=== PATIENT | male | born 1955 | race Caucasian/White ===

== ENCOUNTER 2018-08-19 11:32 | Inpatient (IN) | payer OTHER, SELFPAY ==
[2018-08-19] VITALS (8 sets, daily range): BP systolic 111–138; BP diastolic 47–74; PULSE 67–90; RESP 16–22; TEMP 36.6–36.9; O2SAT 96–100; BMI 38.6; BMI 37.8; BMI 37.9
--- NOTE | 2018-08-19 11:49 | EKG12_ITS ---
Test Reason : WOUND Blood Pressure : / mmHG Vent. Rate : 072 BPM Atrial Rate : 072 BPM P-R Int : 216 ms QRS Dur : 094 ms QT Int : 352 ms P-R-T Axes : 048 045 025 degrees QTc Int : 385 ms Sinus rhythm with 1st degree A-V block Early repolarization Otherwise normal ECG Confirmed by SHIVAM ARMSTRONG, HEENA ([id number]), content editor BREE MYLES ([id number]) on 08/28/2018 2:14:53 PM Referred By: TESFAYE Confirmed By:HEENA LANGLEY MD
--- NOTE | 2018-08-19 11:49 | RAD_ITS ---
STUDY: X-RAY - LEFT FOOT CLINICAL: Male, 62 years old. Worsening open wound 1st, 2nd, 3rd digit, diabetic. TECHNIQUE: 3 view(s) of the foot. COMPARISON: None. FINDINGS: Prominent peripheral arterial calcifications tibioperoneal arteries, dorsalis pedis and plantar arch, interdigital arteries. Osteopenia. Mild DJD intertarsal and tarsometatarsal articulations, and interphalangeal joints. Chronic fusion of the 1st digit interphalangeal joint. Moderate degenerative features of the 1st digit metatarsophalangeal joint, hypertrophic osteophytes at the margin. 5th digit proximal phalanx distal metadiaphysis is absent. There is no proximal interphalangeal joint. Chronic features. Resorbed or resected? There are no lytic/permeative features of the bones, no specific features of acute osteomyelitis. There is no deep soft tissue gas. There is no clearly defined soft tissue swelling of the digits. There is soft tissue prominence overlying the dorsum of the foot at the level of the metatarsals. RAD/Foot min 3 Views IMPRESSION: Dorsal foot soft tissue swelling. No deep soft tissue gas. No specific features of osteomyelitis. Prominent peripheral arterial disease. Electronically Signed: Candelario Boykin MD at 12:43 EDT Tel , Service support ,
--- NOTE | 2018-08-19 11:49 | RAD_ITS ---
STUDY: X-RAY CHEST REASON FOR EXAM: Male, 62 years old. Chest pain, left lower extremity with lungs, nonhealing, diabetic. TECHNIQUE: AP portable upright chest COMPARISON: None. FINDINGS: The lungs are clear and expanded. Normal cardiomediastinal silhouette, hernandez and pleural margins. No acute osseous or upper abdominal process. Hypertrophic articulation of the left 1st rib with the manubrium, possibly reflecting old trauma. Chronic AC joint arthrosis bilaterally. Prominent degenerative features of the glenohumeral articulations bilaterally including loss of the subacromial-normal rotator cuff interval with humeral head articulation with the undersurface of the acromion. Old left-sided rib fractures. Osseous structures otherwise exhibit no acute process. RAD/Chest 1 View (Portable) IMPRESSION: No acute cardiopulmonary process. Electronically Signed: Candelario Boykin MD at 12:39 EDT Tel , Service support ,
--- NOTE | 2018-08-19 11:53 | ED.VISSUMM ---
- ER Visit Summary Date of Service: 08/19/18 Chief Complaint: [] Left great toe second toe infection failed outpatient therapy diabetic History of Present Illness: The patient is a 62 M [] insulin pen diabetes indicates about 2 weeks ago he developed a left great toe ulcer infection similar infection involving the tip of the left second toe, he is been seen by [facility] providers been on antibiotics most likely doxycycline with no improvement his symptoms, today he was seen by his head of business development at [facility] found to have no improvement his symptoms with outpatient and a biotics and therapy was instructed to come to the hospital for admission Patient indicates he really does not track his blood sugars he does not take or monitor them he does take his insulin as prescribed, he had no trauma to the area, no fever no cough he does note the top of the foot dorsal surface is quite red He has history of high cholesterol possibly hypertension all his other health conditions have been stable Physical Examination: [] Vital signs within normal range General, no distress resting comfortably HEENT is generally unremarkable The neck is supple no adenopathy Cardiovascular, regular rate and rhythm Lungs, clear bilateral Abdomen, soft nontender Extremities, left foot there is a 1 cm to 2 cm circular ulcer to the left great toe, there is surrounding erythema to the dorsal foot, there is redness and erythema to the second toe, dorsalis pedis posterior tibial pulses not palpable but present on Doppler, he has cap refill to the toes ankles unremarkable the plantar surface of the foot is unremarkable there is no other lesions or defects, the right lower extremity is unremarkable similarly has poor palpable pulses Neurologic, awake alert answering questions appropriately moving all 4 extremities Test Results: [] Emergency Department Course and Treatment: [] Given all the above the failure outpatient therapy x-rays cultures IV antibiotics we will asked the hospital see the patient for admission Treatment Plan: [] Patient's screening labs are generally unremarkable, foot x-ray shows no signs of acute process soft tissue swelling, IV antibiotics have been started, I spoke with the hospitalist they will arrange for admission and further management patient understands and agrees Disposition: [] Admit stable Impression: [] Neuropathic diabetic related foot infection, insulin pen diabetes mellitus with noncompliance This note was generated with [employer]ation software. It may contain incorrect words, spelling, and punctuation that were not noted in review of the chart prior to signing
[2018-08-19] MEDS: 0.9% Normal Saline 1,000 ML 150 ML IV (12:39)
[2018-08-19 12:45] LABS: Absolute Lymphocyte Count 0.74 X10^3/ul (0.83-4.51); Absolute Neutrophil Count 8.9 X10^3/uL (2.0-7.7); Basophil# 0.02 X10^3/uL; Basophil% 0.2 % (0-1); Eosinophil# 0.09 X10^3/uL; Eosinophils% 0.9 % (0-5); Hematocrit 31.2 % (40-54); Hemoglobin 10.6 g/dl (13.0-16.5); Lymphocyte # 0.74 X10^3/ul (4.0); Lymphocyte % 7.2 % (19-41); Mean Corpuscular Volume 76.5 fL (80-94); Mean Platelet Vol. 8.3 fl (6.2-12.0); Monocyte# 0.53 X10^3/uL; Monocyte% 5.1 % (0-10); Neutrophil # 8.88 X10^3/uL (2.7-7.7); Neutrophil % 86.1 % (47-70); POSITIVE COUNT NO; POSITIVE DIFFERENTIAL NO; POSITIVE MORPHOLOGY NO; Platelet Count 244 K/mm3 (150-450); RBC Distribution Width CV 14.9 % (11.6-14.6); RBC Distribution Width SD 42.3 fl (35.1-43.9); Red Blood Count 4.08 M/mm3 (4.6-6.2); White Blood Count 10.3 K/mm3 (4.4-11.0)
[2018-08-19 12:56] LABS: Anion Gap 5 (5-15); BUN 21 mg/dL (7-18); BUN/Creat Ratio 17.2 RATIO (10-20); Chloride 102 mmol/L (98-107); Creatinine, Serum 1.22 mg/dL (0.70-1.30); EST Glomerular Filtration Rate 63 mL/min (>60); Est Glom Filt Rate - Afr Amer 77 mL/min (>60); Estimated Creatinine Clearance 59.18 ml/min; Glucose 206 mg/dL (74-106); Potassium 4.3 mmol/L (3.5-5.1); Sodium Level 130 mmol/L (136-145)
[2018-08-19 14:08] LABS: M R Staph aureus DNA By PCR Negative (Negative); Probe Check PASS; Specimen Processing Control PASS; Staph aureus DNA By PCR NEGATIVE (Negative)
--- NOTE | 2018-08-19 15:11 | CASEMGMT ---
RN CM Assessment Introduced role of RN CM to patient.? Patient is alert, oriented and able?to participate in RN CM Assessment. ?Care providers, pharmacy, and demographics verified. Presentation: x2 weeks Lt Great Toe Ulcer Infection, h/o similar to Lt 2nd toe infection, seen Previously at [facility] and placed on ABX with no improvement. Seen [facility] referred to ER. Admit Dx: Neuropathic Ulcer Lt Great Toe Re-Admit: No Barriers/Issues: Patient only sees Tankage Grinder one time yearly and states that his Copay for specialist are higher and therefore does not see Tankage Grinder as often as he should. Non compliant with checking Blood Sugar, states does check his feet, however did voice that he did put foot in too hot of temperature in the past and skin sloughed off and was not seen- Patient educated on how to check water temperature & importance of checking water temperature prior to getting in water. Patient also states that he thought black spot on toe was a bruise, CM educated on wounds/eschar and importance of f/u with provider d/t potential infections/wounds that could tunnel, and proper foot care. States went to [facility] prior to coming to ER for MCR, States makes too much for [employer]. [facility] concern of wanting to be home by Sunday as he has four Cats and they have someone to check on them now but Nobody on Sunday, Sunday. PCP: Edward Mcgovern Specialists: Tankage Grinder @[facility] Dr Walsh??? Preferred Pharmacy: [facility] Insurance: MMO Rx Benefit:?Yes LNOK: Brother Honorio Garcia and his Lojjhc-[id number] Caroline Garcia LW/HPOA: No HPOA, believes he has a LW. Would like information. Living Arrangements:? Lives alone in a mobile home, 3-4 steps to enter. ADL?s: Ambulates with a cane, Independent with ADL's Transportation: Drives self, drove to hospital, plan to drive self on DC. DME: Cane, Glucometer HHC: Past-RN. If HH needed, no preference, would like Agency close to his home. No Preference on Infusion [facility] if ABX needed. SNF: Past in [place] Goal: Home, unsure if will need surgery and might need help with wound care DC PLAN: Home with possible HH biochemical development engineer and IV ABX. Nicole Noble RNCM
--- NOTE | 2018-08-19 15:24 | MRI_ITS ---
STUDY: MRI LEFT FOREFOOT WITHOUT CONTRAST REASON FOR EXAM: Male, 62 years old. Osteomyelitis left foot TECHNIQUE: Standardized fat and water weighted pulse sequences were obtained in all 3 orthogonal planes. COMPARISON: Radiographs same day. FINDINGS: The exam is limited due to motion. There is significant subcutaneous edema with decreased T1 and T2 signal within the soft tissues overlying the proximal and distal phalanx of the great toe. There is bony fusion at the proximal and distal phalanx of the big toe. There is significant marrow edema with decreased T1 and increased T2 signal within the proximal middle phalanx of the big toe. There is questionable mild increased T2 signal within the ungual tuft of the distal phalanx of the second digit versus motion artifact. Limited evaluation of the tendons and intrinsic extrinsic ligaments appear intact. The third and fourth and fifth digits demonstrate normal marrow signal within the phalanges. There are no fractures. There are significant degenerative changes which are most significant at first tarsometatarsal joint with osteophyte formation, osteochondral defect with subchondral geode within the proximal metaphysis of the first metatarsal. There also osteochondral defects with geodes within the proximal metaphyses of the second and third metatarsals. There is osteophyte formation involving the cuneiforms. The hindfoot was not included on the [id number]. There are degenerative changes first metatarsal phalangeal joint with a small articular and osteochondral defects distal first metatarsal. There is osteophyte formation at the first metatarsophalangeal joint MRI/Lower Ext/No Jt/w/o IMPRESSION: The exam is limited to motion artifact Cellulitis and osteomyelitis of the proximal and distal phalanges of the big toe. There is bony fusion of the interphalangeal joint of the big toe with fusion of the proximal and distal phalanx Cellulitis of the distal aspect of the second digit with questionable mild osteomyelitis of the ungual tuft of the second digit versus motion artifact Osteoarthrosis as above Electronically Signed: Tarun Moraes, at 22:12 EDT Tel , Service support ,
[2018-08-19 16:36] LABS: Bedside Glucose 118 mg/dL (70-110)
--- NOTE | 2018-08-19 17:38 | HP.PCM_ITS ---
Problem List (1) Infected neuropathic ulcer Status: Acute Comment: Left great toe History of Present Illness Date of Admission: 08/19/18 Chief Complaint: Infected neuropathic ulceration left great toe The patient is a 62 year old M who was seen in the emergency room at [facility] after being instructed to come in by his book illustrator after he was seen in the office with a draining area on his left great toe. Patient states he had been shaving a callus on his left great toe approximately 1/2 to 2 weeks ago and he feels he must have gone to deep in the trimming, he was seen at an urgent care approximately a week ago and placed on doxycycline. Patient has a history of type 2 diabetes and has peripheral neuropathy. Patient was seen in his book illustrator office today and cultures were obtained from the area and he was instructed to come to the ER for evaluation and admission to the hospital. Labs obtained in the emergency room showed a normal white blood cell count, hemoglobin was 10.6, sodium was low 130, BUN was elevated at 21, glucose was elevated at 206. Patient's PCR of the left great toe wound was obtained and was negative for staph aureus. I talked with podiatry (Dr. Walsh) by phone and he let me know that the patient's culture done in the urgent care was positive for Citrobacter, enterococcus, and Pseudomonas. He states however that the wound was not an open wound at that point. Patient was given Zosyn and vancomycin in the ER, he will be admitted to [place] [id number] for infected left great toe neuropathic ulcer. Past Medical History Allergies No Known Allergies Allergy (Verified 08/19/18 11:32) Home Medications: Ambulatory Orders Medication Instructions Recorded Amitriptyline HCl 50 mg PO QHS 08/19/18 Amlodipine [Norvasc] 10 mg PO DAILY 08/19/18 Aspirin [Aspir 81] 81 mg PO DAILY 08/19/18 Benzonatate [Tessalon Perle] 100 mg PO TID PRN PRN 08/19/18 Docusate Sodium 100 mg PO BID PRN 08/19/18 Doxazosin Mesylate 2 mg PO QHS 08/19/18 Doxycycline 100 mg PO BID 08/19/18 Fluticasone 0.05% [Flonase Nasal 1 spray NASAL DAILY PRN 08/19/18 [place]] Gabapentin [Neurontin] 300 mg PO BREAKFAST 08/19/18 Gabapentin [Neurontin] 600 mg PO QHS 08/19/18 Insulin Glargine,Hum.rec.anlog 15 unit SQ QHS 08/19/18 [Lantus Solostar] Loratadine 10 mg PO DAILY 08/19/18 Losartan Potassium 100 mg PO DAILY 08/19/18 Magnesium Oxide [Magnesium] 400 mg PO DAILY 08/19/18 Metformin HCl [Glucophage] 850 mg PO TIDCM 08/19/18 Metoprolol Tartrate [Lopressor 100 mg PO BID 08/19/18 (Beta Mk)] Nitroglycerin [Nitrolingual [place]] 0.4 mg SUBLINGUAL PRN PRN 08/19/18 [place]-3 Fatty Acids/Fish Oil 1 each PO DAILY 08/19/18 [[place] 3 Fish Oil Softgel] Simvastatin [Zocor] 40 mg PO QHS 08/19/18 Sitagliptin Phosphate [Januvia] 100 mg PO DAILY 08/19/18 Spironolactone [Aldactone] 50 mg PO DAILY 08/19/18 Triamterene/Hctz 37.5/25Mg 1 cap PO DAILY 08/19/18 [Triamterene-Hctz 37.5-25 mg Tb] Surgical History: cataract, total knee arthroplasty, tonsillectomy Psychiatric History: No pertinent psych hx Lives: Alone Smoking Status: Former smoker Tobacco Use: Cigars Alcohol: None Drugs: None - *Family History Maternal History Items: No pertinent history Paternal History Items: No pertinent history Review of Systems Constitutional: Denies: Anorexia, Chills, Fever, Night Sweats, Malaise, Weakness, Weight Change, Fatigue Eyes: Denies: Cataracts, Conjunctivae Inflammation, Double vision, Drainage HEENT: Denies: Dysphasia, Ear Pain, Eye Pain, Hearing Changes, Nasal bleeding, Nasal Congestion, Post Nasal Drip Cardiovascular: Denies: Chest Pain, Claudication, Chest Pressure, Chest Tightness, Edema, Heaviness, Light Headedness, Palpitations Respiratory: Denies: Cough, Hemoptysis, Pleuritic Pain, Shortness of Breath, Shortness of breath at rest, Shortness of breath upon exertion Gastrointestinal: Denies: Abdominal Pain, Constipation, Diarrhea, Hematemesis, Hematochezia, Nausea, Melena, Vomiting Genitourinary: Denies: Dysuria, Frequency, Hematuria, Hesitancy, Urgency Musculoskeletal: Denies: Back Pain, Foot Pain, Hand Pain, Joint Pain, Joint stiffness, Joint swelling, Leg Pain Skin: Denies: Dryness, Pruritis, Rash Neurological: Reports: Numbness - Bilateral numbness in feet due to diabetic neuropathy. Denies: Balance problems, Blurred vision, Double vision, Slurred speech, Difficulty swallowing, Focal weakness, Headaches, Tingling Psychiatric: Denies: Anxiety, Depression, Homicidal Ideations, Suicidal Ideations Endocrine: Denies: Change in Body Habitus, Heat/ Cold Intolerance, Polydipsia, Polyuria Hematologic/ Lymphatic: Denies: Adenopathy, Anemia, Easy Bruising, Easy Bleeding, Petechiae, Purpura VTE Information - Inpt Only VTE Present on Admission: No VTE Mechan Device Prophylaxis: None VTE Pharm Prophylaxis ordered?: Yes Patient Problems: Active and Suspected Problems Infected neuropathic ulcer (Acute) Left great toe - Physical Exam General: Alert, Oriented x3, Cooperative, No apparent distress, Well developed, Well nourished HEENT: Atraumatic, PERRLA, EOMI, Normocephalic Oral: Moist Mucosa Neck: Supple, No JVD, Negative Carotid Bruits, No Nuchal Rigidity, Trachea Midline, Thyroid Normal Size and Texture Lungs: Clear to auscultation, Normal air movement, No rhonchi, No wheeze, No rales Cardiovascular: Regular rate, Regular Rhythm, Normal S1, Normal S2, No murmurs, No Ectopic Activity, PMI Normal, No rub noted, No Gallop Abdomen: Bowel Sounds Present, Soft, Non Tender, Non-Distended, Obese, No hernias noted Extremities: No clubbing, No cyanosis, Capillary Refill Less than 3 Seconds, Edema - There is generalized lower leg edema noted Skin: No rashes, Ulcer/ Wound - There is a 3 cm long by 2 and half centimeter wide ulceration to the medial aspect of the patient's left great toe, there is some clear drainage from the area noted, the top of the patient's left foot appears warm but not red Musculoskeletal: No Tenderness to Palpation of Joints or Extremities Neurological: Cranial nerves II-XII grossly intact, Neuro grossly intact, Muscle tone normal, - - Decreased sensation to light touch and pain in the feet foster aterally Psych/Mental Status: Normal Affect, Appropriate, Alert and oriented to time, place, person, mood and affect Vital Signs Temp Pulse Resp BP Pulse Ox 97.8 F 71 18 114/63 100 08/19/18 15:39 08/19/18 15:39 08/19/18 15:39 08/19/18 15:39 08/19/18 15:39 Oxygen Delivery Method Room Air Weight: 112.99 kg Body Mass Index (BMI) 37.8 Microbiology Past 72 Hours 08/19/18 12:15 Gram Stain - Final Wound Abcess - Leg, Left Laboratory Tests Past 24 Hrs 08/19/18 08/19/18 08/19/18 12:15 12:30 12:30 WBC 10.3 RBC 4.08 L Hgb 10.6 L Hct 31.2 L MCV 76.5 L MCH 26.0 L MCHC 34.0 RDW 14.9 H RDW Differential 42.3 Plt Count 244 MPV 8.3 Immature Gran % (Auto) 0.500 Neut % (Auto) 86.1 H Lymph % (Auto) 7.2 L [place] % (Auto) 5.1 Eos % (Auto) 0.9 Baso % (Auto) 0.2 Absolute Neuts (auto) 8.9 H Absolute Lymphs (auto) 0.74 L Total Counted Not Reportable Sodium 130 L Potassium 4.3 Chloride 102 Carbon Dioxide 23.0 Anion Gap 5 BUN 21 H Creatinine 1.22 Estim Creat Clear Calc 59.18 Est GFR (MDRD) Af Amer 77 Est GFR (MDRD) Non-Af 63 BUN/Creatinine Ratio 17.2 Glucose 206 H Calcium 9.0 Troponin I < 0.015 S.aureus Protein A PCR NEGATIVE MRSA (PCR) Negative POC Glucose 08/19/18 16:30 POC Glucose 118 H Assessment/Plan All Active Problems Infected neuropathic ulcer (Acute) #1 acute infected neuropathic ulceration of the left great toe with Citrobacter, enterococcus, and Pseudomonas-patient will be admitted to [facility], he will be seen by podiatry, podiatry requested that an MRI be ordered on the left foot, patient will be kept on IV Zosyn in light of his outpatient culture results. #2 diabetic neuropathy #3 hypertension #4 type 2 diabetes-blood sugars will be monitored, sliding scale insulin will be administered as needed #5 hyponatremia-etiology unclear, labs will be rechecked tomorrow #5 obesity #6 anemia-etiology unclear, possibly iron deficiency anemia, iron level be obtained Code Visit Inpatient E&M: 60129 Init Hosp L3
[2018-08-19 18:57] LABS: Iron 31 ug/dL (65-175); Iron Binding Capacity,Total 229 ug/dL (250-450); PERCENT IRON SATURATION 13.5 % (15.0-55.0)
[2018-08-19] MEDS: Metoprolol Tartrate 100 MG Tablet PO (21:49)
[2018-08-19] MEDS: Amitriptyline 25 MG Tablet 50 MG PO (21:49)
[2018-08-19] MEDS: Atorvastatin Calcium 20 MG Tablet PO (21:49)
[2018-08-19] MEDS: Doxazosin 1 MG Tablet 2 MG PO (21:49)
[2018-08-19] MEDS: Gabapentin 300 MG Capsule 600 MG PO (21:49)
[2018-08-19 23:56] LABS: Bedside Glucose 149 mg/dL (70-110)
[2018-08-20] VITALS (8 sets, daily range): BP systolic 117–138; BP diastolic 58–78; PULSE 66–84; RESP 16–18; TEMP 36.6–36.9; O2SAT 98–99
[2018-08-20 07:10] LABS: Bedside Glucose 119 mg/dL (70-110)
--- NOTE | 2018-08-20 07:16 | PCM.PN.HOSP ---
Patient Problems: Active and Suspected Problems Infected neuropathic ulcer (Acute) Left great toe Vitals/I&O's: Vital Signs Temp Pulse Resp BP Pulse Ox 98.1 F 66 18 125/60 H 99 08/20/18 05:00 08/20/18 05:00 08/20/18 05:00 08/20/18 05:00 08/20/18 05:00 Oxygen Delivery Method Room Air Weight: 112.99 kg Body Mass Index (BMI) 37.8 Intake and Output for Last 24 Hours 08/18/18 08/19/18 08/20/18 23:59 23:59 23:59 Intake Total 1162 / 1162 Output Total 1300 / 1300 Balance -138 / -138 Microbiology Past 72 Hours 08/19/18 12:15 Wound Abcess - Leg, Left Gram Stain - Final Laboratory Results 08/19/18 12:15: S.aureus Protein A PCR NEGATIVE, MRSA (PCR) Negative 08/19/18 12:30: WBC 10.3, RBC 4.08 L, Hgb 10.6 L, Hct 31.2 L, MCV 76.5 L, MCH 26.0 L, MCHC 34.0, RDW 14.9 H, RDW Differential 42.3, Plt Count 244, MPV 8.3, Immature Gran % (Auto) 0.500, Neut % (Auto) 86.1 H, Lymph % (Auto) 7.2 L, [place] % (Auto) 5.1, Eos % (Auto) 0.9, Baso % (Auto) 0.2, Absolute Neuts (auto) 8.9 H, Absolute Lymphs (auto) 0.74 L, Total Counted Not Reportable 08/19/18 12:30: Sodium 130 L, Potassium 4.3, Chloride 102, Carbon Dioxide 23.0, Anion Gap 5, BUN 21 H, Creatinine 1.22, Estim Creat Clear Calc 59.18, Est GFR (MDRD) Af Amer 77, Est GFR (MDRD) Non-Af 63, BUN/Creatinine Ratio 17.2, Glucose 206 H, Calcium 9.0, Troponin I < 0.015 08/19/18 12:30: Iron 31 L, TIBC 229 L, Iron Saturation 13.5 L 08/19/18 16:30: POC Glucose 118 H 08/19/18 21:42: POC Glucose 149 H 08/20/18 07:02: POC Glucose 119 H Current Medications Acetaminophen (Tylenol) 650 mg PO Q6H PRN PRN PRN Reason: Mild Pain (1-3)/Temp > 100.7 F Amitriptyline HCl (Elavil) 50 mg PO QHS [facility] Last Admin: 08/19/18 21:49 Dose: 50 mg Amlodipine Besylate (Norvasc) 10 mg PO DAILY [facility] Aspirin (Ecotrin) 81 mg PO DAILY@0800 [facility] Atorvastatin Calcium (Lipitor) 20 mg PO QHS [facility] Last Admin: 08/19/18 21:49 Dose: 20 mg Dextrose (D50w Syringe) 0 gm IV X1 PRN; Protocol PRN Reason: Hypoglycemia Docusate Sodium (Colace) 100 mg PO BID PRN PRN Reason: Constipation Doxazosin Mesylate (Cardura) 2 mg PO QHS [facility] Last Admin: 08/19/18 21:49 Dose: 2 mg Enoxaparin Sodium (Lovenox) 40 mg SC DAILY@1000 [facility] Gabapentin (Neurontin) 300 mg PO BREAKFAST [facility] Gabapentin (Neurontin) 600 mg PO QHS [facility] Last Admin: 08/19/18 21:49 Dose: 600 mg Glucagon () 1 mg IM .X1 PRN PRN Reason: Hypoglycemia Piperacillin Sod/Tazobactam (Sod 3.375 gm/ Sodium Chloride) 50 mls @ 12.5 mls/hr IV Q8 [facility] Last Admin: 08/20/18 05:30 Dose: 12.5 mls/hr Insulin Glargine (Lantus (Bkc)) 15 units SC QHS [facility] Last Admin: 08/19/18 21:49 Dose: 15 u Insulin Human Lispro (Humalog Kwikpen (Bkc)) 0 unit SQ ACHS [facility]; Protocol Last Admin: 08/20/18 07:03 Dose: Not Given Linagliptin (Tradjenta) 5 mg PO DAILY [facility] Losartan Potassium (Cozaar) 100 mg PO DAILY [facility] Magnesium Oxide (Mag-Ox 400) 400 mg PO DAILY [facility] Metformin HCl (Glucophage) 850 mg PO TIDCM [facility] Last Admin: 08/19/18 17:05 Dose: 850 mg Metoprolol Tartrate (Lopressor (Beta Mk)) 100 mg PO BID [facility] Last Admin: 08/19/18 21:49 Dose: 100 mg Ondansetron HCl (Zofran) 4 mg IV Q8H PRN PRN PRN Reason: NAUSEA/VOMITING Sodium Chloride () 5 - 15 ml IV UD PRN PRN Reason: SALINE FLUSH Spironolactone (Aldactone) 50 mg PO DAILY [facility] Medical Necessity - Tobacco Use Smoking Status: Former smoker Tobacco Use: Cigars Assessment/Plan All Active Problems Infected neuropathic ulcer (Acute) Citrobacter, enterococcus, and Pseudomonas Active Medications Acetaminophen (Tylenol) 650 mg PO Q6H PRN PRN PRN Reason: Mild Pain (1-3)/Temp > 100.7 F Amitriptyline HCl (Elavil) 50 mg PO QHS [facility] Last Admin: 08/19/18 21:49 Dose: 50 mg Amlodipine Besylate (Norvasc) 10 mg PO DAILY [facility] Aspirin (Ecotrin) 81 mg PO DAILY@0800 [facility] Atorvastatin Calcium (Lipitor) 20 mg PO QHS [facility] Last Admin: 08/19/18 21:49 Dose: 20 mg Dextrose (D50w Syringe) 0 gm IV X1 PRN; Protocol PRN Reason: Hypoglycemia Docusate Sodium (Colace) 100 mg PO BID PRN PRN Reason: Constipation Doxazosin Mesylate (Cardura) 2 mg PO QHS [facility] Last Admin: 08/19/18 21:49 Dose: 2 mg Enoxaparin Sodium (Lovenox) 40 mg SC DAILY@1000 [facility] Gabapentin (Neurontin) 300 mg PO BREAKFAST [facility] Gabapentin (Neurontin) 600 mg PO QHS [facility] Last Admin: 08/19/18 21:49 Dose: 600 mg Glucagon () 1 mg IM .X1 PRN PRN Reason: Hypoglycemia Piperacillin Sod/Tazobactam (Sod 3.375 gm/ Sodium Chloride) 50 mls @ 12.5 mls/hr IV Q8 [facility] Last Admin: 08/20/18 05:30 Dose: 12.5 mls/hr Insulin Glargine (Lantus (Bkc)) 15 units SC QHS [facility] Last Admin: 08/19/18 21:49 Dose: 15 u Insulin Human Lispro (Humalog Kwikpen (Bkc)) 0 unit SQ ACHS [facility]; Protocol Last Admin: 08/20/18 07:03 Dose: Not Given Linagliptin (Tradjenta) 5 mg PO DAILY [facility] Losartan Potassium (Cozaar) 100 mg PO DAILY [facility] Magnesium Oxide (Mag-Ox 400) 400 mg PO DAILY [facility] Metformin HCl (Glucophage) 850 mg PO TIDCM [facility] Last Admin: 08/19/18 17:05 Dose: 850 mg Metoprolol Tartrate (Lopressor (Beta Mk)) 100 mg PO BID [facility] Last Admin: 08/19/18 21:49 Dose: 100 mg Ondansetron HCl (Zofran) 4 mg IV Q8H PRN PRN PRN Reason: NAUSEA/VOMITING Sodium Chloride () 5 - 15 ml IV UD PRN PRN Reason: SALINE FLUSH Spironolactone (Aldactone) 50 mg PO DAILY [facility] Clinical Impression(s) from Imaging Studies Chest X-Ray 08/19/18 11:49 IMPRESSION: No acute cardiopulmonary process. Electronically Signed: Candelario Boykin MD at 12:39 EDT Tel , Service support , Foot X-Ray 08/19/18 11:49 IMPRESSION: Dorsal foot soft tissue swelling. No deep soft tissue gas. No specific features of osteomyelitis. Prominent peripheral arterial disease. Electronically Signed: Candelario Boykin MD at 12:43 EDT Tel , Service support , Lower Extremity MRI 08/19/18 15:24 IMPRESSION: The exam is limited to motion artifact Cellulitis and osteomyelitis of the proximal and distal phalanges of the big toe. There is bony fusion of the interphalangeal joint of the big toe with fusion of the proximal and distal phalanx Cellulitis of the distal aspect of the second digit with questionable mild osteomyelitis of the ungual tuft of the second digit versus motion artifact Osteoarthrosis as above Electronically Signed: Tarun Moraes, at 22:12 EDT Tel , Service support ,
--- NOTE | 2018-08-20 07:25 | PCM.CONS.GEN ---
Reason for Consult Date of Consultation: 08/20/18 Reason for Consultation: diabetic foot ulceration, left hallux History of Present Illness: The patient is a 62 year old M with history of diabetes. He reports developing a callus to the medial aspect of his left hallux several months ago. despite callus formation, he neglected to make an appointment with me. he tried to treat the callus himself with self debridement. Patient states that last week, he noticed a large wound to his left hallux. he developed redness and drainage. he presented to urgent care last week and was prescribed doxycycline. a wound culture was performed last week and was positive for pseudomonas, citrobacter and enterococcus. He presented to my clinic yesterday as referral and was recommended admission to hospital. a tissue culture performed by me was performed and results are pending. patient was admitted to hospital and placed on zosyn. mri was performed yesterday evening patient denies pain. patient denies n/v/f/.c Past Medical History Allergies No Known Allergies Allergy (Verified 08/19/18 11:32) Home Medications: Ambulatory Orders Medication Instructions Recorded Amitriptyline HCl 50 mg PO QHS 08/19/18 Amlodipine [Norvasc] 10 mg PO DAILY 08/19/18 Aspirin [Aspir 81] 81 mg PO DAILY 08/19/18 Benzonatate [Tessalon [place]] 100 mg PO TID PRN PRN 08/19/18 Docusate Sodium 100 mg PO BID PRN 08/19/18 Doxazosin Mesylate 2 mg PO QHS 08/19/18 Doxycycline 100 mg PO BID 08/19/18 Fluticasone 0.05% [Flonase Nasal 1 spray NASAL DAILY PRN 08/19/18 [place]] Gabapentin [Neurontin] 300 mg PO BREAKFAST 08/19/18 Gabapentin [Neurontin] 600 mg PO QHS 08/19/18 Insulin Glargine,Hum.rec.anlog 15 unit SQ QHS 08/19/18 [Lantus Solostar] Loratadine 10 mg PO DAILY 08/19/18 Losartan Potassium 100 mg PO DAILY 08/19/18 Magnesium Oxide [Magnesium] 400 mg PO DAILY 08/19/18 Metformin HCl [Glucophage] 850 mg PO TIDCM 08/19/18 Metoprolol Tartrate [Lopressor 100 mg PO BID 08/19/18 (Beta Mk)] Nitroglycerin [Nitrolingual [place]] 0.4 mg SUBLINGUAL PRN PRN 08/19/18 [place]-3 Fatty Acids/Fish Oil 1 each PO DAILY 08/19/18 [[place] 3 Fish Oil Softgel] Simvastatin [Zocor] 40 mg PO QHS 08/19/18 Sitagliptin Phosphate [Januvia] 100 mg PO DAILY 08/19/18 Spironolactone [Aldactone] 50 mg PO DAILY 08/19/18 Triamterene/Hctz 37.5/25Mg 1 cap PO DAILY 08/19/18 [Triamterene-Hctz 37.5-25 mg Tb] Surgical History: cataract, total knee arthroplasty, tonsillectomy Psychiatric History: No pertinent psych hx Lives: Alone Smoking Status: Former smoker Tobacco Use: Cigars Alcohol: None Drugs: None - *Family History Maternal History Items: No pertinent history Paternal History Items: No pertinent history Patient Problems: Active and Suspected Problems Infected neuropathic ulcer (Acute) Left great toe Objective: patient is alert and orientated x 3. patient does not appear in any distress vascular: DP and PT pulses are nonpalpable b/l. CFT is delayed. skin temperature is warm to cool. hair growth is decreased. Derm: there is full thickness ulceration of left hallux with moderate fibrotic tissue. no drainage or erythema is noted. the ulceration measures 1.8 cm x 2.3 cm x 0.3 cm. there is previously debrided eschar of left 2nd toe without infection. M/s: there is fusion of left hallux ipj. mild swelling is present to left foot. no calf pain present. MRI: there are findings consistent wtih osteomyelitis of left hallux distal and proximal to ipj fusion. motion artifact vs osteomyelitis of distal tuft, left 2nd toe - Physical Exam Vital Signs Temp Pulse Resp BP Pulse Ox 98.1 F 66 18 125/60 H 99 08/20/18 05:00 08/20/18 05:00 08/20/18 05:00 08/20/18 05:00 08/20/18 05:00 Oxygen Delivery Method Room Air Weight: 112.99 kg Body Mass Index (BMI) 37.8 Intake and Output for Last 24 Hours 08/18/18 08/19/18 08/20/18 23:59 23:59 23:59 Intake Total 1162 / 1162 Output Total 1300 / 1300 Balance -138 / -138 Microbiology Past 72 Hours 08/19/18 12:15 Gram Stain - Final Wound Abcess - Leg, Left Laboratory Tests Past 24 Hrs 08/19/18 08/19/18 08/19/18 12:15 12:30 12:30 WBC 10.3 RBC 4.08 L Hgb 10.6 L Hct 31.2 L MCV 76.5 L MCH 26.0 L MCHC 34.0 RDW 14.9 H RDW Differential 42.3 Plt Count 244 MPV 8.3 Immature Gran % (Auto) 0.500 Neut % (Auto) 86.1 H Lymph % (Auto) 7.2 L [place] % (Auto) 5.1 Eos % (Auto) 0.9 Baso % (Auto) 0.2 Absolute Neuts (auto) 8.9 H Absolute Lymphs (auto) 0.74 L Total Counted Not Reportable Sodium 130 L Potassium 4.3 Chloride 102 Carbon Dioxide 23.0 Anion Gap 5 BUN 21 H Creatinine 1.22 Estim Creat Clear Calc 59.18 Est GFR (MDRD) Af Amer 77 Est GFR (MDRD) Non-Af 63 BUN/Creatinine Ratio 17.2 Glucose 206 H Calcium 9.0 Iron TIBC Iron Saturation Troponin I < 0.015 S.aureus Protein A PCR NEGATIVE MRSA (PCR) Negative 08/19/18 12:30 WBC RBC Hgb Hct MCV MCH MCHC RDW RDW Differential Plt Count MPV Immature Gran % (Auto) Neut % (Auto) Lymph % (Auto) [place] % (Auto) Eos % (Auto) Baso % (Auto) Absolute Neuts (auto) Absolute Lymphs (auto) Total Counted Sodium Potassium Chloride Carbon Dioxide Anion Gap BUN Creatinine Estim Creat Clear Calc Est GFR (MDRD) Af Amer Est GFR (MDRD) Non-Af BUN/Creatinine Ratio Glucose Calcium Iron 31 L TIBC 229 L Iron Saturation 13.5 L Troponin I S.aureus Protein A PCR MRSA (PCR) POC Glucose 08/20/18 08/19/18 08/19/18 07:02 21:42 16:30 POC Glucose 119 H 149 H 118 H Assessment/Plan All Active Problems Infected neuropathic ulcer (Acute) Patient was examined at bedside. the following recommendations were made. 1. I discussed the clinical appearance of left hallux and mri findings consistent with infection. He has cultures that are growing pseudomonas, enterococcus and citrobacter. He is tolerating antibiotic nicely . we discussed options regarding the care of this ulceration. I discussed conservative care, ie no amputation and treat with antibiotics. my concern with this is the large wound that is present and the expected duration in which it would require to heal. Patient would require nwb to left hallux and weekly follow-up and wound care. certainly this option does carry risk of infection spread. Amputation was discussed. I discussed partial toe vs complete toe amputation. given mri findings, I suspect the infection involves the entire toe and that complete toe amputation may be necessary to eliminate the infection. if partial toe amputation was performed, he would likely require antibiotics for extended duration. I am going to consult ID to assist in treatment of infection with antibiotic. 2. patient would like to try and salvage the toe but he realizes that amputation may be best. He is leaning on amputation. 3. on exam, patient has nonpalpable pulses. I recommend pvr to assure ability to heal. if his circulation is adequate, can arrange for amputation possibly tomorrow. if pvr suggests poor perfusion, since the toe is clinically stable and patient is stable, would hold on amputation until vascular status improved. 4. mri does have concern for motion artifact vs osteomyelitis of distal tuft of 2nd toe. I suspect this is motion artifact. we discussed distal syme amputation but he would prefer to treat with antibiotics. 5. ulceration of left hallux was debrided today with scissors and forceps. debridement was performed thru subcutaneous tissue. minimal bleeding present and controlled with pressure. 6. recommend offloading of heels while in bed.
--- NOTE | 2018-08-20 07:31 | PN_ITS ---
Patient Problems: Active and Suspected Problems Infected neuropathic ulcer (Acute) Left great toe Vitals/I&O's: Vital Signs Temp Pulse Resp BP Pulse Ox 98.1 F 66 18 125/60 H 99 08/20/18 05:00 08/20/18 05:00 08/20/18 05:00 08/20/18 05:00 08/20/18 05:00 Oxygen Delivery Method Room Air Weight: 112.99 kg Body Mass Index (BMI) 37.8 Intake and Output for Last 24 Hours 08/18/18 08/19/18 08/20/18 23:59 23:59 23:59 Intake Total 1162 / 1162 Output Total 1300 / 1300 Balance -138 / -138 Microbiology Past 72 Hours 08/19/18 12:15 Wound Abcess - Leg, Left Gram Stain - Final Laboratory Results 08/19/18 12:15: S.aureus Protein A PCR NEGATIVE, MRSA (PCR) Negative 08/19/18 12:30: WBC 10.3, RBC 4.08 L, Hgb 10.6 L, Hct 31.2 L, MCV 76.5 L, MCH 26.0 L, MCHC 34.0, RDW 14.9 H, RDW Differential 42.3, Plt Count 244, MPV 8.3, Immature Gran % (Auto) 0.500, Neut % (Auto) 86.1 H, Lymph % (Auto) 7.2 L, [place] % (Auto) 5.1, Eos % (Auto) 0.9, Baso % (Auto) 0.2, Absolute Neuts (auto) 8.9 H, Absolute Lymphs (auto) 0.74 L, Total Counted Not Reportable 08/19/18 12:30: Sodium 130 L, Potassium 4.3, Chloride 102, Carbon Dioxide 23.0, Anion Gap 5, BUN 21 H, Creatinine 1.22, Estim Creat Clear Calc 59.18, Est GFR (MDRD) Af Amer 77, Est GFR (MDRD) Non-Af 63, BUN/Creatinine Ratio 17.2, Glucose 206 H, Calcium 9.0, Troponin I < 0.015 08/19/18 12:30: Iron 31 L, TIBC 229 L, Iron Saturation 13.5 L 08/19/18 16:30: POC Glucose 118 H 08/19/18 21:42: POC Glucose 149 H 08/20/18 07:02: POC Glucose 119 H Current Medications Acetaminophen (Tylenol) 650 mg PO Q6H PRN PRN PRN Reason: Mild Pain (1-3)/Temp > 100.7 F Amitriptyline HCl (Elavil) 50 mg PO QHS COUNTS [facility] BEDS AT [facility] Last Admin: 08/19/18 21:49 Dose: 50 mg Amlodipine Besylate (Norvasc) 10 mg PO DAILY [facility]S [facility] 234 B[facility]S [facility] Aspirin (Ecotrin) 81 mg PO DAILY@0800 COUNTS [facility] 234 B[facility]S AT [facility] Atorvastatin Calcium (Lipitor) 20 mg PO QHS COUNTS [facility] 234 B[facility]S AT [facility] Last Admin: 08/19/18 21:49 Dose: 20 mg Dextrose (D50w Syringe) 0 gm IV X1 PRN; Protocol PRN Reason: Hypoglycemia Docusate Sodium (Colace) 100 mg PO BID PRN PRN Reason: Constipation Doxazosin Mesylate (Cardura) 2 mg PO QHS COUNTS [facility]CLUDE 234 B[facility]S [facility] Last Admin: 08/19/18 21:49 Dose: 2 mg Enoxaparin Sodium (Lovenox) 40 mg SC DAILY@1000 COUNTS [facility] 234 BEDS AT [facility] Gabapentin (Neurontin) 300 mg PO BREAKFAST COUNTS [facility] 234 B[facility]S [facility] Gabapentin (Neurontin) 600 mg PO QHS COUNTS [facility] 234 B[facility]S [facility] Last Admin: 08/19/18 21:49 Dose: 600 mg Glucagon () 1 mg IM .X1 PRN PRN Reason: Hypoglycemia Piperacillin Sod/Tazobactam (Sod 3.375 gm/ Sodium Chloride) 50 mls @ 12.5 mls/hr IV Q8 COUNTS [facility]CLUDE 234 BEDS AT [facility] Last Admin: 08/20/18 05:30 Dose: 12.5 mls/hr Insulin Glargine (Lantus (Bkc)) 15 units SC QHS COUNTS [facility]CLUDE 234 BEDS AT [facility] Last Admin: 08/19/18 21:49 Dose: 15 u Insulin Human Lispro (Humalog Kwikpen (Bkc)) 0 unit SQ ACHS COUNTS [facility]CLUDE 234 BEDS AT [facility]; Protocol Last Admin: 08/20/18 07:03 Dose: Not Given Linagliptin (Tradjenta) 5 mg PO DAILY COUNTS INCLUDE 234 BEDS AT [facility] Losartan Potassium (Cozaar) 100 mg PO DAILY COUNTS [facility]CLUDE 234 BEDS AT [facility] Magnesium Oxide (Mag-Ox 400) 400 mg PO DAILY COUNTS INCLUDE 234 BEDS AT [facility] Metformin HCl (Glucophage) 850 mg PO TIDCM COUNTS INCLUDE 234 BEDS AT [facility] Last Admin: 08/19/18 17:05 Dose: 850 mg Metoprolol Tartrate (Lopressor (Beta Mk)) 100 mg PO BID COUNTS [facility]CLUDE 234 BEDS AT [facility] Last Admin: 08/19/18 21:49 Dose: 100 mg Ondansetron HCl (Zofran) 4 mg IV Q8H PRN PRN PRN Reason: NAUSEA/VOMITING Sodium Chloride () 5 - 15 ml IV UD PRN PRN Reason: SALINE FLUSH Spironolactone (Aldactone) 50 mg PO DAILY COUNTS INCLUDE 234 BEDS AT [facility] Medical Necessity - Tobacco Use Smoking Status: Former smoker Tobacco Use: Cigars Assessment/Plan All Active Problems Infected neuropathic ulcer (Acute) Citrobacter, enterococcus, and Pseudomonas Active Medications Acetaminophen (Tylenol) 650 mg PO Q6H PRN PRN PRN Reason: Mild Pain (1-3)/Temp > 100.7 F Amitriptyline HCl (Elavil) 50 mg PO QHS COUNTS INCLUDE 234 BEDS AT [facility] Last Admin: 08/19/18 21:49 Dose: 50 mg Amlodipine Besylate (Norvasc) 10 mg PO DAILY COUNTS [facility]CLUDE 234 BEDS AT [facility] Aspirin (Ecotrin) 81 mg PO DAILY@0800 COUNTS INCLUDE 234 BEDS AT [facility] Atorvastatin Calcium (Lipitor) 20 mg PO QHS COUNTS INCLUDE 234 BEDS AT [facility] Last Admin: 08/19/18 21:49 Dose: 20 mg Dextrose (D50w Syringe) 0 gm IV X1 PRN; Protocol PRN Reason: Hypoglycemia Docusate Sodium (Colace) 100 mg PO BID PRN PRN Reason: Constipation Doxazosin Mesylate (Cardura) 2 mg PO QHS COUNTS INCLUDE 234 BEDS AT [facility] Last Admin: 08/19/18 21:49 Dose: 2 mg Enoxaparin Sodium (Lovenox) 40 mg SC DAILY@1000 COUNTS INCLUDE 234 BEDS AT [facility] Gabapentin (Neurontin) 300 mg PO BREAKFAST COUNTS INCLUDE 234 BEDS AT [facility] Gabapentin (Neurontin) 600 mg PO QHS COUNTS INCLUDE 234 BEDS AT [facility] Last Admin: 08/19/18 21:49 Dose: 600 mg Glucagon () 1 mg IM .X1 PRN PRN Reason: Hypoglycemia Piperacillin Sod/Tazobactam (Sod 3.375 gm/ Sodium Chloride) 50 mls @ 12.5 mls/hr IV Q8 COUNTS INCLUDE 234 BEDS AT [facility] Last Admin: 08/20/18 05:30 Dose: 12.5 mls/hr Insulin Glargine (Lantus (Bkc)) 15 units SC QHS COUNTS INCLUDE 234 BEDS AT [facility] Last Admin: 08/19/18 21:49 Dose: 15 u Insulin Human Lispro (Humalog Kwikpen (Bkc)) 0 unit SQ ACHS COUNTS INCLUDE 234 BEDS AT [facility]; Protocol Last Admin: 08/20/18 07:03 Dose: Not Given Linagliptin (Tradjenta) 5 mg PO DAILY COUNTS INCLUDE 234 BEDS AT [facility] Losartan Potassium (Cozaar) 100 mg PO DAILY COUNTS INCLUDE 234 BEDS AT [facility] Magnesium Oxide (Mag-Ox 400) 400 mg PO DAILY COUNTS INCLUDE 234 BEDS AT [facility] Metformin HCl (Glucophage) 850 mg PO TIDCM COUNTS INCLUDE 234 BEDS AT [facility] Last Admin: 08/19/18 17:05 Dose: 850 mg Metoprolol Tartrate (Lopressor (Beta Mk)) 100 mg PO BID COUNTS INCLUDE 234 BEDS AT [facility] Last Admin: 08/19/18 21:49 Dose: 100 mg Ondansetron HCl (Zofran) 4 mg IV Q8H PRN PRN PRN Reason: NAUSEA/VOMITING Sodium Chloride () 5 - 15 ml IV UD PRN PRN Reason: SALINE FLUSH Spironolactone (Aldactone) 50 mg PO DAILY COUNTS INCLUDE 234 BEDS AT [facility] Clinical Impression(s) from Imaging Studies Chest X-Ray 08/19/18 11:49 IMPRESSION: No acute cardiopulmonary process. Electronically Signed: Candelario Boykin MD at 12:39 EDT Tel , Service support , Foot X-Ray 08/19/18 11:49 IMPRESSION: Dorsal foot soft tissue swelling. No deep soft tissue gas. No specific features of osteomyelitis. Prominent peripheral arterial disease. Electronically Signed: Candelario Boykin MD at 12:43 EDT Tel , Service support , Lower Extremity MRI 08/19/18 15:24 IMPRESSION: The exam is limited to motion artifact Cellulitis and osteomyelitis of the proximal and distal phalanges of the big toe. There is bony fusion of the interphalangeal joint of the big toe with fusion of the proximal and distal phalanx Cellulitis of the distal aspect of the second digit with questionable mild osteomyelitis of the ungual tuft of the second digit versus motion artifact Osteoarthrosis as above Electronically Signed: Tarun Moraes, at 22:12 EDT Tel , Service support ,
--- NOTE | 2018-08-20 07:45 | ART_ITS ---
Reason For Study: toe ulcer Left Segmental Pressures Left brachial= 127mmHg. Left posterior tibial artery = 160mmHg. Left dorsalis pedis artery = 144mmHg. Left digit = 90 mmHg. The left dorsalis pedis waveforms are triphasic. The left posterior tibial artery waveforms are triphasic. Right Segmental Pressures Right brachial= 123mmHg. Right digit = 94 mmHg. The right dorsalis pedis waveforms are triphasic. The right posterior tibial artery waveforms are triphasic. PT ans DP are noncompressible. Indices The right digital-brachial index is .74. PT and DP are noncompressible. The left ankle brachial index by the dorsalis pedis is 1.13. The left ankle brachial index by the posterior tibial artery is 1.26. The left digital-brachial index is .71. Interpretation Summary Non-compressible right lower extremity PT/DP making indices not obtainable. Triphasic right PT and DP doppler waveforms with digital brachial index of 0.74. Likely medial calcification of vessels and at least moderate occlusive disease. Left PT and DP ABIs of 1.26 and 1.13 and triphasic doppler waveforms suggest more normal aterial flow.Slightly diminished digitial waveforms on the left suggest distal small vessel disease. Ordering Physician: Davi Walsh Performed By: [facility]
[2018-08-20] MEDS: Aspirin E.C. 81 MG Tablet PO (08:29)
[2018-08-20] MEDS: Gabapentin 300 MG Capsule PO (08:30)
[2018-08-20] MEDS: Losartan Potassium 100 MG Tablet PO (08:30)
[2018-08-20] MEDS: Enoxaparin 40 MG/0.4 ML Syringe SC (08:31)
[2018-08-20] MEDS: Magnesium Oxide 400 MG Tablet PO (08:31)
[2018-08-20] MEDS: Metoprolol Tartrate 100 MG Tablet PO ×2 (08:31→21:03)
[2018-08-20] MEDS: amLODIPine 10 MG Tablet PO (08:31)
[2018-08-20] MEDS: LINAGLIPTIN 5 MG TABLET PO (08:32)
[2018-08-20] MEDS: Spironolactone 50 MG Tablet PO (08:32)
--- NOTE | 2018-08-20 09:39 | PCM.PN.HOSP ---
Patient Problems: Active and Suspected Problems Infected neuropathic ulcer (Acute) Left great toe Subjective: Patient is a 62-year-old gentleman history of hypertension, diabetes mellitus type 2 with diabetic neuropathy who presented with ulceration involving the right great toe. Patient had apparently had cultures drawn as outpatient which came back positive for Citrobacter, enterococcus as well as Pseudomonas. Patient was admitted directly from his manager of recruiting office for inpatient management Objective: GENERAL: cooperative HEENT: Atraumatic; moist oral mucosa EYES; Anicteric, Normal Conjunctiva NECK; supple, normal thyroid, RESPIRATORY: Diminished to auscultation bilaterally, CARDIOVASCULAR: Regular S1 S2, GI: soft, non-tender, normoactive bowel sounds, : No Renal angle tenderness; EXTREMITIES: No edema, no clubbing, no cyanosis. MUSCULOSKELETAL: Left big toe and surgical dressing NEURO: Awake; no lateralizing signs. SKIN: No Rash PSYCH; Normal affect Vitals/I&O's: Vital Signs Temp Pulse Resp BP Pulse Ox 98.4 F 82 18 123/59 H 99 08/20/18 09:05 08/20/18 09:05 08/20/18 09:05 08/20/18 09:05 08/20/18 09:05 Oxygen Delivery Method Room Air Weight: 112.99 kg Body Mass Index (BMI) 37.8 Intake and Output for Last 24 Hours 08/18/18 08/19/18 08/20/18 23:59 23:59 23:59 Intake Total 1162 / 1162 Output Total 1300 / 1300 Balance -138 / -138 Microbiology Past 72 Hours 08/19/18 12:15 Wound Abcess - Leg, Left Gram Stain - Final Laboratory Results 08/19/18 12:15: S.aureus Protein A PCR NEGATIVE, MRSA (PCR) Negative 08/19/18 12:30: WBC 10.3, RBC 4.08 L, Hgb 10.6 L, Hct 31.2 L, MCV 76.5 L, MCH 26.0 L, MCHC 34.0, RDW 14.9 H, RDW Differential 42.3, Plt Count 244, MPV 8.3, Immature Gran % (Auto) 0.500, Neut % (Auto) 86.1 H, Lymph % (Auto) 7.2 L, Barren % (Auto) 5.1, Eos % (Auto) 0.9, Baso % (Auto) 0.2, Absolute Neuts (auto) 8.9 H, Absolute Lymphs (auto) 0.74 L, Total Counted Not Reportable 08/19/18 12:30: Sodium 130 L, Potassium 4.3, Chloride 102, Carbon Dioxide 23.0, Anion Gap 5, BUN 21 H, Creatinine 1.22, Estim Creat Clear Calc 59.18, Est GFR (MDRD) Af Amer 77, Est GFR (MDRD) Non-Af 63, BUN/Creatinine Ratio 17.2, Glucose 206 H, Calcium 9.0, Troponin I < 0.015 08/19/18 12:30: Iron 31 L, TIBC 229 L, Iron Saturation 13.5 L 08/19/18 16:30: POC Glucose 118 H 08/19/18 21:42: POC Glucose 149 H 08/20/18 07:02: POC Glucose 119 H Current Medications Acetaminophen (Tylenol) 650 mg PO Q6H PRN PRN PRN Reason: Mild Pain (1-3)/Temp > 100.7 F Amitriptyline HCl (Elavil) 50 mg PO QHS [facility] Last Admin: 08/19/18 21:49 Dose: 50 mg Amlodipine Besylate (Norvasc) 10 mg PO DAILY [facility] Last Admin: 08/20/18 08:31 Dose: 10 mg Aspirin (Ecotrin) 81 mg PO DAILY@0800 [facility] Last Admin: 08/20/18 08:29 Dose: 81 mg Atorvastatin Calcium (Lipitor) 20 mg PO QHS [facility] Last Admin: 08/19/18 21:49 Dose: 20 mg Dextrose (D50w Syringe) 0 gm IV X1 PRN; Protocol PRN Reason: Hypoglycemia Docusate Sodium (Colace) 100 mg PO BID PRN PRN Reason: Constipation Doxazosin Mesylate (Cardura) 2 mg PO QHS [facility] Last Admin: 08/19/18 21:49 Dose: 2 mg Enoxaparin Sodium (Lovenox) 40 mg SC DAILY@1000 [facility] Last Admin: 08/20/18 08:31 Dose: 40 mg Gabapentin (Neurontin) 300 mg PO BREAKFAST [facility] Last Admin: 08/20/18 08:30 Dose: 300 mg Gabapentin (Neurontin) 600 mg PO QHS [facility] Last Admin: 08/19/18 21:49 Dose: 600 mg Glucagon () 1 mg IM .X1 PRN PRN Reason: Hypoglycemia Piperacillin Sod/Tazobactam (Sod 3.375 gm/ Sodium Chloride) 50 mls @ 12.5 mls/hr IV Q8 [facility] Last Admin: 08/20/18 05:30 Dose: 12.5 mls/hr Insulin Glargine (Lantus (Bk)) 15 units SC QHS [facility] Last Admin: 08/19/18 21:49 Dose: 15 u Insulin Human Lispro (Humalog Kwikpen ([facility])) 0 unit SQ ACHS [facility]; Protocol Last Admin: 08/20/18 07:03 Dose: Not Given Linagliptin (Tradjenta) 5 mg PO DAILY [facility] Last Admin: 08/20/18 08:32 Dose: 5 mg Losartan Potassium (Cozaar) 100 mg PO DAILY [facility] Last Admin: 08/20/18 08:30 Dose: 100 mg Magnesium Oxide (Mag-Ox 400) 400 mg PO DAILY [facility] Last Admin: 08/20/18 08:31 Dose: 400 mg Metformin HCl (Glucophage) 850 mg PO TIDCM [facility] Last Admin: 08/20/18 08:29 Dose: 850 mg Metoprolol Tartrate (Lopressor (Beta Mk)) 100 mg PO BID [facility] Last Admin: 08/20/18 08:31 Dose: 100 mg Ondansetron HCl (Zofran) 4 mg IV Q8H PRN PRN PRN Reason: NAUSEA/VOMITING Sodium Chloride () 5 - 15 ml IV UD PRN PRN Reason: SALINE FLUSH Spironolactone (Aldactone) 50 mg PO DAILY [facility] Last Admin: 08/20/18 08:32 Dose: 50 mg Medical Necessity - Tobacco Use Smoking Status: Former smoker Tobacco Use: Cigars Assessment/Plan All Active Problems Infected neuropathic ulcer (Acute) Patient is a 62-year-old gentleman history of hypertension, diabetes mellitus type 2 with diabetic neuropathy who presented with ulceration involving the right great toe. Patient had apparently had cultures drawn as outpatient which came back positive for Citrobacter, enterococcus as well as Pseudomonas. Patient was admitted directly from his manager of recruiting office for inpatient management 1. Acute infected neuropathic ulceration involving the right great toe polymicrobial. MRI obtained on admission demonstrated Cellulitis and osteomyelitis of the proximal and distal phalanges of the big toe patient was started on Zosyn and admission with consultation placed to infectious disease 2. Diabetes mellitus type 2 with complications including diabetic polyneuropathy. Did continue patient home insulin regimen in addition to Accu-Cheks before meals and at bedtime with sliding scale coverage 3. Essential hypertension patient home medications continue 4. Dyslipidemia-patient is on statin therapy, continued at home dose 5. Suspected peripheral arterial disease ABIs ordered for subsequent evaluation prior to intervention 6. Obesity with BMI of 37.9 7. Anemia secondary to anemia of chronic disorder 8. Hyponatremia due to patient diuretics patient was on Dyazide held on admission 9. DVT prophylaxis SC Lovenox Active Medications Acetaminophen (Tylenol) 650 mg PO Q6H PRN PRN PRN Reason: Mild Pain (1-3)/Temp > 100.7 F Amitriptyline HCl (Elavil) 50 mg PO QHS [facility] Last Admin: 08/19/18 21:49 Dose: 50 mg Amlodipine Besylate (Norvasc) 10 mg PO DAILY [facility] Last Admin: 08/20/18 08:31 Dose: 10 mg Aspirin (Ecotrin) 81 mg PO DAILY@0800 [facility] Last Admin: 08/20/18 08:29 Dose: 81 mg Atorvastatin Calcium (Lipitor) 20 mg PO QHS [facility] Last Admin: 08/19/18 21:49 Dose: 20 mg Dextrose (D50w Syringe) 0 gm IV X1 PRN; Protocol PRN Reason: Hypoglycemia Docusate Sodium (Colace) 100 mg PO BID PRN PRN Reason: Constipation Doxazosin Mesylate (Cardura) 2 mg PO QHS [facility] Last Admin: 08/19/18 21:49 Dose: 2 mg Enoxaparin Sodium (Lovenox) 40 mg SC DAILY@1000 [facility] Last Admin: 08/20/18 08:31 Dose: 40 mg Gabapentin (Neurontin) 300 mg PO BREAKFAST [facility] Last Admin: 08/20/18 08:30 Dose: 300 mg Gabapentin (Neurontin) 600 mg PO QHS [facility] Last Admin: 08/19/18 21:49 Dose: 600 mg Glucagon () 1 mg IM .X1 PRN PRN Reason: Hypoglycemia Piperacillin Sod/Tazobactam (Sod 3.375 gm/ Sodium Chloride) 50 mls @ 12.5 mls/hr IV Q8 [facility] Last Admin: 08/20/18 05:30 Dose: 12.5 mls/hr Insulin Glargine (Lantus (Bkc)) 15 units SC QHS [facility] Last Admin: 08/19/18 21:49 Dose: 15 u Insulin Human Lispro (Humalog Kwikpen (Bkc)) 0 unit SQ ACHS [facility]; Protocol Last Admin: 08/20/18 07:03 Dose: Not Given Linagliptin (Tradjenta) 5 mg PO DAILY [facility] Last Admin: 08/20/18 08:32 Dose: 5 mg Losartan Potassium (Cozaar) 100 mg PO DAILY [facility] Last Admin: 08/20/18 08:30 Dose: 100 mg Magnesium Oxide (Mag-Ox 400) 400 mg PO DAILY [facility] Last Admin: 08/20/18 08:31 Dose: 400 mg Metformin HCl (Glucophage) 850 mg PO TIDCM [facility] Last Admin: 08/20/18 08:29 Dose: 850 mg Metoprolol Tartrate (Lopressor (Beta Mk)) 100 mg PO BID [facility] Last Admin: 08/20/18 08:31 Dose: 100 mg Ondansetron HCl (Zofran) 4 mg IV Q8H PRN PRN PRN Reason: NAUSEA/VOMITING Sodium Chloride () 5 - 15 ml IV UD PRN PRN Reason: SALINE FLUSH Spironolactone (Aldactone) 50 mg PO DAILY [facility] Last Admin: 08/20/18 08:32 Dose: 50 mg Clinical Impression(s) from Imaging Studies Chest X-Ray 08/19/18 11:49 IMPRESSION: No acute cardiopulmonary process. Electronically Signed: Candelario Boykin MD at 12:39 EDT Tel , Service support , Foot X-Ray 08/19/18 11:49 IMPRESSION: Dorsal foot soft tissue swelling. No deep soft tissue gas. No specific features of osteomyelitis. Prominent peripheral arterial disease. Electronically Signed: Candelario Boykin MD at 12:43 EDT Tel , Service support , Lower Extremity MRI 08/19/18 15:24 IMPRESSION: The exam is limited to motion artifact Cellulitis and osteomyelitis of the proximal and distal phalanges of the big toe. There is bony fusion of the interphalangeal joint of the big toe with fusion of the proximal and distal phalanx Cellulitis of the distal aspect of the second digit with questionable mild osteomyelitis of the ungual tuft of the second digit versus motion artifact Osteoarthrosis as above Electronically Signed: Tarun Moraes, at 22:12 EDT Tel , Service support , Code Visit Inpatient E&M: 69086 Subs Hosp L3
--- NOTE | 2018-08-20 09:48 | PN_ITS ---
Patient Problems: Active and Suspected Problems Infected neuropathic ulcer (Acute) Left great toe Subjective: Patient is a 62-year-old gentleman history of hypertension, diabetes mellitus type 2 with diabetic neuropathy who presented with ulceration involving the right great toe. Patient had apparently had cultures drawn as outpatient which came back positive for Citrobacter, enterococcus as well as Pseudomonas. Patient was admitted directly from his senior loan officer office for inpatient management Objective: GENERAL: cooperative HEENT: Atraumatic; moist oral mucosa EYES; Anicteric, Normal Conjunctiva NECK; supple, normal thyroid, RESPIRATORY: Diminished to auscultation bilaterally, CARDIOVASCULAR: Regular S1 S2, GI: soft, non-tender, normoactive bowel sounds, : No Renal angle tenderness; EXTREMITIES: No edema, no clubbing, no cyanosis. MUSCULOSKELETAL: Left big toe and surgical dressing NEURO: Awake; no lateralizing signs. SKIN: No Rash PSYCH; Normal affect Vitals/I&O's: Vital Signs Temp Pulse Resp BP Pulse Ox 98.4 F 82 18 123/59 H 99 08/20/18 09:05 08/20/18 09:05 08/20/18 09:05 08/20/18 09:05 08/20/18 09:05 Oxygen Delivery Method Room Air Weight: 112.99 kg Body Mass Index (BMI) 37.8 Intake and Output for Last 24 Hours 08/18/18 08/19/18 08/20/18 23:59 23:59 23:59 Intake Total 1162 / 1162 Output Total 1300 / 1300 Balance -138 / -138 Microbiology Past 72 Hours 08/19/18 12:15 Wound Abcess - Leg, Left Gram Stain - Final Laboratory Results 08/19/18 12:15: S.aureus Protein A PCR NEGATIVE, MRSA (PCR) Negative 08/19/18 12:30: WBC 10.3, RBC 4.08 L, Hgb 10.6 L, Hct 31.2 L, MCV 76.5 L, MCH 26.0 L, MCHC 34.0, RDW 14.9 H, RDW Differential 42.3, Plt Count 244, MPV 8.3, Immature Gran % (Auto) 0.500, Neut % (Auto) 86.1 H, Lymph % (Auto) 7.2 L, Becker % (Auto) 5.1, Eos % (Auto) 0.9, Baso % (Auto) 0.2, Absolute Neuts (auto) 8.9 H, Absolute Lymphs (auto) 0.74 L, Total Counted Not Reportable 08/19/18 12:30: Sodium 130 L, Potassium 4.3, Chloride 102, Carbon Dioxide 23.0, Anion Gap 5, BUN 21 H, Creatinine 1.22, Estim Creat Clear Calc 59.18, Est GFR (MDRD) Af Amer 77, Est GFR (MDRD) Non-Af 63, BUN/Creatinine Ratio 17.2, Glucose 206 H, Calcium 9.0, Troponin I < 0.015 08/19/18 12:30: Iron 31 L, TIBC 229 L, Iron Saturation 13.5 L 08/19/18 16:30: POC Glucose 118 H 08/19/18 21:42: POC Glucose 149 H 08/20/18 07:02: POC Glucose 119 H Current Medications Acetaminophen (Tylenol) 650 mg PO Q6H PRN PRN PRN Reason: Mild Pain (1-3)/Temp > 100.7 F Amitriptyline HCl (Elavil) 50 mg PO QHS [facility] Last Admin: 08/19/18 21:49 Dose: 50 mg Amlodipine Besylate (Norvasc) 10 mg PO DAILY [facility] Last Admin: 08/20/18 08:31 Dose: 10 mg Aspirin (Ecotrin) 81 mg PO DAILY@0800 [facility] Last Admin: 08/20/18 08:29 Dose: 81 mg Atorvastatin Calcium (Lipitor) 20 mg PO QHS [facility] Last Admin: 08/19/18 21:49 Dose: 20 mg Dextrose (D50w Syringe) 0 gm IV X1 PRN; Protocol PRN Reason: Hypoglycemia Docusate Sodium (Colace) 100 mg PO BID PRN PRN Reason: Constipation Doxazosin Mesylate (Cardura) 2 mg PO QHS [facility] Last Admin: 08/19/18 21:49 Dose: 2 mg Enoxaparin Sodium (Lovenox) 40 mg SC DAILY@1000 [facility] Last Admin: 08/20/18 08:31 Dose: 40 mg Gabapentin (Neurontin) 300 mg PO BREAKFAST [facility] Last Admin: 08/20/18 08:30 Dose: 300 mg Gabapentin (Neurontin) 600 mg PO QHS [facility] Last Admin: 08/19/18 21:49 Dose: 600 mg Glucagon () 1 mg IM .X1 PRN PRN Reason: Hypoglycemia Piperacillin Sod/Tazobactam (Sod 3.375 gm/ Sodium Chloride) 50 mls @ 12.5 mls/hr IV Q8 [facility] Last Admin: 08/20/18 05:30 Dose: 12.5 mls/hr Insulin Glargine (Lantus (Bk)) 15 units SC QHS [facility] Last Admin: 08/19/18 21:49 Dose: 15 u Insulin Human Lispro (Humalog Kwikpen ([facility])) 0 unit SQ ACHS [facility]; Protocol Last Admin: 08/20/18 07:03 Dose: Not Given Linagliptin (Tradjenta) 5 mg PO DAILY [facility] Last Admin: 08/20/18 08:32 Dose: 5 mg Losartan Potassium (Cozaar) 100 mg PO DAILY [facility] Last Admin: 08/20/18 08:30 Dose: 100 mg Magnesium Oxide (Mag-Ox 400) 400 mg PO DAILY [facility] Last Admin: 08/20/18 08:31 Dose: 400 mg Metformin HCl (Glucophage) 850 mg PO TIDCM [facility] Last Admin: 08/20/18 08:29 Dose: 850 mg Metoprolol Tartrate (Lopressor (Beta Mk)) 100 mg PO BID [facility] Last Admin: 08/20/18 08:31 Dose: 100 mg Ondansetron HCl (Zofran) 4 mg IV Q8H PRN PRN PRN Reason: NAUSEA/VOMITING Sodium Chloride () 5 - 15 ml IV UD PRN PRN Reason: SALINE FLUSH Spironolactone (Aldactone) 50 mg PO DAILY [facility] Last Admin: 08/20/18 08:32 Dose: 50 mg Medical Necessity - Tobacco Use Smoking Status: Former smoker Tobacco Use: Cigars Assessment/Plan All Active Problems Infected neuropathic ulcer (Acute) Patient is a 62-year-old gentleman history of hypertension, diabetes mellitus type 2 with diabetic neuropathy who presented with ulceration involving the right great toe. Patient had apparently had cultures drawn as outpatient which came back positive for Citrobacter, enterococcus as well as Pseudomonas. Patient was admitted directly from his senior loan officer office for inpatient management 1. Acute infected neuropathic ulceration involving the right great toe polymicrobial. MRI obtained on admission demonstrated Cellulitis and osteomyelitis of the proximal and distal phalanges of the big toe patient was started on Zosyn and admission with consultation placed to infectious disease 2. Diabetes mellitus type 2 with complications including diabetic polyneuropathy. Did continue patient home insulin regimen in addition to Accu- Cheks before meals and at bedtime with sliding scale coverage 3. Essential hypertension patient home medications continue 4. Dyslipidemia-patient is on statin therapy, continued at home dose 5. Suspected peripheral arterial disease ABIs ordered for subsequent evaluation prior to intervention 6. Obesity with BMI of 37.9 7. Anemia secondary to anemia of chronic disorder 8. Hyponatremia due to patient diuretics patient was on Dyazide held on admission 9. DVT prophylaxis SC Lovenox Active Medications Acetaminophen (Tylenol) 650 mg PO Q6H PRN PRN PRN Reason: Mild Pain (1-3)/Temp > 100.7 F Amitriptyline HCl (Elavil) 50 mg PO QHS [facility] Last Admin: 08/19/18 21:49 Dose: 50 mg Amlodipine Besylate (Norvasc) 10 mg PO DAILY [facility] Last Admin: 08/20/18 08:31 Dose: 10 mg Aspirin (Ecotrin) 81 mg PO DAILY@0800 [facility] Last Admin: 08/20/18 08:29 Dose: 81 mg Atorvastatin Calcium (Lipitor) 20 mg PO QHS [facility] Last Admin: 08/19/18 21:49 Dose: 20 mg Dextrose (D50w Syringe) 0 gm IV X1 PRN; Protocol PRN Reason: Hypoglycemia Docusate Sodium (Colace) 100 mg PO BID PRN PRN Reason: Constipation Doxazosin Mesylate (Cardura) 2 mg PO QHS [facility] Last Admin: 08/19/18 21:49 Dose: 2 mg Enoxaparin Sodium (Lovenox) 40 mg SC DAILY@1000 [facility] Last Admin: 08/20/18 08:31 Dose: 40 mg Gabapentin (Neurontin) 300 mg PO BREAKFAST [facility] Last Admin: 08/20/18 08:30 Dose: 300 mg Gabapentin (Neurontin) 600 mg PO QHS [facility] Last Admin: 08/19/18 21:49 Dose: 600 mg Glucagon () 1 mg IM .X1 PRN PRN Reason: Hypoglycemia Piperacillin Sod/Tazobactam (Sod 3.375 gm/ Sodium Chloride) 50 mls @ 12.5 mls/hr IV Q8 [facility] Last Admin: 08/20/18 05:30 Dose: 12.5 mls/hr Insulin Glargine (Lantus (Bkc)) 15 units SC QHS [facility] Last Admin: 08/19/18 21:49 Dose: 15 u Insulin Human Lispro (Humalog Kwikpen ([facility])) 0 unit SQ ACHS [facility]; Protocol Last Admin: 08/20/18 07:03 Dose: Not Given Linagliptin (Tradjenta) 5 mg PO DAILY [facility] Last Admin: 08/20/18 08:32 Dose: 5 mg Losartan Potassium (Cozaar) 100 mg PO DAILY [facility] Last Admin: 08/20/18 08:30 Dose: 100 mg Magnesium Oxide (Mag-Ox 400) 400 mg PO DAILY [facility] Last Admin: 08/20/18 08:31 Dose: 400 mg Metformin HCl (Glucophage) 850 mg PO TIDCM [facility] Last Admin: 08/20/18 08:29 Dose: 850 mg Metoprolol Tartrate (Lopressor (Beta Mk)) 100 mg PO BID [facility] Last Admin: 08/20/18 08:31 Dose: 100 mg Ondansetron HCl (Zofran) 4 mg IV Q8H PRN PRN PRN Reason: NAUSEA/VOMITING Sodium Chloride () 5 - 15 ml IV UD PRN PRN Reason: SALINE FLUSH Spironolactone (Aldactone) 50 mg PO DAILY [facility] Last Admin: 08/20/18 08:32 Dose: 50 mg Clinical Impression(s) from Imaging Studies Chest X-Ray 08/19/18 11:49 IMPRESSION: No acute cardiopulmonary process. Electronically Signed: Candelario Boykin MD at 12:39 EDT Tel , Service support , Foot X-Ray 08/19/18 11:49 IMPRESSION: Dorsal foot soft tissue swelling. No deep soft tissue gas. No specific features of osteomyelitis. Prominent peripheral arterial disease. Electronically Signed: Candelario Boykin MD at 12:43 EDT Tel , Service support , Lower Extremity MRI 08/19/18 15:24 IMPRESSION: The exam is limited to motion artifact Cellulitis and osteomyelitis of the proximal and distal phalanges of the big toe. There is bony fusion of the interphalangeal joint of the big toe with fusion of the proximal and distal phalanx Cellulitis of the distal aspect of the second digit with questionable mild osteomyelitis of the ungual tuft of the second digit versus motion artifact Osteoarthrosis as above Electronically Signed: Tarun Moraes, at 22:12 EDT Tel , Service support , Code Visit Inpatient E&M: 34892 Subs Hosp L3
[2018-08-20 10:18] LABS: Absolute Lymphocyte Count 0.61 X10^3/ul (0.83-4.51); Absolute Neutrophil Count 6.5 X10^3/uL (2.0-7.7); Basophil# 0.02 X10^3/uL; Basophil% 0.3 % (0-1); Eosinophil# 0.13 X10^3/uL; Eosinophils% 1.7 % (0-5); Hematocrit 32.7 % (40-54); Hemoglobin 10.9 g/dl (13.0-16.5); Lymphocyte # 0.61 X10^3/ul (4.0); Lymphocyte % 7.9 % (19-41); Mean Corp Hgb Conc 33.3 g/gl (32-36); Mean Corpuscular Hgb 25.8 pg (27.0-32.0); Mean Corpuscular Volume 77.3 fL (80-94); Mean Platelet Vol. 8.3 fl (6.2-12.0); Monocyte# 0.41 X10^3/uL; Monocyte% 5.3 % (0-10); Neutrophil # 6.48 X10^3/uL (2.7-7.7); Neutrophil % 84.3 % (47-70); POSITIVE COUNT NO; POSITIVE DIFFERENTIAL NO; POSITIVE MORPHOLOGY NO; Platelet Count 240 K/mm3 (150-450); RBC Distribution Width CV 15.1 % (11.6-14.6); RBC Distribution Width SD 42.7 fl (35.1-43.9); Red Blood Count 4.23 M/mm3 (4.6-6.2); White Blood Count 7.7 K/mm3 (4.4-11.0)
--- NOTE | 2018-08-20 10:20 | PCM.HP.ID ---
Problem List (1) Toe osteomyelitis, left Status: Acute Reason for Consult: toe osteo Consulted by: Dr. Walsh History of Present Illness: The patient is a 62 year old M with DM neuropathy, reports shaving a callus on L 1st toe about 1.5-2 weeks ago, then developed progressive swelling, redness, ulceration with bloody/purulent drainage. No fever or chills. No sensation in foot so no pain. Was started on doxy at urgent care, wound cx with pseudomonas, citro, and enterococcus reportedly. Foot did not improve, saw Dr. Walsh, sent to the hospital. MRI done, on zosyn, feeling ok. Full ROS performed and neg except as noted above. - Medical History Allergies/Adverse Reactions: Allergies No Known Allergies Allergy (Verified 08/19/18 11:32) Home Medications: Ambulatory Orders Medication Instructions Recorded Amitriptyline HCl 50 mg PO QHS 08/19/18 Amlodipine [Norvasc] 10 mg PO DAILY 08/19/18 Aspirin [Aspir 81] 81 mg PO DAILY 08/19/18 Benzonatate [Tessalon [place]] 100 mg PO TID PRN PRN 08/19/18 Docusate Sodium 100 mg PO BID PRN 08/19/18 Doxazosin Mesylate 2 mg PO QHS 08/19/18 Doxycycline 100 mg PO BID 08/19/18 Fluticasone 0.05% [Flonase Nasal 1 spray NASAL DAILY PRN 08/19/18 [place]] Gabapentin [Neurontin] 300 mg PO BREAKFAST 08/19/18 Gabapentin [Neurontin] 600 mg PO QHS 08/19/18 Insulin Glargine,Hum.rec.anlog 15 unit SQ QHS 08/19/18 [Lantus Solostar] Loratadine 10 mg PO DAILY 08/19/18 Losartan Potassium 100 mg PO DAILY 08/19/18 Magnesium Oxide [Magnesium] 400 mg PO DAILY 08/19/18 Metformin HCl [Glucophage] 850 mg PO TIDCM 08/19/18 Metoprolol Tartrate [Lopressor 100 mg PO BID 08/19/18 (Beta Mk)] Nitroglycerin [Nitrolingual [place]] 0.4 mg SUBLINGUAL PRN PRN 08/19/18 [place]-3 Fatty Acids/Fish Oil 1 each PO DAILY 08/19/18 [[place] 3 Fish Oil Softgel] Simvastatin [Zocor] 40 mg PO QHS 08/19/18 Sitagliptin Phosphate [Januvia] 100 mg PO DAILY 08/19/18 Spironolactone [Aldactone] 50 mg PO DAILY 08/19/18 Triamterene/Hctz 37.5/25Mg 1 cap PO DAILY 08/19/18 [Triamterene-Hctz 37.5-25 mg Tb] - Social History SMOKING STATUS:: Former smoker Vital Signs Temp Pulse Resp BP Pulse Ox 98.4 F 70 18 123/59 H 99 08/20/18 09:05 08/20/18 09:06 08/20/18 09:05 08/20/18 09:05 08/20/18 09:05 Oxygen Delivery Method Room Air Weight: 112.99 kg Body Mass Index (BMI) 37.8 Microbiology Past 72 Hours 08/19/18 12:15 Gram Stain - Final Wound Abcess - Leg, Left Laboratory Tests Past 24 Hrs 08/19/18 08/19/18 08/19/18 12:15 12:30 12:30 WBC 10.3 RBC 4.08 L Hgb 10.6 L Hct 31.2 L MCV 76.5 L MCH 26.0 L MCHC 34.0 RDW 14.9 H RDW Differential 42.3 Plt Count 244 MPV 8.3 Immature Gran % (Auto) 0.500 Neut % (Auto) 86.1 H Lymph % (Auto) 7.2 L [place] % (Auto) 5.1 Eos % (Auto) 0.9 Baso % (Auto) 0.2 Absolute Neuts (auto) 8.9 H Absolute Lymphs (auto) 0.74 L Total Counted Not Reportable Sodium 130 L Potassium 4.3 Chloride 102 Carbon Dioxide 23.0 Anion Gap 5 BUN 21 H Creatinine 1.22 Estim Creat Clear Calc 59.18 Est GFR (MDRD) Af Amer 77 Est GFR (MDRD) Non-Af 63 BUN/Creatinine Ratio 17.2 Glucose 206 H Calcium 9.0 Magnesium Iron TIBC Iron Saturation Troponin I < 0.015 S.aureus Protein A PCR NEGATIVE MRSA (PCR) Negative 08/19/18 08/20/18 08/20/18 12:30 10:10 10:10 WBC 7.7 RBC 4.23 L Hgb 10.9 L Hct 32.7 L MCV 77.3 L MCH 25.8 L MCHC 33.3 RDW 15.1 H RDW Differential 42.7 Plt Count 240 MPV 8.3 Immature Gran % (Auto) 0.500 Neut % (Auto) 84.3 H Lymph % (Auto) 7.9 L [place] % (Auto) 5.3 Eos % (Auto) 1.7 Baso % (Auto) 0.3 Absolute Neuts (auto) 6.5 Absolute Lymphs (auto) 0.61 L Total Counted Not Reportable Sodium Pending Potassium Pending Chloride Pending Carbon Dioxide Pending Anion Gap Pending BUN Pending Creatinine Pending Estim Creat Clear Calc Est GFR (MDRD) Af Amer Pending Est GFR (MDRD) Non-Af Pending BUN/Creatinine Ratio Pending Glucose Pending Calcium Pending Magnesium Pending Iron 31 L TIBC 229 L Iron Saturation 13.5 L Troponin I S.aureus Protein A PCR MRSA (PCR) - Other Studies Radiology: [] reviewed Other Studies: [] Route of nutrition/ use of supplements: [] Nutritional Intake: [] IV Site: [] [place] Catheter: [] - Physical Exam General: Alert, Oriented x3, Cooperative, No apparent distress HEENT: Atraumatic, PERRLA, EOMI Neck: Supple, No Nodes Lungs: Clear to auscultation, Normal air movement Cardiovascular: Regular rate, Regular Rhythm, No murmurs Abdomen: Soft, Non Tender, Non-Distended Extremities: No edema Skin: Ulcer/ Wound - L 1st toe with swelling, wound, redness IV Site: Peripheral, without redness Musculoskeletal: No Tenderness to Palpation of Joints or Extremities Neurological: Cranial nerves II-XII grossly intact, - - peripheral neuropathy - Assessment/Plan Antibiotics: [] Assessment/Plan: [] Active and Suspected Problems Infected neuropathic ulcer (Acute) Left great toe L 1st toe osteo - seen on mri. Recent outpt cx with pseudomonas, citro, and enterococcus reportedly. Wound cx here pending. Vascular studies pending. On zosyn. Was on doxy as an outpt prior to admission. With diffuse toe involvement, I think amputation is reasonable if it seems blood flow is adequate to heal that site. Cont zosyn. Will follow, thank you, d/w family preservation caseworker and Dr. Walsh.
[2018-08-20 10:39] LABS: Anion Gap 2 (5-15); BUN 17 mg/dL (7-18); BUN/Creat Ratio 14.7 RATIO (10-20); Calcium,Total 8.5 mg/dL (8.5-10.1); Chloride 102 mmol/L (98-107); Creatinine, Serum 1.16 mg/dL (0.70-1.30); EST Glomerular Filtration Rate 67 mL/min (>60); Est Glom Filt Rate - Afr Amer 81 mL/min (>60); Estimated Creatinine Clearance 62.24 ml/min; Glucose 271 mg/dL (74-106); Magnesium 1.3 mg/dL (1.6-2.6); Potassium 4.8 mmol/L (3.5-5.1); Sodium Level 132 mmol/L (136-145)
--- NOTE | 2018-08-20 11:13 | CASEMGMT ---
Addendum entered by Bess Chawla 08/20/18 12:03: SW completed Healthcare Living Will and Healthcare POA with patient. Copies were made and given to patient. SW also placed a copy of each in patient's chart. Bess CASTELLON Original Note: SW met with patient as he had financial concerns. He also wanted information on Advance Directives. SW met with patient, introduced self and role at [facility]. Patient said he went to the Social Security office and he will have to pay $400 something a month for Medicare Part A and $137.50 for Part B. He then said he hasn't talked with PRS yet. SW asked if he meant PERS and he said that is what he meant. SW asked him how long he worked for [employer] and he said 30 years. SW told him he needs to call PERS as they can direct him. He will likely have insurance through [employer] and not have to pay the $400 some dollars for Part A. Patient was about to have a test done in his room so SW mentioned advance directives to him. He said he did want to know more about them and asked SW to stop back by. RENE updated MS 3 SW. RENE will stop back by patient's room for advance directives. Bess CASTELLON
[2018-08-20 11:41] LABS: Bedside Glucose 206 mg/dL (70-110)
--- NOTE | 2018-08-20 11:49 | NURSING ---
wound photo: left medial great toe
[2018-08-20 17:06] LABS: Bedside Glucose 104 mg/dL (70-110)
[2018-08-20] MEDS: Atorvastatin Calcium 20 MG Tablet PO (21:00)
[2018-08-20] MEDS: Doxazosin 1 MG Tablet 2 MG PO (21:02)
[2018-08-20] MEDS: Amitriptyline 25 MG Tablet 50 MG PO (21:02)
[2018-08-20] MEDS: Gabapentin 300 MG Capsule 600 MG PO (21:04)
[2018-08-21] VITALS (13 sets, daily range): BP systolic 83–137; BP diastolic 46–69; PULSE 56–86; RESP 16–18; TEMP 36.4–36.8; O2SAT 95–99; BMI 37.8
[2018-08-21 06:02] LABS: Hemoglobin 10.5 g/dl (13.0-16.5); Mean Corp Hgb Conc 33.9 g/gl (32-36); Mean Corpuscular Hgb 25.9 pg (27.0-32.0); Mean Corpuscular Volume 76.5 fL (80-94); Mean Platelet Vol. 8.7 fl (6.2-12.0); Platelet Count 285 K/mm3 (150-450); RBC Distribution Width CV 14.9 % (11.6-14.6); RBC Distribution Width SD 40.8 fl (35.1-43.9); Red Blood Count 4.05 M/mm3 (4.6-6.2); White Blood Count 7.2 K/mm3 (4.4-11.0)
[2018-08-21 06:04] LABS: Scan Indicated on CBC? Y/N NO
[2018-08-21 06:28] LABS: Anion Gap 8 (5-15); BUN 19 mg/dL (7-18); BUN/Creat Ratio 18.3 RATIO (10-20); Calcium,Total 8.7 mg/dL (8.5-10.1); Chloride 105 mmol/L (98-107); Creatinine, Serum 1.04 mg/dL (0.70-1.30); EST Glomerular Filtration Rate 76 mL/min (>60); Est Glom Filt Rate - Afr Amer 92 mL/min (>60); Estimated Creatinine Clearance 69.42 ml/min; Glucose 126 mg/dL (74-106); Potassium 4.1 mmol/L (3.5-5.1); Sodium Level 138 mmol/L (136-145)
[2018-08-21 06:50] LABS: Bedside Glucose 126 mg/dL (70-110)
--- NOTE | 2018-08-21 07:20 | CT_ITS ---
STUDY: CT LEFT FOOT REASON FOR EXAM: Great toe infection. TECHNIQUE: Thin section transaxial imaging of the foot was obtained, with sagittal and coronal reconstructed images. Individualized dose optimization techniques were used for this CT. COMPARISON: Radiographs 08/19/2018 and MRI images 08/19/2018. FINDINGS: Normal talus, calcaneus, and tarsal bones. There are marginal osteophytes of the talonavicular articulation without joint space narrowing. There are small marginal osteophytes and mild joint space narrowing of the navicular-cuneiform articulations (coronal reconstructions 47, 48). There is mild joint space narrowing of the first tarsometatarsal joint with a subchondral cyst of the first metatarsal base (sagittal reconstructions 54). There is joint space narrowing of the second through fourth tarsometatarsal joints (sagittal reconstructions 57-63). There is a small cyst in the proximal second metatarsal (sagittal reconstructions 61). There is joint space narrowing of the metatarsophalangeal joint of the great toe (sagittal reconstruction 24). There is a bipartite tibial sesamoid. There is osseous fusion of the interphalangeal joint of the great toe (sagittal reconstruction 35-58). There is no demonstrated osseous erosion of the proximal and distal phalanges of the great toe. Normal second through fifth metatarsophalangeal joints. There is absence of the distal aspect of the fifth proximal phalanx, either from prior surgery or chronic absorption (series 3 image 66). Otherwise, unremarkable phalanges of the lesser toes without demonstrated osseous erosions. There is soft tissue swelling of the first digit. There is vascular calcification. CT/Extremity Lower without Contra IMPRESSION: Osseous fusion of the interphalangeal joint of the great toe without demonstrated osseous erosions of the great toe. No demonstrated osseous erosions of the phalanges of the second toe. Absence of the distal aspect of the fifth proximal phalanx, either from prior surgery or chronic absorption. Arthrosis of the navicular-cuneiform, first through fourth tarsometatarsal joints and first metatarsophalangeal joint. Electronically Signed: Dago Washintgon MD at 8:37 EDT Tel , Service support ,
--- NOTE | 2018-08-21 07:54 | PN.SURG_ITS ---
Patient Problems: Active and Suspected Problems Infected neuropathic ulcer (Acute) Left great toe Toe osteomyelitis, left (Acute) Subjective: patient seen at bedside this morning. patient denies n/v/f/c. patient has no pain. Patient is questioning need for amputation. He wants to know if there is any chance of saving the toe without amputation. Objective: patient is alert and orientated x 3. patient does not appear in any distress. Vascular: DP and PT pulses are nonpalpable but audible with doppler. CELESTINO reviewed. vascular flow to left foot appears adequate. Derm: there is full thickness ulceration of left medial hallux. there is no drainage. there is no redness. there is no odor. there is mixture of fibrotic/granular slough to base of wound. the scabs of left 2nd toe appear to be healed without infection. MRI reviewed of left foot. On stir sagittal, there is marrow edema of proximal phalanx suggestive of osteomyelitis. 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 Gram negative ashley Gram positive organism Laboratory Tests Past 24 Hrs 08/20/18 08/20/18 08/21/18 10:10 10:10 05:36 WBC 7.7 7.2 RBC 4.23 L 4.05 L Hgb 10.9 L 10.5 L Hct 32.7 L 31.0 L MCV 77.3 L 76.5 L MCH 25.8 L 25.9 L MCHC 33.3 33.9 RDW 15.1 H 14.9 H RDW Differential 42.7 40.8 Plt Count 240 285 MPV 8.3 8.7 Immature Gran % (Auto) 0.500 Neut % (Auto) 84.3 H Lymph % (Auto) 7.9 L [place] % (Auto) 5.3 Eos % (Auto) 1.7 Baso % (Auto) 0.3 Absolute Neuts (auto) 6.5 Absolute Lymphs (auto) 0.61 L Total Counted Not Reportable Sodium 132 L Potassium 4.8 Chloride 102 Carbon Dioxide 28.0 Anion Gap 2 L BUN 17 Creatinine 1.16 Estim Creat Clear Calc 62.24 Est GFR (MDRD) Af Amer 81 Est GFR (MDRD) Non-Af 67 BUN/Creatinine Ratio 14.7 Glucose 271 H Calcium 8.5 Magnesium 1.3 L 08/21/18 05:36 WBC RBC Hgb Hct MCV MCH MCHC RDW RDW Differential Plt Count MPV Immature Gran % (Auto) Neut % (Auto) Lymph % (Auto) [place] % (Auto) Eos % (Auto) Baso % (Auto) Absolute Neuts (auto) Absolute Lymphs (auto) Total Counted Sodium 138 Potassium 4.1 Chloride 105 Carbon Dioxide 25.0 Anion Gap 8 BUN 19 H Creatinine 1.04 Estim Creat Clear Calc 69.42 Est GFR (MDRD) Af Amer 92 Est GFR (MDRD) Non-Af 76 BUN/Creatinine Ratio 18.3 Glucose 126 H Calcium 8.7 Magnesium POC Glucose 08/21/18 08/20/18 08/20/18 06:43 16:35 11:35 POC Glucose 126 H 104 206 H Medical Necessity - Tobacco Use Smoking Status: Former smoker Tobacco Use: Cigars Assessment/Plan All Active Problems Infected neuropathic ulcer (Acute) Toe osteomyelitis, left (Acute) Patient was examined and informed of current findings. I discussed the ulceration of left hallux. today, the toe has decreased redness without drainage. He still has large ulceration with suspected osteomyelitis of great toe. He questions if there is any chance of saving the toe without amputation. I informed patient that he is welcome to discuss with ID. Given the large ulceration, i feel that this wound will require lengthy duration to achieve healing and there is no guarantee that antibiotics would eliminate the infection. If he tries to treat this infection without surgery, he would require weekly follow-up in my office with subsequent imaging/lab work. I will make plans to amputate the toe today in event he pursues but he is welcome to discuss with ID about conservative management of infection. If he decides conservative management for infection, I would have him use surgical shoe of left foot, nwb of left foot and use of aquacel daily. If he decides to pursue surgery, will add on for this evening. mri of left foot did have motion artifact of 2nd toe vs infection. will get ct to evaluate for infection.
[2018-08-21] MEDS: 0.9% NaCl Peripheral Flush Adult/Peds IV (08:56)
[2018-08-21] MEDS: Gabapentin 300 MG Capsule PO (08:56)
[2018-08-21] MEDS: Spironolactone 50 MG Tablet PO (09:08)
[2018-08-21] MEDS: Losartan Potassium 100 MG Tablet PO (09:08)
[2018-08-21] MEDS: Metoprolol Tartrate 100 MG Tablet PO (09:08)
[2018-08-21] MEDS: amLODIPine 10 MG Tablet PO (09:09)
[2018-08-21] MEDS: LINAGLIPTIN 5 MG TABLET PO (09:09)
[2018-08-21] MEDS: Magnesium Oxide 400 MG Tablet PO (09:09)
--- NOTE | 2018-08-21 09:23 | PCM.PN.HOSP ---
Patient Problems: Active and Suspected Problems Infected neuropathic ulcer (Acute) Left great toe Toe osteomyelitis, left (Acute) Subjective: Patient seen still complains of some discomfort in the left toe. Subsequent imaging studies with lower extremity CT obtained on 08/21/2018 demonstrated Osseous fusion of the interphalangeal joint of the great toe without demonstrated osseous erosions of the great toe. Case discussed with Dr. Walsh with plans for patient to undergo surgical intervention Objective: GENERAL: cooperative HEENT: Atraumatic; moist oral mucosa EYES; Anicteric, Normal Conjunctiva NECK; supple, normal thyroid, RESPIRATORY: Diminished to auscultation bilaterally, CARDIOVASCULAR: Regular S1 S2, GI: soft, non-tender, normoactive bowel sounds, : No Renal angle tenderness; EXTREMITIES: No edema, no clubbing, no cyanosis. MUSCULOSKELETAL: Left big toe ulceration on the medial aspect measuring about 2.5 cm NEURO: Awake; no lateralizing signs. 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 Gram negative ashley Gram positive organism Laboratory Results 08/20/18 10:10: WBC 7.7, RBC 4.23 L, Hgb 10.9 L, Hct 32.7 L, MCV 77.3 L, MCH 25.8 L, MCHC 33.3, RDW 15.1 H, RDW Differential 42.7, Plt Count 240, MPV 8.3, Immature Gran % (Auto) 0.500, Neut % (Auto) 84.3 H, Lymph % (Auto) 7.9 L, [place] % (Auto) 5.3, Eos % (Auto) 1.7, Baso % (Auto) 0.3, Absolute Neuts (auto) 6.5, Absolute Lymphs (auto) 0.61 L, Total Counted Not Reportable 08/20/18 10:10: Sodium 132 L, Potassium 4.8, Chloride 102, Carbon Dioxide 28.0, Anion Gap 2 L, BUN 17, Creatinine 1.16, Estim Creat Clear Calc 62.24, Est GFR (MDRD) Af Amer 81, Est GFR (MDRD) Non-Af 67, BUN/Creatinine Ratio 14.7, Glucose 271 H, Calcium 8.5, Magnesium 1.3 L 08/20/18 11:35: POC Glucose 206 H 08/20/18 16:35: POC Glucose 104 08/21/18 05:36: WBC 7.2, RBC 4.05 L, Hgb 10.5 L, Hct 31.0 L, MCV 76.5 L, MCH 25.9 L, MCHC 33.9, RDW 14.9 H, RDW Differential 40.8, Plt Count 285, MPV 8.7 08/21/18 05:36: Sodium 138, Potassium 4.1, Chloride 105, Carbon Dioxide 25.0, Anion Gap 8, BUN 19 H, Creatinine 1.04, Estim Creat Clear Calc 69.42, Est GFR (MDRD) Af Amer 92, Est GFR (MDRD) Non-Af 76, BUN/Creatinine Ratio 18.3, Glucose 126 H, Calcium 8.7 08/21/18 06:43: POC Glucose 126 H Current Medications Acetaminophen (Tylenol) 650 mg PO Q6H PRN PRN PRN Reason: Mild Pain (1-3)/Temp > 100.7 F Amitriptyline HCl (Elavil) 50 mg PO QHS [facility] Last Admin: 08/20/18 21:02 Dose: 50 mg Amlodipine Besylate (Norvasc) 10 mg PO DAILY [facility] Last Admin: 08/21/18 09:09 Dose: 10 mg Aspirin (Ecotrin) 81 mg PO DAILY@0800 [facility] Last Admin: 08/21/18 08:56 Dose: 81 mg Atorvastatin Calcium (Lipitor) 20 mg PO QHS [facility] Last Admin: 08/20/18 21:00 Dose: 20 mg Dextrose (D50w Syringe) 0 gm IV X1 PRN; Protocol PRN Reason: Hypoglycemia Docusate Sodium (Colace) 100 mg PO BID PRN PRN Reason: Constipation Doxazosin Mesylate (Cardura) 2 mg PO QHS [facility] Last Admin: 08/20/18 21:02 Dose: 2 mg Enoxaparin Sodium (Lovenox) 40 mg SC DAILY@1000 [facility] Last Admin: 08/20/18 08:31 Dose: 40 mg Gabapentin (Neurontin) 300 mg PO BREAKFAST [facility] Last Admin: 08/21/18 08:56 Dose: 300 mg Gabapentin (Neurontin) 600 mg PO QHS [facility] Last Admin: 08/20/18 21:04 Dose: 600 mg Glucagon () 1 mg IM .X1 PRN PRN Reason: Hypoglycemia Piperacillin Sod/Tazobactam (Sod 3.375 gm/ Sodium Chloride) 50 mls @ 12.5 mls/hr IV Q8 [facility] [place] Last Admin: 08/21/18 05:34 Dose: 12.5 mls/hr Insulin Glargine (Lantus (Bkc)) 15 units SC QHS [facility] Last Admin: 08/20/18 21:14 Dose: 15 u Insulin Human Lispro (Humalog Kwikpen (Bkc)) 0 unit SQ ACHS [facility]; Protocol Last Admin: 08/21/18 06:45 Dose: Not Given Linagliptin (Tradjenta) 5 mg PO DAILY [facility] Last Admin: 08/21/18 09:09 Dose: 5 mg Losartan Potassium (Cozaar) 100 mg PO DAILY [facility] Last Admin: 08/21/18 09:08 Dose: 100 mg Magnesium Oxide (Mag-Ox 400) 400 mg PO DAILY [facility] Last Admin: 08/21/18 09:09 Dose: 400 mg Metformin HCl (Glucophage) 850 mg PO TIDCM [facility] [place] Last Admin: 08/21/18 08:55 Dose: 850 mg Metoprolol Tartrate (Lopressor (Beta Mk)) 100 mg PO BID [facility] Last Admin: 08/21/18 09:08 Dose: 100 mg Ondansetron HCl (Zofran) 4 mg IV Q8H PRN PRN PRN Reason: NAUSEA/VOMITING Sodium Chloride () 5 - 15 ml IV UD PRN PRN Reason: SALINE FLUSH Last Admin: 08/21/18 08:56 Dose: 10 ml Spironolactone (Aldactone) 50 mg PO DAILY [facility] Last Admin: 08/21/18 09:08 Dose: 50 mg Medical Necessity - Tobacco Use Smoking Status: Former smoker Tobacco Use: Cigars Assessment/Plan All Active Problems Infected neuropathic ulcer (Acute) Toe osteomyelitis, left (Acute) Patient is a 62-year-old gentleman history of hypertension, diabetes mellitus type 2 with diabetic neuropathy who presented with ulceration involving the right great toe. Patient had apparently had cultures drawn as outpatient which came back positive for Citrobacter, enterococcus as well as Pseudomonas. 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 Acute infected neuropathic ulceration involving the right great toe polymicrobial. MRI obtained on admission demonstrated Cellulitis and osteomyelitis of the proximal and distal phalanges of the big toe patient was started on Zosyn and admission with consultation placed to infectious disease. Subsequent imaging studies with lower extremity CT obtained on 08/21/2018 demonstrated Osseous fusion of the interphalangeal joint of the great toe without demonstrated osseous erosions of the great toe. Case discussed with Dr. Walsh with plans for patient to undergo surgical intervention 2. Diabetes mellitus type 2 with complications including diabetic polyneuropathy. Did continue patient home insulin regimen in addition to Accu-Cheks before meals and at bedtime with sliding scale coverage 3. Essential hypertension patient home medications continue 4. Dyslipidemia-patient is on statin therapy, continued at home dose 5. Suspected peripheral arterial disease ABIs ordered for subsequent evaluation prior to intervention 6. Obesity with BMI of 37.9 7. Anemia secondary to anemia of chronic disorder 8. Hyponatremia due to patient diuretics patient was on Dyazide held on admission patient's sodium levels up to 138 as of 08/21/2018. 9. DVT prophylaxis SC Lovenox Active Medications Acetaminophen (Tylenol) 650 mg PO Q6H PRN PRN PRN Reason: Mild Pain (1-3)/Temp > 100.7 F Amitriptyline HCl (Elavil) 50 mg PO QHS [facility] Last Admin: 08/20/18 21:02 Dose: 50 mg Amlodipine Besylate (Norvasc) 10 mg PO DAILY [facility] Last Admin: 08/21/18 09:09 Dose: 10 mg Aspirin (Ecotrin) 81 mg PO DAILY@0800 [facility] [place] Last Admin: 08/21/18 08:56 Dose: 81 mg Atorvastatin Calcium (Lipitor) 20 mg PO QHS [facility] [place] Last Admin: 08/20/18 21:00 Dose: 20 mg Dextrose (D50w Syringe) 0 gm IV X1 PRN; Protocol PRN Reason: Hypoglycemia Docusate Sodium (Colace) 100 mg PO BID PRN PRN Reason: Constipation Doxazosin Mesylate (Cardura) 2 mg PO QHS [facility] Last Admin: 08/20/18 21:02 Dose: 2 mg Enoxaparin Sodium (Lovenox) 40 mg SC DAILY@1000 [facility] [place] Last Admin: 08/20/18 08:31 Dose: 40 mg Gabapentin (Neurontin) 300 mg PO BREAKFAST [facility] [place] Last Admin: 08/21/18 08:56 Dose: 300 mg Gabapentin (Neurontin) 600 mg PO QHS [facility] Last Admin: 08/20/18 21:04 Dose: 600 mg Glucagon () 1 mg IM .X1 PRN PRN Reason: Hypoglycemia Piperacillin Sod/Tazobactam (Sod 3.375 gm/ Sodium Chloride) 50 mls @ 12.5 mls/hr IV Q8 [facility] [place] Last Admin: 08/21/18 05:34 Dose: 12.5 mls/hr Insulin Glargine (Lantus (Bkc)) 15 units SC QHS [facility] Last Admin: 08/20/18 21:14 Dose: 15 u Insulin Human Lispro (Humalog Kwikpen (Bkc)) 0 unit SQ ACHS [facility]; Protocol Last Admin: 08/21/18 06:45 Dose: Not Given Linagliptin (Tradjenta) 5 mg PO DAILY [facility] Last Admin: 08/21/18 09:09 Dose: 5 mg Losartan Potassium (Cozaar) 100 mg PO DAILY [facility] Last Admin: 08/21/18 09:08 Dose: 100 mg Magnesium Oxide (Mag-Ox 400) 400 mg PO DAILY [facility] Last Admin: 08/21/18 09:09 Dose: 400 mg Metformin HCl (Glucophage) 850 mg PO TIDCM [facility] Last Admin: 08/21/18 08:55 Dose: 850 mg Metoprolol Tartrate (Lopressor (Beta Mk)) 100 mg PO BID [facility] Last Admin: 08/21/18 09:08 Dose: 100 mg Ondansetron HCl (Zofran) 4 mg IV Q8H PRN PRN PRN Reason: NAUSEA/VOMITING Sodium Chloride () 5 - 15 ml IV UD PRN PRN Reason: SALINE FLUSH Last Admin: 08/21/18 08:56 Dose: 10 ml Spironolactone (Aldactone) 50 mg PO DAILY [facility] Last Admin: 08/21/18 09:08 Dose: 50 mg Clinical Impression(s) from Imaging Studies Lower Extremity CT 08/21/18 07:20 IMPRESSION: Osseous fusion of the interphalangeal joint of the great toe without demonstrated osseous erosions of the great toe. No demonstrated osseous erosions of the phalanges of the second toe. Absence of the distal aspect of the fifth proximal phalanx, either from prior surgery or chronic absorption. Arthrosis of the navicular-cuneiform, first through fourth tarsometatarsal joints and first metatarsophalangeal joint. Electronically Signed: Dago Washington MD at 8:37 EDT Tel , Service support , Code Visit Inpatient E&M: 71943 Subs Hosp L3
[2018-08-21] MEDS: Insulin Lispro 100 UNIT/ML INSULN.PEN SQ (11:42)
[2018-08-21 11:45] LABS: Bedside Glucose 225 mg/dL (70-110)
[2018-08-21 13:45] LABS: Bedside Glucose 134 mg/dL (70-110)
--- NOTE | 2018-08-21 15:16 | NURSING ---
REPORT CALLED TO NABIL-
--- NOTE | 2018-08-21 15:53 | PN.ID_ITS ---
Patient Problems: Active and Suspected Problems Infected neuropathic ulcer (Acute) Left great toe Toe osteomyelitis, left (Acute) Subjective: Feeling ok, no fever, no n/v/d. OR planned. - Physical Exam General: Alert, Cooperative, No apparent distress Lungs: Clear to auscultation, Normal air movement Cardiovascular: Regular rate, Regular Rhythm Abdomen: Soft, Non Tender, Non-Distended Skin: Ulcer/ Wound - toe wrapped Vital Signs Temp Pulse Resp BP Pulse Ox 98.2 F 65 16 114/58 L 98 08/21/18 13:28 08/21/18 13:28 08/21/18 13:28 08/21/18 13:28 08/21/18 13:28 Oxygen Delivery Method Room Air Weight: 112.99 kg Body Mass Index (BMI) 37.8 Intake and Output for Last 24 Hours 08/19/18 08/20/18 08/21/18 23:59 23:59 23:59 Intake Total 1162 / 1162 Output Total 1300 / 1300 Balance -138 / -138 Microbiology Past 72 Hours 08/19/18 12:15 Gram Stain - Final Wound Abcess - Leg, Left Wound Culture - Preliminary GNR 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 Gram negative ashley Gram Positive Cocci Laboratory Tests Past 24 Hrs 08/21/18 08/21/18 05:36 05:36 WBC 7.2 RBC 4.05 L Hgb 10.5 L Hct 31.0 L MCV 76.5 L MCH 25.9 L MCHC 33.9 RDW 14.9 H RDW Differential 40.8 Plt Count 285 MPV 8.7 Sodium 138 Potassium 4.1 Chloride 105 Carbon Dioxide 25.0 Anion Gap 8 BUN 19 H Creatinine 1.04 Estim Creat Clear Calc 69.42 Est GFR (MDRD) Af Amer 92 Est GFR (MDRD) Non-Af 76 BUN/Creatinine Ratio 18.3 Glucose 126 H Calcium 8.7 POC Glucose 08/21/18 08/21/18 08/21/18 13:39 11:23 06:43 POC Glucose 134 H 225 H 126 H 08/20/18 16:35 POC Glucose 104 Medical Necessity - Tobacco Use Smoking Status: Former smoker Tobacco Use: Cigars Route of nutrition/ use of supplements: [] Nutritional Intake: [] IV Site: [] [place] Catheter: [] - Assessment/Plan Antibiotics: [] Assessment/Plan: [] Active and Suspected Problems Infected neuropathic ulcer (Acute) Left great toe L 1st toe osteo - seen on mri. Recent outpt cx with pseudomonas, citro, and enterococcus. Wound cx here pending. Was on doxy as an outpt prior to admission. With diffuse toe involvement, I think amputation is reasonable if it seems blood flow is adequate to heal that site. Cont matheus. Will follow, d/w registered nurse hh case manager and Dr. Walsh.
--- NOTE | 2018-08-21 16:30 | BON_PTH ---
PATIENT: BOB REDDING LOC: MS3 U#:[id number] AGE/SX: 62/M ROOM: [facility]314 RE08/19/[address]: Dr. Kd Looney MD : [id number] BED: 1 DIS: 08/23/2018 SPEC #: [id number] RECD: 08/22/18 07:51 STATUS: BEE REQ #: [id number] ALISON: 08/21/18 16:[address]: Davi Walsh DEPT: SURGICAL PATHOLOGY RECD BY: Guido Barron ENTERED: 08/22/18 09:06 SP TYPE: Bone OTHR DR: MD Dr. Edward Amador DO Dr. Mark Tereletsky, DO Dr. Robert Leininger, MD Tissues: A - Bone of foot, NOS B - Bone of foot, NOS C - Bone of foot, NOS Procedures: Decalcification bone/plaque Surgery Specimen Level IV HEADER OPERATION: Amputation toe, hallux PRE-OP DIAGNOSIS: Osteomyelitis TISSUE SUBMITTED: A - Left hallux bone, B - Left first metatarsal bone, C - Left hallux ulceration MICROSCOPIC DIAGNOSIS A. Left hallux bone, biopsy: Fragments of bone with reparative and reactive change. No evidence of acute osteomyelitis. B. Left first metatarsal bone, biopsy: Benign osteocartilaginous tissue. No evidence of osteomyelitis. C. Left great toe, amputation: Skin and soft tissue with ulceration and associated acute and chronic inflammation. Bone with chronic reparative change. Focal calcifications and thrombosis of blood vessels. Focal acute osteomyelitis. AM:shiraz 08/28/18 MICROSCOPIC DESCRIPTION Slides are reviewed. GROSS DESCRIPTION A - Received in fixative is one container labeled with the patient's name and designated left hallux bone. The specimen consists of a single tatum fragment of bone measuring 0.4 x 0.3 x 0.1. The specimen is totally submitted in one cassette after decalcification. B - Received in fixative is one container labeled with the patient's name and designated left first metatarsal bone. The specimen consists of a single tatum-brown fragment of bone measuring 0.4 x 0.1 x 0.1 cm. The specimen is totally submitted in one cassette after decalcification. C - Received in fixative is one container labeled with the patient's name and designated left hallux ulceration. The specimen consists of a left great toe measuring 6 cm in length x 3.5 cm in width x 3 cm in dorsal plantar dimension. The skin surface is tatum with a medial/plantar ulcerative brown lesion measuring 2 x 1.9 cm and ulcerated to a depth of 0.5 cm. The remaining skin surface is tatum and unremarkable. A toenail is present. Cross-sections through the area of ulceration demonstrate gross involvement of the underlying bone. Baggagemaster sections are submitted in two cassettes after decalcification. / CE:shiraz 08/22/18 TC:2 CPT: 93733 x3, 93533 x3
--- NOTE | 2018-08-21 19:25 | RAD_ITS ---
STUDY: X-RAY - LEFT FOOT CLINICAL: Male, 62 years old. Left great toe amputation. TECHNIQUE: 3 view(s) of the foot. COMPARISON: 08/19/2018. FINDINGS: Normal talus, calcaneus, and tarsal bones. Normal visualized subtalar and calcaneal cuboid articulations. Mild degenerative arthrosis of the talonavicular, tarsal and tarsometatarsal articulations. Normal metatarsi. The first toe has been amputated. Normal second through fifth metatarsophalangeal joints. There is truncation of the proximal phalanx of the fifth toe with widening of the PIP joint, which probably represent previous arthroplasty. Otherwise normal interphalangeal joints and phalanges of the lesser toes. There is contour irregularity of soft tissues as well as soft tissue emphysema distal to the first metatarsal, consistent with recent amputation. RAD/Foot min 3 Views IMPRESSION: Status post recent amputation of the first toe. Suspect previous arthroplasty of the proximal phalanx of the fifth toe. Degenerative changes, as above. No demonstrated acute fracture, dislocation, or active destructive osseous lesion. Electronically Signed: Ino Tubbs MD at 2:14 EDT , Service support ,
--- NOTE | 2018-08-21 19:56 | NURSING ---
Pt just arrived to the floor from surgery.
[2018-08-21] MEDS: Gabapentin 300 MG Capsule 600 MG PO (21:46)
[2018-08-21] MEDS: Atorvastatin Calcium 20 MG Tablet PO (21:46)
[2018-08-21] MEDS: Amitriptyline 25 MG Tablet 50 MG PO (21:46)
[2018-08-21 22:50] LABS: Bedside Glucose 122 mg/dL (70-110)
[2018-08-21] MEDS: Acetaminophen 325 MG Tablet 650 MG PO (23:57)
[2018-08-22 01:20] LABS: Bedside Glucose 129 mg/dL (70-110)
[2018-08-22 02:54] VITALS: BP 114/57; PULSE 70; RESP 18; TEMP 36.4; O2SAT 98
[2018-08-22 05:51] LABS: Hematocrit 31.3 % (40-54); Hemoglobin 10.4 g/dl (13.0-16.5); Mean Corp Hgb Conc 33.2 g/gl (32-36); Mean Corpuscular Hgb 25.5 pg (27.0-32.0); Mean Corpuscular Volume 76.7 fL (80-94); Mean Platelet Vol. 8.6 fl (6.2-12.0); Platelet Count 281 K/mm3 (150-450); RBC Distribution Width CV 14.9 % (11.6-14.6); Red Blood Count 4.08 M/mm3 (4.6-6.2); White Blood Count 7.5 K/mm3 (4.4-11.0)
[2018-08-22 05:59] LABS: Anion Gap 6 (5-15); BUN 15 mg/dL (7-18); Calcium,Total 8.3 mg/dL (8.5-10.1); Chloride 106 mmol/L (98-107); EST Glomerular Filtration Rate 80 mL/min (>60); Est Glom Filt Rate - Afr Amer 97 mL/min (>60); Glucose 91 mg/dL (74-106); Scan Indicated on CBC? Y/N NO; Sodium Level 139 mmol/L (136-145)
[2018-08-22 06:56] LABS: Bedside Glucose 95 mg/dL (70-110)
--- NOTE | 2018-08-22 07:42 | PN.SURG_ITS ---
Patient Problems: Active and Suspected Problems Infected neuropathic ulcer (Acute) Left great toe Toe osteomyelitis, left (Acute) Subjective: patient is seen at bedside this morning. patient states pain is minimal. denies n/v/f/c. tolerating antibiotics nicely. Objective: patient is alert and orientated x 3. patient does not appear in any distress left foot with post-op dressing clean, dry and intact. there is no strike thru bleeding. upon removal, inspection of left foot shows left hallux amputation with wound nicely approximated with suture without tension. there is no redness of surgical site. there is no drainage or evidence of retained hematoma or abscess. skin color looks normal. no duskyness or necrosis noted to incision. there is no pain to surgical site. there is no calf pain. no local signs of infection. there is dry scab to left 2nd toe. i debrided this and there is healed blister without infection of 2nd toe. there are no signs of infection to 2nd toe. no pressure sores noted b/l. - Physical Exam Vital Signs Temp Pulse Resp BP Pulse Ox 97.6 F L 70 18 114/57 L 98 08/22/18 02:54 08/22/18 02:54 08/22/18 02:54 08/22/18 02:54 08/22/18 02:54 Oxygen Delivery Method Room Air Weight: 112.99 kg Body Mass Index (BMI) 37.8 Intake and Output for Last 24 Hours 08/20/18 08/21/18 08/22/18 23:59 23:59 23:59 Intake Total 1162 / 1162 1000 / 1000 765 / 765 Output Total 1300 / 1300 2100 / 2100 Balance -138 / -138 1000 / 1000 -1335 / -1335 Microbiology Past 72 Hours 08/19/18 12:15 Gram Stain - Final Wound Abcess - Leg, Left Wound Culture - Preliminary GNR lactose cleaner touch up worker Gram negative ashley Gram Positive Cocci Laboratory Tests Past 24 Hrs 08/22/18 08/22/18 05:20 05:20 WBC 7.5 RBC 4.08 L Hgb 10.4 L Hct 31.3 L MCV 76.7 L MCH 25.5 L MCHC 33.2 RDW 14.9 H RDW Differential 41.0 Plt Count 281 MPV 8.6 Sodium 139 Potassium 4.0 Chloride 106 Carbon Dioxide 27.0 Anion Gap 6 BUN 15 Creatinine 1.00 Estim Creat Clear Calc 72.20 Est GFR (MDRD) Af Amer 97 Est GFR (MDRD) Non-Af 80 BUN/Creatinine Ratio 15.0 Glucose 91 Calcium 8.3 L POC Glucose 08/22/18 08/21/18 08/21/18 06:49 21:39 13:39 POC Glucose 95 122 H 134 H 08/21/18 08/20/18 11:23 21:13 POC Glucose 225 H 129 H Medical Necessity - Tobacco Use Smoking Status: Former smoker Tobacco Use: Cigars Assessment/Plan All Active Problems Infected neuropathic ulcer (Acute) Toe osteomyelitis, left (Acute) patient was examined and informed of current findings/plan he is post-op left hallux amputation. at this time, his surgical amputation site appears healthy, free of any infection or drainage. the foot appeared stable intra-op so closure was performed. I sent specimen of hallux at site of ulceration as well as 1st metatarsal. await intra-op cultures. I will discuss with ID my findings and whether or not antibiotics will be necessary at discharge. I want patient to remain nwb with post-op shoe and crutches/or walker. once cultures final or antibiotics arranged at discharge, he is ok for discharge. discussed possible snf placement. he wants to go home. I feel that snf may be best for him as I am concerned about his compliance and ability to take care of himself. left 2nd toe eschar debrided with tissue nippers. there are no signs of infection or deep ulceration. recommend band aid and neosporin. ct scan with no evidence of om. reminded patient that it is not safe for him to be trimming his own callus or nails. I will plan to see patient until discharged. he will then f/u with me in one week. I may ask that patient see Dr. Rodriguez in two weeks as I will be out of town.
--- NOTE | 2018-08-22 07:59 | PCM.PN.HOSP ---
Patient Problems: Active and Suspected Problems Infected neuropathic ulcer (Acute) Left great toe Toe osteomyelitis, left (Acute) Subjective: Patient underwent left hallux amputation on 08/21/[address] Walsh. Cultures obtained on admission so far positive for Citrrobacter freundi, Pseudomonas aeroginosa and Gram Positive Cocci org. Did discuss with patient regarding disposition patient did express interest in being discharged to a intermediate facility Objective: GENERAL: cooperative HEENT: Atraumatic; moist oral mucosa EYES; Anicteric, Normal Conjunctiva NECK; supple, normal thyroid, RESPIRATORY: Diminished to auscultation bilaterally, CARDIOVASCULAR: Regular S1 S2, GI: soft, non-tender, normoactive bowel sounds, : No Renal angle tenderness; EXTREMITIES: No edema, no clubbing, no cyanosis. MUSCULOSKELETAL: Left big toe ulceration on the medial aspect measuring about 2.5 cm NEURO: Awake; no lateralizing signs. SKIN: Erythema around the left big toe PSYCH; Normal affect Vitals/I&O's: Vital Signs Temp Pulse Resp BP Pulse Ox 97.6 F L 70 18 114/57 L 98 08/22/18 02:54 08/22/18 02:54 08/22/18 02:54 08/22/18 02:54 08/22/18 02:54 Oxygen Delivery Method Room Air Weight: 112.99 kg Body Mass Index (BMI) 37.8 Intake and Output for Last 24 Hours 08/20/18 08/21/18 08/22/18 23:59 23:59 23:59 Intake Total 1162 / 1162 1000 / 1000 765 / 765 Output Total 1300 / 1300 2100 / 2100 Balance -138 / -138 1000 / 1000 -1335 / -1335 Microbiology Past 72 Hours 08/19/18 12:15 Wound Abcess - Leg, Left Gram Stain - Final 08/19/18 12:15 Wound Abcess - Leg, Left Wound Culture - Preliminary Citrobacter freundii Pseudomonas aeroginosa Gram Positive Cocci Laboratory Results 08/20/18 21:13: POC Glucose 129 H 08/21/18 11:23: POC Glucose 225 H 08/21/18 13:39: POC Glucose 134 H 08/21/18 21:39: POC Glucose 122 H 08/22/18 05:20: WBC 7.5, RBC 4.08 L, Hgb 10.4 L, Hct 31.3 L, MCV 76.7 L, MCH 25.5 L, MCHC 33.2, RDW 14.9 H, RDW Differential 41.0, Plt Count 281, MPV 8.6 08/22/18 05:20: Sodium 139, Potassium 4.0, Chloride 106, Carbon Dioxide 27.0, Anion Gap 6, BUN 15, Creatinine 1.00, Estim Creat Clear Calc 72.20, Est GFR (MDRD) Af Amer 97, Est GFR (MDRD) Non-Af 80, BUN/Creatinine Ratio 15.0, Glucose 91, Calcium 8.3 L 08/22/18 06:49: POC Glucose 95 Current Medications Acetaminophen (Tylenol) 650 mg PO Q6H PRN PRN PRN Reason: Mild Pain (1-3)/Temp > 100.7 F Last Admin: 08/21/18 23:57 Dose: 650 mg Amitriptyline HCl (Elavil) 50 mg PO QHS [facility] Last Admin: 08/21/18 21:46 Dose: 50 mg Amlodipine Besylate (Norvasc) 10 mg PO DAILY [facility] Last Admin: 08/21/18 09:09 Dose: 10 mg Aspirin (Ecotrin) 81 mg PO DAILY@0800 [facility] Last Admin: 08/21/18 11:16 Dose: Not Given Atorvastatin Calcium (Lipitor) 20 mg PO QHS [facility] Last Admin: 08/21/18 21:46 Dose: 20 mg Dextrose (D50w Syringe) 0 gm IV X1 PRN; Protocol PRN Reason: Hypoglycemia Docusate Sodium (Colace) 100 mg PO BID PRN PRN Reason: Constipation Doxazosin Mesylate (Cardura) 2 mg PO QHS [facility] Last Admin: 08/21/18 22:43 Dose: Not Given Enoxaparin Sodium (Lovenox) 40 mg SC DAILY@1000 [facility] Last Admin: 08/21/18 19:06 Dose: Not Given Gabapentin (Neurontin) 300 mg PO BREAKFAST [facility] Last Admin: 08/21/18 08:56 Dose: 300 mg Gabapentin (Neurontin) 600 mg PO QHS [facility] Last Admin: 08/21/18 21:46 Dose: 600 mg Glucagon () 1 mg IM .X1 PRN PRN Reason: Hypoglycemia Piperacillin Sod/Tazobactam (Sod 3.375 gm/ Sodium Chloride) 50 mls @ 12.5 mls/hr IV Q8 [facility] Last Admin: 08/22/18 06:00 Dose: 12.5 mls/hr Insulin Glargine (Lantus (Bkc)) 15 units SC QHS [facility] Last Admin: 08/21/18 21:47 Dose: 15 u Insulin Human Lispro (Humalog Kwikpen (Bkc)) 0 unit SQ ACHS [facility]; Protocol Last Admin: 08/22/18 06:51 Dose: Not Given Linagliptin (Tradjenta) 5 mg PO DAILY [facility] Last Admin: 08/21/18 09:09 Dose: 5 mg Losartan Potassium (Cozaar) 100 mg PO DAILY [facility] Last Admin: 08/21/18 09:08 Dose: 100 mg Magnesium Oxide (Mag-Ox 400) 400 mg PO DAILY [facility] Last Admin: 08/21/18 09:09 Dose: 400 mg Metformin HCl (Glucophage) 850 mg PO TIDCM [facility] Last Admin: 08/21/18 19:04 Dose: Not Given Metoprolol Tartrate (Lopressor (Beta Mk)) 100 mg PO BID [facility] Last Admin: 08/21/18 22:44 Dose: Not Given Neomycin/Polymyxin/Bacitracin (Neosporin) 1 applic TOPICAL DAILY [facility]; Protocol Ondansetron HCl (Zofran) 4 mg IV Q8H PRN PRN PRN Reason: NAUSEA/VOMITING Sodium Chloride () 5 - 15 ml IV UD PRN PRN Reason: SALINE FLUSH Last Admin: 08/21/18 08:56 Dose: 10 ml Spironolactone (Aldactone) 50 mg PO DAILY [facility] Last Admin: 08/21/18 09:08 Dose: 50 mg Medical Necessity - Tobacco Use Smoking Status: Former smoker Tobacco Use: Cigars Assessment/Plan All Active Problems Infected neuropathic ulcer (Acute) Toe osteomyelitis, left (Acute) Patient is a 62-year-old gentleman history of hypertension, diabetes mellitus type 2 with diabetic neuropathy who presented with ulceration involving the right great toe. Patient had apparently had cultures drawn as outpatient which came back positive for Citrobacter, enterococcus as well as Pseudomonas. Patient was admitted directly from his laboratory development technician office for inpatient management 1. Acute infected neuropathic ulceration involving the right great toe polymicrobial. MRI obtained on admission demonstrated Cellulitis and osteomyelitis of the proximal and distal phalanges of the big toe patient was started on Zosyn and admission with consultation placed to infectious disease. Subsequent imaging studies with lower extremity CT obtained on 08/21/2018 demonstrated Osseous fusion of the interphalangeal joint of the great toe without demonstrated osseous erosions of the great toe. Case discussed with Dr. Walsh. Patient underwent left hallux amputation on 08/21/[address] Walsh. Cultures obtained on admission so far positive for Citrrobacter freundi, Pseudomonas aeroginosa and Gram Positive Cocci org. Subsequent antibiotic therapy deferred to infectious disease 2. Diabetes mellitus type 2 with complications including diabetic polyneuropathy. Did continue patient home insulin regimen in addition to Accu-Cheks before meals and at bedtime with sliding scale coverage 3. Essential hypertension patient home medications continue 4. Dyslipidemia-patient is on statin therapy, continued at home dose 5. Suspected peripheral arterial disease ABIs ordered for subsequent evaluation prior to intervention 6. Obesity with BMI of 37.9 7. Anemia secondary to anemia of chronic disorder 8. Hyponatremia due to patient diuretics patient was on Dyazide held on admission patient's sodium levels up to 138 as of 08/21/2018. 9. DVT prophylaxis SC Lovenox Microbiology 08/19/18 12:15 Wound Abcess - Leg, Left Gram Stain - Final 08/19/18 12:15 Wound Abcess - Leg, Left Wound Culture - Preliminary Citrobacter freundii Pseudomonas aeroginosa Gram Positive Cocci Code Visit Inpatient E&M: 71772 Subs Hosp L2
--- NOTE | 2018-08-22 08:04 | PN_ITS ---
Patient Problems: Active and Suspected Problems Infected neuropathic ulcer (Acute) Left great toe Toe osteomyelitis, left (Acute) Subjective: Patient underwent left hallux amputation on 08/21/[address] Walsh. Cultures obtained on admission so far positive for Citrrobacter freundi, Pseudomonas aeroginosa and Gram Positive Cocci org. Did discuss with patient regarding disposition patient did express interest in being discharged to a group home facility Objective: GENERAL: cooperative HEENT: Atraumatic; moist oral mucosa EYES; Anicteric, Normal Conjunctiva NECK; supple, normal thyroid, RESPIRATORY: Diminished to auscultation bilaterally, CARDIOVASCULAR: Regular S1 S2, GI: soft, non-tender, normoactive bowel sounds, : No Renal angle tenderness; EXTREMITIES: No edema, no clubbing, no cyanosis. MUSCULOSKELETAL: Left big toe ulceration on the medial aspect measuring about 2.5 cm NEURO: Awake; no lateralizing signs. SKIN: Erythema around the left big toe PSYCH; Normal affect Vitals/I&O's: Vital Signs Temp Pulse Resp BP Pulse Ox 97.6 F L 70 18 114/57 L 98 08/22/18 02:54 08/22/18 02:54 08/22/18 02:54 08/22/18 02:54 08/22/18 02:54 Oxygen Delivery Method Room Air Weight: 112.99 kg Body Mass Index (BMI) 37.8 Intake and Output for Last 24 Hours 08/20/18 08/21/18 08/22/18 23:59 23:59 23:59 Intake Total 1162 / 1162 1000 / 1000 765 / 765 Output Total 1300 / 1300 2100 / 2100 Balance -138 / -138 1000 / 1000 -1335 / -1335 Microbiology Past 72 Hours 08/19/18 12:15 Wound Abcess - Leg, Left Gram Stain - Final 08/19/18 12:15 Wound Abcess - Leg, Left Wound Culture - Preliminary Citrobacter freundii Pseudomonas aeroginosa Gram Positive Cocci Laboratory Results 08/20/18 21:13: POC Glucose 129 H 08/21/18 11:23: POC Glucose 225 H 08/21/18 13:39: POC Glucose 134 H 08/21/18 21:39: POC Glucose 122 H 08/22/18 05:20: WBC 7.5, RBC 4.08 L, Hgb 10.4 L, Hct 31.3 L, MCV 76.7 L, MCH 25.5 L, MCHC 33.2, RDW 14.9 H, RDW Differential 41.0, Plt Count 281, MPV 8.6 08/22/18 05:20: Sodium 139, Potassium 4.0, Chloride 106, Carbon Dioxide 27.0, Anion Gap 6, BUN 15, Creatinine 1.00, Estim Creat Clear Calc 72.20, Est GFR (MDRD) Af Amer 97, Est GFR (MDRD) Non-Af 80, BUN/Creatinine Ratio 15.0, Glucose 91, Calcium 8.3 L 08/22/18 06:49: POC Glucose 95 Current Medications Acetaminophen (Tylenol) 650 mg PO Q6H PRN PRN PRN Reason: Mild Pain (1-3)/Temp > 100.7 F Last Admin: 08/21/18 23:57 Dose: 650 mg Amitriptyline HCl (Elavil) 50 mg PO QHS [facility] Last Admin: 08/21/18 21:46 Dose: 50 mg Amlodipine Besylate (Norvasc) 10 mg PO DAILY [facility] Last Admin: 08/21/18 09:09 Dose: 10 mg Aspirin (Ecotrin) 81 mg PO DAILY@0800 [facility] Last Admin: 08/21/18 11:16 Dose: Not Given Atorvastatin Calcium (Lipitor) 20 mg PO QHS [facility] Last Admin: 08/21/18 21:46 Dose: 20 mg Dextrose (D50w Syringe) 0 gm IV X1 PRN; Protocol PRN Reason: Hypoglycemia Docusate Sodium (Colace) 100 mg PO BID PRN PRN Reason: Constipation Doxazosin Mesylate (Cardura) 2 mg PO QHS [facility] Last Admin: 08/21/18 22:43 Dose: Not Given Enoxaparin Sodium (Lovenox) 40 mg SC DAILY@1000 [facility] Last Admin: 08/21/18 19:06 Dose: Not Given Gabapentin (Neurontin) 300 mg PO BREAKFAST [facility] Last Admin: 08/21/18 08:56 Dose: 300 mg Gabapentin (Neurontin) 600 mg PO QHS [facility] Last Admin: 08/21/18 21:46 Dose: 600 mg Glucagon () 1 mg IM .X1 PRN PRN Reason: Hypoglycemia Piperacillin Sod/Tazobactam (Sod 3.375 gm/ Sodium Chloride) 50 mls @ 12.5 mls/hr IV Q8 [facility] Last Admin: 08/22/18 06:00 Dose: 12.5 mls/hr Insulin Glargine (Lantus (Bkc)) 15 units SC QHS [facility] Last Admin: 08/21/18 21:47 Dose: 15 u Insulin Human Lispro (Humalog Kwikpen (Bkc)) 0 unit SQ ACHS [facility]; Protocol Last Admin: 08/22/18 06:51 Dose: Not Given Linagliptin (Tradjenta) 5 mg PO DAILY [facility] Last Admin: 08/21/18 09:09 Dose: 5 mg Losartan Potassium (Cozaar) 100 mg PO DAILY [facility] Last Admin: 08/21/18 09:08 Dose: 100 mg Magnesium Oxide (Mag-Ox 400) 400 mg PO DAILY [facility] Last Admin: 08/21/18 09:09 Dose: 400 mg Metformin HCl (Glucophage) 850 mg PO TIDCM [facility] Last Admin: 08/21/18 19:04 Dose: Not Given Metoprolol Tartrate (Lopressor (Beta Mk)) 100 mg PO BID [facility] Last Admin: 08/21/18 22:44 Dose: Not Given Neomycin/Polymyxin/Bacitracin (Neosporin) 1 applic TOPICAL DAILY [facility]; Protocol Ondansetron HCl (Zofran) 4 mg IV Q8H PRN PRN PRN Reason: NAUSEA/VOMITING Sodium Chloride () 5 - 15 ml IV UD PRN PRN Reason: SALINE FLUSH Last Admin: 08/21/18 08:56 Dose: 10 ml Spironolactone (Aldactone) 50 mg PO DAILY [facility] Last Admin: 08/21/18 09:08 Dose: 50 mg Medical Necessity - Tobacco Use Smoking Status: Former smoker Tobacco Use: Cigars Assessment/Plan All Active Problems Infected neuropathic ulcer (Acute) Toe osteomyelitis, left (Acute) Patient is a 62-year-old gentleman history of hypertension, diabetes mellitus type 2 with diabetic neuropathy who presented with ulceration involving the right great toe. Patient had apparently had cultures drawn as outpatient which came back positive for Citrobacter, enterococcus as well as Pseudomonas. Patient was admitted directly from his transportation refrigeration technician office for inpatient management 1. Acute infected neuropathic ulceration involving the right great toe polymicrobial. MRI obtained on admission demonstrated Cellulitis and osteomyelitis of the proximal and distal phalanges of the big toe patient was started on Zosyn and admission with consultation placed to infectious disease. Subsequent imaging studies with lower extremity CT obtained on 08/21/2018 demonstrated Osseous fusion of the interphalangeal joint of the great toe without demonstrated osseous erosions of the great toe. Case discussed with Dr. Walsh. Patient underwent left hallux amputation on 08/21/[address] Walsh. Cultures obtained on admission so far positive for Citrrobacter freundi, Pseudomonas aeroginosa and Gram Positive Cocci org. Subsequent antibiotic therapy deferred to infectious disease 2. Diabetes mellitus type 2 with complications including diabetic polyneuropathy. Did continue patient home insulin regimen in addition to Accu- Cheks before meals and at bedtime with sliding scale coverage 3. Essential hypertension patient home medications continue 4. Dyslipidemia-patient is on statin therapy, continued at home dose 5. Suspected peripheral arterial disease ABIs ordered for subsequent evaluation prior to intervention 6. Obesity with BMI of 37.9 7. Anemia secondary to anemia of chronic disorder 8. Hyponatremia due to patient diuretics patient was on Dyazide held on admission patient's sodium levels up to 138 as of 08/21/2018. 9. DVT prophylaxis SC Lovenox Microbiology 08/19/18 12:15 Wound Abcess - Leg, Left Gram Stain - Final 08/19/18 12:15 Wound Abcess - Leg, Left Wound Culture - Preliminary Citrobacter freundii Pseudomonas aeroginosa Gram Positive Cocci Code Visit Inpatient E&M: 21333 Subs Hosp L2
[2018-08-22] MEDS: Aspirin E.C. 81 MG Tablet PO (08:17)
[2018-08-22] MEDS: Gabapentin 300 MG Capsule PO (08:18)
[2018-08-22 08:27] VITALS: PULSE 78
[2018-08-22] MEDS: LINAGLIPTIN 5 MG TABLET PO (08:27)
[2018-08-22] MEDS: Metoprolol Tartrate 100 MG Tablet PO ×2 (08:27→21:21)
[2018-08-22] MEDS: Losartan Potassium 100 MG Tablet PO (08:27)
[2018-08-22] MEDS: amLODIPine 10 MG Tablet PO (08:27)
[2018-08-22] MEDS: Magnesium Oxide 400 MG Tablet PO (08:27)
[2018-08-22] MEDS: Spironolactone 50 MG Tablet PO (08:27)
[2018-08-22] MEDS: Enoxaparin 40 MG/0.4 ML Syringe SC (08:53)
[2018-08-22 09:00] VITALS: BP 156/55; PULSE 83; RESP 18; TEMP 36.6; O2SAT 98
--- NOTE | 2018-08-22 09:01 | NURSING ---
wound photo: left foot
--- NOTE | 2018-08-22 09:02 | NURSING ---
wound photo: left foot
--- NOTE | 2018-08-22 09:02 | NURSING ---
wound photo: left foot
--- NOTE | 2018-08-22 10:58 | PN.ID_ITS ---
Patient Problems: Active and Suspected Problems Infected neuropathic ulcer (Acute) Left great toe Toe osteomyelitis, left (Acute) Subjective: Pain controlled, some throbbing yesterday, no fever. - Physical Exam General: Alert, Cooperative, No apparent distress Lungs: Clear to auscultation, Normal air movement Cardiovascular: Regular rate, Regular Rhythm Abdomen: Soft, Non Tender, Non-Distended Skin: Incision - reviewed photos Vital Signs Temp Pulse Resp BP Pulse Ox 97.8 F 83 18 156/55 H 98 08/22/18 09:00 08/22/18 09:00 08/22/18 09:00 08/22/18 09:00 08/22/18 09:00 Oxygen Delivery Method Room Air Weight: 112.99 kg Body Mass Index (BMI) 37.8 Intake and Output for Last 24 Hours 08/20/18 08/21/18 08/22/18 23:59 23:59 23:59 Intake Total 1162 / 1162 1000 / 1000 765 / 765 Output Total 1300 / 1300 2100 / 2100 Balance -138 / -138 1000 / 1000 -1335 / -1335 Microbiology Past 72 Hours 08/19/18 12:15 Gram Stain - Final Wound Abcess - Leg, Left Wound Culture - Preliminary Citrobacter freundii Pseudomonas aeroginosa Gram Positive Cocci Laboratory Tests Past 24 Hrs 08/22/18 08/22/18 05:20 05:20 WBC 7.5 RBC 4.08 L Hgb 10.4 L Hct 31.3 L MCV 76.7 L MCH 25.5 L MCHC 33.2 RDW 14.9 H RDW Differential 41.0 Plt Count 281 MPV 8.6 Sodium 139 Potassium 4.0 Chloride 106 Carbon Dioxide 27.0 Anion Gap 6 BUN 15 Creatinine 1.00 Estim Creat Clear Calc 72.20 Est GFR (MDRD) Af Amer 97 Est GFR (MDRD) Non-Af 80 BUN/Creatinine Ratio 15.0 Glucose 91 Calcium 8.3 L POC Glucose 08/22/18 08/21/18 08/21/18 06:49 21:39 13:39 POC Glucose 95 122 H 134 H 08/21/18 08/20/18 11:23 21:13 POC Glucose 225 H 129 H Medical Necessity - Tobacco Use Smoking Status: Former smoker Tobacco Use: Cigars Route of nutrition/ use of supplements: [] Nutritional Intake: [] IV Site: [] Callejas Catheter: [] - Assessment/Plan Antibiotics: [] Assessment/Plan: [] Active and Suspected Problems Infected neuropathic ulcer (Acute) Left great toe L 1st toe osteo - seen on mri. Recent outpt cx with pseudomonas, citro, and enterococcus. Wound cx here with similar. Was on doxy as an outpt prior to admission. Now s/p toe amputation 08/[address] Walsh. Cont zosyn. Will follow, d/w telephonic case manager
--- NOTE | 2018-08-22 11:09 | CASEMGMT ---
Addendum entered by Adeline Matthews 08/22/18 12:05: SW received call from Anita at [facility] stating she is able to accept pt and will submit for pre-cert. Original Note: Social Work Note SW updated by physician that pt is agreeable to SNF. SW met with pt, introduced self and role at [facility]. Pt is alert and orientated x4. Pt confirms he is agreeable to SNF and would like [facility] as he as been at [facility] before. SW explained referral process and that pt would need pre-cert. Pt states understanding. RENE placed a call to Anita at [facility], updated on referral. Anita states once she receives referral she will submit for pre-cert. RENE faxed referral. Plan: [facility] pending pre-cert Adeline Matthews DOMESTIC HELPER, BAND SALVAGER
[2018-08-22] MEDS: Insulin Lispro 100 UNIT/ML INSULN.PEN SQ (11:56)
[2018-08-22 12:21] LABS: Bedside Glucose 156 mg/dL (70-110)
[2018-08-22] MEDS: Neomycin/Bacitracin/Polymyxin Ointment 1 APPLIC TOPICAL (12:35)
--- NOTE | 2018-08-22 13:31 | CASEMGMT ---
Addendum entered by Adeline Matthews 08/22/18 14:54: RENE met with pt, updated pt on acceptance to [facility] and pre-cert approval. Pt asked about transportation. SW informed pt that transportation can be arranged but pt will likely be transported via wheelchair van and he will get a bill as his insurance doesn't cover wheelchair van. Pt states that he drove himself to the hospital and asked about driving himself to SNF. SW informed pt that this worker is unsure if pt will be able to transport self tomorrow as pt may have driving restriction, but will relay message to physician to talk to pt tomorrow regarding driving to SNF. SW asked if any family or friends would be able to transport pt. Pt states I have no one here around to transport. Original Note: Social Work Note SW received message from Anita at [facility] stating pre-cert has been obtained and pt is able to discharge today if medically cleared. SW updated physician, pt is not medically cleared for discharge. RENE placed a call to Anita updated her that pt is not medically cleared for discharge. SW attempted to update pt, pt currently on phone. SW will update pt as time permits. Plan: [facility] once medically cleared Adeline Matthews RESEARCH METHODOLOGIST, INDUSTRIAL RELATIONS COUNSELOR
[2018-08-22 15:00] VITALS: BP 134/52; PULSE 81; RESP 18; TEMP 37.3; O2SAT 99
[2018-08-22 16:41] LABS: Bedside Glucose 76 mg/dL (70-110)
[2018-08-22] MEDS: Acetaminophen 325 MG Tablet 650 MG PO (19:51)
[2018-08-22 21:12] VITALS: BP 140/59; PULSE 83; RESP 16; TEMP 36.8; O2SAT 98
--- NOTE | 2018-08-22 21:19 | OP.PCM_ITS ---
Report of Operation Date of Procedure: 08/21/18 Pre-Operative Diagnosis: osteomyelitis of left hallux. diabetic foot ulce ration, left hallux Post-Operative Diagnosis: same as above Surgery/Procedure Performed:: left hallux amputation. open biopsy of left 1st metatarsal Description of Surgical Findings:: nonviable bone, left hallux Type of Anesthesia:: Local MAC Specimen's removed: left hallux for pathology and milagros. left 1st metatarsal for pathology and milagros Drains: none Estimated Blood Loss (mL): <5mls Fluids Replaced: none Description of Procedure: Patient is a 62 year old male admitted to hospital for cellulitis and suspected osteomyelitis of left hallux. patient apparently developed ulceration of left hallux the result of trying to shave a callus himself. he presented to urgent care last week and was given doxycycline. He presented to me this past Sunday. When I evaluated patient, I did not like the looks of his toe so I recommended admission to hospital. upon admission to the hospital, he had mri that was consistent with osteomyelitis of left hallux proximal and distal phalanx. there was marrow edema of left 2nd toe but could not be conclusive for osteomyelitis. he had ct scan that was negative for any erosive changes of left 2nd toe. I discussed the clinical findings of large ulceration of left hallux with probe to bone and mri findings consisent with osteomyelitis. I discussed past cultures suggestive of pseudomonas, enterococcus and citrobacter. I discussed options not limited to conservative management with antibiotics vs amputation. I discussed left hallux amputation not limited to partial amputation vs total amputation. given the extent of infection on mri and significant soft-tissue void, I feel if he elects for amputation, his best option would include total hallux amputation. I discussed possible 1st metatarsal head resection/seamoid removal but he would rather hold on any more proximal amputation. I discussed risks of procedure not limited to infection, pain, swelling, bleeding, wound dehiscence, need for more proximal amputation, cardiac arrest, dvt, , need for antibiotics even though infection is performed. I informed patient that following procedure, after his toe heals, He will need special diabetic shoes with toe filler to prevent overload of metatarsal heads. patient understands all his options and he consents to proceed. I informed patient that if the tissue appears healthy, I will close primarily, otherwise, it will be left open. PVR has been performed and it appears that he has adequate perfusion to heal procedure. Patient was transferred into operating room and placed on operating room table in supine position. He was placed under mac anesthesia and then local field block was performed to the left 1st ray. the left lower extremity was prepped and draped. no tourniquet was used for this case. Attention was then directed to the left hallux. a fish mouth incision was carefully planned to allow enough skin/softtissue for closure. A full thickness incision was performed down to the level of bone. all neurovascular structures were identfied and retracted and cauterized as needed. the left hallux which is fused was disarticulated at mtpj. the left hallux along ulceration was biopsied and two specimens were obtained and labeled left hallux. the specimen was sent for pathology and micro. All nonviable tissue was debrided. no abscess or purulence was noted. the surgical incision was then irrigated with 3000 cc of normal saline. New instrumentation and gloves were exchanged . a cook needle was used to biopsy the first metatarsal. the specimen was sent for pathology and micro. victoria and gelfoam mixed with thrombin was used to achieve hemostasis. there was no pus and the skin/soft tissue appeared viable following resection of left hallux so I decided it was fine to perform primary closure. the surgical incision was modified of any dog ears. the surgical incision was then closed without tension with 2-0 nylon. the edges came together nicely without tension. counts were correct at closure. a postop dressing was applied consisting of betadine soaked adaptic, 4x4 guaze, jacoby, roberta. patient was awakened and found to be in stable condition. he will be readmitted to floor. will continue with antibiotics. he will be nwb. will plan for discharge once cultures final. Grafts/Implants Used: none - Complications none
[2018-08-22 21:21] VITALS: PULSE 83
[2018-08-22] MEDS: Doxazosin 1 MG Tablet 2 MG PO (21:21)
[2018-08-22] MEDS: Gabapentin 300 MG Capsule 600 MG PO (21:21)
[2018-08-22] MEDS: Atorvastatin Calcium 20 MG Tablet PO (21:21)
[2018-08-22] MEDS: Amitriptyline 25 MG Tablet 50 MG PO (21:22)
[2018-08-22 22:16] LABS: Bedside Glucose 102 mg/dL (70-110)
[2018-08-23 02:19] VITALS: BP 113/56; PULSE 69; RESP 16; TEMP 36.7; O2SAT 97
[2018-08-23 05:36] LABS: Absolute Lymphocyte Count 1.06 X10^3/ul (0.83-4.51); Absolute Neutrophil Count 5.4 X10^3/uL (2.0-7.7); Basophil# 0.02 X10^3/uL; Basophil% 0.3 % (0-1); Eosinophils% 1.4 % (0-5); Hematocrit 29.6 % (40-54); Lymphocyte # 1.06 X10^3/ul (4.0); Lymphocyte % 14.8 % (19-41); Mean Corp Hgb Conc 33.8 g/gl (32-36); Mean Corpuscular Hgb 25.8 pg (27.0-32.0); Mean Corpuscular Volume 76.5 fL (80-94); Mean Platelet Vol. 8.3 fl (6.2-12.0); Monocyte# 0.56 X10^3/uL; Monocyte% 7.8 % (0-10); Neutrophil # 5.38 X10^3/uL (2.7-7.7); POSITIVE COUNT NO; POSITIVE DIFFERENTIAL NO; POSITIVE MORPHOLOGY NO; Platelet Count 249 K/mm3 (150-450); RBC Distribution Width CV 14.7 % (11.6-14.6); RBC Distribution Width SD 40.1 fl (35.1-43.9); Red Blood Count 3.87 M/mm3 (4.6-6.2); White Blood Count 7.2 K/mm3 (4.4-11.0)
[2018-08-23 06:00] LABS: Anion Gap 7 (5-15); BUN 16 mg/dL (7-18); BUN/Creat Ratio 14.4 RATIO (10-20); Calcium,Total 8.4 mg/dL (8.5-10.1); Chloride 104 mmol/L (98-107); Creatinine, Serum 1.11 mg/dL (0.70-1.30); EST Glomerular Filtration Rate 71 mL/min (>60); Est Glom Filt Rate - Afr Amer 86 mL/min (>60); Estimated Creatinine Clearance 65.05 ml/min; Glucose 104 mg/dL (74-106); Potassium 4.1 mmol/L (3.5-5.1); Sodium Level 138 mmol/L (136-145)
[2018-08-23 06:35] LABS: Bedside Glucose 97 mg/dL (70-110)
--- NOTE | 2018-08-23 07:45 | PCM.PN.SRG ---
Patient Problems: Active and Suspected Problems Infected neuropathic ulcer (Acute) Left great toe Toe osteomyelitis, left (Acute) Subjective: patient is seen at bedside this morning. patient denies any pain. patient denies any n/v/f/c. he is expecting discharge to nursing facility. Objective: patient is alert and orientated x 3. patient does not appear in any distress vascular: DP and PT pulses 1/4 to left foot. CFT is brisk to amputation site. skin temperature is warm to warm. there is no erythema noted to left foot. Derm: the surgical incision to left foot is approximated nicely without tension or signs of dehiscence or any drainage. there is slight darkening of incision distally but the incision does pink up with brisk cft. there is no drainage or foul odor to amputation site. minimal post-op edema is noted. no calf pain is noted. - Physical Exam Vital Signs Temp Pulse Resp BP Pulse Ox 98.1 F 69 16 113/56 L 97 08/23/18 02:19 08/23/18 02:19 08/23/18 02:19 08/23/18 02:19 08/23/18 02:19 Oxygen Delivery Method Room Air Weight: 112.99 kg Body Mass Index (BMI) 37.8 Intake and Output for Last 24 Hours 08/21/18 08/22/18 08/23/18 23:59 23:59 23:59 Intake Total 1000 / 1000 765 / 765 925 / 925 Output Total 2100 / 2100 Balance 1000 / 1000 -1335 / -1335 925 / 925 Microbiology Past 72 Hours 08/21/18 19:02 Gram Stain - Final Bone - Other Wound Culture - Preliminary No growth-Final to follow 08/21/18 19:02 Gram Stain - Final Bone - Other Wound Culture - Preliminary No growth-Final to follow 08/19/18 12:15 Gram Stain - Final Wound Abcess - Leg, Left Wound Culture - Preliminary Citrobacter freundii Pseudomonas aeroginosa Gram Positive Cocci Laboratory Tests Past 24 Hrs 08/23/18 08/23/18 05:05 05:05 WBC 7.2 RBC 3.87 L Hgb 10.0 L Hct 29.6 L MCV 76.5 L MCH 25.8 L MCHC 33.8 RDW 14.7 H RDW Differential 40.1 Plt Count 249 MPV 8.3 Immature Gran % (Auto) 0.700 Neut % (Auto) 75.0 H Lymph % (Auto) 14.8 L [place] % (Auto) 7.8 Eos % (Auto) 1.4 Baso % (Auto) 0.3 Absolute Neuts (auto) 5.4 Absolute Lymphs (auto) 1.06 Total Counted Not Reportable Sodium 138 Potassium 4.1 Chloride 104 Carbon Dioxide 27.0 Anion Gap 7 BUN 16 Creatinine 1.11 Estim Creat Clear Calc 65.05 Est GFR (MDRD) Af Amer 86 Est GFR (MDRD) Non-Af 71 BUN/Creatinine Ratio 14.4 Glucose 104 Calcium 8.4 L POC Glucose 08/23/18 08/22/18 08/22/18 06:25 21:20 16:28 POC Glucose 97 102 76 08/22/18 11:54 POC Glucose 156 H Medical Necessity - Tobacco Use Smoking Status: Former smoker Tobacco Use: Cigars Assessment/Plan All Active Problems Infected neuropathic ulcer (Acute) Toe osteomyelitis, left (Acute) patient was examined and informed of findings. He is 3 days post-op from amputation. cultures still pending from surgery. continue with antibiotics per ID. betadine applied to amputation site with dressing. I will have nursing apply betadine [facility] and he will f/u with me in my clinic next Sunday or Sunday. Patient is to remain nwb to left foot. any weight can certainly risk complications most notably wound dehiscence. on exam, there is slight darkening of distal incision but the wound edges are approximated without tension. I reviewed pvr and spoke with Dr. Alatorre. He has mostly small vessel disease. There does not appear to be any large vessel disease. I am going to watch this closely and treat with betadine and monitor for any worsening. I have informed patient that if he does in fact have small vessel disease, he may have slower than usual healing of this incision and/or require more proximal amputation vs wound vac. at this time, he wishes to monitor and hold on any additional procedures. patient ok to discharge once medically stable. he needs nursing to apply betadine to his left foot daily. he needs to wear foam cradle boots while in bed. he needs to remain nwb to left foot at all times.
[2018-08-23 08:26] VITALS: BP 119/52; PULSE 78; RESP 18; TEMP 36.7; O2SAT 97
[2018-08-23] MEDS: LINAGLIPTIN 5 MG TABLET PO (08:33)
[2018-08-23] MEDS: Aspirin E.C. 81 MG Tablet PO (08:33)
[2018-08-23] MEDS: Losartan Potassium 100 MG Tablet PO (08:33)
[2018-08-23] MEDS: Magnesium Oxide 400 MG Tablet PO (08:33)
[2018-08-23] MEDS: amLODIPine 10 MG Tablet PO (08:33)
[2018-08-23 08:34] VITALS: PULSE 78
[2018-08-23] MEDS: Gabapentin 300 MG Capsule PO (08:34)
[2018-08-23] MEDS: Metoprolol Tartrate 100 MG Tablet PO (08:34)
[2018-08-23] MEDS: Spironolactone 50 MG Tablet PO (08:34)
[2018-08-23] MEDS: Enoxaparin 40 MG/0.4 ML Syringe SC (08:34)
[2018-08-23] MEDS: Neomycin/Bacitracin/Polymyxin Ointment 1 APPLIC TOPICAL (08:37)
--- NOTE | 2018-08-23 10:07 | NURSING ---
paged Dr. deshpande about pt requesting to drive to [facility] in [place]. stated prefer he doesn't. SW and CM aware the need for transport set up.
[2018-08-23] MEDS: Insulin Lispro 100 UNIT/ML INSULN.PEN SQ (11:49)
[2018-08-23 12:01] LABS: Bedside Glucose 193 mg/dL (70-110)
--- NOTE | 2018-08-23 12:47 | TREXTCAR_ITS ---
- Diet 08/21/18 22:01 ADA [Diet: Calorie Controlled] Is pt able to select menu?: Yes Diet Comments: NPO AT 1100 How many daily calories?: 1800 calorie - Wound(s) left great toe Wound Type: Neuropathic/Diabetic Foot Ulcer left great toe, posterior Wound Type: Neuropathic/Diabetic Foot Ulcer left great toe, anterior Wound Type: Neuropathic/Diabetic Foot Ulcer bottom of left foot Wound Type: Puncture left foot, top of 2nd digit Wound Type: Neuropathic/Diabetic Foot Ulcer Dressing Change: Dry Sterile Dressing right foot, top of 2nd digit Wound Type: scraped area left medial great toe Wound Type: Neuropathic/Diabetic Foot Ulcer Dressing Change: AntiMicrobial (Aquacel AG, etc) LEFT FOOT Wound Type: surgical incision s/p amputation left great toe Dressing Change: Adaptic with dry dressing - Therapies Physical Therapy: Eval and Treat Occupational Therapy: Eval and Treat - Allergies/Procedures Done in Hospital Allergies/Adverse Reactions: Allergies No Known Allergies Allergy (Verified 08/19/18 11:32) - Type of Care/Length of Stay Estimated LOS: Convalescent Care Less Than 30 days Type of Care Needed: Skilled Rehab Potential: Good Prognosis: Good - Additional Orders/Day of Discharge Day of Discharge: 08/23/18 - Dietary and Speech Recommendations Dietitian Recommendations/Changes: Continue 1800 calorie controlled diet. Rec 1 packet Miguel BID for wound . Rec outpatient DM education at [facility]. - Follow Up Care Primary Care Physician: Edward Mcgovern DO [Primary Care Provider] - Please follow up with your Primary Care Physician in: in 1-2 weeks Please Follow Up With: Davi Walsh DPM When: in 1-2 weeks
--- NOTE | 2018-08-23 12:47 | DS.PCM_ITS ---
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 Routine Comment: Summary of Care Provided: The patient is a 62 year old M [] Patient Problems: Active and Suspected Problems Infected neuropathic ulcer (Acute) Left great toe Toe osteomyelitis, left (Acute) - Physical Exam Vital Signs Temp Pulse Resp BP Pulse Ox 98.0 F 78 18 119/52 L 97 08/23/18 08:26 08/23/18 08:34 08/23/18 08:26 08/23/18 08:26 08/23/18 08:26 Oxygen Delivery Method Room Air Weight: 112.99 kg Body Mass Index (BMI) 37.8 Intake and Output for Last 24 Hours 08/21/18 08/22/18 08/23/18 23:59 23:59 23:59 Intake Total 1000 / 1000 765 / 765 1565 / 1565 Output Total 2100 / 2100 650 / 650 Balance 1000 / 1000 -1335 / -1335 915 / 915 Microbiology Past 72 Hours 08/19/18 12:15 Gram Stain - Final Wound Abcess - Leg, Left Wound Culture - Final Citrobacter freundii Pseudomonas aeroginosa Staphylococcus epidermidis Enterococcus faecalis 08/21/18 19:02 Gram Stain - Final Bone - Other Wound Culture - Preliminary No growth-Final to follow 08/21/18 19:02 Gram Stain - Final Bone - Other Wound Culture - Preliminary No growth-Final to follow Laboratory Tests Past 24 Hrs 08/23/18 08/23/18 05:05 05:05 WBC 7.2 RBC 3.87 L Hgb 10.0 L Hct 29.6 L MCV 76.5 L MCH 25.8 L MCHC 33.8 RDW 14.7 H RDW Differential 40.1 Plt Count 249 MPV 8.3 Immature Gran % (Auto) 0.700 Neut % (Auto) 75.0 H Lymph % (Auto) 14.8 L [place] % (Auto) 7.8 Eos % (Auto) 1.4 Baso % (Auto) 0.3 Absolute Neuts (auto) 5.4 Absolute Lymphs (auto) 1.06 Total Counted Not Reportable Sodium 138 Potassium 4.1 Chloride 104 Carbon Dioxide 27.0 Anion Gap 7 BUN 16 Creatinine 1.11 Estim Creat Clear Calc 65.05 Est GFR (MDRD) Af Amer 86 Est GFR (MDRD) Non-Af 71 BUN/Creatinine Ratio 14.4 Glucose 104 Calcium 8.4 L POC Glucose 08/23/18 08/23/18 08/22/18 11:47 06:25 21:20 POC Glucose 193 H 97 102 08/22/18 16:28 POC Glucose 76 Home Medications: Medications to take at Discharge Amitriptyline HCl 50 mg PO QHS 08/19/18 Amlodipine [Norvasc] 10 mg PO DAILY 08/19/18 Aspirin [Aspir 81] 81 mg PO DAILY 08/19/18 Benzonatate [Tessalon Perle] 100 mg PO TID PRN PRN 08/19/18 Docusate Sodium 100 mg PO BID PRN 08/19/18 Doxazosin Mesylate 2 mg PO QHS 08/19/18 Fluticasone 0.05% [Flonase Nasal [place]] 1 spray NASAL DAILY PRN 08/19/18 Gabapentin [Neurontin] 300 mg PO BREAKFAST 08/19/18 Gabapentin [Neurontin] 600 mg PO QHS 08/19/18 Insulin Glargine,Hum.rec.anlog [Lantus Solostar] 15 unit SQ QHS 08/19/18 Loratadine 10 mg PO DAILY 08/19/18 Losartan Potassium 100 mg PO DAILY 08/19/18 Magnesium Oxide [Magnesium] 400 mg PO DAILY 08/19/18 Metformin HCl [Glucophage] 850 mg PO TIDCM 08/19/18 Metoprolol Tartrate [Lopressor (beta rashad)] 100 mg PO BID 08/19/18 Nitroglycerin [Nitrolingual [place]] 0.4 mg SUBLINGUAL PRN PRN 08/19/18 [place]-3 Fatty Acids/Fish Oil [[place] 3 Fish Oil Softgel] 1 each PO DAILY 08/19/18 Simvastatin [Zocor] 40 mg PO QHS 08/19/18 Sitagliptin Phosphate [Januvia] 100 mg PO DAILY 08/19/18 Spironolactone [Aldactone] 50 mg PO DAILY 08/19/18 Triamterene/Hctz 37.5/25Mg [Triamterene-Hctz 37.5-25 mg Tb] 1 cap PO DAILY 08/19/18 Acetaminophen [Tylenol Tablet] 650 mg PO Q6H PRN PRN tablet 08/23/18 Amox/Clavulanate Tablet [Augmentin Tablet] 875 mg PO Q12H 5 Days #10 tablet 08/23/18 Insulin Lispro [Humalog KwikPen] See Protocol SQ ACHS insuln.pen 08/23/18 levoFLOXacin tablet [Levaquin tablet] 500 mg PO DAILY 5 Days #5 tablet 08/23/18 Following Prescrptions Were Given to Patient: Amox/Clavulanate Tablet [Augmentin Tablet] 875 mg PO Q12H 5 Days #10 tablet levoFLOXacin tablet [Levaquin tablet] 500 mg PO DAILY 5 Days #5 tablet Primary Care Physician: Edward Mcgovern DO [Primary Care Provider] - Please follow up with your Primary Care Physician in: in 1-2 weeks Please Follow Up With: Davi Walsh DPM When: in 1-2 weeks Medical Necessity - Tobacco Use Smoking Status: Former smoker Tobacco Use: Cigars
--- NOTE | 2018-08-23 12:50 | PN.ID_ITS ---
Patient Problems: Active and Suspected Problems Infected neuropathic ulcer (Acute) Left great toe Toe osteomyelitis, left (Acute) Subjective: Feeling good, no fever, no n/v/d. - Physical Exam General: Alert, Cooperative, No apparent distress Lungs: Clear to auscultation, Normal air movement Cardiovascular: Regular rate, Regular Rhythm Abdomen: Soft, Non Tender, Non-Distended Skin: Ulcer/ Wound Vital Signs Temp Pulse Resp BP Pulse Ox 98.0 F 78 18 119/52 L 97 08/23/18 08:26 08/23/18 08:34 08/23/18 08:26 08/23/18 08:26 08/23/18 08:26 Oxygen Delivery Method Room Air Weight: 112.99 kg Body Mass Index (BMI) 37.8 Intake and Output for Last 24 Hours 08/21/18 08/22/18 08/23/18 23:59 23:59 23:59 Intake Total 1000 / 1000 765 / 765 1565 / 1565 Output Total 2100 / 2100 650 / 650 Balance 1000 / 1000 -1335 / -1335 915 / 915 Microbiology Past 72 Hours 08/19/18 12:15 Gram Stain - Final Wound Abcess - Leg, Left Wound Culture - Final Citrobacter freundii Pseudomonas aeroginosa Staphylococcus epidermidis Enterococcus faecalis 08/21/18 19:02 Gram Stain - Final Bone - Other Wound Culture - Preliminary No growth-Final to follow 08/21/18 19:02 Gram Stain - Final Bone - Other Wound Culture - Preliminary No growth-Final to follow Laboratory Tests Past 24 Hrs 08/23/18 08/23/18 05:05 05:05 WBC 7.2 RBC 3.87 L Hgb 10.0 L Hct 29.6 L MCV 76.5 L MCH 25.8 L MCHC 33.8 RDW 14.7 H RDW Differential 40.1 Plt Count 249 MPV 8.3 Immature Gran % (Auto) 0.700 Neut % (Auto) 75.0 H Lymph % (Auto) 14.8 L [place] % (Auto) 7.8 Eos % (Auto) 1.4 Baso % (Auto) 0.3 Absolute Neuts (auto) 5.4 Absolute Lymphs (auto) 1.06 Total Counted Not Reportable Sodium 138 Potassium 4.1 Chloride 104 Carbon Dioxide 27.0 Anion Gap 7 BUN 16 Creatinine 1.11 Estim Creat Clear Calc 65.05 Est GFR (MDRD) Af Amer 86 Est GFR (MDRD) Non-Af 71 BUN/Creatinine Ratio 14.4 Glucose 104 Calcium 8.4 L POC Glucose 08/23/18 08/23/18 08/22/18 11:47 06:25 21:20 POC Glucose 193 H 97 102 08/22/18 16:28 POC Glucose 76 Medical Necessity - Tobacco Use Smoking Status: Former smoker Tobacco Use: Cigars Route of nutrition/ use of supplements: [] Nutritional Intake: [] IV Site: [] Callejas Catheter: [] - Assessment/Plan Antibiotics: [] Assessment/Plan: [] Active and Suspected Problems Infected neuropathic ulcer (Acute) Left great toe L 1st toe osteo - seen on mri. Recent outpt cx with pseudomonas, citro, and enterococcus. Wound cx here with PsA, citro, enterococcus, and MRSE. Was on doxy as an outpt prior to admission. Now s/p toe amputation 08/[address] Walsh. Ok for d/c on 5 days of levaquin and augmentin. Will follow, d/w telephonic case manager and Dr. Looney
--- NOTE | 2018-08-23 13:16 | PCM.DC.SUM ---
Discharge Date and Diagnosis - Problem List Patient Problems: Active and Suspected Problems Infected neuropathic ulcer (Acute) Left great toe Toe osteomyelitis, left (Acute) Date of Admission: 08/19/18 Date of Discharge: 08/23/18 - Primary Discharge Diagnosis Active and Suspected Problems Infected neuropathic ulcer (Acute) Left great toe Toe osteomyelitis, left (Acute) Hospital Course and Treatment Imaging Results: Clinical Impression(s) from Imaging Studies Chest X-Ray 08/19/18 11:49 IMPRESSION: No acute cardiopulmonary process. Electronically Signed: Candelario Boykin MD at 12:39 EDT Tel , Service support , Foot X-Ray 08/19/18 11:49 IMPRESSION: Dorsal foot soft tissue swelling. No deep soft tissue gas. No specific features of osteomyelitis. Prominent peripheral arterial disease. Electronically Signed: Candelario Boykin MD at 12:43 EDT Tel , Service support , Lower Extremity MRI 08/19/18 15:24 IMPRESSION: The exam is limited to motion artifact Cellulitis and osteomyelitis of the proximal and distal phalanges of the big toe. There is bony fusion of the interphalangeal joint of the big toe with fusion of the proximal and distal phalanx Cellulitis of the distal aspect of the second digit with questionable mild osteomyelitis of the ungual tuft of the second digit versus motion artifact Osteoarthrosis as above Electronically Signed: Tarun Moraes at 22:12 EDT Tel , Service support , Lower Extremity CT 08/21/18 07:20 IMPRESSION: Osseous fusion of the interphalangeal joint of the great toe without demonstrated osseous erosions of the great toe. No demonstrated osseous erosions of the phalanges of the second toe. Absence of the distal aspect of the fifth proximal phalanx, either from prior surgery or chronic absorption. Arthrosis of the navicular-cuneiform, first through fourth tarsometatarsal joints and first metatarsophalangeal joint. Electronically Signed: Dago Washington MD at 8:37 EDT Tel , Service support , Foot X-Ray 08/21/18 19:25 IMPRESSION: Status post recent amputation of the first toe. Suspect previous arthroplasty of the proximal phalanx of the fifth toe. Degenerative changes, as above. No demonstrated acute fracture, dislocation, or active destructive osseous lesion. Electronically Signed: Ino Tubbs MD at 2:14 EDT , Service support , Microbiology 08/19/18 12:15 Wound Abcess - Leg, Left Gram Stain - Final 08/19/18 12:15 Wound Abcess - Leg, Left Wound Culture - Final Citrobacter freundii Pseudomonas aeroginosa Staphylococcus epidermidis Enterococcus faecalis 08/21/18 19:02 Bone - Other Gram Stain - Final 08/21/18 19:02 Bone - Other Wound Culture - Preliminary No growth-Final to follow 08/21/18 19:02 Bone - Other Gram Stain - Final 08/21/18 19:02 Bone - Other Wound Culture - Preliminary No growth-Final to follow Consultations 08/19/18 15:24 Consult: Onc/Wound/portable sawyer Routine Comment: Summary of Care Provided: Patient is a 62-year-old gentleman history of hypertension, diabetes mellitus type 2 with diabetic neuropathy who presented with ulceration involving the right great toe. Patient had apparently had cultures drawn as outpatient which came back positive for Citrobacter, enterococcus as well as Pseudomonas. Patient was admitted directly from his social worker clinical office for inpatient management 1. Acute infected neuropathic ulceration involving the right great toe polymicrobial. MRI obtained on admission demonstrated Cellulitis and osteomyelitis of the proximal and distal phalanges of the big toe patient was started on Zosyn and admission with consultation placed to infectious disease. Subsequent imaging studies with lower extremity CT obtained on 08/21/2018 demonstrated Osseous fusion of the interphalangeal joint of the great toe without demonstrated osseous erosions of the great toe. Case discussed with Dr. Walsh. Patient underwent left hallux amputation on 08/21/[address] Walsh. Patient had a positive polymicrobial culture antibiotics managed by Dr. Rodriguez with infectious disease. Patient was discharged on Levaquin as well as amoxicillin 2. Diabetes mellitus type 2 with complications including diabetic polyneuropathy. Did continue patient home insulin regimen in addition to Accu-Cheks before meals and at bedtime with sliding scale coverage 3. Essential hypertension patient home medications continue 4. Dyslipidemia-patient is on statin therapy, continued at home dose 5. Suspected peripheral arterial disease ABIs ordered for subsequent evaluation prior to intervention 6. Obesity with BMI of 37.9 7. Anemia secondary to anemia of chronic disorder 8. Hyponatremia due to patient diuretics patient was on Dyazide held on admission patient's sodium levels up to 138 as of 08/21/2018. 9. DVT prophylaxis SC Lovenox Patient Problems: Active and Suspected Problems Infected neuropathic ulcer (Acute) Left great toe Toe osteomyelitis, left (Acute) Objective: GENERAL: cooperative HEENT: Atraumatic; moist oral mucosa EYES; Anicteric, Normal Conjunctiva NECK; supple, normal thyroid, RESPIRATORY: Diminished to auscultation bilaterally, CARDIOVASCULAR: Regular S1 S2, GI: soft, non-tender, normoactive bowel sounds, : No Renal angle tenderness; PSYCH; Normal affect - Physical Exam Vital Signs Temp Pulse Resp BP Pulse Ox 98.0 F 78 18 119/52 L 97 08/23/18 08:26 08/23/18 08:34 08/23/18 08:26 08/23/18 08:26 08/23/18 08:26 Oxygen Delivery Method Room Air Weight: 112.99 kg Body Mass Index (BMI) 37.8 Intake and Output for Last 24 Hours 08/21/18 08/22/18 08/23/18 23:59 23:59 23:59 Intake Total 1000 / 1000 765 / 765 1565 / 1565 Output Total 2100 / 2100 650 / 650 Balance 1000 / 1000 -1335 / -1335 915 / 915 Microbiology Past 72 Hours 08/19/18 12:15 Gram Stain - Final Wound Abcess - Leg, Left Wound Culture - Final Citrobacter freundii Pseudomonas aeroginosa Staphylococcus epidermidis Enterococcus faecalis 08/21/18 19:02 Gram Stain - Final Bone - Other Wound Culture - Preliminary No growth-Final to follow 08/21/18 19:02 Gram Stain - Final Bone - Other Wound Culture - Preliminary No growth-Final to follow Laboratory Tests Past 24 Hrs 05/10/19 05/10/19 05:05 05:05 WBC 7.2 RBC 3.87 L Hgb 10.0 L Hct 29.6 L MCV 76.5 L MCH 25.8 L MCHC 33.8 RDW 14.7 H RDW Differential 40.1 Plt Count 249 MPV 8.3 Immature Gran % (Auto) 0.700 Neut % (Auto) 75.0 H Lymph % (Auto) 14.8 L [place] % (Auto) 7.8 Eos % (Auto) 1.4 Baso % (Auto) 0.3 Absolute Neuts (auto) 5.4 Absolute Lymphs (auto) 1.06 Total Counted Not Reportable Sodium 138 Potassium 4.1 Chloride 104 Carbon Dioxide 27.0 Anion Gap 7 BUN 16 Creatinine 1.11 Estim Creat Clear Calc 65.05 Est GFR (MDRD) Af Amer 86 Est GFR (MDRD) Non-Af 71 BUN/Creatinine Ratio 14.4 Glucose 104 Calcium 8.4 L POC Glucose 08/23/18 08/23/18 08/22/18 11:47 06:25 21:20 POC Glucose 193 H 97 102 08/22/18 16:28 POC Glucose 76 Discharge Diet: 1800 Calorie Control Diet Home Medications: Medications to take at Discharge Amitriptyline HCl 50 mg PO QHS 08/19/18 Amlodipine [Norvasc] 10 mg PO DAILY 08/19/18 Aspirin [Aspir 81] 81 mg PO DAILY 08/19/18 Benzonatate [Tessalon Perle] 100 mg PO TID PRN PRN 08/19/18 Docusate Sodium 100 mg PO BID PRN 08/19/18 Doxazosin Mesylate 2 mg PO QHS 08/19/18 Fluticasone 0.05% [Flonase Nasal [place]] 1 spray NASAL DAILY PRN 08/19/18 Gabapentin [Neurontin] 300 mg PO BREAKFAST 08/19/18 Gabapentin [Neurontin] 600 mg PO QHS 08/19/18 Insulin Glargine,Hum.rec.anlog [Lantus Solostar] 15 unit SQ QHS 08/19/18 Loratadine 10 mg PO DAILY 08/19/18 Losartan Potassium 100 mg PO DAILY 08/19/18 Magnesium Oxide [Magnesium] 400 mg PO DAILY 08/19/18 Metformin HCl [Glucophage] 850 mg PO TIDCM 08/19/18 Metoprolol Tartrate [Lopressor (beta rashad)] 100 mg PO BID 08/19/18 Nitroglycerin [Nitrolingual [place]] 0.4 mg SUBLINGUAL PRN PRN 08/19/18 [place]-3 Fatty Acids/Fish Oil [[place] 3 Fish Oil Softgel] 1 each PO DAILY 08/19/18 Simvastatin [Zocor] 40 mg PO QHS 08/19/18 Sitagliptin Phosphate [Januvia] 100 mg PO DAILY 08/19/18 Spironolactone [Aldactone] 50 mg PO DAILY 08/19/18 Triamterene/Hctz 37.5/25Mg [Triamterene-Hctz 37.5-25 mg Tb] 1 cap PO DAILY 08/19/18 Acetaminophen [Tylenol Tablet] 650 mg PO Q6H PRN PRN tablet 08/23/18 Amox/Clavulanate Tablet [Augmentin Tablet] 875 mg PO Q12H 5 Days #10 tablet 08/23/18 Insulin Lispro [Humalog KwikPen] See Protocol SQ ACHS insuln.pen 08/23/18 levoFLOXacin tablet [Levaquin tablet] 500 mg PO DAILY 5 Days #5 tablet 08/23/18 Following Prescrptions Were Given to Patient: Amox/Clavulanate Tablet [Augmentin Tablet] 875 mg PO Q12H 5 Days #10 tablet levoFLOXacin tablet [Levaquin tablet] 500 mg PO DAILY 5 Days #5 tablet Primary Care Physician: Edward Mcgovern DO [Primary Care Provider] - Please follow up with your Primary Care Physician in: in 1-2 weeks Please Follow Up With: Davi Walsh DPM When: in 1-2 weeks Disposition: [facility] facility Minutes spent on discharge:: 45 Medical Necessity - Tobacco Use Smoking Status: Former smoker Tobacco Use: Cigars Meaningful Use Info Meaningful Use Diagnoses (Choose all that apply): None applicable Code Visit Inpatient E&M: 43774 Disch Hosp
--- NOTE | 2018-08-23 13:19 | DS.PCM_ITS ---
Discharge Date and Diagnosis - Problem List Patient Problems: Active and Suspected Problems Infected neuropathic ulcer (Acute) Left great toe Toe osteomyelitis, left (Acute) Date of Admission: 08/19/18 Date of Discharge: 08/23/18 - Primary Discharge Diagnosis Active and Suspected Problems Infected neuropathic ulcer (Acute) Left great toe Toe osteomyelitis, left (Acute) Hospital Course and Treatment Imaging Results: Clinical Impression(s) from Imaging Studies Chest X-Ray 08/19/18 11:49 IMPRESSION: No acute cardiopulmonary process. Electronically Signed: Candelario Boykin MD at 12:39 EDT Tel , Service support , Foot X-Ray 08/19/18 11:49 IMPRESSION: Dorsal foot soft tissue swelling. No deep soft tissue gas. No specific features of osteomyelitis. Prominent peripheral arterial disease. Electronically Signed: Candelario Boykin MD at 12:43 EDT Tel , Service support , Lower Extremity MRI 08/19/18 15:24 IMPRESSION: The exam is limited to motion artifact Cellulitis and osteomyelitis of the proximal and distal phalanges of the big toe. There is bony fusion of the interphalangeal joint of the big toe with fusion of the proximal and distal phalanx Cellulitis of the distal aspect of the second digit with questionable mild osteomyelitis of the ungual tuft of the second digit versus motion artifact Osteoarthrosis as above Electronically Signed: Tarun Moraes at 22:12 EDT Tel , Service support , Lower Extremity CT 08/21/18 07:20 IMPRESSION: Osseous fusion of the interphalangeal joint of the great toe without demonstrated osseous erosions of the great toe. No demonstrated osseous erosions of the phalanges of the second toe. Absence of the distal aspect of the fifth proximal phalanx, either from prior surgery or chronic absorption. Arthrosis of the navicular-cuneiform, first through fourth tarsometatarsal joints and first metatarsophalangeal joint. Electronically Signed: Dago Washington MD at 8:37 EDT Tel , Service support , Foot X-Ray 08/21/18 19:25 IMPRESSION: Status post recent amputation of the first toe. Suspect previous arthroplasty of the proximal phalanx of the fifth toe. Degenerative changes, as above. No demonstrated acute fracture, dislocation, or active destructive osseous lesion. Electronically Signed: Ino Tubbs MD at 2:14 EDT , Service support , Microbiology 08/19/18 12:15 Wound Abcess - Leg, Left Gram Stain - Final 08/19/18 12:15 Wound Abcess - Leg, Left Wound Culture - Final Citrobacter freundii Pseudomonas aeroginosa Staphylococcus epidermidis Enterococcus faecalis 08/21/18 19:02 Bone - Other Gram Stain - Final 08/21/18 19:02 Bone - Other Wound Culture - Preliminary No growth-Final to follow 08/21/18 19:02 Bone - Other Gram Stain - Final 08/21/18 19:02 Bone - Other Wound Culture - Preliminary No growth-Final to follow Consultations 08/19/18 15:24 Consult: Onc/Wound/world history teacher Routine Comment: Summary of Care Provided: Patient is a 62-year-old gentleman history of hypertension, diabetes mellitus type 2 with diabetic neuropathy who presented with ulceration involving the right great toe. Patient had apparently had cultures drawn as outpatient which came back positive for Citrobacter, enterococcus as well as Pseudomonas. Patient was admitted directly from his bog cutter office for inpatient management 1. Acute infected neuropathic ulceration involving the right great toe polymicrobial. MRI obtained on admission demonstrated Cellulitis and osteomyelitis of the proximal and distal phalanges of the big toe patient was started on Zosyn and admission with consultation placed to infectious disease. Subsequent imaging studies with lower extremity CT obtained on 08/21/2018 demonstrated Osseous fusion of the interphalangeal joint of the great toe without demonstrated osseous erosions of the great toe. Case discussed with Dr. Walsh. Patient underwent left hallux amputation on 08/21/[address] Walsh. Patient had a positive polymicrobial culture antibiotics managed by Dr. Rodriguez with infectious disease. Patient was discharged on Levaquin as well as amoxicillin 2. Diabetes mellitus type 2 with complications including diabetic polyneuropathy. Did continue patient home insulin regimen in addition to Accu- Cheks before meals and at bedtime with sliding scale coverage 3. Essential hypertension patient home medications continue 4. Dyslipidemia-patient is on statin therapy, continued at home dose 5. Suspected peripheral arterial disease ABIs ordered for subsequent evaluation prior to intervention 6. Obesity with BMI of 37.9 7. Anemia secondary to anemia of chronic disorder 8. Hyponatremia due to patient diuretics patient was on Dyazide held on admiss ion patient's sodium levels up to 138 as of 08/21/2018. 9. DVT prophylaxis SC Lovenox Patient Problems: Active and Suspected Problems Infected neuropathic ulcer (Acute) Left great toe Toe osteomyelitis, left (Acute) Objective: GENERAL: cooperative HEENT: Atraumatic; moist oral mucosa EYES; Anicteric, Normal Conjunctiva NECK; supple, normal thyroid, RESPIRATORY: Diminished to auscultation bilaterally, CARDIOVASCULAR: Regular S1 S2, GI: soft, non-tender, normoactive bowel sounds, : No Renal angle tenderness; PSYCH; Normal affect - Physical Exam Vital Signs Temp Pulse Resp BP Pulse Ox 98.0 F 78 18 119/52 L 97 08/23/18 08:26 08/23/18 08:34 08/23/18 08:26 08/23/18 08:26 08/23/18 08:26 Oxygen Delivery Method Room Air Weight: 112.99 kg Body Mass Index (BMI) 37.8 Intake and Output for Last 24 Hours 08/21/18 08/22/18 08/23/18 23:59 23:59 23:59 Intake Total 1000 / 1000 765 / 765 1565 / 1565 Output Total 2100 / 2100 650 / 650 Balance 1000 / 1000 -1335 / -1335 915 / 915 Microbiology Past 72 Hours 08/19/18 12:15 Gram Stain - Final Wound Abcess - Leg, Left Wound Culture - Final Citrobacter freundii Pseudomonas aeroginosa Staphylococcus epidermidis Enterococcus faecalis 08/21/18 19:02 Gram Stain - Final Bone - Other Wound Culture - Preliminary No growth-Final to follow 08/21/18 19:02 Gram Stain - Final Bone - Other Wound Culture - Preliminary No growth-Final to follow Laboratory Tests Past 24 Hrs 08/23/18 08/23/18 05:05 05:05 WBC 7.2 RBC 3.87 L Hgb 10.0 L Hct 29.6 L MCV 76.5 L MCH 25.8 L MCHC 33.8 RDW 14.7 H RDW Differential 40.1 Plt Count 249 MPV 8.3 Immature Gran % (Auto) 0.700 Neut % (Auto) 75.0 H Lymph % (Auto) 14.8 L [place] % (Auto) 7.8 Eos % (Auto) 1.4 Baso % (Auto) 0.3 Absolute Neuts (auto) 5.4 Absolute Lymphs (auto) 1.06 Total Counted Not Reportable Sodium 138 Potassium 4.1 Chloride 104 Carbon Dioxide 27.0 Anion Gap 7 BUN 16 Creatinine 1.11 Estim Creat Clear Calc 65.05 Est GFR (MDRD) Af Amer 86 Est GFR (MDRD) Non-Af 71 BUN/Creatinine Ratio 14.4 Glucose 104 Calcium 8.4 L POC Glucose 08/23/18 08/23/18 08/22/18 11:47 06:25 21:20 POC Glucose 193 H 97 102 08/22/18 16:28 POC Glucose 76 Discharge Diet: 1800 Calorie Control Diet Home Medications: Medications to take at Discharge Amitriptyline HCl 50 mg PO QHS 08/19/18 Amlodipine [Norvasc] 10 mg PO DAILY 08/19/18 Aspirin [Aspir 81] 81 mg PO DAILY 08/19/18 Benzonatate [Tessalon Perle] 100 mg PO TID PRN PRN 08/19/18 Docusate Sodium 100 mg PO BID PRN 08/19/18 Doxazosin Mesylate 2 mg PO QHS 08/19/18 Fluticasone 0.05% [Flonase Nasal [place]] 1 spray NASAL DAILY PRN 08/19/18 Gabapentin [Neurontin] 300 mg PO BREAKFAST 08/19/18 Gabapentin [Neurontin] 600 mg PO QHS 08/19/18 Insulin Glargine,Hum.rec.anlog [Lantus Solostar] 15 unit SQ QHS 08/19/18 Loratadine 10 mg PO DAILY 08/19/18 Losartan Potassium 100 mg PO DAILY 08/19/18 Magnesium Oxide [Magnesium] 400 mg PO DAILY 08/19/18 Metformin HCl [Glucophage] 850 mg PO TIDCM 08/19/18 Metoprolol Tartrate [Lopressor (beta rashad)] 100 mg PO BID 08/19/18 Nitroglycerin [Nitrolingual [place]] 0.4 mg SUBLINGUAL PRN PRN 08/19/18 [place]-3 Fatty Acids/Fish Oil [[place] 3 Fish Oil Softgel] 1 each PO DAILY 08/19/18 Simvastatin [Zocor] 40 mg PO QHS 08/19/18 Sitagliptin Phosphate [Januvia] 100 mg PO DAILY 08/19/18 Spironolactone [Aldactone] 50 mg PO DAILY 08/19/18 Triamterene/Hctz 37.5/25Mg [Triamterene-Hctz 37.5-25 mg Tb] 1 cap PO DAILY 08/19/18 Acetaminophen [Tylenol Tablet] 650 mg PO Q6H PRN PRN tablet 08/23/18 Amox/Clavulanate Tablet [Augmentin Tablet] 875 mg PO Q12H 5 Days #10 tablet 08/23/18 Insulin Lispro [Humalog KwikPen] See Protocol SQ ACHS insuln.pen 08/23/18 levoFLOXacin tablet [Levaquin tablet] 500 mg PO DAILY 5 Days #5 tablet 08/23/18 Following Prescrptions Were Given to Patient: Amox/Clavulanate Tablet [Augmentin Tablet] 875 mg PO Q12H 5 Days #10 tablet levoFLOXacin tablet [Levaquin tablet] 500 mg PO DAILY 5 Days #5 tablet Primary Care Physician: Edward Mcgovern DO [Primary Care Provider] - Please follow up with your Primary Care Physician in: in 1-2 weeks Please Follow Up With: Davi Walsh DPM When: in 1-2 weeks Disposition: Detention facility Minutes spent on discharge:: 45 Medical Necessity - Tobacco Use Smoking Status: Former smoker Tobacco Use: Cigars Meaningful Use Info Meaningful Use Diagnoses (Choose all that apply): None applicable Code Visit Inpatient E&M: 29505 Disch Hosp
--- NOTE | 2018-08-23 13:30 | CASEMGMT ---
Social Work Note Pt is discharging to [facility] today. RENE faxed completed discharge paperwork to Anita at [facility] including transfer to extended care facility, signed medication list and any scripts. Original in SNF folder and copy on pt's chart. RENE completed [facility] in [facility]. Original in SNF folder and copy on pt's chart. RENE placed a call to [facility] who are all unable to transport pt to SNF. RENE placed a call to [facility] transportation who states they will see if they are able to transport pt and give this worker a call back. RENE placed a call to Anita at [facility], updated her on discharge today and asked if [facility] is able to transport pt. Anita states that she has a combine driver who is able to transport pt around 2:30-3:00pm today. [place], RN and pt updated. RENE placed a call to [employer] and spoke with Damaris and updated her that pt no longer needs transportation. Plan: Pt to discharge to [facility] skilled today with [facility] transporting around 2:30-3:00pm Adeline Matthews MSW, [address]
[2018-08-23 14:05] VITALS: BP 138/56; PULSE 78; RESP 18; TEMP 36.7; O2SAT 97
--- NOTE | 2018-08-23 14:16 | NURSING ---
report called to [facility] nurse.
--- NOTE | 2018-08-24 20:30 | ED.RN ---
this nurses accessed chart to look at nursing notes. patient family was here looking for keys, attempted look at chart to see if there was a note where keys may be. security was able to locate keys in their office
== END 2018-08-23 14:45 | disposition skilled nursing facility (03) | DRG 617 ==
LOC: ED 12:39 → MS3 14:30
PROVIDERS: Podiatrist Foot & Ankle Surgery; Admitting Provider Internal Medicine; Emergency Provider Emergency Medicine; Family Provider Student in an Organized Health Care Education/Training Program; PCP Student in an Organized Health Care Education/Training Program; Visit Provider Internal Medicine
DX: E11.621 Type 2 diabetes mellitus with foot ulcer (principal); E87.1 Hypo-osmolality and hyponatremia; M86.8X7 Other osteomyelitis, ankle and foot; E11.69 Type 2 diabetes mellitus with other specified complication; L97.529 Non-pressure chronic ulcer of other part of left foot with unspecified severity; E11.42 Type 2 diabetes mellitus with diabetic polyneuropathy; E66.9 Obesity, unspecified; B96.5 Pseudomonas (aeruginosa) (mallei) (pseudomallei) as the cause of diseases classified elsewhere; B95.2 Enterococcus as the cause of diseases classified elsewhere; B95.7 Other staphylococcus as the cause of diseases classified elsewhere; B96.89 Other specified bacterial agents as the cause of diseases classified elsewhere; E78.5 Hyperlipidemia, unspecified; D63.8 Anemia in other chronic diseases classified elsewhere; I10 Essential (primary) hypertension; Z16.11 Resistance to penicillins; Z68.37 Body mass index [BMI] 37.0-37.9, adult; Z79.4 Long term (current) use of insulin; Z87.891 Personal history of nicotine dependence
CPT/HCPCS: 36415; 71045; 73630; 73700; 73718; 76000; 80048; 82962; 83540; 83550; 83735; 84484; 85025; 85027; 87070; 87075; 87077; 87102; 87186; 87205; 87206; 87640; 88304; 88305; 88311; 93005; 93922; 97110; 97116; 97162; 97166; 97530; 97802; 99284; J7030; J7050; A4216; J2405

== ENCOUNTER 2018-09-10 17:08 | Emergency (ER) | payer OTHER, SELFPAY ==
[2018-08-21 13:28] VITALS: BMI 37.8
[2018-09-10 17:09] VITALS: BP 108/48; PULSE 83; RESP 18; TEMP 36.6; O2SAT 98; BMI 36.6
--- NOTE | 2018-09-10 18:26 | ED.VIS.GEN ---
History of Present Illness Chief Complaint: Lower Extremity Injury Detail of Chief Complaint: Concern for infection Onset: - - Status post amputation great toe August 29, 2018 by gearman at [facility]. He does not know the name of the gearman. He did contact the gearman and recommended waiting until . Patient was concerned and presents to the emergency department Context: - - Not applicable Timing: - - Not applicable Quality: Healing wound status post amputation left great toe Location: Left foot Current Severity: - - Concern for infection Worsened by: Nothing Relieved by: Nothing Associated Symptoms: No associated symptoms other than burning sensation from neuropathy Narrative: Patient is a 62-year-old male status post amputation left great toe by gearman at [facility] August 29, 2018. He presents because he is concerned wound is infected. He contacted gearman. They recommended waiting until his scheduled appointment for . He denies fever, chills night sweats. Does complain of burning sensation. He is concerned there is an infection. Prior similar symptoms: No Recent Illness/Hospitalization: Yes - Past Medical History (1) Infected neuropathic ulcer Status: Acute Comment: Left great toe (2) Toe osteomyelitis, left Status: Acute Past Medical History - Allergies and Home Meds Allergies/Adverse Reactions: Allergies No Known Allergies Allergy (Verified 09/10/18 17:12) Primary Care Physician: Edward Mcgovern DO [Primary Care Provider] - Prior records reviewed: Yes Surgical History: cataract, total knee arthroplasty, tonsillectomy Lives: Alone Smoking Status: Former smoker Alcohol: None Drugs: None - Family History Maternal Family History: Reports: No pertinent history Paternal Family History: Reports: No pertinent history Review of Systems General: Denies: Chills, Fever, Malaise, Sweats, Weight loss Cardiovascular: Denies: Chest pain Respiratory: Denies: Dyspnea Gastrointestinal: Denies: Nausea, Vomiting Musculoskeletal: Denies: Myalgias, Arthralgias, Neck pain, Back pain, Swelling, Extremity Pain Skin: Reports: Wounds. Denies: Rash Neurological: Reports: Parasthesia. Denies: Weakness, Numbness Hematologic: Denies: Easy bruising, Easy bleeding Allergy: Denies: Uticaria, Swelling of the mouth Physical Exam Vital Signs/Narrative: Vital Signs Temp Pulse Resp BP Pulse Ox 09/10/18 17:09 98 F 83 18 108/48 L 98 Inital Vital Signs reviewed: Yes General: Well nourished, Well developed, No Acute Distress Head: Normocephalic, Atraumatic Eyes: Perrl, EOMI. Negative for: Pale conjunctiva, Scleral icterus, - ENT: Moist mucous membranes, No rhinorrhea Cardiovascular: Regular rate, Regular rhythm, No murmurs, Normal S1, Normal S2 Respiratory: No distress, CTA bilaterally, Chest nontender Extremities: Nontender, No edema Skin: Normal color, No rash, - - Incision site healing well without evidence of infection i.e. erythema, warmth, induration or lymphangitis Neurological: Alert, Oriented x3, Cranial nerves II-XII grossly intact, Normal Strength, Normal Sensation Psychological: Normal affect, Normal Mood Diagnostic/Tx/Re-eval - Medical Decision Making Dressing was removed. He has a well-healing incision without evidence of infection. He has no constitutional symptoms therefore labs were not obtained. We will have foot redressed and discharge to follow-up with gearman scheduled for this coming September 12 ED Disposition - Plan for ED Patient: Disposition: Home or Assisted Living Diagnosis: Encounter for postoperative wound check Instructions: ED Wound Check Post Op No Infec Referrals: Edward Mcgovern DO [Primary Care Provider] - Keep Telma appointment
--- NOTE | 2018-09-10 18:30 | ED.DCSUM_ITS ---
History of Present Illness Chief Complaint: Lower Extremity Injury Detail of Chief Complaint: Concern for infection Onset: - - Status post amputation great toe August 29, 2018 by assistant site manager at [facility]. He does not know the name of the assistant site manager. He did contact the assistant site manager and recommended waiting until . Patient was concerned and presents to the emergency department Context: - - Not applicable Timing: - - Not applicable Quality: Healing wound status post amputation left great toe Location: Left foot Current Severity: - - Concern for infection Worsened by: Nothing Relieved by: Nothing Associated Symptoms: No associated symptoms other than burning sensation from neuropathy Narrative: Patient is a 62-year-old male status post amputation left great toe by assistant site manager at [facility] August 29, 2018. He presents because he is concerned wound is infected. He contacted assistant site manager. They recommended waiting until his scheduled appointment for . He denies fever, chills night sweats. Does complain of burning sensation. He is concerned there is an infection. Prior similar symptoms: No Recent Illness/Hospitalization: Yes - Past Medical History (1) Infected neuropathic ulcer Status: Acute Comment: Left great toe (2) Toe osteomyelitis, left Status: Acute Past Medical History - Allergies and Home Meds Allergies/Adverse Reactions: Allergies No Known Allergies Allergy (Verified 09/10/18 17:12) Primary Care Physician: Edward Mcgovern DO [Primary Care Provider] - Prior records reviewed: Yes Surgical History: cataract, total knee arthroplasty, tonsillectomy Lives: Alone Smoking Status: Former smoker Alcohol: None Drugs: None - Family History Maternal Family History: Reports: No pertinent history Paternal Family History: Reports: No pertinent history Review of Systems General: Denies: Chills, Fever, Malaise, Sweats, Weight loss Cardiovascular: Denies: Chest pain Respiratory: Denies: Dyspnea Gastrointestinal: Denies: Nausea, Vomiting Musculoskeletal: Denies: Myalgias, Arthralgias, Neck pain, Back pain, Swelling, Extremity Pain Skin: Reports: Wounds. Denies: Rash Neurological: Reports: Parasthesia. Denies: Weakness, Numbness Hematologic: Denies: Easy bruising, Easy bleeding Allergy: Denies: Uticaria, Swelling of the mouth Physical Exam Vital Signs/Narrative: Vital Signs Temp Pulse Resp BP Pulse Ox 09/10/18 17:09 98 F 83 18 108/48 L 98 Inital Vital Signs reviewed: Yes General: Well nourished, Well developed, No Acute Distress Head: Normocephalic, Atraumatic Eyes: Perrl, EOMI. Negative for: Pale conjunctiva, Scleral icterus, - ENT: Moist mucous membranes, No rhinorrhea Cardiovascular: Regular rate, Regular rhythm, No murmurs, Normal S1, Normal S2 Respiratory: No distress, CTA bilaterally, Chest nontender Extremities: Nontender, No edema Skin: Normal color, No rash, - - Incision site healing well without evidence of infection i.e. erythema, warmth, induration or lymphangitis Neurological: Alert, Oriented x3, Cranial nerves II-XII grossly intact, Normal Strength, Normal Sensation Psychological: Normal affect, Normal Mood Diagnostic/Tx/Re-eval - Medical Decision Making Dressing was removed. He has a well-healing incision without evidence of infection. He has no constitutional symptoms therefore labs were not obtained. We will have foot redressed and discharge to follow-up with assistant site manager scheduled for this coming September 12 ED Disposition - Plan for ED Patient: Disposition: Home or Assisted Living Diagnosis: Encounter for postoperative wound check Instructions: ED Wound Check Post Op No Infec Referrals: Edward Mcgovern DO [Primary Care Provider] - Keep Telma appointment
[2018-09-10 19:12] VITALS: BP 121/68; PULSE 84; RESP 16; O2SAT 97
== END 2018-09-10 19:13 | disposition home or self-care (01) ==
PROVIDERS: Emergency Provider Emergency Medicine; Family Provider Student in an Organized Health Care Education/Training Program; PCP Student in an Organized Health Care Education/Training Program
DX: Z48.01 Encounter for change or removal of surgical wound dressing (principal); Z89.412 Acquired absence of left great toe; Z87.891 Personal history of nicotine dependence
CPT/HCPCS: 99282

== ENCOUNTER 2018-10-10 14:34 | Outpatient (RCR) | payer OTHER, SELFPAY ==
[2018-10-10 15:04] VITALS: BP 112/58; PULSE 76; RESP 16; TEMP 36.1; BMI 36.6
[2018-10-11 10:20] LABS: Erythrocyte Sedimentation Rate 7 mm/hr (0-20)
[2018-10-11 10:21] LABS: Hematocrit 31.6 % (40-54); Mean Corp Hgb Conc 34.8 g/gl (32-36); Mean Corpuscular Hgb 26.4 pg (27.0-32.0); Mean Corpuscular Volume 75.8 fL (80-94); Platelet Count 274 K/mm3 (150-450); RBC Distribution Width CV 15.7 % (11.6-14.6); RBC Distribution Width SD 43.4 fl (35.1-43.9); Red Blood Count 4.17 M/mm3 (4.6-6.2); White Blood Count 8.6 K/mm3 (4.4-11.0)
[2018-10-11 10:22] LABS: Scan Indicated on CBC? Y/N NO
[2018-10-11 10:44] LABS: ALB/GLOB Ratio 1.1 RATIO (0.9-2.4); AST(SGOT) 14 U/L (15-37); Alanine Aminotransfer ALT/SGPT 19 U/L (16-61); Albumin, Serum 3.6 g/dL (3.2-5.0); Alkaline Phosphatase 86 U/L (45-117); Anion Gap 9 (5-15); BUN 28 mg/dL (7-18); BUN/Creat Ratio 19.3 RATIO (10-20); Calcium,Total 9.1 mg/dL (8.5-10.1); Chloride 101 mmol/L (98-107); Creatinine, Serum 1.45 mg/dL (0.70-1.30); EST Glomerular Filtration Rate 52 mL/min (>60); Est Glom Filt Rate - Afr Amer 63 mL/min (>60); Globulin 3.3 g/dL (2.2-4.2); Glucose 114 mg/dL (74-106); Hemoglobin A1c 5.9 % (4.2-6.3); Potassium 4.9 mmol/L (3.5-5.1); Prealbumin 19.9 mg/dL (20.0-40.0); Protein, Total 6.9 g/dL (6.4-8.2); Sodium Level 133 mmol/L (136-145)
--- NOTE | 2018-10-17 13:36 | PCM.CONHBO ---
(1) Toe osteomyelitis, left Status: Acute Code(s): M86.9 - Osteomyelitis, unspecified (2) Uncontrolled type 2 diabetes mellitus Status: Acute Code(s): E11.65 - Type 2 diabetes mellitus with hyperglycemia (3) Hypertension Status: Chronic Code(s): I10 - Essential (primary) hypertension (4) Hyperlipidemia Status: Acute Code(s): E78.5 - Hyperlipidemia, unspecified (5) Diabetic neuropathy Status: Acute Code(s): E11.40 - Type 2 diabetes mellitus with diabetic neuropathy, unspecified (6) Gangrene of toe of left foot Status: Acute Code(s): I96 - Gangrene, not elsewhere classified Comment: left fifth digit (7) Infected neuropathic ulcer Status: Acute Comment: Left great toe History of Present Illness Date of Service: 10/17/18 Presenting Chief Complaint: HBO consultation for Dr. Peter datawarehouse developer [facility], osteomyelitis left great toe dry gangrene left fifth toe The patient is a 62 year old M who [facility] the possibility of initiating hyperbaric oxygen therapy for treatment of diabetic foot ulcer. He has a past medical history significant for uncontrolled type 2 diabetes mellitus, hypertension, hyperlipidemia, osteomyelitis left great toe, and gangrene to the left fifth toe. The patient states that his wound initially occurred in August 2018 when he was diagnosed with osteomyelitis of the left great toe. He was seen by Dr. Waslh on August 21, 2018 and had a amputation of the left great toe. He also states that over the past couple weeks has left fifth toe has become black. He is wound treatment has consisted of utilizing iodine painted on over top of the necrotic fifth toe and the post amputation site of the left great toe. His records from [facility] are not available for review at this time and the patient is a poor historian. However the patient does state that he has been following up with his datawarehouse developer office to get his debridements. His infection for his osteomyelitis is currently being managed with both ciprofloxacin and doxycycline. Please see medication list for dosages. He has been utilizing an offloading postop surgical shoe. His most recent A1c was 5.9 showing good glycemic control. Currently utilizes both oral glycemic's and insulin. His most recent prealbumin was 19.9, the patient has not started utilizing any sort of protein supplementation at this time. Her studies on 08/20/2018 showed a left CELESTINO of 1.13 which suggest more normal arterial flow however slightly diminished digital waveforms on the left suggest distal small vessel disease an MRI was done on 08/19/2018 which at that time was prior to his amputation and demonstrated cellulitis and osteomyelitis of the proximal and distal phalanges of the left great toe. The patient currently denies any acute concerns at this time. He denies any prior cardiac history and denies any respiratory issues as well. The patient otherwise denies any fever, chills, nausea, vomiting, shortness of breath, chest pain or pressure, palpitations, orthopnea, lower extremity edema, syncope or presyncopal episodes. Past Medical History Chronic Problems Hypertension (Chronic) Allergies/Adverse Reactions: Allergies No Known Allergies Allergy (Verified 10/10/18 15:32) Home Medications: Ambulatory Orders Medication Instructions Recorded Amitriptyline HCl 50 mg PO QHS 08/19/18 Amlodipine [Norvasc] 10 mg PO DAILY 08/19/18 Aspirin [Aspir 81] 81 mg PO DAILY 08/19/18 Docusate Sodium 100 mg PO BID PRN 08/19/18 Doxazosin Mesylate 2 mg PO QHS 08/19/18 Fluticasone 0.05% [Flonase Nasal 1 spray NASAL DAILY PRN 08/19/18 [place]] Gabapentin [Neurontin] 300 mg PO BREAKFAST 08/19/18 Gabapentin [Neurontin] 600 mg PO QHS 08/19/18 Insulin Glargine,Hum.rec.anlog 15 unit SQ QHS 08/19/18 [Lantus Solostar] Loratadine 10 mg PO DAILY 08/19/18 Losartan Potassium 100 mg PO DAILY 08/19/18 Magnesium Oxide [Magnesium] 400 mg PO DAILY 08/19/18 Metoprolol Tartrate [Lopressor 100 mg PO BID 08/19/18 (beta rashad)] Nitroglycerin [Nitrolingual [place]] 0.4 mg SUBLINGUAL PRN PRN 08/19/18 [place]-3 Fatty Acids/Fish Oil 1 each PO DAILY 08/19/18 [[place] 3 Fish Oil Softgel] Simvastatin [Zocor] 40 mg PO QHS 08/19/18 Sitagliptin Phosphate [Januvia] 100 mg PO DAILY 08/19/18 Spironolactone [Aldactone] 50 mg PO DAILY 08/19/18 Triamterene/Hctz 37.5/25Mg 1 cap PO DAILY 08/19/18 [Triamterene-Hctz 37.5-25 mg Tb] metFORMIN HCl [Glucophage] 850 mg PO TIDCM 08/19/18 Insulin Lispro [Humalog KwikPen] See Protocol SQ ACHS insuln.pen 08/23/18 Maternal Family History: No pertinent history Paternal Family History: No pertinent history Smoking Status: Former smoker Review of Systems Constitutional: Denies: Chills, Fever, Weight Change Eyes: Denies: Pain, Vision Change HEENT: Denies: Difficulty Hearing, Difficulty Swallowing, Sinus Congestion Cardiovascular: Denies: Chest Pain, Palpitations Respiratory: Denies: Cough, Shortness of Breath Gastrointestinal: Denies: Diarrhea, Nausea, Vomiting Genitourinary: Denies: Dysuria, Hematuria Skin: Reports: Wounds - See HPI Endocrine: Denies: Heat/ Cold Intolerance, Polydipsia, Polyuria Hematologic/ Lymphatic: Denies: Easy Bruising, Easy Bleeding - Physical Exam Vital Signs Temp Pulse Resp BP 96.9 F L 76 16 112/58 L 10/10/18 15:04 10/10/18 15:04 10/10/18 15:04 10/10/18 15:04 General: Alert, Oriented x3, Cooperative, No apparent distress HEENT: Atraumatic, PERRLA, Normocephalic Oral: Moist Mucosa Lungs: Clear to auscultation, Normal air movement, No rhonchi, No wheeze, No rales Cardiovascular: Regular rate, Regular Rhythm, Normal S1, Normal S2, No murmurs Abdomen: Soft, Non Tender, Obese Extremities: No clubbing, No cyanosis, Capillary Refill Less than 3 Seconds, Diminished Peripheral Pulses - Diminished dorsal pedis pulses bilaterally, Edema - Generalized bilateral lower extremity edema Skin: Ulcer/ Wound - Hinson grade 3 ulceration status post amputation of osteomyelitis to left great toe appears to be healing well without any signs of infection at this time, however left fifth toe appears necrotic and consistent with that of dry gangrene Hinson grade 4 which patient has been treating appropriately with iodine, patient's ulceration does extend to the left lateral dorsal and plantar surface with large amount of adherent slough Lymphatic: No Cervical, Supraclavicular, or Inguinal Adenopathy Neurological: Neuro grossly intact, - - Diminished neurovascular sensation to bilateral lower extremities Psych/Mental Status: Appropriate, Anxious, Alert and oriented to time, place, person, mood and affect Assessment/Plan BOB REDDING is an appropriate candidate for hyperbaric oxygen therapy. Hyperbaric Oxygen Therapy would be an essential adjunct in the resolution and treatment of this patient's presenting problem. This patient has sufficient physiologic and psychological stamina to undergo the rigors of hyperbaric oxygen therapy. As such, I recommend the following: Hyperbaric Oxygen Treatments at 2.0 EVELYN in 100% Oxygen for 90 minutes per treatment, for 40 treatments. I have discussed the possible benefits of hyperbaric oxygen therapy with this patient. I have also presented and described the risks, including: air gas embolism, pneumothorax, central nervous system and pulmonary oxygen toxicity, flash pulmonary edema, hypoglycemia, reversible visual refractive changes, ear and sinus tesha-trauma, and confinement anxiety. The patient has verbalized understanding of these risks, and is still wanting to undergo hyperbaric oxygen therapy. The patient understands the significant time and transportation commitment involved in daily treatments of up to two hours duration and has stated that they are willing to commit to this therapy. Pending a review of his [facility] records which were not available for review at the time of this documentation, patient will be cleared for HBO. After review of his blood work, his diabetes is well controlled with a recent A1c of 5.9. His prealbumin was slightly low and he was instructed on the use of Glucerna supplementation. He will continue with offloading and will continue with his antimicrobial therapy for his osteomyelitis and his current wound debridements by his datawarehouse developer. His EKG was reviewed from August 2018 which demonstrated sinus rhythm with a first-degree AV block. A chest x-ray was also performed in August 2018 which was essentially normal without any acute cardiopulmonary issues. Patient does state that he has had multiple subsequent imaging done at [facility] which again was not available for review at this time. - HBOT Diagnosis Hinson III Diabetic Foot/Toe Ulcer (707.15/250.8) Code Visit Office Visits / Consults: [id number] OV L4 Est
== END 2018-10-13 23:59 ==
LOC: WC 14:34
PROVIDERS: Family Provider Student in an Organized Health Care Education/Training Program; PCP Student in an Organized Health Care Education/Training Program; Referring Provider Nurse Practitioner Family; Visit Provider Nurse Practitioner Family
DX: E11.621 Type 2 diabetes mellitus with foot ulcer (principal); E78.5 Hyperlipidemia, unspecified; E11.65 Type 2 diabetes mellitus with hyperglycemia; I10 Essential (primary) hypertension; E11.40 Type 2 diabetes mellitus with diabetic neuropathy, unspecified; Z89.412 Acquired absence of left great toe; E11.69 Type 2 diabetes mellitus with other specified complication; M86.9 Osteomyelitis, unspecified; Z79.4 Long term (current) use of insulin; Z79.899 Other long term (current) drug therapy; Z79.82 Long term (current) use of aspirin; Z87.891 Personal history of nicotine dependence; L97.529 Non-pressure chronic ulcer of other part of left foot with unspecified severity
CPT/HCPCS: 36415; 80053; 83036; 84134; 85027; 85652; 99202; G0463

== ENCOUNTER 2018-10-24 20:39 | Inpatient (IN) | payer OTHER, SELFPAY ==
[2018-10-19 09:28] VITALS: BMI 36.6
[2018-10-24 20:39] VITALS: BP 120/71; PULSE 77; RESP 18; TEMP 36.3; O2SAT 98; BMI 36.9
--- NOTE | 2018-10-24 21:07 | ED.VISSUMM ---
- ER Visit Summary Date of Service: 10/24/18 Chief Complaint: Left foot small toe possibly infected and necrotic History of Present Illness: The patient is a 62 M history of peripheral arterial disease, insulin-dependent diabetes, hypertension and renal insufficiency. Also has a history of diabetic neuropathy. In August of this year patient had a left great toe amputation done by Dr. Walsh, continuity editor, from the [facility] [place]. That is done well but since that time patient has progressively worsening left small toe. He was treated here [facility]. He was inpatient at [facility]. He was told by clean clinic at that time he did not have an infection. He is also seen Dr. Tarun Alatorre in consultation. His issues are basically the diabetes. The foot neuropathy and chronic ischemia to the left foot. He says only getting worse and now is concerned it is infected. He has a scheduled outpatient MRI tomorrow at the [facility]. Physical Examination: Alert male no acute distress vital signs stable afebrile. HEENT exam unremarkable. Lungs clear to auscultation. Heart regular rate and rhythm no murmur. Abdomen soft nontender. Extremities moves all 4. His left foot is necrotic on the lateral side. His left small toe is swollen. There is redness of the toe and around the necrotic skin on the lateral surface of the foot. There is no lymphangitic streaking. He has an amputated left great toe that is healed nicely. He has done a diabetic neuropathy of his left foot. Calf is nontender. There is no lymphangitic streaking. Early at this time there is no cash pus. Neurologically he is awake and alert. Test Results: CBC shows white count 8. Chronic anemia 10. Electolytes unremarkable sodium 133. Creatinine 1.4 which is his baseline renal insufficiency. Emergency Department Course and Treatment: I spoke to the patient's continuity editor. Patient will be admitted and started on IV Zosyn. I will speak to the hospitalist. His continuity editor will see him tomorrow and they will also consult Dr. Tarun Alatorre for evaluation. He may also need an MRI for further evaluation for possible osteomyelitis. Treatment Plan: Admission with IV antibiotics to the hospitalist. Consultation to both his continuity editor and his vascular surgeon. Disposition: Admission Impression: Acute left foot diabetic neuropathy with diabetic ulceration Chronic peripheral arterial disease with chronic ischemia in the left foot Rule out early cellulitis left small toe This note was generated with [employer] dictation software. It may contain incorrect words, spelling, and punctuation that were not noted in review of the chart prior to signing ED Disposition - Plan for ED Patient: Referrals: Edward Mcgovern DO [Primary Care Provider] -
[2018-10-24 21:33] LABS: Absolute Lymphocyte Count 1.03 X10^3/ul (0.83-4.51); Basophil# 0.03 X10^3/uL; Basophil% 0.3 % (0-1); Eosinophil# 0.22 X10^3/uL; Eosinophils% 2.5 % (0-5); Hematocrit 30.3 % (40-54); Hemoglobin 10.4 g/dl (13.0-16.5); Lymphocyte # 1.03 X10^3/ul (4.0); Lymphocyte % 11.7 % (19-41); Mean Corp Hgb Conc 34.3 g/gl (32-36); Mean Corpuscular Hgb 26.4 pg (27.0-32.0); Mean Corpuscular Volume 76.9 fL (80-94); Mean Platelet Vol. 8.7 fl (6.2-12.0); Monocyte# 0.52 X10^3/uL; Monocyte% 5.9 % (0-10); Neutrophil # 7.01 X10^3/uL (2.7-7.7); Neutrophil % 79.3 % (47-70); Platelet Count 239 K/mm3 (150-450); RBC Distribution Width CV 15.7 % (11.6-14.6); RBC Distribution Width SD 44.5 fl (35.1-43.9); Red Blood Count 3.94 M/mm3 (4.6-6.2); White Blood Count 8.8 K/mm3 (4.4-11.0)
[2018-10-24 21:40] LABS: POSITIVE COUNT NO; POSITIVE DIFFERENTIAL NO; POSITIVE MORPHOLOGY NO
[2018-10-24 22:10] LABS: Anion Gap 10 (5-15); BUN 25 mg/dL (7-18); BUN/Creat Ratio 17.9 RATIO (10-20); Calcium,Total 8.9 mg/dL (8.5-10.1); Chloride 102 mmol/L (98-107); EST Glomerular Filtration Rate 54 mL/min (>60); Est Glom Filt Rate - Afr Amer 65 mL/min (>60); Estimated Creatinine Clearance 51.57 ml/min; Glucose 97 mg/dL (74-106); Potassium 4.4 mmol/L (3.5-5.1); Sodium Level 133 mmol/L (136-145)
--- NOTE | 2018-10-24 23:03 | HP.PCM_ITS ---
Problem List (1) PAD (peripheral artery disease) Status: Chronic (2) Infected neuropathic ulcer Status: Acute Comment: Left great toe (3) Uncontrolled type 2 diabetes mellitus Status: Chronic Qualifiers: Glycemic state: with hyperglycemia Qualified Code(s): E11.65 - Type 2 diabetes mellitus with hyperglycemia (4) Hypertension Status: Chronic Qualifiers: Hypertension type: essential hypertension Qualified Code(s): I10 - Essential (primary) hypertension (5) Hyperlipidemia Status: Chronic Qualifiers: Hyperlipidemia type: unspecified Qualified Code(s): E78.5 - Hyperlipidemia, unspecified (6) Diabetic neuropathy Status: Acute Qualifiers: Diabetes mellitus type: type 2 Diabetes mellitus complication detail: diabetic polyneuropathy Qualified Code(s): E11.42 - Type 2 diabetes mellitus with diabetic polyneuropathy (7) Gangrene of toe of left foot Status: Acute Comment: left fifth digit History of Present Illness Date of Admission: 10/24/18 Chief Complaint: Left 5th toe infection The patient is a 62 year old M with past medical history of type II DM complicated by peripheral neuropathy, PAD, status post left first toe amputation, closely following with Dr. Walsh in the outpatient. He was recently admitted and discharged home [facility] where he underwent a left hallux amputation on 08/21/18. Patient had followed up and was admitted to the [facility] after that, where work-up has been noncontributory. Patient had followed up in the outpatient with Dr. Walsh and had a complaint of left fifth toe ulcer and discoloration. The plan was to do an MRI of the foot tomorrow but patient was concerned about the way the left fifth toe looked especially the discoloration and decided to come to the ED. He denies any fever or chills or dizziness or nausea or vomiting or diarrhea. He remains asymptomatic with respect to the foot infection. Vitals in the ED showed temperature 97.3 F, heart rate 77, blood pressure 120/71, respiratory rate was 18, SPO2 is 98% on room air. Admitting blood work showed WBC count of 8.8, hemoglobin 10.4, platelet count 239, sodium 133, potassium 4.4, chloride 102, bicarbonate 21, BUN 25, creatinine 1.40 which appears to be his baseline. Past Medical History Past Medical History (Chronic Problems): Chronic Problems (Last Updated 10/19/18 @ 09:23 by Luann Soler) PAD (peripheral artery disease) (Chronic) Uncontrolled type 2 diabetes mellitus (Chronic) Hypertension (Chronic) Hyperlipidemia (Chronic) Medical History: Medical History (Last Updated 10/19/18 @ 09:23 by Luann Soler) Candidiasis (Acute) B37.9 PAD (peripheral artery disease) (Acute) I73.9 Tachycardia (Acute) R00.0 Carotid stenosis, bilateral (Acute) I65.23 ASVD (arteriosclerotic vascular disease) (Acute) I70.90 Infected neuropathic ulcer (Acute) Left great toe Toe osteomyelitis, left (Acute) M86.9 Uncontrolled type 2 diabetes mellitus (Chronic) E11.65 Hypertension (Chronic) I10 Hyperlipidemia (Chronic) E78.5 Diabetic neuropathy (Acute) E11.40 Gangrene of toe of left foot (Acute) I96 left fifth digit History of amputation of left great toe Onset Date: ~08/2018 Z89.412 Allergies No Known Allergies Allergy (Verified 10/24/18 20:40) Home Medications: Ambulatory Orders Medication Instructions Recorded Amitriptyline HCl 50 mg PO QHS 08/19/18 Amlodipine [Norvasc] 10 mg PO DAILY 08/19/18 Aspirin [Aspir 81] 81 mg PO DAILY 08/19/18 Docusate Sodium 100 mg PO QHS 08/19/18 Doxazosin Mesylate 2 mg PO QHS 08/19/18 Fluticasone 0.05% [Flonase Nasal 1 spray NASAL DAILY PRN 08/19/18 [place]] Gabapentin [Neurontin] 300 mg PO BREAKFAST 08/19/18 Gabapentin [Neurontin] 600 mg PO QHS 08/19/18 Insulin Glargine,Hum.rec.anlog 15 unit SQ QHS 08/19/18 [Lantus Solostar] Losartan Potassium 100 mg PO DAILY 08/19/18 Magnesium Oxide [Magnesium] 400 mg PO DAILY 08/19/18 Metoprolol Tartrate [Lopressor 100 mg PO BID 08/19/18 (beta rashad)] Nitroglycerin [Nitrolingual [place]] 0.4 mg SUBLINGUAL PRN PRN 08/19/18 [place]-3 Fatty Acids/Fish Oil 1 ea PO TID 08/19/18 [[place] 3 Fish Oil Softgel] Simvastatin [Zocor] 40 mg PO QHS 08/19/18 Sitagliptin Phosphate [Januvia] 100 mg PO DAILY 08/19/18 Spironolactone [Aldactone] 50 mg PO DAILY 08/19/18 Triamterene/Hctz 37.5/25Mg 1 cap PO DAILY 08/19/18 [Triamterene-Hctz 37.5-25 mg Tb] metFORMIN HCl [Glucophage] 850 mg PO TIDCM 08/19/18 triamcinolone acetonide 0.5 % 1 applic TOPICAL BID 10/19/18 topical cream Surgical History: Surgical History (Last Updated 10/19/18 @ 09:23 by Luann Soler) History of arthroscopic knee surgery Z98.890 History of cardiac catheterization Onset Date: ~2014 Z98.890 History of colonoscopy Onset Date: ~2008 Z98.0 History of esophagogastroduodenoscopy (EGD) Z98. History of eye surgery Z98.0 History of tonsillectomy Z90.89 Surgical History: cataract, total knee arthroplasty, tonsillectomy, - - s/p left hallux amputation Psychiatric History: No pertinent psych hx Lives: Alone Smoking Status: Former smoker Tobacco Use: Non-smoker, Cigarettes Alcohol: None Drugs: None - *Family History Maternal Family History: Family History (Last Updated 10/19/18 @ 09:23 by Luann Soler) Father Diabetes Mother Diabetes History Items: Diabetes Paternal Family History: Family History (Last Updated 10/19/18 @ 09:23 by Luann Soler) Father Diabetes Mother Diabetes History Items: Diabetes Review of Systems Constitutional: Reports: Weakness. Denies: Anorexia, Chills, Fever, Night Sweats, Malaise, Weight Change Eyes: Denies: Blurred vision, Conjunctivae Inflammation HEENT: Denies: Head Aches, Hearing Changes, Sinus Congestion, Sinus Drainage Cardiovascular: Denies: Chest Pain, Claudication, Chest Tightness, Orthopnea, Palpitations, Paroxysmal Noc. Dyspnea Respiratory: Denies: Cough, Hemoptysis, Shortness of breath at rest, Sputum production Gastrointestinal: Denies: Abdominal Pain, Constipation, Hematemesis, Hematochezia, Nausea, Vomiting Genitourinary: Denies: Dysuria Musculoskeletal: Denies: Joint Pain, Joint Tenderness Skin: Denies: Rash, Wounds Neurological: Denies: Numbness, Tingling, Focal weakness Psychiatric: Denies: Anxiety, Depression, Homicidal Ideations, Suicidal Ideations Hematologic/ Lymphatic: Denies: Easy Bruising, Easy Bleeding VTE Information - Inpt Only VTE Present on Admission: No VTE Pharm Prophylaxis ordered?: Yes - Physical Exam General: Alert, Oriented x3, Cooperative, No apparent distress HEENT: Atraumatic, PERRLA, EOMI, Normocephalic Oral: Moist Mucosa Neck: Supple Lungs: Clear to auscultation, Normal air movement Cardiovascular: Regular rate, Regular Rhythm, Normal S1, Normal S2, No murmurs Abdomen: Bowel Sounds Present, Soft, Non Tender Extremities: Edema - bilateral trace bipedal edema, - - Left hallux amputation, site looks okay, left fifth toe discoloration with necrosis Skin: No rashes, No breakdown Musculoskeletal: No Tenderness to Palpation of Joints or Extremities Lymphatic: No Cervical, Supraclavicular, or Inguinal Adenopathy Neurological: Cranial nerves II-XII grossly intact, Neuro grossly intact Psych/Mental Status: Normal Affect, Appropriate Vital Signs Temp Pulse Resp BP Pulse Ox 97.3 F L 77 18 120/71 98 10/24/18 20:39 10/24/18 20:39 10/24/18 20:39 10/24/18 20:39 10/24/18 20:39 Oxygen Delivery Method Room Air Weight: 110.223 kg Body Mass Index (BMI) 36.9 Laboratory Tests Past 24 Hrs 10/24/18 10/24/18 21:10 21:10 WBC 8.8 RBC 3.94 L Hgb 10.4 L Hct 30.3 L MCV 76.9 L MCH 26.4 L MCHC 34.3 RDW 15.7 H RDW Differential 44.5 H Plt Count 239 MPV 8.7 Immature Gran % (Auto) 0.300 Neut % (Auto) 79.3 H Lymph % (Auto) 11.7 L [place] % (Auto) 5.9 Eos % (Auto) 2.5 Baso % (Auto) 0.3 Absolute Neuts (auto) 7.0 Absolute Lymphs (auto) 1.03 Total Counted Not Reportable Sodium 133 L Potassium 4.4 Chloride 102 Carbon Dioxide 21.0 Anion Gap 10 BUN 25 H Creatinine 1.40 H Estim Creat Clear Calc 51.57 Est GFR (MDRD) Af Amer 65 Est GFR (MDRD) Non-Af 54 L BUN/Creatinine Ratio 17.9 Glucose 97 Calcium 8.9 Assessment/Plan All Active Problems (Last Updated 10/19/18 @ 09:23 by Luann Soler) Candidiasis (Acute) Tachycardia (Acute) Carotid stenosis, bilateral (Acute) ASVD (arteriosclerotic vascular disease) (Acute) Infected neuropathic ulcer (Acute) Toe osteomyelitis, left (Acute) Diabetic neuropathy (Acute) Gangrene of toe of left foot (Acute) 62 year old M with past medical history of type II DM complicated by peripheral neuropathy, PAD, status post recent left first toe amputation 08/21/18, closely following with Dr. Walsh in the outpatient comes in with progressive left fifth toe ulceration and discoloration. 1. Acute on chronic left fifth toe gangrene, possible osteomyelitis, diabetic, recent left hallux amputation. Patient denies any systemic signs of infection. Stable vitals. No leukocytosis. Started on antibiotics by ED Plan: Admit to MedSurg floor, gentle IV fluids, IV antibiotics, vancomycin and Zosyn, podiatry consult, vascular surgery consult?Dr. Alatorre, infectious disease consult, pharmacy to monitor vancomycin levels 2. Type II DM, complicated by peripheral neuropathy, on insulin, will hold metformin, Januvia and continue on telemetry and regimen with Accu-Cheks and insulin sliding scale, continue on amitriptyline 3. PAD status post amputation, follows with Dr. Alatorre, will consult 4. Hypertension, controlled, continue home regimen -metoprolol, losartan 5. CKD stage III, creatinine appears to be around the baseline. 6. DVT PPx- Heparin SC Code Visit Inpatient E&M: 48738 Init Hosp L3
[2018-10-24 23:12] VITALS: BP 133/41; PULSE 67; RESP 12; TEMP 36.4; O2SAT 98
[2018-10-24 23:52] VITALS: BMI 36.8
[2018-10-24 23:58] VITALS: BP 149/61; PULSE 69; RESP 18; TEMP 36.5; O2SAT 99
[2018-10-25] MEDS: 0.9% NaCl Peripheral Flush Adult/Peds IV (01:07)
--- NOTE | 2018-10-25 01:20 | PCM.RX.CS ---
Consult Pharmacy has been consulted to manage selected antiobiotic: Vancomycin Type of Consult: New start Suspected Infection: Skin/Soft tissue Prior Doses of Antibiotics Received/Current Regimen: Medications Vancomycin HCl (Vancomycin) 1,000 mg in 200 mls @ 200 mls/hr IV Q12H MALACHI Vancomycin HCl 1,750 mg/ (Sodium Chloride) 535 mls @ 250 mls/hr IV X1 ONE Stop: 10/25/18 03:08 Last Admin: 10/25/18 01:06 Dose: 250 mls/hr Labs: Sodium 133 mmol/L (136-145) L 10/24/18 21:10 Potassium 4.4 mmol/L (3.5-5.1) 10/24/18 21:10 Chloride 102 mmol/L (98-107) 10/24/18 21:10 Carbon Dioxide 21.0 mmol/L (21.0-32.0) 10/24/18 21:10 10 (5-15) 10/24/18 21:10 BUN 25 mg/dL (7-18) H 10/24/18 21:10 1.40 mg/dL (0.70-1.30) H 10/24/18 21:10 Est GFR (MDRD) Af Amer 65 mL/min (>60) 10/24/18 21:10 Est GFR (MDRD) Non-Af 54 mL/min (>60) L 10/24/18 21:10 17.9 RATIO (10-20) 10/24/18 21:10 Glucose 97 mg/dL (74-106) 10/24/18 21:10 Weight used for dosin.9 kg Estimated Creatinine Clearance: 51.6 Goal Trough: 15-20 mcg/mL Pharmacy Plan for Drug Dosing: Pharmacy Service will continue to monitor and adjust dosing as required. Follow-Up Labs: Trough Vancomycin Labs to be done on [date and time ordered]: 10/26/18 @1230
--- NOTE | 2018-10-25 05:41 | NURSING ---
Dr. Tarun Alatorre called in regarding this pt due to a potential consult. He indicated he will not be able to see the pt because he is out of town and will not return until Sunday. He had a full office consult with the pt on 10/19. Pt's chronic issues are obesity, groin candidiasis and left foot issue. An arteriogram is scheduled for this pt but was not able to be done sooner d/t groin candidiasis. Dr. Alatorre has no intention of doing anything emergent on this pt.
--- NOTE | 2018-10-25 05:42 | PCM.PN.BLA ---
Progress Note Please see full consult performed 10/19/18 Future APLL with possible intervention LLE is scheduled for 11/05/18 Pt has bilateral groin candidiasis currently being treatment and will require resolution prior to endovascular intervention I will be out of town starting today and unable to see the patient today Please contact the office with any further concerns or information please. Rula
--- NOTE | 2018-10-25 05:55 | MRI_ITS ---
STUDY: MRI LEFT FOREFOOT WITHOUT CONTRAST REASON FOR EXAM: Male, 62 years old. Foot pain and swelling particularly of the fifth digit. TECHNIQUE: Standardized fat and water weighted pulse sequences were obtained in all 3 orthogonal planes. COMPARISON: None. FINDINGS: Status post amputation of the first digit.. Normal medial and lateral heads of the flexor hallucis brevis tendons. Normal flexor and extensor hallucis longus tendons. Normal second through fifth metatarsophalangeal (MTP) joints. Normal interphalangeal joints of the second through fifth toes. Destruction of the head of the fifth proximal phalanx and partial destruction of the fifth middle phalanx with marrow edema worrisome for osteomyelitis. Normal first through fourth intermetatarsal spaces. Normal flexor and extensor tendons of the second through fifth toes. Normal visualized metatarsi. Normal intrinsic muscles of the forefoot. There is no demonstrated soft tissue abnormality. MRI/Lower Ext/No Jt/w/o IMPRESSION: Osteomyelitis of the head of the fifth proximal phalanx and the entire fifth middle phalanx. Status post resection of the first digit. Electronically Signed: Candelario Mclaughlin MD at 9:42 EDT Tel , Service support ,
[2018-10-25 07:12] LABS: Absolute Lymphocyte Count 0.73 X10^3/ul (0.83-4.51); Absolute Neutrophil Count 4.8 X10^3/uL (2.0-7.7); Basophil# 0.02 X10^3/uL; Basophil% 0.3 % (0-1); Eosinophil# 0.18 X10^3/uL; Eosinophils% 2.9 % (0-5); Hematocrit 30.3 % (40-54); Hemoglobin 10.4 g/dl (13.0-16.5); Lymphocyte # 0.73 X10^3/ul (4.0); Lymphocyte % 11.9 % (19-41); Mean Corp Hgb Conc 34.3 g/gl (32-36); Mean Corpuscular Hgb 26.4 pg (27.0-32.0); Mean Corpuscular Volume 76.9 fL (80-94); Mean Platelet Vol. 9.2 fl (6.2-12.0); Monocyte# 0.38 X10^3/uL; Monocyte% 6.2 % (0-10); Neutrophil # 4.82 X10^3/uL (2.7-7.7); Neutrophil % 78.4 % (47-70); Platelet Count 229 K/mm3 (150-450); RBC Distribution Width CV 15.7 % (11.6-14.6); RBC Distribution Width SD 42.4 fl (35.1-43.9); Red Blood Count 3.94 M/mm3 (4.6-6.2); White Blood Count 6.2 K/mm3 (4.4-11.0)
[2018-10-25 07:16] LABS: POSITIVE COUNT NO; POSITIVE DIFFERENTIAL NO; POSITIVE MORPHOLOGY NO
[2018-10-25 07:16] LABS: Bedside Glucose 112 mg/dL (70-110)
[2018-10-25] MEDS: Heparin Injection (Vial) 5,000 UNIT/ML VIAL 5000 UNIT SC ×2 (07:16→15:00)
[2018-10-25 07:22] VITALS: BP 146/49; PULSE 84; RESP 16; TEMP 36.7; O2SAT 100
[2018-10-25 07:51] LABS: Hemoglobin A1c 5.5 % (4.2-6.3)
[2018-10-25 07:52] LABS: AST(SGOT) 10 U/L (15-37); Alanine Aminotransfer ALT/SGPT 18 U/L (16-61); Albumin, Serum 3.3 g/dL (3.2-5.0); Alkaline Phosphatase 65 U/L (45-117); Anion Gap 7 (5-15); BUN 21 mg/dL (7-18); BUN/Creat Ratio 17.6 RATIO (10-20); Calcium,Total 8.9 mg/dL (8.5-10.1); Chloride 104 mmol/L (98-107); Cholesterol 117 mg/dL (200); Creatinine, Serum 1.19 mg/dL (0.70-1.30); EST Glomerular Filtration Rate 65 mL/min (>60); Est Glom Filt Rate - Afr Amer 79 mL/min (>60); Estimated Creatinine Clearance 60.67 ml/min; Globulin 3.4 g/dL (2.2-4.2); Glucose 110 mg/dL (74-106); High Density Lipoprotein 40 mg/dL; Protein, Total 6.7 g/dL (6.4-8.2); Sodium Level 136 mmol/L (136-145); Triglycerides 98 mg/dL; Very Low Density Lipoprotein 20 mg/dL (5-40)
--- NOTE | 2018-10-25 08:02 | CON.PCM_ITS ---
Reason for Consult Date of Consultation: 10/25/18 Reason for Consultation: gangrene of left 5th toe History of Present Illness: The patient is a 62 year old M with pmh for diabetes and pad who is currently admitted for gangrene of left 5th toe. patient is well known to me as I have sonia mcdonald involved in his care for the past 2 months. about 1.5 months ago, he had amputation of his left hallux. pathology was negative for osteomyelitis. Micro had + cultures and he was treated by ID with antibiotics. He did experience some slow healing of left great toe amputation but has gone on to heal nicely. Unfortunately while healing his left hallux amputation, he developed wound to his left 5th toe. he is unsure how this happened but does feel it may have been to a recent fall. I admitted him to [facility] as I was out of town. I admitted him for the purpose of evaluation of his left foot, possible vascular intervention. Patient was treated with antibiotics and betadine. Per patient, he did see vascular at [facility] but it was advised to monitor and try hyperbarics. Patient was subsequently discharged and set up with [facility] on October 18. I saw patient in the end of September and we have been treating with santyl and betadine. I was able to get him seen by [facility] for hyperbarics but he has yet to get scheduled. Patient was referred to Dr. Tarun Alatorre who plans on performing arteriogram on November 05. patient presented to ed yesterday because he feels the 5th toe is turning darker and is starting to become red. he denies n/v/f/c. Past Medical History Past Medical History (Chronic Problems): Chronic Problems (Last Updated 10/19/18 @ 09:23 by Luann Soler) PAD (peripheral artery disease) (Chronic) Uncontrolled type 2 diabetes mellitus (Chronic) Hypertension (Chronic) Hyperlipidemia (Chronic) Medical History: Medical History (Last Updated 10/19/18 @ 09:23 by Luann Soler) Candidiasis (Acute) B37.9 PAD (peripheral artery disease) (Chronic) I73.9 Tachycardia (Acute) R00.0 Carotid stenosis, bilateral (Acute) I65.23 ASVD (arteriosclerotic vascular disease) (Acute) I70.90 Infected neuropathic ulcer (Acute) Left great toe Toe osteomyelitis, left (Acute) M86.9 Uncontrolled type 2 diabetes mellitus (Chronic) E11.65 Hypertension (Chronic) I10 Hyperlipidemia (Chronic) E78.5 Diabetic neuropathy (Acute) E11.40 Gangrene of toe of left foot (Acute) I96 left fifth digit History of amputation of left great toe Onset Date: ~08/2018 Z89.412 Allergies No Known Allergies Allergy (Verified 10/24/18 20:40) Home Medications: Ambulatory Orders Medication Instructions Recorded Amitriptyline HCl 50 mg PO QHS 08/19/18 Amlodipine [Norvasc] 10 mg PO DAILY 08/19/18 Aspirin [Aspir 81] 81 mg PO DAILY 08/19/18 Docusate Sodium 100 mg PO QHS 08/19/18 Doxazosin Mesylate 2 mg PO QHS 08/19/18 Fluticasone 0.05% [Flonase Nasal 1 spray NASAL DAILY PRN 08/19/18 [place]] Gabapentin [Neurontin] 300 mg PO BREAKFAST 08/19/18 Gabapentin [Neurontin] 600 mg PO QHS 08/19/18 Insulin Glargine,Hum.rec.anlog 15 unit SQ QHS 08/19/18 [Lantus Solostar] Losartan Potassium 100 mg PO DAILY 08/19/18 Magnesium Oxide [Magnesium] 400 mg PO DAILY 08/19/18 Metoprolol Tartrate [Lopressor 100 mg PO BID 08/19/18 (beta rashad)] Nitroglycerin [Nitrolingual [place]] 0.4 mg SUBLINGUAL PRN PRN 08/19/18 [place]-3 Fatty Acids/Fish Oil 1 ea PO TID 08/19/18 [[place] 3 Fish Oil Softgel] Simvastatin [Zocor] 40 mg PO QHS 08/19/18 Sitagliptin Phosphate [Januvia] 100 mg PO DAILY 08/19/18 Spironolactone [Aldactone] 50 mg PO DAILY 08/19/18 Triamterene/Hctz 37.5/25Mg 1 cap PO DAILY 08/19/18 [Triamterene-Hctz 37.5-25 mg Tb] metFORMIN HCl [Glucophage] 850 mg PO TIDCM 08/19/18 triamcinolone acetonide 0.5 % 1 applic TOPICAL BID 10/19/18 topical cream Surgical History: Surgical History (Last Updated 10/19/18 @ 09:23 by Luann Soler) History of arthroscopic knee surgery Z98. History of cardiac catheterization Onset Date: ~2014 Z9889 History of colonoscopy Onset Date: ~2008 Z History of esophagogastroduodenoscopy (EGD) Z History of eye surgery Z History of tonsillectomy Z90.89 Surgical History: cataract, total knee arthroplasty, tonsillectomy, - - s/p left hallux amputation Psychiatric History: No pertinent psych hx Lives: Alone Smoking Status: Former smoker Tobacco Use: Non-smoker, Cigarettes Alcohol: None Drugs: None - *Family History Maternal Family History: Family History (Last Updated 10/19/18 @ 09:23 by Luann Soler) Father Diabetes Mother Diabetes History Items: Diabetes Paternal Family History: Family History (Last Updated 10/19/18 @ 09:23 by Luann Soler) Father Diabetes Mother Diabetes History Items: Diabetes Objective: patient is alert and orientated x 3. vascular: DP and PT pulses are nonpalpable to left foot. CFT is delayed. Skin temperature is cool. hair growth is decreased. there are necrotic changes to the left 5th toe extending along the lateral 5th metatarsal shaft. Derm: there is healed left hallux amputation with mild scaling of skin. no erythema is noted to left hallux. There is necrotic 5th toe with skin ulceration along lateral 5th metatarsal with necrotic changes. no cash purulence. minimal erythema. no bone exposed. no pain. neuro: protective sensation is decreased to left foot. MS: ROM of left ankle is full without equinus. - Physical Exam Vital Signs Temp Pulse Resp BP Pulse Ox 98.1 F 84 16 146/49 H 100 10/25/18 07:22 10/25/18 07:22 10/25/18 07:22 10/25/18 07:22 10/25/18 07:22 Oxygen Delivery Method Room Air Weight: 108.8 kg Body Mass Index (BMI) 36.8 Intake and Output for Last 24 Hours 10/23/18 10/24/18 10/25/18 23:59 23:59 23:59 Intake Total 993 / 993 Balance 993 / 993 Laboratory Tests Past 24 Hrs 10/24/18 10/24/18 10/25/18 21:10 21:10 06:05 WBC 8.8 6.2 RBC 3.94 L 3.94 L Hgb 10.4 L 10.4 L Hct 30.3 L 30.3 L MCV 76.9 L 76.9 L MCH 26.4 L 26.4 L MCHC 34.3 34.3 RDW 15.7 H 15.7 H RDW Differential 44.5 H 42.4 Plt Count 239 229 MPV 8.7 9.2 Immature Gran % (Auto) 0.300 0.300 Neut % (Auto) 79.3 H 78.4 H Lymph % (Auto) 11.7 L 11.9 L [place] % (Auto) 5.9 6.2 Eos % (Auto) 2.5 2.9 Baso % (Auto) 0.3 0.3 Absolute Neuts (auto) 7.0 4.8 Absolute Lymphs (auto) 1.03 0.73 L Total Counted Not Reportable Not Reportable Sodium 133 L Potassium 4.4 Chloride 102 Carbon Dioxide 21.0 Anion Gap 10 BUN 25 H Creatinine 1.40 H Estim Creat Clear Calc 51.57 Est GFR (MDRD) Af Amer 65 Est GFR (MDRD) Non-Af 54 L BUN/Creatinine Ratio 17.9 Glucose 97 Hemoglobin A1c Calcium 8.9 Total Bilirubin AST ALT Alkaline Phosphatase Total Protein Albumin Globulin Albumin/Globulin Ratio Triglycerides Cholesterol LDL Cholesterol VLDL Cholesterol HDL Cholesterol 10/25/18 10/25/18 06:05 06:05 WBC RBC Hgb Hct MCV MCH MCHC RDW RDW Differential Plt Count MPV Immature Gran % (Auto) Neut % (Auto) Lymph % (Auto) [place] % (Auto) Eos % (Auto) Baso % (Auto) Absolute Neuts (auto) Absolute Lymphs (auto) Total Counted Sodium 136 Potassium 4.0 Chloride 104 Carbon Dioxide 25.0 Anion Gap 7 BUN 21 H Creatinine 1.19 Estim Creat Clear Calc 60.67 Est GFR (MDRD) Af Amer 79 Est GFR (MDRD) Non-Af 65 BUN/Creatinine Ratio 17.6 Glucose 110 H Hemoglobin A1c 5.5 Calcium 8.9 Total Bilirubin 0.60 AST 10 L ALT 18 Alkaline Phosphatase 65 Total Protein 6.7 Albumin 3.3 Globulin 3.4 Albumin/Globulin Ratio 1.0 Triglycerides 98 Cholesterol 117 LDL Cholesterol 57 VLDL Cholesterol 20 HDL Cholesterol 40 POC Glucose 10/25/18 07:08 POC Glucose 112 H Assessment/Plan All Active Problems (Last Updated 10/19/18 @ 09:23 by Luann Soler) Candidiasis (Acute) Tachycardia (Acute) Carotid stenosis, bilateral (Acute) ASVD (arteriosclerotic vascular disease) (Acute) Infected neuropathic ulcer (Acute) Toe osteomyelitis, left (Acute) Diabetic neuropathy (Acute) Gangrene of toe of left foot (Acute) Patient was examined and informed of current findings. I evaluated his foot. Currently, his foot does not present with any warmth, erythema or drainage and he appears stable. there are necrotic changes of left 5th toe now progressing proximally. I do feel that he is going to require amputation of 5th toe and possibly the 5th metatarsal shaft. In the event he requires partial 5th ray amputation, given he already has amputation of left hallux, I feel that a transmetatarsal amputation will be his best option. the foot is stable currently without any redness, drainage or warmth. I feel the foot is stable and can be treated with betadine. I do feel that he would benefit from vascular consultation. He has arteriogram scheduled for November 05. I discussed with primary about possibly transferring him to another hospital to expedite vascular care as Dr. Alatorre is out of town this weekend. I feel that if he could be transferred for vascular consult, he could then pursue amputation of left foot, most likey tma, and have better chances of healing. I fear that any amputation at this time would be at high risk of nonhealing which could result in need for more proximal amputation. I have discussed case with hospitalist who will work for transfer.
[2018-10-25] MEDS: Gabapentin 300 MG Capsule PO (08:15)
[2018-10-25] MEDS: Aspirin E.C. 81 MG Tablet PO (08:16)
--- NOTE | 2018-10-25 08:29 | NURSING ---
pt off unit for MRI
--- NOTE | 2018-10-25 09:28 | NURSING ---
pt returned from MRI
[2018-10-25 09:33] VITALS: PULSE 73
[2018-10-25] MEDS: Losartan Potassium 100 MG Tablet PO (09:33)
[2018-10-25] MEDS: Metoprolol Tartrate 100 MG Tablet PO (09:33)
[2018-10-25] MEDS: Spironolactone 50 MG Tablet PO (09:33)
--- NOTE | 2018-10-25 09:33 | CASEMGMT ---
GABBIE ARAUJO NOTE: Per pt, he has appt @ [facility] today. Call placed to [facility]. Pt was scheduled for OP MRI today. MRI cancelled at this time per this GABBIE ARAUJO. Per [facility], pt also has an appt with Dr Walsh on 10/29. This appt was not cancelled at this time and pt was made aware. Arlette ESCOBAR RN CM
[2018-10-25] MEDS: Omega-3 Acid Ethyl Esters 1 GM Capsule PO (09:34)
[2018-10-25] MEDS: amLODIPine 10 MG Tablet PO (09:34)
--- NOTE | 2018-10-25 09:43 | CASEMGMT ---
INSURANCE REVIEW: Per MMO website, the following hospitals are IN-network: [facility] Elijah ESCOBAR RN CM
--- NOTE | 2018-10-25 11:48 | CHAPLAIN ---
Type of Pastoral Visit _x__ Initial Visit ___ Follow-up Visit ___ On-call Visit ___ General Patient Visit ___ Spiritual Assessment ___ Family Conference ___ Bereavement ___ Rapid Response ___ Code Blue ___ Other (describe below) Pastoral Care Referral From _x__ Patient ___ Family ___ Nurse ___ Physician ___ Roller Bearing Inspector ___ Seismograph Helper ___ Other (describe below) Sacrament/Intervention _x__ Active listening ___ Anointing ___ Adventism ___ Bereavement ___ Communion _x__ Yulissa exploration ___ _x__ Life review _x__ Prayer ___ Reconciliation ___ Sacrament of Sick _x__ Supportive presence ___ Wedding ___ Other (describe below) Pastoral Comments , very little family support, does have a hinduism connection but not strong; concerns for foot and other social/spiritual needs
[2018-10-25 11:50] LABS: Bedside Glucose 207 mg/dL (70-110)
[2018-10-25] MEDS: Vancomycin IV 1,000 MG/200 ML BAG 200 MG IV (12:21)
[2018-10-25] MEDS: Insulin Lispro 100 UNIT/ML INSULN.PEN SC (12:26)
--- NOTE | 2018-10-25 13:08 | PCM.DC.SUM ---
Discharge Date and Diagnosis Date of Admission: 10/24/18 Date of Discharge: 10/25/18 - Primary Discharge Diagnosis left foot gangrene - Secondary Discharge Diagnosis Chronic Problems (Last Updated 10/19/18 @ 09:23 by Luann Soler) PAD (peripheral artery disease) (Chronic) Uncontrolled type 2 diabetes mellitus (Chronic) Hypertension (Chronic) Hyperlipidemia (Chronic) Hospital Course and Treatment Imaging Results: 10/25/18 05:55 Lower Ext/No Jt/w/o [MRI] Routine podiatry- Dr Walsh ID- Dr Rodriguez Vascular surgery- Dr Alatorre Operations: None Procedures: None Summary of Care Provided: The patient is a 62 year old M admitted through the ED on 10/24/2018 with a complaint of a left fifth toe infection. He has a past medical history of type 2 diabetes mellitus with peripheral neuropathy, PAD and is status post left first toe amputation. Recently had a left great toe amputation on 08/21/2018. He had been following up with his geological aide stopped the test drink. Patient states he was admitted at [facility] recently for left fifth toe wound. He was subsequently admitted to [facility] by his geological aide for the purpose of evaluation of his left foot and possible vascular intervention. While stable, patient states he was told that it was a bruise and was treated with antibiotics and Betadine. He states he did see vascular surgery at the [facility] but was advised to monitor the wound and to try hyperbaric oxygen therapy. He was subsequently discharged and he followed up with his geological aide. Patient had not yet followed up with the hyperbaric therapy at the [facility] the [facility] apartment in hyperbarics. He had been referred to Dr. Llanes who planned on performing arteriogram on November 05. Patient however presented to the ED yesterday because he feels the fifth toe was getting dark and starting to become red. He had been scheduled to have MRI on outpatient basis by his geological aide but felt that the toe was getting worse so he came in to the ED. he was admitted and managed for left fifth toe gangrene. He was started on IV vancomycin and Zosyn. Podiatry and vascular surgery were consulted as well as infectious disease. He had an MRI of the left foot which showed osteomyelitis of the head of the fifth proximal phalanx and the entire fifth middle phalanx. Per discussion with podiatry, decision was made to transfer patient to tertiary center, [facility] on account of vascular surgery not being available this weekend to see patient. Podiatry felt the patient needed urgent vascular surgery review for possible vascular intervention before the dry gangrene and osteomyelitis is tackled. Transfer initiated at [facility],and patient was accepted to the hospitalist service on 10/25/18. Patient seen and examined prior to transfer. He had no complaints and felt well. Review of systems was otherwise negative. Labs and vitals reviewed. Home medications reviewed and reconciled. o/e: Vital Signs Height 5 ft 8 in Weight: 239 lb 13.807 oz Weight in Pounds 239.9 lbs Pulse Ox 100 Temperature 98.1 F Pulse Rate 73 Respiratory Rate 16 Blood Pressure 146/49 Blood Pressure Position Semi-Fowlers General: Alert, Oriented x3, Cooperative, No apparent distress HEENT: Atraumatic, PERRLA, EOMI, Normocephalic Oral: Moist Mucosa Neck: Supple Lungs: Clear to auscultation, Normal air movement Cardiovascular: Regular rate, Regular Rhythm, Normal S1, Normal S2, No murmurs Abdomen: Bowel Sounds Present, Soft, Non Tender Extremities: Edema - bilateral trace bipedal edema, left foot wrapped in bandage. Skin: No rashes, No breakdown Musculoskeletal: No Tenderness to Palpation of Joints or Extremities Lymphatic: No Cervical, Supraclavicular, or Inguinal Adenopathy Neurological: Cranial nerves II-XII grossly intact, Neuro grossly intact Psych/Mental Status: Normal Affect, Appropriate Plan is for transfer to [facility] Hospitalist Service- to the service of Dr Fernández. - Physical Exam Vital Signs Temp Pulse Resp BP Pulse Ox 98.1 F 73 16 146/49 H 100 10/25/18 07:22 10/25/18 09:33 10/25/18 07:22 10/25/18 07:22 10/25/18 07:22 Oxygen Delivery Method Room Air Weight: 239 lb 13.807 oz Body Mass Index (BMI) 36.8 Intake and Output for Last 24 Hours 10/23/18 10/24/18 10/25/18 23:59 23:59 23:59 Intake Total 993 / 993 Balance 993 / 993 Laboratory Tests Past 24 Hrs 10/24/18 10/24/18 10/25/18 21:10 21:10 06:05 WBC 8.8 6.2 RBC 3.94 L 3.94 L Hgb 10.4 L 10.4 L Hct 30.3 L 30.3 L MCV 76.9 L 76.9 L MCH 26.4 L 26.4 L MCHC 34.3 34.3 RDW 15.7 H 15.7 H RDW Differential 44.5 H 42.4 Plt Count 239 229 MPV 8.7 9.2 Immature Gran % (Auto) 0.300 0.300 Neut % (Auto) 79.3 H 78.4 H Lymph % (Auto) 11.7 L 11.9 L [place] % (Auto) 5.9 6.2 Eos % (Auto) 2.5 2.9 Baso % (Auto) 0.3 0.3 Absolute Neuts (auto) 7.0 4.8 Absolute Lymphs (auto) 1.03 0.73 L Total Counted Not Reportable Not Reportable Sodium 133 L Potassium 4.4 Chloride 102 Carbon Dioxide 21.0 Anion Gap 10 BUN 25 H Creatinine 1.40 H Estim Creat Clear Calc 51.57 Est GFR (MDRD) Af Amer 65 Est GFR (MDRD) Non-Af 54 L BUN/Creatinine Ratio 17.9 Glucose 97 Hemoglobin A1c Calcium 8.9 Total Bilirubin AST ALT Alkaline Phosphatase Total Protein Albumin Globulin Albumin/Globulin Ratio Triglycerides Cholesterol LDL Cholesterol VLDL Cholesterol HDL Cholesterol 10/25/18 10/25/18 06:05 06:05 WBC RBC Hgb Hct MCV MCH MCHC RDW RDW Differential Plt Count MPV Immature Gran % (Auto) Neut % (Auto) Lymph % (Auto) [place] % (Auto) Eos % (Auto) Baso % (Auto) Absolute Neuts (auto) Absolute Lymphs (auto) Total Counted Sodium 136 Potassium 4.0 Chloride 104 Carbon Dioxide 25.0 Anion Gap 7 BUN 21 H Creatinine 1.19 Estim Creat Clear Calc 60.67 Est GFR (MDRD) Af Amer 79 Est GFR (MDRD) Non-Af 65 BUN/Creatinine Ratio 17.6 Glucose 110 H Hemoglobin A1c 5.5 Calcium 8.9 Total Bilirubin 0.60 AST 10 L ALT 18 Alkaline Phosphatase 65 Total Protein 6.7 Albumin 3.3 Globulin 3.4 Albumin/Globulin Ratio 1.0 Triglycerides 98 Cholesterol 117 LDL Cholesterol 57 VLDL Cholesterol 20 HDL Cholesterol 40 POC Glucose 10/25/18 10/25/18 11:46 07:08 POC Glucose 207 H 112 H Discharge Diet: Low fat/ Low Cholesterol Discharge Activity: Return to Normal Activity Home Medications: Medications to take at Discharge Amitriptyline HCl 50 mg PO QHS 08/19/18 Amlodipine [Norvasc] 10 mg PO DAILY 08/19/18 Aspirin [Aspir 81] 81 mg PO DAILY 08/19/18 Docusate Sodium 100 mg PO QHS 08/19/18 Doxazosin Mesylate 2 mg PO QHS 08/19/18 Fluticasone 0.05% [Flonase Nasal [place]] 1 spray NASAL DAILY PRN 08/19/18 Gabapentin [Neurontin] 300 mg PO BREAKFAST 08/19/18 Gabapentin [Neurontin] 600 mg PO QHS 08/19/18 Insulin Glargine,Hum.rec.anlog [Lantus Solostar] 15 unit SQ QHS 08/19/18 Losartan Potassium 100 mg PO DAILY 08/19/18 Magnesium Oxide [Magnesium] 400 mg PO DAILY 08/19/18 Metoprolol Tartrate [Lopressor (beta rashad)] 100 mg PO BID 08/19/18 Nitroglycerin [Nitrolingual [place]] 0.4 mg SUBLINGUAL PRN PRN 08/19/18 [place]-3 Fatty Acids/Fish Oil [[place] 3 Fish Oil Softgel] 1 ea PO TID 08/19/18 Simvastatin [Zocor] 40 mg PO QHS 08/19/18 Sitagliptin Phosphate [Januvia] 100 mg PO DAILY 08/19/18 Spironolactone [Aldactone] 50 mg PO DAILY 08/19/18 Triamterene/Hctz 37.5/25Mg [Triamterene-Hctz 37.5-25 mg Tb] 1 cap PO DAILY 08/19/18 metFORMIN HCl [Glucophage] 850 mg PO TIDCM 08/19/18 triamcinolone acetonide 0.5 % topical cream 1 applic TOPICAL BID 10/19/18 Primary Care Physician: Edward Mcgovern DO [Primary Care Provider] - Please follow up with your Primary Care Physician in: one week Disposition: Acute care Hospital Minutes spent on discharge:: 50 Patient Condition:: Stable Medical Necessity - Tobacco Use Smoking Status: Former smoker Tobacco Use: Non-smoker, Cigarettes Meaningful Use Info Meaningful Use Diagnoses (Choose all that apply): None applicable Code Visit Inpatient E&M: 11098 Disch Hosp
--- NOTE | 2018-10-25 13:10 | PCM.DC ---
You will use the following diet at home:: Calorie/Carbohydrate Controlled (specify 1200, 1400, etc) - 1800cc Your food should be the consistency of: Regular Your liquids should be the consistency of: Regular/Thin Discharge Activity: Return to Normal Activity Weight Bearing Status: Weight bearing as tolerated Allergies/Adverse Reactions: Allergies No Known Allergies Allergy (Verified 10/24/18 20:40) Medications to take at Discharge Amitriptyline HCl 50 mg PO QHS 08/19/18 Amlodipine [Norvasc] 10 mg PO DAILY 08/19/18 Aspirin [Aspir 81] 81 mg PO DAILY 08/19/18 Docusate Sodium 100 mg PO QHS 08/19/18 Doxazosin Mesylate 2 mg PO QHS 08/19/18 Fluticasone 0.05% [Flonase Nasal [place]] 1 spray NASAL DAILY PRN 08/19/18 Gabapentin [Neurontin] 300 mg PO BREAKFAST 08/19/18 Gabapentin [Neurontin] 600 mg PO QHS 08/19/18 Insulin Glargine,Hum.rec.anlog [Lantus Solostar] 15 unit SQ QHS 08/19/18 Losartan Potassium 100 mg PO DAILY 08/19/18 Magnesium Oxide [Magnesium] 400 mg PO DAILY 08/19/18 Metoprolol Tartrate [Lopressor (beta rashad)] 100 mg PO BID 08/19/18 Nitroglycerin [Nitrolingual [place]] 0.4 mg SUBLINGUAL PRN PRN 08/19/18 [place]-3 Fatty Acids/Fish Oil [[place] 3 Fish Oil Softgel] 1 ea PO TID 08/19/18 Simvastatin [Zocor] 40 mg PO QHS 08/19/18 Sitagliptin Phosphate [Januvia] 100 mg PO DAILY 08/19/18 Spironolactone [Aldactone] 50 mg PO DAILY 08/19/18 Triamterene/Hctz 37.5/25Mg [Triamterene-Hctz 37.5-25 mg Tb] 1 cap PO DAILY 08/19/18 metFORMIN HCl [Glucophage] 850 mg PO TIDCM 08/19/18 triamcinolone acetonide 0.5 % topical cream 1 applic TOPICAL BID 10/19/18 Primary Care Physician: Edward Mcgovern DO [Primary Care Provider] - Please follow up with your Primary Care Physician in: one week Test Results: Test results from this visit will be discussed in further detail at your follow-up appointment, if applicable. Please Follow Up With: Davi Walsh DPM When: one week Proposed Discharge Date: 10/25/18
--- NOTE | 2018-10-25 13:25 | CON.PCM_ITS ---
Problem List (1) Gangrene of toe of left foot Status: Acute Comment: left fifth digit Reason for Consult: gangrene Consulted by: Dr. Arreola History of Present Illness: The patient is a 62 year old M with DM and PAD, last admitted in August with L 1st toe osteo seen on MRI, had recent outpt cx with PsA, citro, and enterococcus. Wound cx at [facility] showed PsA, citro, enterococcus, and MRSE. Taken for amputation 08/21 of the toe by Dr. Walsh with negative surgical bone cxs. Discharged on short course levaquin and augmentin. Had been doing ok after that point, incision healed, but had new wound on lateral L foot start requiring admission to [facility]. Over past few days, progressive L 5th toe changes with skin darkening and redness. Denies any pain, no fever. Admitted on vanc/zosyn, feeling ok. No fever, no n/v/d. Transfer to [facility] planned for TMA and vascular procedure. Full ROS performed and neg except as noted above. - Medical History Past Medical History (Chronic Problems): Chronic Problems (Last Updated 10/19/18 @ 09:23 by Luann Soler) PAD (peripheral artery disease) (Chronic) Uncontrolled type 2 diabetes mellitus (Chronic) Hypertension (Chronic) Hyperlipidemia (Chronic) Allergies/Adverse Reactions: Allergies No Known Allergies Allergy (Verified 10/24/18 20:40) Home Medications: Ambulatory Orders Medication Instructions Recorded Amitriptyline HCl 50 mg PO QHS 08/19/18 Amlodipine [Norvasc] 10 mg PO DAILY 08/19/18 Aspirin [Aspir 81] 81 mg PO DAILY 08/19/18 Docusate Sodium 100 mg PO QHS 08/19/18 Doxazosin Mesylate 2 mg PO QHS 08/19/18 Fluticasone 0.05% [Flonase Nasal 1 spray NASAL DAILY PRN 08/19/18 [place]] Gabapentin [Neurontin] 300 mg PO BREAKFAST 08/19/18 Gabapentin [Neurontin] 600 mg PO QHS 08/19/18 Insulin Glargine,Hum.rec.anlog 15 unit SQ QHS 08/19/18 [Lantus Solostar] Losartan Potassium 100 mg PO DAILY 08/19/18 Magnesium Oxide [Magnesium] 400 mg PO DAILY 08/19/18 Metoprolol Tartrate [Lopressor 100 mg PO BID 08/19/18 (beta rashad)] Nitroglycerin [Nitrolingual [place]] 0.4 mg SUBLINGUAL PRN PRN 08/19/18 [place]-3 Fatty Acids/Fish Oil 1 ea PO TID 08/19/18 [[place] 3 Fish Oil Softgel] Simvastatin [Zocor] 40 mg PO QHS 08/19/18 Sitagliptin Phosphate [Januvia] 100 mg PO DAILY 08/19/18 Spironolactone [Aldactone] 50 mg PO DAILY 08/19/18 Triamterene/Hctz 37.5/25Mg 1 cap PO DAILY 08/19/18 [Triamterene-Hctz 37.5-25 mg Tb] metFORMIN HCl [Glucophage] 850 mg PO TIDCM 08/19/18 triamcinolone acetonide 0.5 % 1 applic TOPICAL BID 10/19/18 topical cream - Social History SMOKING STATUS:: Former smoker Vital Signs Temp Pulse Resp BP Pulse Ox 98.1 F 73 16 146/49 H 100 10/25/18 07:22 10/25/18 09:33 10/25/18 07:22 10/25/18 07:22 10/25/18 07:22 Oxygen Delivery Method Room Air Weight: 108.8 kg Body Mass Index (BMI) 36.8 Laboratory Tests Past 24 Hrs 10/24/18 10/24/18 10/25/18 21:10 21:10 06:05 WBC 8.8 6.2 RBC 3.94 L 3.94 L Hgb 10.4 L 10.4 L Hct 30.3 L 30.3 L MCV 76.9 L 76.9 L MCH 26.4 L 26.4 L MCHC 34.3 34.3 RDW 15.7 H 15.7 H RDW Differential 44.5 H 42.4 Plt Count 239 229 MPV 8.7 9.2 Immature Gran % (Auto) 0.300 0.300 Neut % (Auto) 79.3 H 78.4 H Lymph % (Auto) 11.7 L 11.9 L [place] % (Auto) 5.9 6.2 Eos % (Auto) 2.5 2.9 Baso % (Auto) 0.3 0.3 Absolute Neuts (auto) 7.0 4.8 Absolute Lymphs (auto) 1.03 0.73 L Total Counted Not Reportable Not Reportable Sodium 133 L Potassium 4.4 Chloride 102 Carbon Dioxide 21.0 Anion Gap 10 BUN 25 H Creatinine 1.40 H Estim Creat Clear Calc 51.57 Est GFR (MDRD) Af Amer 65 Est GFR (MDRD) Non-Af 54 L BUN/Creatinine Ratio 17.9 Glucose 97 Hemoglobin A1c Calcium 8.9 Total Bilirubin AST ALT Alkaline Phosphatase Total Protein Albumin Globulin Albumin/Globulin Ratio Triglycerides Cholesterol LDL Cholesterol VLDL Cholesterol HDL Cholesterol 10/25/18 10/25/18 06:05 06:05 WBC RBC Hgb Hct MCV MCH MCHC RDW RDW Differential Plt Count MPV Immature Gran % (Auto) Neut % (Auto) Lymph % (Auto) [place] % (Auto) Eos % (Auto) Baso % (Auto) Absolute Neuts (auto) Absolute Lymphs (auto) Total Counted Sodium 136 Potassium 4.0 Chloride 104 Carbon Dioxide 25.0 Anion Gap 7 BUN 21 H Creatinine 1.19 Estim Creat Clear Calc 60.67 Est GFR (MDRD) Af Amer 79 Est GFR (MDRD) Non-Af 65 BUN/Creatinine Ratio 17.6 Glucose 110 H Hemoglobin A1c 5.5 Calcium 8.9 Total Bilirubin 0.60 AST 10 L ALT 18 Alkaline Phosphatase 65 Total Protein 6.7 Albumin 3.3 Globulin 3.4 Albumin/Globulin Ratio 1.0 Triglycerides 98 Cholesterol 117 LDL Cholesterol 57 VLDL Cholesterol 20 HDL Cholesterol 40 - Other Studies Radiology: [] reviewed Other Studies: [] Route of nutrition/ use of supplements: [] Nutritional Intake: [] IV Site: [] [place] Catheter: [] - Physical Exam General: Alert, Oriented x3, Cooperative, No apparent distress HEENT: Atraumatic, PERRLA, EOMI Neck: Supple, No Nodes Lungs: Clear to auscultation, Normal air movement Cardiovascular: Regular rate, Regular Rhythm, No murmurs Abdomen: Soft, Non Tender, Non-Distended Extremities: Edema - mild BLE Skin: Ulcer/ Wound - L foot wrapped IV Site: Peripheral, without redness Musculoskeletal: No Tenderness to Palpation of Joints or Extremities Neurological: Cranial nerves II-XII grossly intact - Assessment/Plan Antibiotics: [] Assessment/Plan: [] L foot gangrene with PAD and DM - admit in 08/2018 to [facility] with L 1st toe osteo requiring amputation; cxs at that time with citro, PsA, enterococcus, and MRSE. Cont vanc/zosyn, transfer planned for [facility]. Wbc normal here, no fever. Will follow, thank you.
[2018-10-25] MEDS: Nystatin Powder 15gm Bottle 1 APPLIC TOPICAL (15:02)
[2018-10-25 15:07] VITALS: BP 113/54; PULSE 67; RESP 18; TEMP 36.9; O2SAT 99
[2018-10-25] MEDS: Glucerna Shake 120 ML LIQUID PO ×2 (15:07→17:08)
--- NOTE | 2018-10-25 17:09 | NURSING ---
BLood Sugar is 124. no coverage given.
[2018-10-25 17:30] LABS: Bedside Glucose 124 mg/dL (70-110)
--- NOTE | 2018-10-25 19:36 | NURSING ---
Gave report to Zuleima CARTWRIGHT at [facility].
== END 2018-10-25 19:20 | disposition short-term general hospital (02) | DRG 300 ==
LOC: ED 21:13 → MS3 23:32
PROVIDERS: Admitting Provider Internal Medicine; Emergency Provider Emergency Medicine; Family Provider Student in an Organized Health Care Education/Training Program; PCP Student in an Organized Health Care Education/Training Program; Referring Provider Internal Medicine; Visit Provider Student in an Organized Health Care Education/Training Program
DX: E11.52 Type 2 diabetes mellitus with diabetic peripheral angiopathy with gangrene (principal); I96 Gangrene, not elsewhere classified; M86.8X7 Other osteomyelitis, ankle and foot; E11.42 Type 2 diabetes mellitus with diabetic polyneuropathy; Z89.412 Acquired absence of left great toe; E11.65 Type 2 diabetes mellitus with hyperglycemia; E78.5 Hyperlipidemia, unspecified; Z79.4 Long term (current) use of insulin; I10 Essential (primary) hypertension; E11.69 Type 2 diabetes mellitus with other specified complication; B37.2 Candidiasis of skin and nail; Z87.891 Personal history of nicotine dependence
CPT/HCPCS: 36415; 73718; 80048; 80053; 80061; 82962; 83036; 85025; 97802; 99285; J7040; J7050; A4216

== ENCOUNTER 2018-11-05 08:27 | Day surgery (SDC) | payer OTHER, SELFPAY ==
[2018-10-19 09:28] VITALS: BMI 36.6
--- NOTE | 2018-10-19 10:02 | HP_ITS ---
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 Required: No Is patient in pain?: No Allergies No Known Allergies Allergy (Verified 10/19/18 09:24) Medications Amitriptyline HCl 50 mg PO QHS 08/19/18 [History Confirmed 10/19/18] Amlodipine [Norvasc] 10 mg PO DAILY 08/19/18 [History Confirmed 10/19/18] Aspirin [Aspir 81] 81 mg PO DAILY 08/19/18 [History Confirmed 10/19/18] Docusate Sodium 100 mg PO BID PRN 08/19/18 [History Confirmed 10/19/18] Doxazosin Mesylate 2 mg PO QHS 08/19/18 [History Confirmed 10/19/18] Fluticasone 0.05% [Flonase Nasal [place]] 1 spray NASAL DAILY PRN 08/19/18 [History Confirmed 10/19/18] Gabapentin [Neurontin] 300 mg PO BREAKFAST 08/19/18 [History Confirmed 10/19/18] Gabapentin [Neurontin] 600 mg PO QHS 08/19/18 [History Confirmed 10/19/18] Insulin Glargine,Hum.rec.anlog [Lantus Solostar] 15 unit SQ QHS 08/19/18 [History Confirmed 10/19/18] Loratadine 10 mg PO DAILY 08/19/18 [History Confirmed 10/19/18] Losartan Potassium 100 mg PO DAILY 08/19/18 [History Confirmed 10/19/18] Magnesium Oxide [Magnesium] 400 mg PO DAILY 08/19/18 [History Confirmed 10/19/18] Metoprolol Tartrate [Lopressor (beta rashad)] 100 mg PO BID 08/19/18 [History Confirmed 10/19/18] Nitroglycerin [Nitrolingual [place]] 0.4 mg SUBLINGUAL PRN PRN 08/19/18 [History Confirmed 10/19/18] Guston-3 Fatty Acids/Fish Oil [[place]on 3 Fish Oil Softgel] 1 ea PO DAILY 08/19/18 [History Confirmed 10/19/18] Simvastatin [Zocor] 40 mg PO QHS 08/19/18 [History Confirmed 10/19/18] Sitagliptin Phosphate [Januvia] 100 mg PO DAILY 08/19/18 [History Confirmed 10/19/18] Spironolactone [Aldactone] 50 mg PO DAILY 08/19/18 [History Confirmed 10/19/18] Triamterene/Hctz 37.5/25Mg [Triamterene-Hctz 37.5-25 mg Tb] 1 cap PO DAILY 08/19/18 [History Confirmed 10/19/18] metFORMIN HCl [Glucophage] 850 mg PO TIDCM 08/19/18 [History Confirmed 10/19/18] Insulin Lispro [Humalog KwikPen] See Protocol SQ ACHS insuln.pen 08/23/18 [Rx Confirmed 10/19/18] cyanocobalamin (vit B-12) 1,000 mcg/mL injection kit 100 mcg IM QMONTH 10/19/18 [History Confirmed 10/19/18] fluconazole 100 mg tablet 100 mg PO ONCE #1 tab 10/19/18 [Rx Confirmed 10/19/18] nystatin 100,000 unit/gram topical powder 1 applic TOPICAL BID #30 g 10/19/18 [Rx Confirmed 10/19/18] triamcinolone acetonide 0.5 % topical cream 1 applic TOPICAL BID 10/19/18 [History Confirmed 10/19/18] [facility] Medical History (Updated 10/19/18 @ 09:56 by Tarun Alatorre MD) Candidiasis (Acute) PAD (peripheral artery disease) (Acute) Tachycardia (Acute) Carotid stenosis, bilateral (Acute) ASVD (arteriosclerotic vascular disease) (Acute) Infected neuropathic ulcer (Acute) Toe osteomyelitis, left (Acute) Uncontrolled type 2 diabetes mellitus (Acute) Hypertension (Chronic) Hyperlipidemia (Acute) Diabetic neuropathy (Acute) Gangrene of toe of left foot (Acute) History of amputation of left great toe (Acute ~08/2018) Surgical History (Updated 10/19/18 @ 09:23 by Luann Soler) History of arthroscopic knee surgery (Acute) History of cardiac catheterization (Acute ~2014) History of colonoscopy (Acute ~2008) History of esophagogastroduodenoscopy (EGD) (Acute) History of eye surgery (Acute) History of tonsillectomy (Acute) Family History (Updated 10/19/18 @ 09:23 by Luann Soler) Father Diabetes Mother Diabetes Social History (Updated 10/19/18 @ 10:02 by Tarun Alatorre MD) Smoking Status: Former smoker HPI HPI HPI: BOB REDDING, is a 62 M who presents to the office today for HPI HPI Surgical H&P: Yes HPI: BOB REDDING, is a 62 M who presents to the office today for surgical consultation regarding ischemic changes to the patient's left foot. The patient is referred by Dr. Walsh and a written copy of my surgical consult recommendations will be returned to him. The patient's already had a partial amputation of his left great toe. He has ischemic changes of the left fifth digit extending all the way up the left metatarsal lateral aspect of the foot with full-thickness skin loss in that area and eschar. He is being contemplated for hyperbaric oxygen therapy but he states that he cannot afford the gasoline to drive in daily to have that treatment offered. He is resistant to pursue it. He has been a long-term diabetic. He is currently on insulin therapy. His most recent PVR was performed September 22, 2018 at the [facility] [place]. Unfortunately ABIs were not calculable secondary to artificially elevated noncompressible vessels. Interpretation was made by waveform only and was felt to be grossly normal. As of June 28 his hemoglobin A1c was 6.3. As of October 11, 2018 his white count is 8.6 with hemoglobin 11 and hematocrit 31.6 and a platelet count of 274,000 with a sed rate of 7. BUN is 28 with a creatinine of 1.45 and an estimated GFR of 52. Stage III dysfunction. ROS General General: Yes weight change; no appetite, fatigue, colon cancer, breast cancer or weakness HEENT HEENT: Yes eye surgery; no difficulty swallowing, eye injury, swollen glands or hoarseness Endo Endocrine: Yes diabetes mellitus; no thyroid disease, thyroid cancer, Hair loss, heat intolerance or cold intolerance Musc Musculoskeletal: No back problems, arthritis, rheumatoid arthritis, gout or joint pain Cardio Cardiovascular: Yes high blood pressure; no murmur, pacemaker, heart disease, atrial fibrillation, heart attack, heart stent, palpitations, shortness of breat with exertion or chest pain Psych Psychiatric: No depression, anxiety or hearing voices Resp Respiratory: No shortness of breath, No sleep apnea, No cough, No COPD, No asthma, No emphysema, No wheezing Gastro Gastrointestinal: No abdominal pain, No nausea or vomiting, No diarrhea, No constipation, No blood in stool, No acid reflux, No hemorrhoids, No ulcers, No gallbladder problem, No black,tarry stools Jayy Hematologic: No blood thinners, No blood disorders, No bleeding, No anemia, No blood clots Neuro Neurologic: No weakness Exam Const General: cooperative Nutritional Appearance: obese Orientation: alert, awake Eyes Other: Medial deviation left eye Neck Neck: normal visual inspection Carotids: normal carotid upstroke, no bruits Resp Effort & Inspection: normal respiratory effort Auscultation: clear to auscultation bilaterally Cardio Rate: regular rate Rhythm: regular rhythm Heart Sounds: no murmurs Other: Bilateral radials are 2+. Bilateral brachials 3+. Bilateral carotids 3+. No bruits Bilateral femorals 3+. Bilateral popliteals 3+. Bilateral DP pulses 2+. Bilateral PT pulses 1+ GI Other: Notably overweight, normal bowel sounds, I cannot detect any internal organs secondary to body habitus Other: Wet red rash bilateral groins right groin worse than the left Skin Other: The patient appears to have self-induced absence of fingernails bilateral hands apparently secondary to self picking and extraction Multiple areas dorsum of the right foot and bilateral lower extremities have scattered areas of self excoriation Extrem Other: Healing partial amputation left great toe. Black atrophic gangrenous changes left fifth toe with dark eschar extending up the lateral aspect of the fifth metatarsal. From the proximal forefoot distally the entire foot demonstrates a mild dusky appearing with a sharp line of demarcation. Capillary refill is diminished as compared to the right foot. Assessment & Plan Problems 1. Infected neuropathic ulcer 2. Hypertension, unspecified type I10 3. Hyperlipidemia, unspecified hyperlipidemia type E78.5 4. Other diabetic neurological complication associated with type 2 diabetes mellitus E11.49 5. Gangrene of toe of left foot I96 6. PAD (peripheral artery disease) I73.9 7. Candidiasis B37.9 Plan 62-year-old gentleman with significant distal small vessel disease of his feet. Although he appears to have reasonable inflow at the femoral-popliteal level his pedal pulses are diminished. He certainly has an area suggesting demarcation of the proximal left forefoot. He has significant full-thickness skin loss with eschar in the lateral aspect of the foot and gangrene of the fifth digit. It is proposed for him that he consider hyperbaric oxygen therapy but he seems resistant suggesting he cannot afford the gasoline to drive daily. The patient has stage III renal insufficiency He has bilateral Eri fungal infections of the groins. I am recommending nystatin powder to the groins twice daily in an attempt to improve this prior to attempted endovascular intervention. We will also provide on oral Diflucan tablet. I am proposing for him a abdominal pelvic left lower extremity arteriogram. Because of his stage III renal insufficiency some of this will be performed with carbon dioxide. In great detail I have discussed with him the technique, benefit, risks and alternatives of a retrograde right common femoral approach with possible intervention to the left lower extremity. Absolutely no guarantees of success have been offered. Unfortunately I suspect the greater component of his disease is severe small vessel disease. I have great concerns regarding the appearance of the left foot that he is at high risk for limb loss. We discussed his renal insufficiency and utilization of contrast material for infrageniculate imaging. He has had an opportunity to ask and have questions answered. We will need to get the groin candidiasis improved before we can proceed with endovascular intervention so as to not have a contaminated wound in the groin. I very much appreciate the kind opportunity of assisting with his surgical care. We will schedule and proceed as noted. Patient is aware that it may be determined that the tests simply becomes one that is diagnostic rather than therapeutic. Based upon the appearance of his left foot however I believe that the attempted intervention is warranted. I do not prefer a CTA as this requires a mandatory 100 cc of contrast. Cc: Dr. Davi Walsh and Dr Edward Alatorre M.D., F.A.C.S. Medications New: cyanocobalamin (vit B-12) 100 mcg IM QMONTH triamcinolone acetonide 0.5% 1 applic topical BID nystatin 1 applic topical BID 30 grams 1RF fluconazole (Diflucan) 100 mg PO ONCE 1 tab 0RF Coding Level of Care Code 81067 Diagnoses Infected neuropathic ulcer Hypertension, unspecified type I10 ??Hypertension type: unspecified Hyperlipidemia, unspecified hyperlipidemia type E78.5 ??Hyperlipidemia type: unspecified Other diabetic neurological complication associated with type 2 diabetes mellitus E11.49 ??Diabetes mellitus type: type 2 ??Diabetes mellitus complication detail: with other neurological complication Gangrene of toe of left foot I96 PAD (peripheral artery disease) I73.9 Candidiasis B37.9 10/19/18 1002 <Electronically signed by Tarun chacon MD> Date _ Tarun Alatorre MD Since the patient's office visit he has had a repeat hospitalization at the [facility]. He felt that his left foot was changing with progressive gangrene. He was consulted on by Dr. Davi Walsh. I was out of town for the weekend and Dr. Walsh felt that a more urgent evaluation was appropriate. The patient was urgently transferred to the care of at [facility] a [facility] [place] facility and Dr. Carolina Isbell was consulted and did not feel that urgent vascular intervention was required. The patient was discharged. I am not aware of any changes in his treatment protocol. Tarun Alatorre M.D., F.A.C.S.
[2018-10-24 23:52] VITALS: BMI 36.8
--- NOTE | 2018-11-05 08:54 | EKG12_ITS ---
Test Reason : PREOP Blood Pressure : / mmHG Vent. Rate : 064 BPM Atrial Rate : 064 BPM P-R Int : 226 ms QRS Dur : 100 ms QT Int : 384 ms P-R-T Axes : 045 032 030 degrees QTc Int : 396 ms Sinus rhythm with 1st degree A-V block Otherwise normal ECG When compared with ECG of 19-AUG-2018 12:12, No significant change was found Confirmed by BISHOP ARMSTRONG, ANDRIA ([id number]), editorial intern KVNG GERMAN ([id number]) on 11/08/2018 11:33:04 AM Referred By: Tarun Alatorre Confirmed By:TOM ALAS MD
[2018-11-05 08:58] VITALS: BMI 35.9
--- NOTE | 2018-11-05 11:55 | OP.PCM_ITS ---
Problem List (1) PAD (peripheral artery disease) Status: Chronic (2) Toe osteomyelitis, left Status: Acute (3) Gangrene of toe of left foot Status: Acute Comment: left fifth digit Report of Operation Date of Procedure: 11/05/18 Pre-Operative Diagnosis: Gangrene left fifth digit with gangrenous changes of the forefoot and peripheral arterial occlusive disease Post-Operative Diagnosis: Multiple areas at least 4 in nature of high-grade serial stenosis of the left anterior tibial artery Surgery/Procedure Performed:: Carbon dioxide and Visipaque contrast abdominal pelvic left lower extremity arteriogram with left anterior tibial 3.5-3 210 mm tapered [place] cross angioplasty Description of Surgical Findings:: Timeout and informed consent was obtained. 62-year-old gentleman was taken to the special procedure lab and placed supine on the table. The right groin was sterilely prepped and draped. He received 50 mcg of fentanyl and 1 mg of Versed is intravenous sedation. Ultrasound was used to identify the right common femoral artery. Under ultrasound guidance 2% lidocaine was instilled as a local anesthetic. A total of 10 cc was used. A micropuncture needle was inserted into the right common femoral artery under ultrasound guidance. Micropuncture wire inserted. Micropuncture sheath inserted. 035 J-wire was inserted. A 5 [place] short sheath dilator was inserted. Using an 035 angled Glidewire a 5 [place] flush catheter was placed into the mid abdominal aorta. Using 15 cc of hand injection carbon dioxide a aortogram with pelvis was obtained. Using an angled Glidewire the flush catheter was advanced into the left superficial femoral artery. Static views using carbon dioxide were obtained of the left superficial femoral artery and proximal trifurcation vessels. I then exchanged out for an [address] catheter in place the quick cross catheter into the left distal superficial femoral artery. One set of infragenicular images were obtained with the carbon dioxide. The remainder of the images were obtained with diluted Visipaque contrast. This demonstrated at least 4 areas of high- grade critical stenosis in the series of the left anterior tibial artery. I placed an 035 Magic wire into the quick cross catheter and exchanged out the short 5 [place] sheath for a 45 cm 5 [place] sheath. I then exchanged back to the quick cross catheter exchanged out used a check pilot 150 wire and gained access to the left anterior tibial. I then utilized a tapered 3.5 to 3 mm [place] cross balloon to help guide the check pilot wire down to the ankle. The patient received 12,000 units of heparin weight-based. After adequate circulating time balloon angioplasty was performed of the majority length of the left anterior tibial artery. Upon inflating the balloon there were at least 4 areas of high-grade critical stenosis that resolved with angioplasty. Final images demonstrated some distal spasm of the anterior tibial artery. 100 mcg of nitroglycerin was given and flushed. After adequate CircAid time final images were obtained down demonstrated resolution of the spasm and complete resolution of the areas of stenosis of the anterior tibial with straight in-line flow to the foot. The catheter was withdrawn. 035 Magic wire was reinserted. The 5 [place] sheath was removed. A Perclose device was inserted. The wire was removed the Perclose device was deployed instant hemostasis was achieved. Pressure was additionally held. The left foot was then bandages. Doppler was used to interrogate the left anterior tibial which had crisp triphasic flow. No apparent complications patient will be initiated on clopidogrel therapy. Images demonstrated a widely patent abdominal aorta with bilateral common iliacs bilateral internal iliac arteries. Widely patent left common femoral artery profundofemoral artery and superficial femoral artery. The left popliteal artery is blocked by a total knee replacement. The degree of flow was quick and I had no problems getting catheters and guidewires passed this area. I did not perform a lateral view. There was evidence of patent left posterior tibial patent but small left peroneal and 4 areas of high-grade critical stenosis of the left anterior tibial. Subsequent to the balloon angioplasty of the left anterior tibial these areas are completely resolved. There is evidence of flow down upon the foot with good digital flow to the great toe and good plantar arch flow. Successfully treated serial stenosis of the left anterior tibial The procedure has been discussed with Dr. Jillian Alatorre M.D., F.A.C.S. Type of Anesthesia:: IV Sedation, Local
[2018-11-05 14:26] LABS: ACT Activated Clotting Time 252 sec (74-137)
[2018-11-05 14:26] LABS: ACT Activated Clotting Time 136 sec (74-137)
== END 2018-11-05 14:45 | disposition home or self-care (01) ==
LOC: CLSP 08:28
PROVIDERS: Family Provider Student in an Organized Health Care Education/Training Program; PCP Student in an Organized Health Care Education/Training Program; Referring Provider Surgery; Visit Provider Surgery
DX: E11.52 Type 2 diabetes mellitus with diabetic peripheral angiopathy with gangrene (principal); M86.8X7 Other osteomyelitis, ankle and foot; B37.9 Candidiasis, unspecified; I73.9 Peripheral vascular disease, unspecified; L98.499 Non-pressure chronic ulcer of skin of other sites with unspecified severity; E11.29 Type 2 diabetes mellitus with other diabetic kidney complication; E11.69 Type 2 diabetes mellitus with other specified complication; E78.5 Hyperlipidemia, unspecified; I10 Essential (primary) hypertension; I44.0 Atrioventricular block, first degree; E66.9 Obesity, unspecified; N28.9 Disorder of kidney and ureter, unspecified; Z79.4 Long term (current) use of insulin; Z79.82 Long term (current) use of aspirin; Z87.891 Personal history of nicotine dependence; Z79.899 Other long term (current) drug therapy; Z89.412 Acquired absence of left great toe; Z96.659 Presence of unspecified artificial knee joint; Z68.37 Body mass index [BMI] 37.0-37.9, adult
CPT/HCPCS: 36200; 36245; 37228; 75625; 75710; 76937; 85347; 93005; 99152; 99153; J7030; J7040; Q9967; C1725; C1760; C1769; C1887; C1894

== ENCOUNTER → 2019-01-07 13:22 | Outpatient (CLI) | payer MEDICARE, OTHER, SELFPAY ==
[2019-01-02 06:44] VITALS: BMI 35.9
--- NOTE | 2019-01-07 13:29 | ART_ITS ---
Reason For Study: PVD Procedure A bilateral lower extremity continuous wave Doppler with analog waveform analysis,segmental pressures,and ankle brachial indexes without exercise. Left Segmental Pressures Left brachial= 125mmHg. Left posterior tibial artery = 198mmHg. Left dorsalis pedis artery = 171mmHg. Left digit = 88 mmHg. The left dorsalis pedis waveforms are triphasic. The left posterior tibial artery waveforms are triphasic. Right Segmental Pressures Right brachial= 131mmHg. Right posterior tibial artery = 171mmHg. Right dorsalis pedis artery = 150mmHg. Right digit = 93 mmHg. The right dorsalis pedis waveforms are triphasic. The right posterior tibial artery waveforms are triphasic. Indices The right ankle brachial index by the dorsalis pedis is 1.15. The right ankle brachial index by the posterior tibial artery is 1.31. The right digital-brachial index is 0.71. The left ankle brachial index by the dorsalis pedis is 1.31. The left ankle brachial index by the posterior tibial artery is 1.51. The left digital-brachial index is 0.67. Interpretation Summary Normal bilateral lower extremity resting ankle brachial indices and waveforms. Abnormal bilateral digital brachial indices--possible distal small vessel disease or temperature affect/vasospasm Ordering Physician: Tarun Alatorre Referring Physician: Edward Gastelum Performed By: Adeline Morgan RVT
== END ==
PROVIDERS: Family Provider Student in an Organized Health Care Education/Training Program; PCP Student in an Organized Health Care Education/Training Program; Referring Provider Surgery; Visit Provider Surgery
DX: I73.9 Peripheral vascular disease, unspecified (principal)
CPT/HCPCS: 93923

== ENCOUNTER 2019-04-07 05:53 | Emergency (ER) | payer MEDICARE, OTHER, SELFPAY ==
[2019-01-02 06:44] VITALS: BMI 35.9
[2019-04-07 05:54] VITALS: BP 154/55; PULSE 70; RESP 22; TEMP 36.6; O2SAT 99; BMI 40.5
--- NOTE | 2019-04-07 06:19 | ED.VIS.GI ---
History of Present Illness Chief Complaint: Abd Pain Informant: Patient - Abdominal Pain/Flank Pain Onset: Month(s) - 1 Context: Gradual Onset Timing: Continuous Quality: Aching, Sharp - this AM Location: - - left mid-abdomen Current Severity: Mild Maximum Severity: Mild - Nausea/Vomiting/Emesis GI Symptom: Negative for: Nausea, Vomiting - Diarrhea/Melena/Hematochezia GI Symptom: - - hard and small. Negative for: Diarrhea, Melena, Hematochezia Associated Symptoms: Negative for: Dysuria, Frequency, Hematuria, Urgency Narrative: Patient states he has been having his left-sided abdominal discomfort for a month. He saw his PCP and had a couple of tests run, which he thinks includes a CT of the abdomen and pelvis, chest x-ray, blood work, 1.5 weeks ago or so. He states that he thinks his doctor told him that he has arthritis there. When I ask if it was colitis or diverticulitis, he states no. He states the pain is been aching until this morning, when it became somewhat sharp, leading him to come to the ER for a second opinion. The severity of the pain is not changed. The location has not changed. He denies any alteration in his appetite, nausea, vomiting, or changes in his bowel movements although he states they are not normal. He states his doctor prescribed an arthritis pill but he does not remember being prescribed anything else new after the results of these tests returned. He has been taking some laxatives off-and-on with little effect. - Past Medical History (1) Depression Status: Chronic (2) Unspecified constipation Status: Chronic (3) Iron deficiency anemia Status: Chronic (4) CKD (chronic kidney disease) stage 3, GFR 30-59 ml/min Status: Chronic (5) GERD (gastroesophageal reflux disease) Status: Chronic (6) Primary osteoarthritis of both knees Status: Chronic (7) Hepatitis C virus infection without hepatic coma Status: Chronic (8) Tinnitus Status: Chronic (9) ASVD (arteriosclerotic vascular disease) Status: Chronic (10) Carotid stenosis, bilateral Status: Chronic (11) Diabetic neuropathy Status: Chronic (12) Gangrene of toe of left foot Status: Chronic Comment: left fifth digit (13) Hyperlipidemia Status: Chronic (14) Hypertension Status: Chronic (15) PAD (peripheral artery disease) Status: Chronic (16) Uncontrolled type 2 diabetes mellitus Status: Chronic Past Medical History - Allergies and Home Meds Allergies/Adverse Reactions: Allergies No Known Allergies Allergy (Verified 04/07/19 06:01) Primary Care Physician: Edward Mcgovern [Primary Care Provider] - Surgical History: cataract, total knee arthroplasty, tonsillectomy, - - s/p left hallux amputation Lives: Alone Smoking Status: Former smoker Alcohol: None - Family History Maternal Family History: Family History (Last Updated 10/19/18 @ 09:23 by Luann Soler) Father Diabetes Mother Diabetes Family History: Reports: Diabetes Paternal Family History: Family History (Last Updated 10/19/18 @ 09:23 by Luann Soler) Father Diabetes Mother Diabetes Family History: Reports: Diabetes Review of Systems General: Denies: Chills, Fever, Sweats Eyes: Denies: Visual changes - bilaterally, Diplopia ENT: Denies: Rhinorrhea, Sore throat Cardiovascular: Denies: Chest pain, Palpitations Respiratory: Denies: Dyspnea, Cough, Dyspnea on exertion Gastrointestinal: Reports: Abdominal pain, Constipation - chronic. Denies: Nausea, Vomiting, Diarrhea, Melena, Hematochezia Genitourinary: Denies: Dysuria, Hematuria, Frequency Musculoskeletal: Denies: Neck pain, Back pain, Swelling, Extremity Pain Skin: Denies: Rash, Wounds Neurological: Reports: Numbness - both feet, chronic. Denies: Headache, Weakness Physical Exam Vital Signs/Narrative: Vital Signs Temp Pulse Resp BP Pulse Ox 04/07/19 05:54 97.8 F 70 22 H 154/55 H 99 Inital Vital Signs reviewed: Yes General: Well nourished, Well developed, Obese, No Acute Distress Head: Normocephalic, Atraumatic Eyes: Perrl, EOMI ENT: Moist mucous membranes, No rhinorrhea Neck: Supple, Nontender Cardiovascular: Regular rate, Regular rhythm, No murmurs Respiratory: No distress, CTA bilaterally, Chest nontender Abdomen: Soft, Nondistended, Normal bowel sounds, Tender - mild, left mid-abdomen only; otherwise, very benign exam. Negative for: Guarding, Rebound tenderness Back: Nontender, Normal Inspection. Negative for: CVA tenderness Extremities: Nontender, No edema Skin: Normal color, No rash, No Trauma Neurological: Alert, Oriented x3, Cranial nerves II-XII grossly intact, Normal Strength, Normal Sensation, Normal Gait Psychological: Normal affect, Normal Mood Diagnostic/Tx/Re-eval Laboratory Tests 04/07/19 04/07/19 Range/Units 06:20 06:20 WBC 7.4 (4.4-11.0) K/mm3 RBC 4.95 (4.6-6.2) M/mm3 Hgb 12.7 L (13.0-16.5) g/dL Hct 38.2 L (40-54) % MCV 77.2 L (80-94) fL MCH 25.7 L (27.0-32.0) pg MCHC 33.2 (32-36) g/dL RDW Std Deviation 40.8 (35.1-43.9) fl RDW Coeff of Sugar 15.0 H (11.6-14.6) % Plt Count 191 (150-450) K/mm3 MPV 9.1 (6.2-12.0) fl Immature Gran % (Auto) 0.500 (0.0-0.9) % Neut % (Auto) 72.6 H (47-70) % Lymph % (Auto) 16.3 L (19-41) % [place] % (Auto) 7.8 (0-10) % Eos % (Auto) 2.3 (0-5) % Baso % (Auto) 0.5 (0-1) % Absolute Neuts (auto) 5.4 (2.0-7.7) X10^3/uL Absolute Lymphs (auto) 1.21 (0.83-4.51) X10^3/uL Nucleated RBC % 0 (0-5) % Sodium 135 L (136-145) mmol/L Potassium 4.2 (3.5-5.1) mmol/L Chloride 100 (98-107) mmol/L Carbon Dioxide 29.0 (21.0-32.0) mmol/L Anion Gap 6 (5-15) BUN 17 (7-18) mg/dL Creatinine 1.23 (0.70-1.30) mg/dL Estim Creat Clear Calc 57.93 ml/min Est GFR (MDRD) Af Amer 76 (>60) mL/min Est GFR (MDRD) Non-Af 63 (>60) mL/min BUN/Creatinine Ratio 13.8 (10-20) RATIO Glucose 128 H (74-106) mg/dL Calcium 8.7 (8.5-10.1) mg/dL - Medical Decision Making Patient was given dicyclomine pill, he feels better on reevaluation. I discussed with Dr. Knight. I do not have access to [facility] ancillary testing or records. He was able to look some up, and saw that near the onset of the symptoms, the patient had a CT of the abdomen/pelvis, that showed gallstones incidentally but no other acute abnormalities. He separately had some x-rays of his low back showing some degenerative arthritis. It sounds that the patient was probably mixing the 2 diagnoses and had been confused. I do not think he has acute diverticulitis given that he has not had worsening pain, and he already had this worked up with CAT scan showing otherwise. With his labs showing no leukocytosis or leftward shift or other acute abnormality, I do not think he needs a repeat CAT scan at this time. I discussed this with him and he is comfortable following up. I recommend daily MiraLAX, and to avoid using bisacodyl daily which he appears to be using frequently, not necessarily daily. He was prescribed dicyclomine to use as needed. ED Disposition - Plan for ED Patient: Disposition: Home or Assisted Living Diagnosis: Left sided abdominal pain Instructions: CONSTIPATION (Adult), ABDOMINAL PAIN, Unkown Cause, (Male) Prescriptions: Dicyclomine HCl [Bentyl] 1 - 2 cap PO Q6H PRN #20 cap PRN Reason: abdominal pain Transmission Status: Pending to [facility]/pharmacy #[id number] Referrals: Edward Mcgovern [Primary Care Provider] - 3-5 Days Additional Instructions: Do not use bisacodyl every day. Take MiraLAX, 1 capful dissolved in any liquid daily, along with plenty of fluids as a stool softener.
[2019-04-07] MEDS: Dicyclomine 10 MG Capsule 20 MG PO (06:31)
[2019-04-07 06:41] LABS: Absolute Lymphocyte Count 1.21 X10^3/uL (0.83-4.51); Absolute Neutrophil Count 5.4 X10^3/uL (2.0-7.7); Basophil# 0.04 X10^3/uL; Basophil% 0.5 % (0-1); Eosinophil# 0.17 X10^3/uL; Eosinophils% 2.3 % (0-5); Hematocrit 38.2 % (40-54); Hemoglobin 12.7 g/dL (13.0-16.5); Lymphocyte # 1.21 X10^3/ul (4.0); Lymphocyte % 16.3 % (19-41); Mean Corp Hgb Conc 33.2 g/dL (32-36); Mean Corpuscular Hgb 25.7 pg (27.0-32.0); Mean Corpuscular Volume 77.2 fL (80-94); Mean Platelet Vol. 9.1 fl (6.2-12.0); Monocyte# 0.58 X10^3/uL; Monocyte% 7.8 % (0-10); NRBC Flagged by Analyzer 0 % (0-5); Neutrophil # 5.38 X10^3/uL (2.7-7.7); Neutrophil % 72.6 % (47-70); Platelet Count 191 K/mm3 (150-450); RBC Distribution Width SD 40.8 fl (35.1-43.9); Red Blood Count 4.95 M/mm3 (4.6-6.2); White Blood Count 7.4 K/mm3 (4.4-11.0)
[2019-04-07 06:45] LABS: Anion Gap 6 (5-15); BUN 17 mg/dL (7-18); BUN/Creat Ratio 13.8 RATIO (10-20); Calcium,Total 8.7 mg/dL (8.5-10.1); Chloride 100 mmol/L (98-107); Creatinine, Serum 1.23 mg/dL (0.70-1.30); EST Glomerular Filtration Rate 63 mL/min (>60); Est Glom Filt Rate - Afr Amer 76 mL/min (>60); Estimated Creatinine Clearance 57.93 ml/min; Glucose 128 mg/dL (74-106); Potassium 4.2 mmol/L (3.5-5.1); Sodium Level 135 mmol/L (136-145)
[2019-04-07 07:27] VITALS: BP 131/62; PULSE 75; RESP 16; O2SAT 96
== END 2019-04-07 07:28 | disposition home or self-care (01) ==
PROVIDERS: Emergency Provider Emergency Medicine; Family Provider Student in an Organized Health Care Education/Training Program; PCP Student in an Organized Health Care Education/Training Program
DX: R10.9 Unspecified abdominal pain (principal); I12.9 Hypertensive chronic kidney disease with stage 1 through stage 4 chronic kidney disease, or unspecified chronic kidney disease; E11.22 Type 2 diabetes mellitus with diabetic chronic kidney disease; E11.51 Type 2 diabetes mellitus with diabetic peripheral angiopathy without gangrene; N18.3 Chronic kidney disease, stage 3 (moderate); K21.9 Gastro-esophageal reflux disease without esophagitis; M17.0 Bilateral primary osteoarthritis of knee; E78.5 Hyperlipidemia, unspecified; Z79.4 Long term (current) use of insulin; Z79.82 Long term (current) use of aspirin; Z79.899 Other long term (current) drug therapy; Z87.891 Personal history of nicotine dependence; E66.9 Obesity, unspecified
CPT/HCPCS: 80048; 85025; 99284; A4216

== ENCOUNTER 2022-10-14 14:12 | Emergency (ER) | payer MEDICARE, OTHER, SELFPAY ==
[2022-10-14 14:12] VITALS: BP 122/63; PULSE 74; RESP 16; TEMP 36.6; O2SAT 98
[2022-10-14 14:27] VITALS: BP 123/59; PULSE 88; RESP 16; O2SAT 97; BMI 38.1
--- NOTE | 2022-10-14 14:46 | EKG12_ITS ---
Test Reason : SOB Blood Pressure : / mmHG Vent. Rate : 070 BPM Atrial Rate : 070 BPM P-R Int : 238 ms QRS Dur : 100 ms QT Int : 372 ms P-R-T Axes : 032 005 014 degrees QTc Int : 401 ms Sinus rhythm with 1st degree A-V block Inferior infarct , age undetermined Abnormal ECG Confirmed by HAYLEY ARMSTRONG, MEEK ([id number]), supervising film or videotape editor BREE MYLES ([id number]) on 10/16/2022 12:36:47 PM Referred By: Confirmed By:MEEK HARDY MD
--- NOTE | 2022-10-14 14:48 | CT_ITS ---
STUDY: CT BRAIN WITHOUT CONTRAST REASON FOR EXAM: Male, 66 years old. altered mental stats RADIATION DOSAGE (If Supplied By Facility): CTDIvol = ( 44.99 ) mGy, DLP = ( 812.98 ) mGycm TECHNIQUE: Transaxial CT imaging of the brain was performed without administration of intravenous contrast material. Individualized dose optimization techniques were used for this CT. COMPARISON: No relevant priors. FINDINGS: Normal soft tissue structures. Normal calvarium. There is mild cerebral atrophy with widening of the extra-axial spaces and ventricular dilatation. There are areas of decreased attenuation within the white matter tracts of the supratentorial brain, consistent with microvascular disease changes. Normal basal ganglia and thalami. Normal brainstem. Normal cerebellum. There is no intracranial hemorrhage. There are no findings of an acute ischemic infarction. Normal visualized paranasal sinuses. CT/Brain/Head without Contrast IMPRESSION: Chronic involutional changes of the brain. Electronically Signed: Candelario Mclaughlin MD at 15:50 EDT ,
[2022-10-14 14:53] LABS: Bedside Glucose 87 mg/dL (74-106)
[2022-10-14 14:56] VITALS: O2SAT 97
--- NOTE | 2022-10-14 14:58 | EDS_ITS ---
<Statement entered by Anita Monroy MD - 10/14/22 21:42> Pt seen & evaluated w/ARIELA. I personally interviewed & exam the pt. I was involved in all aspects of pt's orders, interpretation of results & treatment Patient presents with daughter secondary to dizziness. He apparently has not been taking good care of himself and is now living with his daughter who is going to keep a closer eye on his diet and medications. Patient reportedly feels lightheaded and dizzy when he first stands up. He denies chest pain or palpitations. Patient sitting upright in bed no acute distress. Head and neck examination is unremarkable. Heart is regular rate and rhythm. Lung sounds are clear. Abdomen is soft and nontender. Neuro exam reveals no focal neurologic deficits. EKG reveals no evidence of acute ischemia. Chest x-ray reveals chronic changes per my interpretation. CT scan of the head reveals no acute findings. CBC and chemistry studies are reviewed. His sodium was slightly low at 129, however patient appears to fluctuate between 129 and 135. His glucose is normal at 89. Troponin is normal x2. Orthostatic vital signs are obtained and are unremarkable. At this time patient is comfortable with discharge to home with daughter. Return instructions were provided. HPI History of Present Illness Chief Complaint: Dizziness Narrative Narrative: Patient is a 66-year-old male with history of chronic kidney disease, depression, CAD, diabetes, hyperlipidemia who is known for not taking his medications as prescribed presents to the emergency department for weakness, multiple falls as well as a feeling of dizziness. Patient was living by himself however after his daughter came to visit him, the patient had no food in his refrigerator, stopped Meals on Wheels, was not taking his medications as prescribed. Since then the patient has been getting more care from his daughter. Per the daughter, the patient has been intermittently confused, states that she is concerned he may begin dementia. [facility] Medical History (Updated 10/14/22 @ 17:58 by CARLIN Romano) ASVD (arteriosclerotic vascular disease) Candidiasis Carotid stenosis, bilateral Diabetic neuropathy Gangrene of toe of left foot History of amputation of left great toe (~08/2018) hx of APLL Hyperlipidemia Hypertension Infected neuropathic ulcer PAD (peripheral artery disease) Tachycardia Toe osteomyelitis, left Uncontrolled type 2 diabetes mellitus Home Medications amitriptyline 50 mg tablet 50 mg PO QHS sleep 08/19/18 [History Last Taken 0 08/18/18] amlodipine 10 mg tablet 10 mg PO DAILY blood pressure 08/19/18 [History Last Taken 10/24/18 06:00] aspirin 81 mg tablet,delayed release 81 mg PO DAILY health maintenance 08/19/18 [History Last Taken 10/24/18 06:00] docusate sodium 100 mg capsule 100 mg PO QHS bowels 08/19/18 [History Last Taken 08/18/18] doxazosin 2 mg tablet 2 mg PO QHS prostate 08/19/18 [History Last Taken 08/18/18] gabapentin 300 mg capsule 300 mg PO BREAKFAST neuropathy 08/19/18 [History Last Taken 10/24/18 06:00] gabapentin 300 mg capsule 600 mg PO QHS neuropathy 08/19/18 [History Last Taken 10/23/18 21:00] insulin glargine 100 unit/mL (3 mL) subcutaneous pen 15 unit SQ QHS diabetes 08/19/18 [History Last Taken 10/23/18 20:00] losartan 100 mg tablet 100 mg PO DAILY blood pressure 08/19/18 [History Last Taken 10/24/18 06:00] magnesium oxide 400 mg PO DAILY supplement 08/19/18 [History Last Taken 10/24/18 06:00] metformin 850 mg tablet 850 mg PO TIDCM diabetes 08/19/18 [History Last Taken 10/24/18 12:00] metoprolol tartrate 100 mg tablet 100 mg PO BID blood pressure 08/19/18 [History Last Taken 10/24/18 06:00] nitroglycerin 400 mcg/spray translingual 0.4 mg sublingual PRN PRN Pain 08/19/18 [History Last Taken Unknown] omega-3 fatty acids-fish oil 684 mg-1,200 mg capsule,delayed release 1 ea PO TID supplement 08/19/18 [History Last Taken 10/24/18 12:00] sitagliptin phosphate 100 mg tablet 100 mg PO DAILY diabetes 08/19/18 [History Last Taken 10/24/18 06:00] spironolactone 50 mg tablet 50 mg PO DAILY hypertension 08/19/18 [History Last Taken 10/24/18 06:00] triamcinolone acetonide 0.5 % topical cream 1 applic topical BID itching 10/19/18 [History Last Taken Unknown] insulin lispro 100 unit/mL subcutaneous pen See Protocol SQ ACHS 11/04/18 [History Last Taken Unknown] clopidogrel 75 mg tablet 75 mg PO DAILY #30 tabs 12/02/18 [Rx Last Taken Unknown] loratadine 10 mg capsule 10 mg PO DAILY 04/07/19 [History Last Taken Unknown] rosuvastatin 10 mg tablet 10 mg PO QHS 04/07/19 [History Last Taken Unknown] meloxicam 15 mg tablet 15 mg PO DAILY 01/30/20 [History Last Taken Unknown] miconazole nitrate 2 % topical spray powder 1 spray topical BID 01/30/20 [History Last Taken Unknown] mupirocin 2 % topical ointment 1 applic topical TID 01/30/20 [History Last Taken Unknown] Allergy/AdvReac Type Severity Reaction Status Date / Time No Known Allergies Allergy Verified 10/14/22 14:18 Family History Father Diabetes Mother Diabetes Surgical History History of arthroscopic knee surgery History of cardiac catheterization (~2014) History of colonoscopy (~2008) History of esophagogastroduodenoscopy (EGD) History of eye surgery History of tonsillectomy Social History Smoking Status: Former smoker ROS ROS ED ROS Narrative Constitutional: Negative for fever, chills, weight loss. . Positive for weakness, frequent falls Eyes: Negative for vision loss, vision change, double vision ENT: Negative for any sore throat, ear pain, congestion Cardiovascular: Negative for any chest pain, tightness, palpitations Respiratory: Negative for any cough, sputum production, hemoptysis, dyspnea, dyspnea on exertion, orthopnea Gastrointestinal: Negative for any abdominal pain, nausea, vomiting, diarrhea, constipation, blood in stool, blood in vomit : Negative for any urinary frequency, dysuria, retention, blood in urine Muscle skeletal: Negative for any muscle joint pain, stiffness, myalgias, arthralgias, neck pain, back pain Neurological: Negative for any headache, syncope, numbness or tingling. Positive for dizziness, feeling of unsteadiness Skin: Negative for any rashes, lumps, itching, abrasions, lacerations Psychiatric: Negative for any depression, anxiety, stress, suicidal ideation, homicidal ideation Hematologic: Negative for any easy bruising, excessive bruising, easy bleeding Allergies: Negative for any eczema, hives, rash EXAM Physical Exam Narrative Exam Narrative: Vital signs reviewed. Patient is alert and orient x4. Patient states that other than his dizziness, he does know that he is getting worse with walking and having more times where he loses balance. This has been ongoing however much worse over the last week. HEET: Head normocephalic atraumatic, TMs clear bilaterally. Posterior pharynx is clear, moist mucous membranes. Nares clear bilaterally. Neck: Supple with no lymphadenopathy or tenderness. No signs of meningismus, negative jolt sign. Cardiac: Regular rate and rhythm no murmurs gallops or rubs, equal peripheral pulses bilaterally. Respiratory: Lungs clear to auscultation bilaterally. No chest tenderness. Abdomen: Soft, nontender, nondistended. No abdominal bruit or pulsatile masses. No hepatosplenomegaly Extremities: No peripheral edema, no signs of gross trauma or deformity. Active full range of motion of all extremities. Neuro: Cranial nerves II through XII intact, no focal neurological deficits. NIH stroke score 0. Negative for ataxia. Skin: Clean dry and intact with no rash, purpura, petechiae, vesicles or pustules. Backs/flank: No CVA tenderness, no midline spinal tenderness, no deformity. Psych: Normal mood and affect. No SI, HI or acute psychosis. Const Vital Signs: 10/14/22 14:12 10/14/22 14:27 10/14/22 14:27 Temperature 97.8 F Temperature Source Temporal Pulse Rate 74 88 Pulse Rate [Lying] Pulse Rate [Sitting (for 1 minute prior to obtaining)] Pulse Rate [Standing (for 1 minute prior to obtaining)] Respiratory Rate 16 16 Respiratory Effort Non-Labored Respiratory Pattern Normal Blood Pressure 122/63 H 123/59 H Blood Pressure [Lying] Blood Pressure [Sitting (for 1 minute prior to obtaining)] Blood Pressure [Standing (for 1 minute prior to obtaining)] Blood Pressure Mean 82 80 Blood Pressure Mean [Lying] Blood Pressure Mean [Sitting (for 1 minute prior to obtaining)] Blood Pressure Mean [Standing (for 1 minute prior to obtaining)] Pulse Ox 98 97 Oxygen Delivery Method Room Air Room Air 10/14/22 14:56 10/14/22 15:41 10/14/22 17:00 Temperature Temperature Source Pulse Rate 66 Pulse Rate [Lying] 68 Pulse Rate [Sitting (for 1 minute prior to obtaining)] 67 Pulse Rate [Standing (for 1 minute prior to obtaining)] 71 Respiratory Rate 16 Respiratory Effort Respiratory Pattern Blood Pressure 122/71 H Blood Pressure [Lying] 127/59 H Blood Pressure [Sitting (for 1 minute prior to obtaining)] 118/54 L Blood Pressure [Standing (for 1 minute prior to obtaining)] 118/62 Blood Pressure Mean 88 Blood Pressure Mean [Lying] 81 Blood Pressure Mean [Sitting (for 1 minute prior to obtaining)] 75 Blood Pressure Mean [Standing (for 1 minute prior to obtaining)] 80 Pulse Ox 97 99 Oxygen Delivery Method Room Air Room Air Positive well nourished and well developed General Appearance ED: well developed MDM MDM Lab Data Labs: Laboratory Results - last 24 hr 10/14/22 10/14/22 10/14/22 14:34 15:00 17:10 WBC 9.0 RBC 4.52 L Hgb 11.4 L Hct 34.3 L MCV 75.9 L MCH 25.2 L MCHC 33.2 RDW Std Deviation 39.9 RDW Coeff of Sugar 14.7 H Plt Count 253 MPV 9.0 Immature Gran % (Auto) 0.300 Neut % (Auto) 79.1 H Lymph % (Auto) 11.9 L [place] % (Auto) 6.4 Eos % (Auto) 1.9 Baso % (Auto) 0.4 Absolute Neuts (auto) 7.1 Absolute Lymphs (auto) 1.07 Nucleated RBC % 0 Sodium 129 L Potassium 4.9 Chloride 98 Carbon Dioxide 23.0 Anion Gap 8 BUN 40 H Creatinine 1.51 H Estim Creat Clear Calc 45.30 Est GFR (MDRD) Af Amer 59 L Est GFR (MDRD) Non-Af 49 L BUN/Creatinine Ratio 26.5 H Glucose 89 Calcium 9.4 Magnesium 1.8 Troponin I High Sens 7 8 POC Glucose 87 Radiography Diagnostic Testing: Clinical Impression(s) from Imaging Studies Brain CT 10/14/22 14:48 IMPRESSION: Chronic involutional changes of the brain. Electronically Signed: Candelario Mclaughlin MD at 15:50 EDT , Chest X-Ray 10/14/22 15:08 IMPRESSION: Normal x-ray examination of the chest. Electronically Signed: Candelario Mclaughlin MD at 15:25 EDT , Treatment and Re-Evaluation :: All radiologic examinations were read, reviewed by the emergency department attending. From these reads, a plan of care will be put in place. Patient appears generally well, patient appears nontoxic, vital signs are stable. Patient presents to the emergency department for 1 month of intermittent dizziness, and he is here with his daughter who states that he is not taking the best care of himself. Patient received a full work-up including cardiac work-up. Orthostatic vital signs were completed, they were negative. P atient was given normal saline 1 L. Patient did receive a chest x-ray which showed no acute cardiopulmonary pathology. Patient's laboratory values showed slight anemia with a hemoglobin 11.4 however this appears to be baseline over the last 2 years, patient's chemistries show slight decrease in sodium at 129, patient's creatinine is 1.5 this is slightly elevated, this could be secondary to slight dehydration. Patient's troponin initially was 7, repeat will be drawn. EKG was unremarked for any acute process. Patient CT scan of the brain showed a chronic evolutionary change of the brain, no acute process. There is no evidence of a CVA, no evidence of any DKA, CAD, ACS, [place]. Patient's repeat troponin was negative. Patient was ambulated around the department with a steady gait. At this time, there is no evidence of any stroke, ACS, [place], DKA. I spoke with the patient, the patient's daughter, they feel comfortable taking him home. Patient will have referrals to cardiology as well as urology on request. Patient's daughter is now living with the patient and states that she is going to take better care and make sure he eats a proper diet. Patient is agreeable, was given return precautions. All questions answered, patient stable for discharge. Discharge Plan Triage Chief Complaint: Dizziness ED Midlevel Provider: Robe Amaya ED Provider: Anita Monroy Dx/Rx/DC Orders Clinical Impression: History of medication noncompliance, Dizziness Instructions: ED Dizziness, Uncertain Cause Prescriptions: No Action triamcinolone acetonide 0.5 % cream 1 applic TOPICAL BID meloxicam 15 mg tablet 15 mg PO DAILY Patient Comments: TAKE 1 TABLET BY MOUTH ONCE DAILY WITH FOOD FOR JOINT PAIN AND ARTHRITIS mupirocin 2 % ointment 1 applic TOPICAL TID Patient Comments: APPLY OINTMENT EXTERNALLY TO AFFECTED AREA THREE TIMES DAILY miconazole nitrate 2 % aerosol powder 1 spray TOPICAL BID aspirin 81 MG tablet,delayed release (DR/EC) 81 mg PO DAILY amitriptyline 50 MG tablet 50 mg PO QHS amlodipine 10 MG tablet 10 mg PO DAILY docusate sodium 100 MG capsule 100 mg PO QHS gabapentin 300 MG capsule 300 mg PO BREAKFAST gabapentin 300 MG capsule 600 mg PO QHS insulin glargine 100 UNIT/ML insulin pen 15 unit SQ QHS losartan 100 MG tablet 100 mg PO DAILY magnesium oxide 400 MG capsule 400 mg PO DAILY metoprolol tartrate 100 MG tablet 100 mg PO BID metformin 850 MG tablet 850 mg PO TIDCM nitroglycerin 0.4 MG bottle 0.4 mg SUBLINGUAL PRN PRN (Reason: Pain) spironolactone 50 MG tablet 50 mg PO DAILY sitagliptin phosphate 100 MG tablet 100 mg PO DAILY omega-3 fatty acids-fish oil 1 EACH capsule,delayed release(DR/EC) 1 ea PO TID doxazosin 2 MG tablet 2 mg PO QHS Patient Comments: TAKE ONE TABLET AT BEDTIME insulin lispro 100 UNIT/ML insulin pen See Protocol SQ ACHS Protocol: 3. Sliding Scale Insulin Med Dosing Condition: 150-189 mg/dl = 1 unit Condition: 190-229 mg/dl = 2 units Condition: 230-269 mg/dl = 3 units Condition: 270-309 mg/dl = 4 units Condition: 310-349 mg/dl = 5 units Condition: 350-399 mg/dl = 6 units Condition: 400-449 mg/dl = 7 units Condition: Greater than 449 call physician Protocol Text: - Use for Total Daily Dose of Insulin 37-55 units - Obsese, infected, or steroid patients MEDIUM DOSING ALGORITHIM rosuvastatin 10 MG tablet 10 mg PO QHS loratadine 10 MG capsule 10 mg PO DAILY clopidogrel 75 mg tablet 75 mg PO DAILY Qty: 30 1RF Rx Instructions: after completion of RX and refill switch to otc Aspirin Primary Care Provider: Edward Mcgovern Referrals: Cristian Bolanos MD [Med Staff - Active Staff] - Wayne Toth MD [Med Staff - Active Staff] - Edward Mcgovern [Primary Care Provider] - Activity Restrictions/Additional Instructions: Ensure to eat a balanced diet. Return for any worsening symptoms. Take your medications as prescribed. Disposition Disposition: Home, Self Care
[2022-10-14 15:08] LABS: Absolute Lymphocyte Count 1.07 X10^3/uL (0.83-4.51); Absolute Neutrophil Count 7.1 X10^3/uL (2.0-7.7); Basophil# 0.04 X10^3/uL; Basophil% 0.4 % (0-1); Eosinophil# 0.17 X10^3/uL; Eosinophils% 1.9 % (0-5); Hematocrit 34.3 % (40-54); Hemoglobin 11.4 g/dL (13.0-16.5); Lymphocyte # 1.07 X10^3/ul (0.83-4.51); Lymphocyte % 11.9 % (19-41); Mean Corp Hgb Conc 33.2 g/dL (32-36); Mean Corpuscular Hgb 25.2 pg (27.0-32.0); Mean Corpuscular Volume 75.9 fL (80-94); Monocyte# 0.58 X10^3/uL; Monocyte% 6.4 % (0-10); NRBC Flagged by Analyzer 0 % (0-5); Neutrophil # 7.13 X10^3/uL (2.7-7.7); Neutrophil % 79.1 % (47-70); Platelet Count 253 K/mm3 (150-450); RBC Distribution Width CV 14.7 % (11.6-14.6); RBC Distribution Width SD 39.9 fl (35.1-43.9); Red Blood Count 4.52 M/mm3 (4.6-6.2)
--- NOTE | 2022-10-14 15:08 | RAD_ITS ---
STUDY: X-RAY CHEST REASON FOR EXAM: Male, 66 years old. chest pain TECHNIQUE: Single AP portable view of the chest. COMPARISON: 08/19/2018 FINDINGS: The lungs are clear and expanded. There is no demonstrated pleural abnormality. Normal size heart. Normal mediastinum and hernandez. Normal visualized pulmonary arteries. Normal visualized aortic arch and descending thoracic aorta. Normal visualized thoracic spine. Normal visualized ribs, clavicles, and shoulders. There is no demonstrated abnormality of the visualized soft tissue structures of the upper abdomen. RAD/Chest 1 View (Portable) IMPRESSION: Normal x-ray examination of the chest. Electronically Signed: Candelario Mclaughlin MD at 15:25 EDT ,
[2022-10-14 15:36] LABS: Anion Gap 8 (5-15); BUN 40 mg/dL (7-18); BUN/Creat Ratio 26.5 RATIO (10-20); Calcium,Total 9.4 mg/dL (8.5-10.1); Chloride 98 mmol/L (98-107); Creatinine, Serum 1.51 mg/dL (0.70-1.30); EST Glomerular Filtration Rate 49 mL/min (>60); Est Glom Filt Rate - Afr Amer 59 mL/min (>60); Glucose 89 mg/dL (74-106); Magnesium 1.8 mg/dL (1.6-2.6); Potassium 4.9 mmol/L (3.5-5.1); Sodium Level 129 mmol/L (136-145); Troponin-I HS (w/2H Reflex) 7 pg/mL (3.0-78.0)
[2022-10-14] MEDS: 0.9% Normal Saline 1,000 ML 1000 ML IV (15:39)
[2022-10-14 15:41] VITALS: BP 118/54; BP 118/62; BP 127/59; PULSE 67; PULSE 68; PULSE 71
[2022-10-14 17:00] VITALS: BP 122/71; PULSE 66; RESP 16; O2SAT 99
[2022-10-14 17:04] LABS: Reflex Troponin-HS? (from REC) Y
[2022-10-14 17:37] LABS: Troponin-I HS 8 pg/mL (3.0-78.0)
== END 2022-10-14 18:16 | disposition home or self-care (01) ==
PROVIDERS: Nurse Practitioner; Emergency Provider Emergency Medicine; PCP Student in an Organized Health Care Education/Training Program; Visit Provider Emergency Medicine
DX: R42 Dizziness and giddiness (principal); E11.22 Type 2 diabetes mellitus with diabetic chronic kidney disease; E11.40 Type 2 diabetes mellitus with diabetic neuropathy, unspecified; I25.10 Atherosclerotic heart disease of native coronary artery without angina pectoris; E78.5 Hyperlipidemia, unspecified; Z87.891 Personal history of nicotine dependence; I12.9 Hypertensive chronic kidney disease with stage 1 through stage 4 chronic kidney disease, or unspecified chronic kidney disease; N18.9 Chronic kidney disease, unspecified; Z91.148 Patient's other noncompliance with medication regimen for other reason
CPT/HCPCS: 70450; 71045; 80048; 82962; 83735; 84484; 85025; 93005; 96360; 96361; 99284; J7030; A4216

== ENCOUNTER 2022-12-19 15:45 | Emergency (ER) | payer MEDICARE, OTHER, SELFPAY ==
[2022-12-19 15:45] VITALS: BP 119/53; PULSE 69; RESP 18; TEMP 36.1; O2SAT 97; BMI 35.7
--- NOTE | 2022-12-19 17:08 | CT_ITS ---
STUDY: CT CERVICAL SPINE WITHOUT CONTRAST REASON FOR EXAM: Male, 67 years old. trauma RADIATION DOSAGE (If Supplied By Facility): CTDIvol = ( 24.48 ) mGy, DLP = ( 570.22 ) mGycm TECHNIQUE: High resolution transaxial imaging was performed without contrast material. Sagittal and coronal images were reconstructed. Individualized dose optimization techniques were used for this CT. COMPARISON: None FINDINGS: Normal craniovertebral junction. Normal anterior atlantoaxial articulation. Normal odontoid process. Normal cervical lordosis. Normal vertebral bodies and posterior osseous elements. C2-3: Normal endplates. Normal disc height and morphology. Normal central canal and intervertebral neuroforamina. C3-4: Normal endplates. Normal disc height and morphology. Normal central canal and intervertebral neuroforamina. C4-5: Normal endplates. Normal disc height and small left paracentral calcific disc protrusion. Mild narrowing of the central canal and impingement upon the cord. Mild left neural foraminal stenosis secondary to bony hypertrophy. C5-6: Narrowed disc space and mild endplate spurring with small left paracentral/posterolateral calcific disc or osteophyte protrusion.. Mild narrowing of the central canal and cord impingement. Mild bilateral neural foraminal encroachment secondary to bony hypertrophy C6-7: Narrowed disc space and endplate spurring. Mild narrowing the central canal. Moderate to severe right neural foraminal stenosis secondary to bony hypertrophy. C7-T1: Normal endplates. Normal disc height and morphology. Normal central canal and intervertebral neuroforamina. Normal visualized soft tissue structures. CT/Spine Cervical without Contras IMPRESSION: Moderate spondylosis. No acute fracture or other significant abnormality Electronically Signed: Amrik Huizar MD at 18:33 EDT ,
--- NOTE | 2022-12-19 17:08 | CT_ITS ---
STUDY: CT BRAIN WITHOUT CONTRAST REASON FOR EXAM: Male, 67 years old. pain RADIATION DOSAGE (If Supplied By Facility): CTDIvol = ( 44.99 ) mGy, DLP = ( 846.73 ) mGycm TECHNIQUE: Transaxial CT imaging of the brain was performed without administration of intravenous contrast material. Individualized dose optimization techniques were used for this CT. COMPARISON: October 14, 2022 FINDINGS: Normal soft tissue structures. Normal calvarium. Calcific plaquing of the cavernous carotids and bilateral vertebral arteries. Mild atrophy and periventricular white matter ischemic change.. Normal basal ganglia and thalami. Normal brainstem. Normal cerebellum. There is no intracranial hemorrhage. There are no findings of an acute ischemic infarction. Postsurgical changes of both orbits Normal visualized paranasal sinuses. CT/Brain/Head without Contrast IMPRESSION: Mild atrophy and periventricular white matter ischemic change. No acute intracranial hemorrhage.. Electronically Signed: Amrik Huizar MD at 18:30 EDT ,
[2022-12-19] MEDS: Lidocaine 5% Patch 1 PATCH TOPICAL (17:25)
[2022-12-19 17:28] VITALS: BP 128/47; BP 142/62; BP 153/57; PULSE 69; PULSE 73; PULSE 75
[2022-12-19 18:06] LABS: Absolute Lymphocyte Count 1.14 X10^3/uL (0.83-4.51); Absolute Neutrophil Count 9.6 X10^3/uL (2.0-7.7); Basophil# 0.04 X10^3/uL; Basophil% 0.3 % (0-1); Eosinophil# 0.11 X10^3/uL; Hematocrit 35.1 % (40-54); Hemoglobin 11.5 g/dL (13.0-16.5); Lymphocyte # 1.14 X10^3/ul (0.83-4.51); Lymphocyte % 9.9 % (19-41); Mean Corp Hgb Conc 32.8 g/dL (32-36); Mean Corpuscular Hgb 24.9 pg (27.0-32.0); Mean Corpuscular Volume 76.1 fL (80-94); Mean Platelet Vol. 9.5 fl (6.2-12.0); Monocyte% 4.4 % (0-10); NRBC Flagged by Analyzer 0 % (0-5); Neutrophil # 9.62 X10^3/uL (2.7-7.7); Neutrophil % 83.8 % (47-70); Platelet Count 270 K/mm3 (150-450); RBC Distribution Width CV 15.6 % (11.6-14.6); RBC Distribution Width SD 42.7 fl (35.1-43.9); Red Blood Count 4.61 M/mm3 (4.6-6.2); White Blood Count 11.5 K/mm3 (4.4-11.0)
--- NOTE | 2022-12-19 18:08 | RAD_ITS ---
STUDY: X-RAY - LUMBAR SPINE REASON FOR EXAM: Male, 67 years old. pain TECHNIQUE: 3 view(s) of the lumbar spine were obtained. COMPARISON: None FINDINGS: Normal lumbar lordosis. There is no substantial scoliosis. There is a normal alignment of the vertebrae. No evidence for acute fracture or subluxation. No lytic or sclerotic bony lesions. . There is narrowing of the L2-3 disc space. Multilevel endplate spurring and endplate sclerosis Apparent spinal stenosis at L4-5 and L5-S1 exaggerated by facet arthropathy and pedicles. Calcific plaquing of the aorta without evidence for aneurysm. RAD/Lumbar Spine 2 or 3 Views IMPRESSION: Spondylosis most severe at L4-5 and L5-S1. No acute fracture or other significant bony pathology Incidental finding of a mottled appearance to T11 vertebral body as visualized on lateral projection of uncertain etiology.. Cannot definitively exclude bone metastasis. CT or MRI would be useful for more definitive evaluation if clinically warranted Electronically Signed: Amrik Huizar MD at 18:53 EDT ,
--- NOTE | 2022-12-19 18:12 | EDS_ITS ---
HPI HPI - Fall History of Present Illness Chief Complaint: Fall Narrative Narrative: Patient states he fell while trying to sit down in the chair fell on his buttocks and hit his head. Denies LOC. No dizziness or lightheadedness. No nausea or vomiting. He has been alert and awake. Patient's family member states that he has been falling a lot lately. He believes it is from his diabetic neuropathy. She states that his blood sugars have been going up and down. He states he feels well and does not feel weak. He denies any other injuries. Patient is on Plavix. 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 hx of APLL Hyperlipidemia Hypertension Infected neuropathic ulcer Iron deficiency anemia LVH (left ventricular hypertrophy) PAD (peripheral artery disease) Polyneuropathy in diabetes Primary osteoarthritis of both knees Snoring Tachycardia Tinnitus aurium Toe osteomyelitis, left Uncontrolled type 2 diabetes mellitus Unspecified constipation Vitamin D deficiency Home Medications amlodipine 10 mg tablet 10 mg PO DAILY blood pressure 08/19/18 [History Last Taken 10/24/18 06:00] aspirin 81 mg tablet,delayed release 81 mg PO DAILY health maintenance 08/19/18 [History Last Taken 10/24/18 06:00] doxazosin 2 mg tablet 2 mg PO QHS prostate 08/19/18 [History Last Taken 08/18/18] gabapentin 300 mg capsule 300 mg PO BREAKFAST neuropathy 08/19/18 [History Last Taken 10/24/18 06:00] gabapentin 300 mg capsule 600 mg PO QHS neuropathy 08/19/18 [History Last Taken 10/23/18 21:00] losartan 100 mg tablet 100 mg PO DAILY blood pressure 08/19/18 [History Last Taken 10/24/18 06:00] magnesium oxide 400 mg PO DAILY supplement 08/19/18 [History Last Taken 10/24/18 06:00] metformin 850 mg tablet 850 mg PO TIDCM diabetes 08/19/18 [History Last Taken 10/24/18 12:00] metoprolol tartrate 100 mg tablet 100 mg PO BID blood pressure 08/19/18 [History Last Taken 10/24/18 06:00] nitroglycerin 400 mcg/spray translingual 0.4 mg sublingual PRN PRN Pain 08/19/18 [History Last Taken Unknown] spironolactone 50 mg tablet 50 mg PO DAILY hypertension 08/19/18 [History Last Taken 10/24/18 06:00] insulin lispro 100 unit/mL subcutaneous pen See Protocol SQ ACHS 11/04/18 [History Last Taken Unknown] clopidogrel 75 mg tablet 75 mg PO DAILY #30 tabs 12/02/18 [Rx Last Taken Unknown] loratadine 10 mg capsule 10 mg PO DAILY 04/07/19 [History Last Taken Unknown] meloxicam 15 mg tablet 15 mg PO DAILY 01/30/20 [History Last Taken Unknown] miconazole nitrate 2 % topical spray powder 1 spray topical BID 01/30/20 [History Last Taken Unknown] atorvastatin 10 mg tablet 10 mg PO QHS 10/30/22 [History Last Taken Unknown] cholecalciferol (vitamin D3) 125 mcg (5,000 unit) capsule 125 mcg PO DAILY 10/30/22 [History Last Taken Unknown] docusate sodium 100 mg capsule 100 mg PO BID PRN bowels 10/30/22 [History Last Taken Unknown] dulaglutide 1.5 mg/0.5 mL subcutaneous pen injector (Trulicity) 1.5 mg subcut QWEEK 10/30/22 [History Last Taken Unknown] insulin glargine 100 unit/mL (3 mL) subcutaneous pen 24 unit subcut QHS diabetes 10/30/22 [History Last Taken Unknown] meclizine 12.5 mg tablet 12.5 mg PO TID PRN dizziness 10/30/22 [History Last Taken Unknown] mupirocin 2 % topical ointment 1 applic topical TID 10/30/22 [History Last Taken Unknown] nortriptyline 50 mg capsule 50 mg PO QHS 10/30/22 [History Last Taken Unknown] omega-3 fatty acids-fish oil 684 mg-1,200 mg capsule,delayed release 1 cap PO TID supplement 10/30/22 [History Last Taken Unknown] sertraline 50 mg tablet 50 mg PO DAILY 10/30/22 [History Last Taken Unknown] triamcinolone acetonide 0.5 % topical cream 1 applic topical DAILY PRN itching 10/30/22 [History Last Taken Unknown] Allergy/AdvReac Type Severity Reaction Status Date / Time No Known Allergies Allergy Verified 12/19/22 15:47 Family History Father Diabetes Heart disease Hyperlipidemia Mother Diabetes Surgical History History of amputation of left great toe (~08/2018) History of arthroscopic knee surgery History of cardiac catheterization (~2014) History of colonoscopy (~2008) History of esophagogastroduodenoscopy (EGD) History of eye surgery History of tonsillectomy Social History Smoking Status: Former smoker quit date: 07/08/01 alcohol intake: former substance use type: does not use EXAM Physical Exam Const Vital Signs: 12/19/22 15:45 12/19/22 16:19 12/19/22 17:28 Temperature 97 F L Temperature Source Temporal Pulse Rate 69 Pulse Rate [Lying] 69 Pulse Rate [Sitting (for 1 minute prior to obtaining)] 73 Pulse Rate [Standing (for 1 minute prior to obtaining)] 75 Respiratory Rate 18 Respiratory Effort Normal Respiratory Pattern Normal Blood Pressure 119/53 L Blood Pressure [Lying] 128/47 H Blood Pressure [Sitting (for 1 minute prior to obtaining)] 142/62 H Blood Pressure [Standing (for 1 minute prior to obtaining)] 153/57 H Blood Pressure Mean 75 Blood Pressure Mean [Lying] 74 Blood Pressure Mean [Sitting (for 1 minute prior to obtaining)] 88 Blood Pressure Mean [Standing (for 1 minute prior to obtaining)] 89 Pulse Ox 97 Oxygen Delivery Method Room Air Room Air Positive well nourished General Appearance ED: NAD HEENT Reports normocephalic and TM's normal bilaterally atraumatic Eyes PERRL and EOMs intact bilaterally Neck full ROM Chest Wall inspection of chest normal Resp normal respiratory effort and no retractions Cardio regular rate and regular rhythm GI non-tender Neuro oriented x3, CN's II-XII intact bilaterally and moves all extremities [place] Coma Scale: document GCS findings Spontaneous Obeys Commands Oriented 15 Sensorium / Orientation: alert Psych mental status grossly normal MDM MDM MDM Narrative Medical decision making narrative: Patient is well-appearing. No evidence of trauma externally. No red flag signs or symptoms. Since he is on Plavix and hit his head I will obtain a CT of the brain. Discussed with he and his family about checking basic lab work had a concerned that his sugars were abnormal. We will check a CBC to check to assess his white blood cell count, hemoglobin, platelets. BMP to assess renal function electrolytes. Patient does not want any pain medicine. He will except the Lidoderm patches placed on his lower back. X-rays of the lumbar spine were obtained. CBC shows white blood cell count 11.5. Hemoglobin stable 11.5. Lites are normal at 270. Creatinine is elevated today at 1.44. Calcium slightly elevated at 5.2 with a normal cutoff at 5.1. X-ray of the lumbar spine on my interpretation shows no acute fracture. Radiology interprets this is a mottled appearance of T11 with uncertain etiology. They did recommend CT or MRI. Patient can do this as an outpatient. Is not tender in this region. CT of the brain is negative. CT cervical spine is negative. He was given a Lidoderm patch and he states is helping request him for home. Recommend use Tylenol only at home Impression: 1. Chemical fall 2. Lumbar contusion 3. Closed head injury Lab Data Attestation: I reviewed the patient's lab results. Labs: Laboratory Results - last 24 hr 12/19/22 17:23 WBC 11.5 H RBC 4.61 Hgb 11.5 L Hct 35.1 L MCV 76.1 L MCH 24.9 L MCHC 32.8 RDW Std Deviation 42.7 RDW Coeff of Sugar 15.6 H Plt Count 270 MPV 9.5 Immature Gran % (Auto) 0.600 Neut % (Auto) 83.8 H Lymph % (Auto) 9.9 L George % (Auto) 4.4 Eos % (Auto) 1.0 Baso % (Auto) 0.3 Absolute Neuts (auto) 9.6 H Absolute Lymphs (auto) 1.14 Nucleated RBC % 0 Sodium 132 L Potassium 5.2 H Chloride 99 Carbon Dioxide 26.0 Anion Gap 7 BUN 37 H Creatinine 1.44 H Estim Creat Clear Calc 46.84 Est GFR (MDRD) Af Amer 63 Est GFR (MDRD) Non-Af 52 L BUN/Creatinine Ratio 25.7 H Glucose 58 L Calcium 8.8 Radiography Diagnostic Testing: Clinical Impression(s) from Imaging Studies Brain CT 12/19/22 17:08 IMPRESSION: Mild atrophy and periventricular white matter ischemic change. No acute intracranial hemorrhage.. Electronically Signed: Amrik Huizar MD at 18:30 EDT , Cervical Spine CT 12/19/22 17:08 IMPRESSION: Moderate spondylosis. No acute fracture or other significant abnormality Electronically Signed: Amrik Huizar MD at 18:33 EDT , Lumbar Spine X-Ray 12/19/22 18:08 IMPRESSION: Spondylosis most severe at L4-5 and L5-S1. No acute fracture or other significant bony pathology Incidental finding of a mottled appearance to T11 vertebral body as visualized on lateral projection of uncertain etiology.. Cannot definitively exclude bone metastasis. CT or MRI would be useful for more definitive evaluation if clinically warranted Electronically Signed: Amrik Huizar MD at 18:53 EDT , Discharge Plan Triage Chief Complaint: Fall ED Provider: Félix Fuentes Dx/Rx/DC Orders Instructions: ED Dehydration (Adult), ED Head Injury (Adult), ED Fall Prevention Prescriptions: No Action triamcinolone acetonide 0.5 % cream 1 applic TOPICAL DAILY PRN (Reason: itching) meloxicam 15 mg tablet 15 mg PO DAILY Patient Comments: TAKE 1 TABLET BY MOUTH ONCE DAILY WITH FOOD FOR JOINT PAIN AND ARTHRITIS miconazole nitrate 2 % aerosol powder 1 spray TOPICAL BID mupirocin 2 % ointment 1 applic TOPICAL TID Patient Comments: APPLY OINTMENT EXTERNALLY TO AFFECTED AREA THREE TIMES DAILY cholecalciferol (vitamin D3) 125 mcg (5,000 unit) capsule 125 mcg PO DAILY meclizine 12.5 mg tablet 12.5 mg PO TID PRN (Reason: dizziness) Patient Comments: TAKE 1 TABLET BY MOUTH THREE TIMES DAILY NEEDED FOR DIZZINESS nortriptyline 50 mg capsule 50 mg PO QHS Patient Comments: TAKE 1 CAPSULE BY MOUTH ONCE DAILY AT BEDTIME sertraline 50 mg tablet 50 mg PO DAILY Patient Comments: TAKE 1 TABLET BY MOUTH ONCE DAILY AT BEDTIME atorvastatin 10 mg tablet 10 mg PO QHS Patient Comments: TAKE 1 TABLET BY MOUTH ONCE DAILY AT BEDTIME FOR CHOLESTEROL Trulicity 1.5 mg/0.5 mL pen injector 1.5 mg subcut QWEEK aspirin 81 MG tablet,delayed release (DR/EC) 81 mg PO DAILY amlodipine 10 MG tablet 10 mg PO DAILY gabapentin 300 MG capsule 300 mg PO BREAKFAST gabapentin 300 MG capsule 600 mg PO QHS losartan 100 MG tablet 100 mg PO DAILY magnesium oxide 400 MG capsule 400 mg PO DAILY metoprolol tartrate 100 MG tablet 100 mg PO BID metformin 850 MG tablet 850 mg PO TIDCM nitroglycerin 0.4 MG bottle 0.4 mg SUBLINGUAL PRN PRN (Reason: Pain) spironolactone 50 MG tablet 50 mg PO DAILY doxazosin 2 MG tablet 2 mg PO QHS Patient Comments: TAKE ONE TABLET AT BEDTIME insulin glargine 100 unit/mL (3 mL) insulin pen 24 unit subcut QHS docusate sodium 100 mg capsule 100 mg PO BID PRN (Reason: bowels) omega-3 fatty acids-fish oil 684-1,200 mg capsule,delayed release(DR/EC) 1 cap PO TID insulin lispro 100 UNIT/ML insulin pen See Protocol SQ ACHS Protocol: 3. Sliding Scale Insulin Med Dosing Condition: 150-189 mg/dl = 1 unit Condition: 190-229 mg/dl = 2 units Condition: 230-269 mg/dl = 3 units Condition: 270-309 mg/dl = 4 units Condition: 310-349 mg/dl = 5 units Condition: 350-399 mg/dl = 6 units Condition: 400-449 mg/dl = 7 units Condition: Greater than 449 call physician Protocol Text: - Use for Total Daily Dose of Insulin 37-55 units - Obsese, infected, or steroid patients MEDIUM DOSING ALGORITHIM loratadine 10 MG capsule 10 mg PO DAILY clopidogrel 75 mg tablet 75 mg PO DAILY Qty: 30 1RF Rx Instructions: after completion of RX and refill switch to otc Aspirin Primary Care Provider: Edward Mcgovern Referrals: Edward Mcgovern DO [Primary Care Provider] - Disposition Disposition: Home, Self Care
[2022-12-19 18:36] LABS: Anion Gap 7 (5-15); BUN 37 mg/dL (7-18); BUN/Creat Ratio 25.7 RATIO (10-20); Calcium,Total 8.8 mg/dL (8.5-10.1); Chloride 99 mmol/L (98-107); Creatinine, Serum 1.44 mg/dL (0.70-1.30); EST Glomerular Filtration Rate 52 mL/min (>60); Est Glom Filt Rate - Afr Amer 63 mL/min (>60); Estimated Creatinine Clearance 46.84 ml/min; Glucose 58 mg/dL (74-106); Potassium 5.2 mmol/L (3.5-5.1); Sodium Level 132 mmol/L (136-145)
[2022-12-19 19:57] LABS: Bedside Glucose 91 mg/dL (74-106)
== END 2022-12-19 19:35 | disposition home or self-care (01) ==
PROVIDERS: Emergency Provider Student in an Organized Health Care Education/Training Program; PCP Student in an Organized Health Care Education/Training Program; Visit Provider Student in an Organized Health Care Education/Training Program
DX: S09.90XA Unspecified injury of head, initial encounter (principal); E11.22 Type 2 diabetes mellitus with diabetic chronic kidney disease; E11.42 Type 2 diabetes mellitus with diabetic polyneuropathy; N18.30 Chronic kidney disease, stage 3 unspecified; Z87.891 Personal history of nicotine dependence; S30.0XXA Contusion of lower back and pelvis, initial encounter; I12.9 Hypertensive chronic kidney disease with stage 1 through stage 4 chronic kidney disease, or unspecified chronic kidney disease; W19.XXXA Unspecified fall, initial encounter
CPT/HCPCS: 70450; 72100; 72125; 80048; 82962; 85025; 99284

== ENCOUNTER 2023-04-11 13:15 | Outpatient (RCR) | payer MEDICARE, OTHER, SELFPAY ==
[2023-04-04 13:11] VITALS: BP 144/58; PULSE 71; RESP 18; TEMP 36.5; BMI 19.8
--- NOTE | 2023-04-04 13:50 | HP.PCM_ITS ---
History of Present Illness Date of Service: 04/04/23 Chief Complaint: Mr. Guadalupe is a 67-year-old diabetic male presenting to the wound care center today for second opinion to full-thickness ulceration to right big toe. He was seen by an outside provider at [facility]. [facility] bi application developer is his primary bi application developer but is sending to the wound care center today for the full-thickness wound to the right hallux for treatment and care. He denies trauma. Denies constitutional symptoms. Other pedal compl aints at this time. History of Wound: Chronic right hallux ulceration Progress of Wound: Full-thickness ulceration appreciated to the right hallux. Stable in nature. Patient is on oral antibiotics, Augmentin. Patient's blood sugars well- controlled. 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 hepatic coma hx of APLL Hyperlipidemia Hypertension Infected neuropathic ulcer Iron deficiency anemia LVH (left ventricular hypertrophy) PAD (peripheral artery disease) Polyneuropathy in diabetes Primary osteoarthritis of both knees Snoring Tachycardia Tinnitus aurium Toe osteomyelitis, left Uncontrolled type 2 diabetes mellitus Unspecified constipation Vitamin D deficiency Home Medications amlodipine 10 mg tablet 10 mg PO DAILY blood pressure 08/19/18 [History Last Taken 10/24/18 06:00] aspirin 81 mg tablet,delayed release 81 mg PO DAILY health maintenance 08/19/18 [History Last Taken 10/24/18 06:00] doxazosin 2 mg tablet 2 mg PO QHS prostate 08/19/18 [History Last Taken 08/18/18] gabapentin 300 mg capsule 300 mg PO BREAKFAST neuropathy 08/19/18 [History Last Taken 10/24/18 06:00] gabapentin 300 mg capsule 600 mg PO QHS neuropathy 08/19/18 [History Last Taken 10/23/18 21:00] losartan 100 mg tablet 100 mg PO DAILY blood pressure 08/19/18 [History Last Taken 10/24/18 06:00] magnesium oxide 400 mg PO DAILY supplement 08/19/18 [History Last Taken 10/24/18 06:00] metformin 850 mg tablet 850 mg PO TIDCM diabetes 08/19/18 [History Last Taken 10/24/18 12:00] metoprolol tartrate 100 mg tablet 100 mg PO BID blood pressure 08/19/18 [History Last Taken 10/24/18 06:00] nitroglycerin 400 mcg/spray translingual 0.4 mg sublingual PRN PRN Pain 08/19/18 [History Last Taken Unknown] spironolactone 50 mg tablet 50 mg PO DAILY hypertension 08/19/18 [History Last Taken 10/24/18 06:00] insulin lispro 100 unit/mL subcutaneous pen See Protocol SQ ACHS 11/04/18 [History Last Taken Unknown] clopidogrel 75 mg tablet 75 mg PO DAILY #30 tabs 12/02/18 [Rx Last Taken Unknown] loratadine 10 mg capsule 10 mg PO DAILY 04/07/19 [History Last Taken Unknown] meloxicam 15 mg tablet 15 mg PO DAILY 01/30/20 [History Last Taken Unknown] atorvastatin 10 mg tablet 10 mg PO QHS 10/30/22 [History Last Taken Unknown] cholecalciferol (vitamin D3) 125 mcg (5,000 unit) capsule 125 mcg PO DAILY 10/30/22 [History Last Taken Unknown] docusate sodium 100 mg capsule 100 mg PO BID PRN bowels 10/30/22 [History Last Taken Unknown] dulaglutide 1.5 mg/0.5 mL subcutaneous pen injector (Trulicity) 1.5 mg subcut QWEEK 10/30/22 [History Last Taken Unknown] insulin glargine 100 unit/mL (3 mL) subcutaneous pen 24 unit subcut QHS diabetes 10/30/22 [History Last Taken Unknown] meclizine 12.5 mg tablet 12.5 mg PO TID PRN dizziness 10/30/22 [History Last Taken Unknown] nortriptyline 50 mg capsule 50 mg PO QHS 10/30/22 [History Last Taken Unknown] sertraline 50 mg tablet 50 mg PO DAILY 10/30/22 [History Last Taken Unknown] triamcinolone acetonide 0.5 % topical cream 1 applic topical DAILY PRN itching 10/30/22 [History Last Taken Unknown] Allergy/AdvReac Type Severity Reaction Status Date / Time No Known Allergies Allergy Verified 04/04/23 13:12 Family History Father Diabetes Heart disease Hyperlipidemia Mother Diabetes Surgical History History of amputation of left great toe (~08/2018) History of arthroscopic knee surgery History of cardiac catheterization (~2014) History of colonoscopy (~2008) History of esophagogastroduodenoscopy (EGD) History of eye surgery History of tonsillectomy Social History Smoking Status: Former smoker quit date: 07/08/01 alcohol intake: former substance use type: does not use Vital Signs Vital Signs Vital Signs: 04/04/23 13:11 Temperature 97.7 F L Temperature Source Temporal Pulse Rate 71 Respiratory Rate 18 Blood Pressure 144/58 H Blood Pressure Mean 86 Blood Pressure Source Monitor Weight Weight: 59.24 kg Body Mass Index (BMI) 19.8 Physical Exam Narrative Vascular: DP and PT pulses are palpable. Nonpitting edema appreciated bilateral lower extremity. No erythema or proximal streaking or sign of infection. Neurological: Light touch intact. Protective sensation is diminished. Dermatological: Full-thickness ulceration to the right hallux measuring 1.0 x 1.0 x 0.1 cm. Periwound erythema is blanchable without proximal streaking or sign of infection. Wound base is fibrogranular nature. Excisional debridement down to and including subcutaneous tissue with a number 5 mm dermal curette to the right hallux without incident. Predebridement measurement is 0.8 x 0.8 x 0.1 cm. Post right measurement is 1.0 x 1.0 x 0.1 cm. Muscle skeletal: Patient is unable to flex the lesser digits of the left lower extremity secondary to status post flexor tenotomy's. No pain on palpation of full-thickness ulceration of the right hallux. No pain with calf compression. Debridement Note Debridement Note Debridement Free Text: Excisional debridement down to and including subcutaneous tissue with a number 5 mm dermal curette to the right hallux without incident. Predebridement measurement is 0.8 x 0.8 x 0.1 cm. Post right measurement is 1.0 x 1.0 x 0.1 cm. Post-Debridement Measurements and Additional Note: Post-Debridement Measurements/Treatment ANIA - Nurse 1 - General Ulcer Assessment Start: 04/04/23 13:10 Freq: Status: Active Protocol: BREANA Activity Type Activity Date Activity User E-sign Co-sign Detail Recorded Client Recorded Date Recorded By Document 04/04/23 13:11 DL Desktop 04/04/23 13:26 DL 04/04/23 13:11 WC - Today's Visit Information Type of service Initial Visit Arrival Mode Ambulatory Transfer Assistance None Patient Identification Verified (Name & Yes ) Patient Requires Transmission-Based No Precautions Height and Weight Height 5 ft 8 in Weight 59.24 kg Weight in Pounds 130.6 lbs Body Mass Index (BMI) 19.8 BMI Classification Normal BSA - Maurizio 1.71 Vital Signs Temperature (97.8 F-99.1 F) 97.7 F L Temperature Source Temporal Pulse Rate (60-100) 71 Pulse Location Monitor Respiratory Rate (12-18) 18 Respiratory rate source Monitor Blood Pressure (90/60-120/80) 144/58 H Blood Pressure Mean 86 Source Monitor Pain Scale: 0-10 Numeric Is Patient Pain Free? Yes Lower Extremity Assessment/ Foot Assessment/ Toe Nail Assessment Left -Posterior Tibial Palpable No -Dorsalis Pedis Palpable No -Extremity Color Normal -Hair Growth on Legs Yes -Hair Growth on Toes No -Temperature of Extremity Warm -Capillary Refill Greater than 3 Seconds -Dependent Rubor No -Blanched when Elevated No -Lipodermatosclerosis No -Other Deformity Yes -Prior Foot Ulcer Yes -Charcot Joint No -Prior Amputation No -Thick No -Discolored No -Deformed No -Improper Length & Hygeine No Right -Posterior Tibial Palpable No -Dorsalis Pedis Palpable Yes -Extremity Color Normal -Hair Growth on Legs Yes -Hair Growth on Toes No -Temperature of Extremity Warm -Capillary Refill Greater than 3 Seconds -Dependent Rubor No -Blanched when Elevated No -Lipodermatosclerosis No -Other Deformity No -Prior Foot Ulcer No -Charcot Joint No -Prior Amputation No -Thick No -Discolored No -Deformed No -Improper Length & Hygeine No Neuropathy Assessment Feet - Top Side and Bottom <Entered> (a) Communication Assessment Preferred language Egyptian Able to Read Yes Able to Write Yes Communication Tools None Right Hearing Abillity Hard of Hearing Left Hearing Abillity Hard of Hearing Visual Assistive Devices Glasses Teaching Assessment Preferences Verbal,Written, Demonstration Barriers to Learning None Readiness To Learn Good Willingness to Engage in Self Management Med Activies Readiness to Engage in Self Management Med Activities Anxiety Level Calm Cooperation Cooperative Perception Coherent Interest in Health Problem Asks Questions Education Importance Acknowledges Need Does Patient Smoke tobacco or other No substances Smoking Status Former smoker Is Patient Diabetic Yes Functional Assessment Recent Decline in Ability to Perform Denies Any Declines Culture/Mu-Ism/Supervisor [employer] Cultural/Mu-Ism Needs that may affect No Treatment Plan Would you allow our hospital style advisor to No meet you for the purpose of spiritual/ emotional support? Supervisor [employer] to contact place of uatsdin No Teaching: Wound Center *Welcome to the Wound Center -Person Taught Patient (a) 1 - _ WC - Nurse 1 - General Ulcer Measurement Start: 04/04/23 13:10 Freq: Status: Active Protocol: Activity Type Activity Date Activity User E-sign Co-sign Detail Recorded Client Recorded Date Recorded By Document 04/04/23 13:11 DL Desktop 04/04/23 13:26 DL 04/04/23 13:11 Wound Center Nurse 1 #5 R lateralHallux -Current Size (cm) - Length 0.8 -Current Size (cm) - Width 0.9 -Current Size (cm) - Depth 0.1 -Total Square Cm 0.72 -Photo Taken Yes -Exudate Amt None Present -Wound Margin Thickened -Granulation Amt Medium (34-66%) -Granulation Quality Pale,Watkins -Necrosis Amt Small (1-33%) -Necrotic Tissue Type Adherent Slough -Structure Exposed N/A -Texture (Maddison-wound Skin Appearance) Scarring -Moisture (Maddison-wound Skin Appearance) Dry/Scaly -Color (Maddison-wound Skin Appearance) No Abnormality -Temperature (Maddison-wound Skin No Abnormality Appearance) (Pt Warm) -Ulcer Cleansing Soap and Water -Foul Odor after Cleansing No -Anesthetic Used 5% Lidocaine Gel WC - Nurse 2 - General Ulcer CM Notes Start: 04/04/23 13:10 Freq: Status: Active Protocol: Activity Type Activity Date Activity User E-sign Co-sign Detail Recorded Client Recorded Date Recorded By Document 04/04/23 13:41 Laptop 04/04/23 13:44 04/04/23 13:41 Wound Center Nurse 2 -Time 13:42 -Correct Patient Yes -Correct Side, Site, Position Yes -Correct Procedure Yes -Procedure Performed Yes -Type of Procedure Debridement -Clinical Debridement Subcutaneous -Tissue Removed Subcutaneous -Post Debridement (cm) - Length 1.0 -Post Debridement (cm) - Width 1.0 -Post Debridement (cm) - Depth 0.1 -Total Square (Post) (cm) 1.00 -Area of Debridement (cm) - Length 1.0 -Area of Debridement (cm) - Width 1.0 -Total Square (Area) (cm) 1.00 -Tunneling No -Undermining/Tunneling No -Circular Undermining No -Wound/Ulcer Outcome Not Healed -Ulcer Cleansing Rinsed/ Irrigated with Saline -Foul Odor after Cleansing No -Bioengineered Tissue No -Bleeding Controlled with Pressure -Treatment Response Procedure Tolerated Well -Offloading Yes -Type of Offloading Surgical Shoe -Debridement - Subq, 1st 20sq cm Yes Pain Scale: 0-10 Numeric Is Patient Pain Free? Yes Assessment/Plan Assessment/Plan (1) Non-pressure chronic ulcer of other part of right foot with fat layer exposed: CODE(S): L97.512 - Non-pressure chronic ulcer of other part of right foot with fat layer exposed PLAN: Patient was examined evaluated. All findings were discussed with the patient. All questions were answered to the patient satisfaction. Excisional debridement down to and including subcutaneous tissue with a number 5 mm dermal curette to the right hallux without incident. Predebridement measurement is 0.8 x 0.8 x 0.1 cm. Post right measurement is 1.0 x 1.0 x 0.1 cm. The ulceration was dressed with Carol, Betadine paint and dry sterile dressing. Patient was instructed to apply his surgical shoe when he gets home. I believe that the patient has a pressure ulcer from his diabetic shoes due to his toe deformity. Patient is to continue strict glucose control. Patient is to continue his oral antibiotic, Augmentin as written. He is understanding of this. Will begin applying for skin graft substitutes for application in the wound care center to the right hallux. Patient will follow-up in 1 week. (2) Acute painful diabetic polyneuropathy: CODE(S): E11.42 - Type 2 diabetes mellitus with diabetic polyneuropathy
[2023-04-11 13:30] VITALS: BP 128/54; PULSE 70; RESP 18; TEMP 36.6; BMI 19.8
--- NOTE | 2023-04-11 14:47 | PCM.WC.PN ---
History of Present Illness Date of Service: 04/11/23 Chief Complaint: Mr. Guadalupe is a 67-year-old diabetic male presenting to the wound care center today for second opinion to full-thickness ulceration to right big toe. He was seen by an outside provider at [facility]. [facility] tar pot worker is his primary tar pot worker but is sending to the wound care center today for the full-thickness wound to the right hallux for treatment and care. He denies trauma. Denies constitutional symptoms. Other pedal complaints at this time. History of Wound: Chronic right hallux ulceration Progress of Wound: Full-thickness ulceration appreciated to the right hallux. Stable in nature. Patient is on oral antibiotics, Augmentin. Patient's blood sugars well-controlled. Subjective Subjective Mr. Guadalupe is a 67-year-old diabetic male presenting to the wound care center today for follow-up and evaluation of full-thickness wound to the right hallux. Patient has been ambulatory in surgical shoe and wearing a diabetic shoe on his left foot. Patient states there is some redness to the right big toe. He has finished his Augmentin but states that the redness has gotten worse and is streaking up the right foot. He denies any drainage. He is doing his own home dressing changes without issues. He denies trauma. Denies constitutional symptoms. No other pedal complaints at this time. Objective Data Objective Data Vital Signs: Vital Signs Temp Pulse Resp BP 97.8 F 70 18 128/54 H 04/11/23 13:30 04/11/23 13:30 04/11/23 13:30 04/11/23 13:30 Weight: 59.24 kg Body Mass Index (BMI) 19.8 Physical Exam Narrative Vascular: DP and PT pulse are palpable. CFT is brisk. Evidence of erythema with mild proximal streaking to the right hallux. Nonpitting edema is appreciated to the right lower extremity. Neurological: Light touch intact. Protective sensation is absent. Dermatological: Full-thickness ulceration appreciated to the right hallux measuring 1.0 x 1.3 x 0.1 cm. Evidence of erythema with mild proximal streaking to the right hallux. No active drainage. No probe to bone. Excision debridement down to and including subcutaneous tissue with a #15 blade to the full-thickness ulcerations right hallux without incident. Predebridement measurement was 0.9 x 1.2 x 0.1 cm. Postdebridement measurement is 1.0 x 1.3 x 0.1 cm. Muscle skeletal: No pain on palpation to full-thickness ulceration right hallux. No pain with calf pressure. Debridement Note Debridement Note Debridement Free Text: Excision debridement down to and including subcutaneous tissue with a #15 blade to the full-thickness ulcerations right hallux without incident. Predebridement measurement was 0.9 x 1.2 x 0.1 cm. Postdebridement measurement is 1.0 x 1.3 x 0.1 cm. Post-Debridement Measurements and Additional Note: Post-Debridement Measurements/Treatment WC - Nurse 1 - General Ulcer Assessment Start: 04/04/23 13:10 Freq: Status: Active Protocol: BREANA Activity Type Activity Date Activity User E-sign Co-sign Detail Recorded Client Recorded Date Recorded By Document 04/04/23 13:11 DL Desktop 04/04/23 13:26 DL Document 04/11/23 13:30 DL Desktop 04/11/23 13:33 DL 04/04/23 04/11/23 13:11 13:30 WC - Today's Visit Information Type of service Initial Visit Follow-up Visit (Physician/SALESPERSON PARTS ) Arrival Mode Ambulatory Ambulatory Transfer Assistance None None Patient Identification Verified (Name & Yes Yes ) Patient Requires Transmission-Based No No Precautions Height and Weight Height 5 ft 8 in Weight 59.24 kg Weight in Pounds 130.6 lbs Body Mass Index (BMI) 19.8 19.8 BMI Classification Normal Normal BSA - Maurizio 1.71 Vital Signs Temperature (97.8 F-99.1 F) 97.7 F L 97.8 F Temperature Source Temporal Temporal Pulse Rate (60-100) 71 70 Pulse Location Monitor Monitor Respiratory Rate (12-18) 18 18 Respiratory rate source Monitor Observation Blood Pressure (90/60-120/80) 144/58 H 128/54 H Blood Pressure Mean (mm Hg) 86 78 Source Monitor Monitor History Since Last Visit- (Skip if this is Patient's initial visit) Have you changed medications since your No last visit? Any new allergies or adverse reactions No Had a fall/change in ADL's that may No increase risk of falls Signs or symptoms of abuse and/or No neglect since last visit Have you been in the hospital since your No last visit? Has dressing in place as prescribed Yes Has compression in place as prescribed N/A Has offloadiing in place as prescribed Yes Experienced any changes in pain level or No management Right Footwear Surgical Shoe with pressure relief insole Pain Scale: 0-10 Numeric Is Patient Pain Free? Yes Yes Lower Extremity Assessment/ Foot Assessment/ Toe Nail Assessment Left -Posterior Tibial Palpable No -Dorsalis Pedis Palpable No -Extremity Color Normal -Hair Growth on Legs Yes -Hair Growth on Toes No -Temperature of Extremity Warm -Capillary Refill Greater than 3 Seconds -Dependent Rubor No -Blanched when Elevated No -Lipodermatosclerosis No -Other Deformity Yes -Prior Foot Ulcer Yes -Charcot Joint No -Prior Amputation No -Thick No -Discolored No -Deformed No -Improper Length & Hygeine No Right -Posterior Tibial Palpable No -Dorsalis Pedis Palpable Yes -Extremity Color Normal -Hair Growth on Legs Yes -Hair Growth on Toes No -Temperature of Extremity Warm -Capillary Refill Greater than 3 Seconds -Dependent Rubor No -Blanched when Elevated No -Lipodermatosclerosis No -Other Deformity No -Prior Foot Ulcer No -Charcot Joint No -Prior Amputation No -Thick No -Discolored No -Deformed No -Improper Length & Hygeine No Neuropathy Assessment Feet - Top Side and Bottom <Entered> (a) Communication Assessment Preferred language German Able to Read Yes Able to Write Yes Communication Tools None Right Hearing Abillity Hard of Hearing Left Hearing Abillity Hard of Hearing Visual Assistive Devices Glasses Teaching Assessment Preferences Verbal,Written, Demonstration Barriers to Learning None Readiness To Learn Good Willingness to Engage in Self Management Med Activies Readiness to Engage in Self Management Med Activities Anxiety Level Calm Cooperation Cooperative Perception Coherent Interest in Health Problem Asks Questions Education Importance Acknowledges Need Does Patient Smoke tobacco or other No substances Smoking Status Former smoker Is Patient Diabetic Yes Functional Assessment Recent Decline in Ability to Perform Denies Any Declines Culture/Orthodox/College President Cultural/Orthodox Needs that may affect No Treatment Plan Would you allow our hospital enrichment specialist to No meet you for the purpose of spiritual/ emotional support? College President to contact place of latter day No Teaching: Wound Center *Welcome to the Wound Center -Person Taught Patient (a) 1 - _ WC - Nurse 1 - General Ulcer Measurement Start: 04/04/23 13:10 Freq: Status: Active Protocol: Activity Type Activity Date Activity User E-sign Co-sign Detail Recorded Client Recorded Date Recorded By Document 04/04/23 13:11 DL Desktop 04/04/23 13:26 DL Document 04/11/23 13:30 Desktop 04/11/23 13:33 DL 04/04/23 04/11/23 13:11 13:30 Wound Center Nurse 1 #5 R lateralHallux -Current Size (cm) - Length 0.8 0.9 -Current Size (cm) - Width 0.9 0.9 -Current Size (cm) - Depth 0.1 0.3 -Total Square Cm 0.72 0.81 -Photo Taken Yes -Exudate Amt None Present Medium -Exudate Type Serosanguineous -Wound Margin Thickened Distinct, Outline Attached -Granulation Amt Medium (34-66%) Medium (34-66%) -Granulation Quality Pale,Rowland Pale,Rowland -Necrosis Amt Small (1-33%) Medium (34-66%) -Necrotic Tissue Type Adherent Slough Adherent Slough -Structure Exposed N/A N/A -Texture (Maddison-wound Skin Appearance) Scarring Callus,Scarring -Moisture (Maddison-wound Skin Appearance) Dry/Scaly Dry/Scaly -Color (Maddison-wound Skin Appearance) No Abnormality Erythema -Temperature (Maddison-wound Skin No Abnormality No Abnormality Appearance) (Pt Warm) (Pt Warm) -Tenderness on Palpation (Maddison-wound No Skin Appearance) -Ulcer Cleansing Soap and Water Rinsed/ Irrigated with Saline -Foul Odor after Cleansing No No -Anesthetic Used 5% Lidocaine 5% Lidocaine Gel Gel WC - Nurse 2 - General Ulcer CM Notes Start: 04/04/23 13:10 Freq: Status: Active Protocol: Activity Type Activity Date Activity User E-sign Co-sign Detail Recorded Client Recorded Date Recorded By Document 04/04/23 13:41 Laptop 04/04/23 13:44 Document 04/11/23 14:07 Laptop 04/11/23 14:08 04/04/23 04/11/23 13:41 14:07 Wound Center Nurse 2 #5 R lateralHallux -Time 13:42 14:07 -Correct Patient Yes Yes -Correct Side, Site, Position Yes Yes -Correct Procedure Yes Yes -Procedure Performed Yes Yes -Type of Procedure Debridement Debridement -Clinical Debridement Subcutaneous Subcutaneous -Tissue Removed Subcutaneous Subcutaneous -Post Debridement (cm) - Length 1.0 1.0 -Post Debridement (cm) - Width 1.0 1.3 -Post Debridement (cm) - Depth 0.1 0.1 -Total Square (Post) (cm) 1.00 1.30 -Area of Debridement (cm) - Length 1.0 1.0 -Area of Debridement (cm) - Width 1.0 1.3 -Total Square (Area) (cm) 1.00 1.30 -Tunneling No No -Undermining/Tunneling No No -Circular Undermining No No -Wound/Ulcer Outcome Not Healed Not Healed -Ulcer Cleansing Rinsed/ Rinsed/ Irrigated with Irrigated with Saline Saline -Foul Odor after Cleansing No No -Bioengineered Tissue No No -Bleeding Controlled with Pressure Pressure -Treatment Response Procedure Procedure Tolerated Well Tolerated Well -Offloading Yes Yes -Type of Offloading Surgical Shoe Surgical Shoe -Debridement - Subq, 1st 20sq cm Yes Yes Pain Scale: 0-10 Numeric Is Patient Pain Free? Yes Yes - Nurse 3 - General Ulcer D/C NN Start: 04/04/23 13:10 Freq: Status: Active Protocol: Activity Type Activity Date Activity User E-sign Co-sign Detail Recorded Client Recorded Date Recorded By Document 04/04/23 14:11 Desktop 04/04/23 14:12 Document 04/11/23 14:[address] [facility] Desktop 04/11/23 14:[address] [facility] 04/04/23 04/11/23 14:11 14:16 Wound Care Center Nurse 3 #5 R lateralHallux -Ulcer Cleansing Rinsed/ Rinsed/ Irrigated with Irrigated with Saline Saline -Foul Odor after Cleansing No No -Primary Dressing Applied Promogran Carol Matter -Other Dressing BETADINE -Primary Dressing Covered/Secured with Dry Gauze, Dry Gauze, Secured with Secured with Tape Tape -Promogran Carol Matter 1 Treatment Response Procedure Procedure Tolerated Well Tolerated Well Pain Scale: 0-10 Numeric Is Patient Pain Free? Yes Yes - Visit Discharge Discharge Condition Stable Stable Ambulatory Status Ambulatory Ambulatory Transportation Private Auto Private Auto Assessment/Plan Assessment/Plan (1) Non-pressure chronic ulcer of other part of right foot with fat layer exposed: CODE(S): L97.512 - Non-pressure chronic ulcer of other part of right foot with fat layer exposed PLAN: Patient was examined and evaluated. All findings were discussed with the patient. All questions were answered to the patient's satisfaction. Excision debridement down to and including subcutaneous tissue with a #15 blade to the full-thickness ulcerations right hallux without incident. Predebridement measurement was 0.9 x 1.2 x 0.1 cm. Postdebridement measurement is 1.0 x 1.3 x 0.1 cm. Ulceration was dressed with Betadine paint dry sterile dressing. The patient will continue home dressing changes at this time as above. Will hold off on skin graft substitutes until 1 week. Culture was taken of the full-thickness wound with concerns of soft tissue infection. The patient will be placed on doxycycline 100 mg, twice daily for 2 weeks and the antibiotic will change as necessary as cultures return. Patient is to continue strict glucose control. Follow-up at the wound care center with Dr. Ontiveros in 1 week. (2) Acute painful diabetic polyneuropathy: CODE(S): E11.42 - Type 2 diabetes mellitus with diabetic polyneuropathy
== END 2023-04-15 23:59 | disposition home or self-care (01) ==
LOC: WC 13:15
PROVIDERS: PCP Student in an Organized Health Care Education/Training Program; Referring Provider Podiatrist Foot & Ankle Surgery; Visit Provider Podiatrist Foot & Ankle Surgery
DX: E11.621 Type 2 diabetes mellitus with foot ulcer (principal); L97.512 Non-pressure chronic ulcer of other part of right foot with fat layer exposed; E11.22 Type 2 diabetes mellitus with diabetic chronic kidney disease; E11.42 Type 2 diabetes mellitus with diabetic polyneuropathy; Z79.4 Long term (current) use of insulin; N18.30 Chronic kidney disease, stage 3 unspecified; Z87.891 Personal history of nicotine dependence; M54.50 Low back pain, unspecified; Z79.82 Long term (current) use of aspirin; Z79.84 Long term (current) use of oral hypoglycemic drugs; Z79.02 Long term (current) use of antithrombotics/antiplatelets; L90.5 Scar conditions and fibrosis of skin; I12.9 Hypertensive chronic kidney disease with stage 1 through stage 4 chronic kidney disease, or unspecified chronic kidney disease; E78.5 Hyperlipidemia, unspecified
CPT/HCPCS: 11042; 87070; 87075; 87077; 87101; 87186; 87205; 99213; G0463

== ENCOUNTER 2023-05-16 13:15 | Outpatient (RCR) | payer MEDICARE, OTHER, SELFPAY ==
[2023-04-16 00:31] VITALS: BP 128/54; PULSE 70; RESP 18; TEMP 36.6; BMI 19.8
[2023-04-18 13:10] VITALS: BP 139/59; PULSE 78; RESP 16; BMI 19.8
--- NOTE | 2023-04-18 13:52 | PCM.WC.PN ---
History of Present Illness Date of Service: 04/18/23 Chief Complaint: Mr. Guadalupe is a 67-year-old diabetic male presenting to the wound care center today for second opinion to full-thickness ulceration to right big toe. He was seen by an outside provider at [facility] [place]. [facility] copy room technician is his primary copy room technician but is sending to the wound care center today for the full-thickness wound to the right hallux for treatment and care. He denies trauma. Denies constitutional symptoms. Other pedal complaints at this time. History of Wound: Chronic right hallux ulceration Subjective Subjective Mr. Guadalupe is a 67-year-old diabetic male presenting to the wound care center today for follow-up and evaluation of full-thickness wound to the right hallux. Patient has been ambulatory in surgical shoe and wearing a diabetic shoe on his left foot. Patient admits his redness of the toe is improved. He presents today for graft application. He denies any drainage. He is doing his own home dressing changes without issues. He denies trauma. Denies constitutional symptoms. No other pedal complaints at this time. Objective Data Objective Data Vital Signs: Vital Signs Temp Pulse Resp BP 97.8 F 78 16 139/59 H 04/16/23 00:31 04/18/23 13:10 04/18/23 13:10 04/18/23 13:10 Weight: 59.24 kg Body Mass Index (BMI) 19.8 Physical Exam Narrative Vascular: DP and PT pulse are palpable. CFT is brisk. Evidence of erythema with mild proximal streaking to the right hallux. Nonpitting edema is appreciated to the right lower extremity. Neurological: Light touch intact. Protective sensation is absent. Dermatological: Full-thickness ulceration appreciated to the right hallux measuring 1.1 x 1.4 x 0.1 cm. Evidence of erythema with mild proximal streaking to the right hallux. No active drainage. No probe to bone. Excision debridement down to and including subcutaneous tissue with a #15 blade to the full-thickness ulcerations right hallux without incident. Predebridement measurement was 1.0 x 1.2 x 0.1 cm. Postdebridement measurement is 1.1 x 1.4 x 0.1 cm. EpiFix 18 mm disc was applied to the right hallux full-thickness ulceration with 100% use. First application. The graft site was free and clear of any infection. The wound/skin graft substitute was dressed with nonadherent bandage secured in place with Steri-Strips followed by bolster dressing as well as a double layer Tubigrip. Muscle skeletal: No pain on palpation to full-thickness ulceration right hallux. No pain with calf pressure. Debridement Note Debridement Note Debridement Free Text: Excision debridement down to and including subcutaneous tissue with a #15 blade to the full-thickness ulcerations right hallux without incident. Predebridement measurement was 1.0 x 1.2 x 0.1 cm. Postdebridement measurement is 1.1 x 1.4 x 0.1 cm. EpiFix 18 mm disc was applied to the right hallux full-thickness ulceration with 100% use. First application. The graft site was free and clear of any infection. The wound/skin graft substitute was dressed with nonadherent bandage secured in place with Steri-Strips followed by bolster dressing as well as a double layer Tubigrip. Post-Debridement Measurements and Additional Note: Post-Debridement Measurements/Treatment - Nurse 1 - General Ulcer Assessment Start: 04/18/23 13:09 Freq: Status: Active Protocol: [email or web address] Activity Type Activity Date Activity User E-sign Co-sign Detail Recorded Client Recorded Date Recorded By Document 04/18/23 13:10 Laptop 04/18/23 13:15 04/18/23 13:10 - Today's Visit Information Type of service Follow-up Visit (Physician/YARDING AND FOLDING MACHINE OPERATOR ) Arrival Mode Ambulatory Patient Identification Verified (Name & Yes ) Patient Requires Transmission-Based No Precautions Finger Stick Blood Sugar(mg/dl) (if 143 indicated): Blood Sugar Stated by Patient Height and Weight Body Mass Index (BMI) 19.8 BMI Classification Normal Vital Signs Pulse Rate (60-100) 78 Pulse Location Monitor Respiratory Rate (12-18) 16 Respiratory rate source Observation Blood Pressure (90/60-120/80) 139/59 H Blood Pressure Mean (mm Hg) 85 Source Monitor Position Sitting Blood Pressure Location Left Arm History Since Last Visit- (Skip if this is Patient's initial visit) Have you changed medications since your No last visit? Any new allergies or adverse reactions No Had a fall/change in ADL's that may No increase risk of falls Signs or symptoms of abuse and/or No neglect since last visit Have you been in the hospital since your No last visit? Has dressing in place as prescribed Yes Has compression in place as prescribed N/A Has offloadiing in place as prescribed Yes Experienced any changes in pain level or No management Pain Scale: 0-10 Numeric Is Patient Pain Free? Yes - Nurse 1 - General Ulcer Measurement Start: 04/18/23 13:09 Freq: Status: Active Protocol: Activity Type Activity Date Activity User E-sign Co-sign Detail Recorded Client Recorded Date Recorded By Document 04/18/23 13:10 Laptop 04/18/23 13:15 04/18/23 13:10 Wound Center Nurse 1 #5 R lateralHallux -Combined with other wound No -Current Size (cm) - Length 1.3 -Current Size (cm) - Width 0.8 -Current Size (cm) - Depth 0.1 -Total Square Cm 1.04 -Photo Taken No -Epithelialization Small 1-33% -Tunneling No -Undermining/Tunneling No -Circular Undermining No -Exudate Amt Small -Exudate Type Serosanguineous -Wound Margin Flat & Intact -Granulation Amt Medium (34-66%) -Granulation Quality [place] -Slough/Fibrin Yes -Necrosis Amt Small (1-33%) -Necrotic Tissue Type Adherent Slough -Structure Exposed N/A -Texture (Maddison-wound Skin Appearance) Assessed -Moisture (Maddison-wound Skin Appearance) Assessed,Dry/ Scaly -Color (Maddison-wound Skin Appearance) Assessed -Temperature (Maddison-wound Skin No Abnormality Appearance) (Pt Warm) -Ulcer Cleansing Rinsed/ Irrigated with Saline -Foul Odor after Cleansing No -Anesthetic Used 5% Lidocaine Gel Lower Limb Edema Present NA - Nurse 2 - General Ulcer CM Notes Start: 04/18/23 13:09 Freq: Status: Active Protocol: Activity Type Activity Date Activity User E-sign Co-sign Detail Recorded Client Recorded Date Recorded By Document 04/18/23 13:19 Laptop 04/18/23 13:24 04/18/23 13:19 Wound Center Nurse 2 #5 R lateralHallux -Time 13:21 -Correct Patient Yes -Correct Side, Site, Position Yes -Correct Procedure Yes -Procedure Performed Yes -Type of Procedure Debridement -Clinical Debridement Subcutaneous -Tissue Removed Subcutaneous -Tunneling No -Undermining/Tunneling No -Circular Undermining No -Wound/Ulcer Outcome Not Healed -Ulcer Cleansing Rinsed/ Irrigated with Saline -Foul Odor after Cleansing No -Bioengineered Tissue Yes -Type of Bioengineered Tissue Epifix 18mm Disc -Expiration Date 12/16/27 -Product Lot Number [id number] -Percent Used 100 -Lot number of Saline Used [id number] -Bleeding Controlled with Pressure -Treatment Response Procedure Tolerated Well -Offloading Yes -Type of Offloading Surgical Shoe -Debridement - Subq, 1st 20sq cm No -Apply Skin Sub - 1st 25 sq cm - Feet 1 -Epifix 18mm Disc 3 Pain Scale: 0-10 Numeric Is Patient Pain Free? Yes - Nurse 3 - General Ulcer D/C NN Start: 04/18/23 13:09 Freq: Status: Active Protocol: Activity Type Activity Date Activity User E-sign Co-sign Detail Recorded Client Recorded Date Recorded By Document 04/18/23 13:28 KW Desktop 04/18/23 13:28 KW 04/18/23 13:28 Wound Care Center Nurse 3 #5 R lateralHallux -Primary Dressing Covered/Secured with Dry Gauze & Roll Gauze, Secured with Tape Pain Scale: 0-10 Numeric Is Patient Pain Free? 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 All findings were discussed with the patient. All questions were answered to the patient's satisfaction. Excision debridement down to and including subcutaneous tissue with a #15 blade to the full-thickness ulcerations right hallux without incident. Predebridement measurement was 1.0 x 1.2 x 0.1 cm. Postdebridement measurement is 1.1 x 1.4 x 0.1 cm. EpiFix 18 mm disc was applied to the right hallux full-thickness ulceration with 100% use. First application. The graft site was free and clear of any infection. The wound/skin graft substitute was dressed with nonadherent bandage secured in place with Steri-Strips followed by bolster dressing as well as a double layer Tubigrip. Follow-up at the wound care center with Dr. Ontiveros in 1 week. (2) Acute painful diabetic polyneuropathy: CODE(S): E11.42 - Type 2 diabetes mellitus with diabetic polyneuropathy
[2023-04-25 13:11] VITALS: BP 152/54; PULSE 89; RESP 16; TEMP 35.5; BMI 19.8
--- NOTE | 2023-04-25 14:26 | PCM.WC.PN ---
History of Present Illness Date of Service: 04/25/23 Chief Complaint: Mr. Guadalupe is a 67-year-old diabetic male presenting to the wound care center today for second opinion to full-thickness ulceration to right big toe. He was seen by an outside provider at [facility]. 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 He denies trauma. Denies constitutional symptoms. Other pedal complaints at this time. History of Wound: Chronic right hallux ulceration Subjective Subjective Mr. Matta is a 67-year-old diabetic male presenting to the wound care center today for follow-up and evaluation of full-thickness wound to the right hallux. Patient has been ambulatory in surgical shoe and wearing a diabetic shoe on his left foot. Patient admits his redness of the toe is improved. He presents today for graft application. He denies any drainage. He is doing his own home dressing changes without issues. He denies trauma. Denies constitutional symptoms. No other pedal complaints at this time. Objective Data Objective Data Vital Signs: Vital Signs Temp Pulse Resp BP O2 Del Method 96 F L 89 16 152/54 H Room Air 04/25/23 13:11 04/25/23 13:11 04/25/23 13:11 04/25/23 13:11 04/25/23 13:11 Oxygen Delivery Method Room Air Weight: 59.24 kg Body Mass Index (BMI) 19.8 Physical Exam Narrative Vascular: DP and PT pulse are palpable. CFT is brisk. Erythema is improved to the right hallux. Nonpitting edema is appreciated to the right lower extremity. Neurological: Light touch intact. Protective sensation is absent. Dermatological: Full-thickness ulceration appreciated to the right hallux measuring 1.2 x 1.3 x 0.1 cm. Improved erytherma. No active drainage. No probe to bone. Excision debridement down to and including subcutaneous tissue with a #15 blade to the full-thickness ulcerations right hallux without incident. Predebridement measurement was 1.1 x 1.2 x 0.1 cm. Postdebridement measurement is 1.2 x 1.3 x 0.1 cm. EpiFix 18 mm disc was applied to the right hallux full-thickness ulceration with 100% use. Second application. The graft site was free and clear of any infection. The wound/skin graft substitute was dressed with nonadherent bandage secured in place with Steri-Strips followed by bolster dressing as well as a double layer Tubigrip. Muscle skeletal: No pain on palpation to full-thickness ulceration right hallux. No pain with calf pressure. Debridement Note Debridement Note Debridement Free Text: Excision debridement down to and including subcutaneous tissue with a #15 blade to the full-thickness ulcerations right hallux without incident. Predebridement measurement was 1.1 x 1.2 x 0.1 cm. Postdebridement measurement is 1.2 x 1.3 x 0.1 cm. EpiFix 18 mm disc was applied to the right hallux full-thickness ulceration with 100% use. Second application. The graft site was free and clear of any infection. The wound/skin graft substitute was dressed with nonadherent bandage secured in place with Steri-Strips followed by bolster dressing as well as a double layer Tubigrip. Post-Debridement Measurements and Additional Note: Post-Debridement Measurements/Treatment - Nurse 1 - General Ulcer Assessment Start: 04/18/23 13:09 Freq: Status: Active Protocol: [email or web address] Activity Type Activity Date Activity User E-sign Co-sign Detail Recorded Client Recorded Date Recorded By Document 04/18/23 13:10 Laptop 04/18/23 13:15 Document 04/25/23 13:11 [facility] Desktop 04/25/23 13:14 [facility] 04/18/23 04/25/23 13:10 13:11 - Today's Visit Information Type of service Follow-up Visit Follow-up Visit (Physician/MANAGER APPLIED (Physician/MANAGER APPLIED ) ) Arrival Mode Ambulatory Ambulatory Transfer Assistance None Patient Identification Verified (Name & Yes Yes ) Patient Requires Transmission-Based No No Precautions Finger Stick Blood Sugar(mg/dl) (if 143 154 indicated): Blood Sugar Stated by Stated by Patient Patient Height and Weight Body Mass Index (BMI) 19.8 19.8 BMI Classification Normal Normal Vital Signs Temperature (97.8 F-99.1 F) 96 F L Temperature Source Temporal Pulse Rate (60-100) 78 89 Pulse Location Monitor Monitor Respiratory Rate (12-18) 16 16 Respiratory rate source Observation Observation Oxygen Delivery Method Room Air Blood Pressure (90/60-120/80) 139/59 H 152/54 H Blood Pressure Mean (mm Hg) 85 86 Source Monitor Monitor Position Sitting Sitting Blood Pressure Location Left Arm Left Arm History Since Last Visit- (Skip if this is Patient's initial visit) Have you changed medications since your No No last visit? Any new allergies or adverse reactions No No Had a fall/change in ADL's that may No No increase risk of falls Signs or symptoms of abuse and/or No No neglect since last visit Have you been in the hospital since your No No last visit? Has dressing in place as prescribed Yes Yes Has compression in place as prescribed N/A N/A Has offloadiing in place as prescribed Yes N/A Experienced any changes in pain level or No No management Left Footwear Diabetic Shoe Right Footwear Surgical Shoe with pressure relief insole Pain Scale: 0-10 Numeric Is Patient Pain Free? Yes Yes WC - Nurse 1 - General Ulcer Measurement Start: 04/18/23 13:09 Freq: Status: Active Protocol: Activity Type Activity Date Activity User E-sign Co-sign Detail Recorded Client Recorded Date Recorded By Document 04/18/23 13:10 [employer] Laptop 04/18/23 13:15 Document 04/25/23 13:11 [facility] Desktop 04/25/23 13:14 [facility] 04/18/23 04/25/23 13:10 13:11 Wound Center Nurse 1 #5 R lateralHallux -Combined with other wound No No -Current Size (cm) - Length 1.3 1.2 -Current Size (cm) - Width 0.8 1.4 -Current Size (cm) - Depth 0.1 0.1 -Total Square Cm 1.04 1.68 -Date of Last Picture (Recall this 04/25/23 field) -Photo Taken No Yes -Epithelialization Small 1-33% -Tunneling No No -Undermining/Tunneling No No -Circular Undermining No No -Exudate Amt Small Medium -Exudate Type Serosanguineous Serosanguineous -Wound Margin Flat & Intact Distinct, Outline Attached -Granulation Amt Medium (34-66%) None Present (0 %) -Granulation Quality [place] -Slough/Fibrin Yes Yes -Necrosis Amt Small (1-33%) Large (67-100%) -Necrotic Tissue Type Adherent Slough Adherent Slough -Structure Exposed N/A -Texture (Maddison-wound Skin Appearance) Assessed Assessed, Localized Edema ,Scarring -Moisture (Maddison-wound Skin Appearance) Assessed,Dry/ Assessed Scaly -Color (Maddison-wound Skin Appearance) Assessed Assessed -Temperature (Maddison-wound Skin No Abnormality No Abnormality Appearance) (Pt Warm) (Pt Warm) -Tenderness on Palpation (Maddison-wound No Skin Appearance) -Ulcer Cleansing Rinsed/ Soap and Water Irrigated with Saline -Foul Odor after Cleansing No No -Anesthetic Used 5% Lidocaine 5% Lidocaine Gel Gel Lower Limb Edema Present NA WC - Nurse 2 - General Ulcer CM Notes Start: 04/18/23 13:09 Freq: Status: Active Protocol: Activity Type Activity Date Activity User E-sign Co-sign Detail Recorded Client Recorded Date Recorded By Document 04/18/23 13:19 [employer] Laptop 04/18/23 13:24 Document 04/25/23 13:17 Laptop 04/25/23 13:25 04/18/23 04/25/23 13:19 13:17 Wound Center Nurse 2 #5 R lateralHallux -Time 13:21 13:24 -Correct Patient Yes Yes -Correct Side, Site, Position Yes Yes -Correct Procedure Yes Yes -Procedure Performed Yes Yes -Type of Procedure Debridement Debridement -Clinical Debridement Subcutaneous Subcutaneous -Tissue Removed Subcutaneous Subcutaneous -Post Debridement (cm) - Length 1.2 -Post Debridement (cm) - Width 1.3 -Post Debridement (cm) - Depth 0.3 -Total Square (Post) (cm) 1.56 -Area of Debridement (cm) - Length 1.2 -Area of Debridement (cm) - Width 1.3 -Total Square (Area) (cm) 1.56 -Tunneling No No -Undermining/Tunneling No No -Circular Undermining No No -Wound/Ulcer Outcome Not Healed Not Healed -Ulcer Cleansing Rinsed/ Rinsed/ Irrigated with Irrigated with Saline Saline -Foul Odor after Cleansing No No -Bioengineered Tissue Yes Yes -Type of Bioengineered Tissue Epifix 18mm Epifix 18mm Disc Disc -Expiration Date 12/16/27 12/16/27 -Product Lot Number [id number] -Percent Used 100 100 -Lot number of Saline Used [id number] -Bleeding Controlled with Pressure Pressure -Treatment Response Procedure Procedure Tolerated Well Tolerated Well -Offloading Yes Yes -Type of Offloading Surgical Shoe Surgical Shoe -Debridement - Subq, 1st 20sq cm No No -Apply Skin Sub - 1st 25 sq cm - Feet 1 1 -Epifix 18mm Disc 3 3 Pain Scale: 0-10 Numeric Is Patient Pain Free? Yes Yes - Nurse 3 - General Ulcer D/C NN Start: 04/18/23 13:09 Freq: Status: Active Protocol: Activity Type Activity Date Activity User E-sign Co-sign Detail Recorded Client Recorded Date Recorded By Document 04/18/23 13:28 K[facility] Desktop 04/18/23 13:28 KW Document 04/25/23 13:28 KW Desktop 04/25/23 13:28 KW 04/18/23 04/25/23 13:28 13:28 Wound Care Center Nurse 3 #5 R lateralHallux -Other Dressing epifix -Primary Dressing Covered/Secured with Dry Gauze & Dry Gauze, Roll Gauze, Secured with Secured with Tape Tape Treatment Response Procedure Tolerated Well Pain Scale: 0-10 Numeric Is Patient Pain Free? Yes Yes WC - Visit Discharge Discharge Condition Stable Stable Ambulatory Status Ambulatory Ambulatory,Cane Transportation Private Auto Private Auto Medication Reconcilliation completed & No provided to patient/care provider Clinical Summary of Care Provided Yes Assessment/Plan Assessment/Plan (1) Non-pressure chronic ulcer of other part of right foot with fat layer exposed: CODE(S): L97.512 - Non-pressure chronic ulcer of other part of right foot with fat layer exposed PLAN: Excision debridement down to and including subcutaneous tissue with a #15 blade to the full-thickness ulcerations right hallux without incident. Predebridement measurement was 1.1 x 1.2 x 0.1 cm. Postdebridement measurement is 1.2 x 1.3 x 0.1 cm. EpiFix 18 mm disc was applied to the right hallux full-thickness ulceration with 100% use. Second application. The graft site was free and clear of any infection. The wound/skin graft substitute was dressed with nonadherent bandage secured in place with Steri-Strips followed by bolster dressing as well as a double layer Tubigrip. Follow-up at the wound care center with Dr. Ontiveros in 1 week. (2) PAD (peripheral artery disease): CODE(S): I73.9 - Peripheral vascular disease, unspecified (3) Acute painful diabetic polyneuropathy: CODE(S): E11.42 - Type 2 diabetes mellitus with diabetic polyneuropathy
--- NOTE | 2023-05-01 13:54 | VDLE_ITS ---
Reason For Study: Rt Great Toe Ulcer RIGHT LEFT CFV is compressible, spontaneous, phasic, CFV is compressible, spontaneous, phasic, competent and demonstrates normal competent, and demonstrates normal augmentation. augmentation. FV is compressible, spontaneous, phasic, FV is compressible, spontaneous, phasic, competent and demonstrates normal competent and demonstrates normal augmentation. augmentation. POP V is compressible, spontaneous, phasic, POP V is compressible, spontaneous, phasic, competent and demonstrates normal competent and demonstrates normal augmentation. augmentation. T/P Trunk is compressible. T/P Trunk is compressible. PTV is compressible. PTV is compressible. RT PerV is compressible. LT PerV is compressible. SFJ is competent and measures 0.49 cm. SFJ is competent and measures 0.67 cm. GSV proximal thigh measures 0.20 x 0.23 cm. GSV proximal thigh measures 0.19 x 0.19 cm. GSV at knee measures 0.16 x 0.18 cm. GSV at knee measures 0.21 x 0.26 cm. GSV above knee is competent. GSV is competent throughout. Vein wall thickening noted in GSV from prox SSV at junction is competent and measures to distal calf. Vessel is compressible but 0.41 cm. unable to assess for reflux due to small SSV proximal calf is competent and measures lumen diameter. 0.16 x 0.22 cm. SSV at junction is competent and measures 0.32 cm. Unable to visualize SSV prox calf. Procedure This is a venous duplex using B-mode, color flow and spectral Doppler. Exam performed in department. The exam was diagnostic. The study was technically difficult. VL/Venous Duplex US - Turner Extrem Interpretation Summary Deep veins of the lower extremities are bilaterally patent and compressible seg mentally. There is no evidence of deep vein thrombosis on either side. Valvular competence appears in tact within the proximal deep venous systems bilaterally. The great saphenous veins appear bila terally patent and compressible segmentally. Sapheno-femoral junctions are bilaterally competent . The right great saphenous vein appears competent above the knee. The right great saphenous vein is thickened and contracted below the knee. The left great saphenous vein appears segmentally co mpetent. Small saphenous veins are patent and competent bilaterally. Ordering Physician: Gerry Ontiveros Referring Physician: Edward Mcgovern Performed By: Mikhail Carpenter RVT
--- NOTE | 2023-05-01 13:54 | ART_ITS ---
Reason For Study: Rt Great Toe Ulcer Procedure A bilateral lower extremity continuous wave Doppler with analog waveform analysis,segmental pressures,and ankle brachial indexes without exercise. Left Segmental Pressures Left brachial= 128mmHg. Left posterior tibial artery = >254mmHg. Left dorsalis pedis artery = >254mmHg. The left posterior tibial artery waveforms are triphasic. The left dorsalis pedis waveforms are triphasic. Right Segmental Pressures Right brachial= 129mmHg. Right posterior tibial artery = >254mmHg. Right dorsalis pedis artery = 210mmHg. The right posterior tibial artery waveforms are triphasic. The right dorsalis pedis waveforms are triphasic. Indices The right ankle brachial index by the posterior tibial artery is N/C. The right ankle brachial index by the dorsalis pedis is 1.63. The left ankle brachial index by the posterior tibial artery is N/C. The left ankle brachial index by the dorsalis pedis is N/C. VL/Lower Ext Art Exam w/o Exercis Interpretation Summary Triphasic Doppler waveforms are noted at ankle level bilaterally. Pulse-volume recordings appear satisfactory at all levels bilaterally. The resting right ankle-brachial index is supra-normal. The resting left ankle-brachial index could not be determined due to the non-compre ssibility of the vasculature at ankle level on the left. There is evidence of arterial calcification at ankle level bilaterally. There i s no evidence of significant arterial occlusive disease in the lower extremities bilaterally. Ordering Physician: Gerry Ontiveros Referring Physician: Edward Mcgovern Performed By: Mikhail Carpenter RVT
[2023-05-02 13:31] VITALS: BP 135/55; PULSE 71; RESP 18; TEMP 35.7; BMI 19.8
--- NOTE | 2023-05-02 14:05 | PN.PCM_ITS ---
History of Present Illness Date of Service: 05/02/23 Chief Complaint: Mr. Guadalupe is a 67-year-old diabetic male presenting to the wound care center today for second opinion to full-thickness ulceration to right big toe. He was seen by an outside provider at [facility]. [facility] supervisor production managing is his primary supervisor production managing but is sending to the wound care center today for the full-thickness wound to the right hallux for treatment and care. He denies trauma. Denies constitutional symptoms. Other pedal compl aints at this time. History of Wound: Chronic right hallux ulceration Subjective Subjective Mr. Redding is a 67-year-old diabetic male presenting to the wound care center today for follow-up and evaluation of full-thickness wound to the right hallux. Patient has been ambulatory in surgical shoe and wearing a diabetic shoe on his left foot. He presents today for graft application. He denies any drainage. He is doing his own home dressing changes without issues. He follows up today for evaluation of his vascular studies. He denies trauma. Denies constitutional symptoms. No other pedal complaints at this time. Objective Data Objective Data Vital Signs: Vital Signs Temp Pulse Resp BP O2 Del Method 96.2 F L 71 18 135/55 H Room Air 05/02/23 13:31 05/02/23 13:31 05/02/23 13:31 05/02/23 13:31 05/02/23 13:31 Oxygen Delivery Method Room Air Weight: 59.24 kg Body Mass Index (BMI) 19.8 Radiography Diagnostic Testing: Radiology Impression Extremity Arterial Study 05/01/23 13:54 Interpretation Summary Triphasic Doppler waveforms are noted at ankle level bilaterally. Pulse-volume recordings appear satisfactory at all levels bilaterally. The resting right ankle-brachial index is supra-normal. The resting left ankle-brachial index could not be determined due to the non- compressibility of the vasculature at ankle level on the left. There is evidence of arterial calcification at ankle level bilaterally. There is no evidence of significant arterial occlusive disease in the lower extremities bilaterally. Ordering Physician: Gerry Ontiveros Referring Physician: Edward Mcgovern Performed By: Mikhail Carpenter RVT Venous Doppler Study 05/01/23 13:54 Interpretation Summary Deep veins of the lower extremities are bilaterally patent and compressible segmentally. There is no evidence of deep vein thrombosis on either side. Valvular competence appears intact within the proximal deep venous systems bilaterally. The great saphenous veins appear bilaterally patent and compressible segmentally. Sapheno-femoral junctions are bilaterally competent . The right great saphenous vein appears competent above the knee. The right great saphenous vein is thickened and contracted below the knee. The left great saphenous vein appears segmentally competent. Small saphenous veins are patent and competent bilaterally. Ordering Physician: Gerry Ontiveros Referring Physician: Edward Mcgovern Performed By: Mikhail Carpenter RVT Physical Exam Narrative [facility] [address] [place] [id number] Progress Note - Wound Care 04/25/23 1426 MR#: [id number] Acct: [id number] Name: BOB REDDING Rep #: [id number] : 1955 67 From: Gerry Ontiveros DPCurt PCP: Dr. Edward Mcgovern, DO Status: REG RCR Location: History of Present Illness Date of Service: 04/25/23 Chief Complaint: Mr. Guadalupe is a 67-year-old diabetic male presenting to the wound care center today for second opinion to full-thickness ulceration to right big toe. He was seen by an outside provider at [facility]. [facility] supervisor production managing is his primary supervisor production managing but is sending to the wound care center today for the full-thickness wound to the right hallux for treatment and care. He denies trauma. Denies constitutional symptoms. Other pedal complaints at this time. History of Wound: Chronic right hallux ulceration Subjective Subjective Mr. Redding is a 67-year-old diabetic male presenting to the wound care center today for follow-up and evaluation of full-thickness wound to the right hallux. Patient has been ambulatory in surgical shoe and wearing a diabetic shoe on his left foot. Patient admits his redness of the toe is improved. He presents today for graft application. He denies any drainage. He is doing his own home dressing changes without issues. He denies trauma. Denies constitutional symptoms. No other pedal complaints at this time. Objective Data Objective Data Vital Signs: Vital Signs Temp Pulse Resp BP O2 Del Method 96 F L 89 16 152/54 H Room Air 04/25/23 13:11 04/25/23 13:11 04/25/23 13:11 04/25/23 13:11 04/25/23 13:11 Oxygen Delivery Method Room Air Weight: 59.24 kg Body Mass Index (BMI) 19.8 Physical Exam Narrative Vascular: DP and PT pulse are palpable. CFT is brisk. Erythema is improved to the right hallux. Nonpitting edema is appreciated to the right lower extremity. Neurological: Light touch intact. Protective sensation is absent. Dermatological: Full-thickness ulceration appreciated to the right hallux measuring 1.2 x 0.9 x 0.1 cm. Improved erytherma. No active drainage. No probe to bone. Excision debridement down to and including subcutaneous tissue with a #15 blade to the full-thickness ulcerations right hallux without incident. Predebridement measurement was 1.2 x 0.8 x 0.1 cm. Postdebridement measurement is 1.2 x 0.9 x 0.1 cm. EpiFix 18 mm disc was applied to the right hallux full-thickness ulceration with 100% use. Third application. The graft site was free and clear of any infection. The wound/skin graft substitute was dressed with nonadherent bandage secured in place with Steri-Strips followed by bolster dressing as well as a double layer Tubigrip. Muscle skeletal: No pain on palpation to full-thickness ulceration right hallux. No pain with calf pressure. Debridement Note Debridement Note Debridement Free Text: Excision debridement down to and including subcutaneous tissue with a #15 blade to the full-thickness ulcerations right hallux without incident. Predebridement measurement was 1.2 x 0.8 x 0.1 cm. Postdebridement measurement is 1.2 x 0.9 x 0.1 cm. EpiFix 18 mm disc was applied to the right hallux full-thickness ulceration with 100% use. Third application. The graft site was free and clear of any infection. The wound/skin graft substitute was dressed with nonadherent bandage secured in place with Steri-Strips followed by bolster dressing as well as a double layer Tubigrip. Post-Debridement Measurements and Additional Note: Post-Debridement Measurements/Treatment - Nurse 1 - General Ulcer Assessment Start: 04/18/23 13:09 Freq: Status: Active Protocol: BREANA Activity Type Activity Date Activity User E-sign Co-sign Detail Recorded Client Recorded Date Recorded By Document 04/18/23 13:10 Laptop 04/18/23 13:15 Document 04/25/23 13:11 [facility] Desktop 04/25/23 13:14 [facility] Document 05/02/23 13:31 Desktop 05/02/23 13:35 04/18/23 04/25/23 05/02/23 13:10 13:11 13:31 - Today's Visit Information Type of service Follow-up Visit Follow-up Visit Follow-up Visit (Physician/OUTPATIENT PSYCHIATRIST (Physician/OUTPATIENT PSYCHIATRIST (Physician/OUTPATIENT PSYCHIATRIST ) ) ) Arrival Mode Ambulatory Ambulatory Ambulatory Transfer Assistance None None Patient Identification Verified (Name & Yes Yes Yes ) Patient Requires Transmission-Based No No No Precautions Finger Stick Blood Sugar(mg/dl) (if 143 154 indicated): Blood Sugar Stated by Stated by Patient Patient Height and Weight Body Mass Index (BMI) 19.8 19.8 19.8 BMI Classification Normal Normal Normal Vital Signs Temperature (97.8 F-99.1 F) 96 F L 96.2 F L Temperature Source Temporal Temporal Pulse Rate (60-100) 78 89 71 Pulse Location Monitor Monitor Monitor Respiratory Rate (12-18) 16 16 18 Respiratory rate source Observation Observation Observation Oxygen Delivery Method Room Air Room Air Blood Pressure (90/60-120/80) 139/59 H 152/54 H 135/55 H Blood Pressure Mean (mm Hg) 85 86 81 Source Monitor Monitor Monitor Position Sitting Sitting Sitting Blood Pressure Location Left Arm Left Arm Left Arm History Since Last Visit- (Skip if this is Patient's initial visit) Have you changed medications since your No No No last visit? Any new allergies or adverse reactions No No No Had a fall/change in ADL's that may No No No increase risk of falls Signs or symptoms of abuse and/or No No No neglect since last visit Have you been in the hospital since your No No No last visit? Has dressing in place as prescribed Yes Yes Yes Has compression in place as prescribed N/A N/A No Has offloadiing in place as prescribed Yes N/A Yes Experienced any changes in pain level or No No No management Left Footwear Diabetic Shoe Regular Shoe Right Footwear Surgical Shoe Regular Shoe with pressure relief insole Pain Scale: 0-10 Numeric Is Patient Pain Free? Yes Yes Yes WC - Nurse 1 - General Ulcer Measurement Start: 04/18/23 13:09 Freq: Status: Active Protocol: Activity Type Activity Date Activity User E-sign Co-sign Detail Recorded Client Recorded Date Recorded By Document 04/18/23 13:10 [employer] Laptop 04/18/23 13:15 [employer] Document 04/25/23 13:11 [facility] Desktop 04/25/23 13:14 [employer] Document 05/02/23 13:31 Desktop 05/02/23 13:35 04/18/23 04/25/23 05/02/23 13:10 13:11 13:31 Wound Center Nurse 1 #5 R lateralHallux -Combined with other wound No No -Current Size (cm) - Length 1.3 1.2 0.8 -Current Size (cm) - Width 0.8 1.4 0.7 -Current Size (cm) - Depth 0.1 0.1 0.2 -Total Square Cm 1.04 1.68 0.56 -Date of Last Picture (Recall this 04/25/23 field) -Photo Taken No Yes -Epithelialization Small 1-33% Small 1-33% -Tunneling No No No -Undermining/Tunneling No No No -Circular Undermining No No No -Exudate Amt Small Medium Small -Exudate Type Serosanguineous Serosanguineous Serous -Wound Margin Flat & Intact Distinct, Flat & Intact Outline Attached -Granulation Amt Medium (34-66%) None Present (0 Small (1-33%) %) -Granulation Quality [place] -Slough/Fibrin Yes Yes No -Necrosis Amt Small (1-33%) Large (67-100%) Small (1-33%) -Necrotic Tissue Type Adherent Slough Adherent Slough Adherent Slough -Structure Exposed N/A -Texture (Maddison-wound Skin Appearance) Assessed Assessed, Assessed, Localized Edema Scarring ,Scarring -Moisture (Maddison-wound Skin Appearance) Assessed,Dry/ Assessed Assessed Scaly -Color (Maddison-wound Skin Appearance) Assessed Assessed Assessed -Temperature (Maddison-wound Skin No Abnormality No Abnormality No Abnormality Appearance) (Pt Warm) (Pt Warm) (Pt Warm) -Tenderness on Palpation (Maddison-wound No Skin Appearance) -Ulcer Cleansing Rinsed/ Soap and Water Soap and Water Irrigated with Saline -Foul Odor after Cleansing No No No -Anesthetic Used 5% Lidocaine 5% Lidocaine 5% Lidocaine Gel Gel Gel Lower Limb Edema Present NA WC - Nurse 2 - General Ulcer CM Notes Start: 04/18/23 13:09 Freq: Status: Active Protocol: Activity Type Activity Date Activity User E-sign Co-sign Detail Recorded Client Recorded Date Recorded By Document 04/18/23 13:19 [employer] Laptop 04/18/23 13:24 Document 04/25/23 13:17 Laptop 04/25/23 13:25 Document 05/02/23 13:41 Laptop 05/02/23 13:44 04/18/23 04/25/23 05/02/23 13:19 13:17 13:41 Wound Center Nurse 2 #5 R lateralHallux -Time 13:21 13:24 13:42 -Correct Patient Yes Yes Yes -Correct Side, Site, Position Yes Yes Yes -Correct Procedure Yes Yes Yes -Procedure Performed Yes Yes Yes -Type of Procedure Debridement Debridement Debridement -Clinical Debridement Subcutaneous Subcutaneous Subcutaneous -Tissue Removed Subcutaneous Subcutaneous Subcutaneous -Post Debridement (cm) - Length 1.2 1.2 -Post Debridement (cm) - Width 1.3 0.9 -Post Debridement (cm) - Depth 0.3 0.1 -Total Square (Post) (cm) 1.56 1.08 -Area of Debridement (cm) - Length 1.2 1.2 -Area of Debridement (cm) - Width 1.3 0.9 -Total Square (Area) (cm) 1.56 1.08 -Tunneling No No No -Undermining/Tunneling No No No -Circular Undermining No No No -Wound/Ulcer Outcome Not Healed Not Healed Not Healed -Ulcer Cleansing Rinsed/ Rinsed/ Rinsed/ Irrigated with Irrigated with Irrigated with Saline Saline Saline -Foul Odor after Cleansing No No No -Bioengineered Tissue Yes Yes Yes -Type of Bioengineered Tissue Epifix 18mm Epifix 18mm Epifix 18mm Disc Disc Disc -Expiration Date 12/16/27 12/16/27 12/16/27 -Product Lot Number [id number] -Percent Used 100 100 100 -Lot number of Saline Used [id number] -Bleeding Controlled with Pressure Pressure Pressure -Treatment Response Procedure Procedure Procedure Tolerated Well Tolerated Well Tolerated Well -Offloading Yes Yes No -Type of Offloading Surgical Shoe Surgical Shoe -Debridement - Subq, 1st 20sq cm No No No -Apply Skin Sub - 1st 25 sq cm - Feet 1 1 1 -Epifix 18mm Disc 3 3 3 Pain Scale: 0-10 Numeric Is Patient Pain Free? Yes Yes Yes - Nurse 3 - General Ulcer D/C NN Start: 04/18/23 13:09 Freq: Status: Active Protocol: Activity Type Activity Date Activity User E-sign Co-sign Detail Recorded Client Recorded Date Recorded By Document 04/18/23 13:28 K[facility] Desktop 04/18/23 13:28 KW Document 04/25/23 13:28 KW Desktop 04/25/23 13:28 KW Document 05/02/23 13:47 KW Desktop 05/02/23 13:47 KW 04/18/23 04/25/23 05/02/23 13:28 13:28 13:47 Wound Care Center Nurse 3 #5 R lateralHallux -Other Dressing epifix -Primary Dressing Covered/Secured with Dry Gauze & Dry Gauze, Dry Gauze & Roll Gauze, Secured with Roll Gauze, Secured with Tape Secured with Tape Tape Treatment Response Procedure Tolerated Well Pain Scale: 0-10 Numeric Is Patient Pain Free? Yes Yes Yes WC - Visit Discharge Discharge Condition Stable Stable Stable Ambulatory Status Ambulatory Ambulatory,Cane Ambulatory Transportation Private Auto Private Auto Private Auto Medication Reconcilliation completed & No No provided to patient/care provider Clinical Summary of Care Provided Yes Yes Assessment/Plan Assessment/Plan (1) Non-pressure chronic ulcer of other part of right foot with fat layer exposed: CODE(S): L97.512 - Non-pressure chronic ulcer of other part of right foot with fat layer exposed PLAN: Patient was examined and evaluated. All findings were discussed with the patient. All questions were answered to the patient's satisfaction. Excision debridement down to and including subcutaneous tissue with a #15 blade to the full-thickness ulcerations right hallux without incident. Predebridement measurement was 1.2 x 0.8 x 0.1 cm. Postdebridement measurement is 1.2 x 0.9 x 0.1 cm. EpiFix 18 mm disc was applied to the right hallux full-thickness ulceration with 100% use. Third application. The graft site was free and clear of any infection. The wound/skin graft substitute was dressed with nonadherent bandage secured in place with Steri-Strips followed by bolster dressing as well as a double layer Tubigrip. Follow-up at the wound care center with Dr. Ontiveros in 1 week. (2) Acute painful diabetic polyneuropathy: CODE(S): E11.42 - Type 2 diabetes mellitus with diabetic polyneuropathy (3) PAD (peripheral artery disease): CODE(S): I73.9 - Peripheral vascular disease, unspecified PLAN: After reviewing the patient's PVR results. This shows evidence of triphasic pulses to bilateral lower extremity. However, there shows evidence of noncompressible vessels appreciated to bilateral lower extremity with an CELESTINO of 1.63 to the right lower extremity. Will send referral over to Dr. Altamirano, vascular surgery for evaluation and consultation.
[2023-05-09 13:15] VITALS: BP 142/56; PULSE 86; RESP 16; TEMP 35.9; BMI 19.8
--- NOTE | 2023-05-09 13:31 | PN.PCM_ITS ---
History of Present Illness Date of Service: 05/09/23 Chief Complaint: Mr. Guadalupe is a 67-year-old diabetic male presenting to the wound care center today for second opinion to full-thickness ulceration to right big toe. He was seen by an outside provider at [facility]. 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 He denies trauma. Denies constitutional symptoms. Other pedal compl aints at this time. History of Wound: Chronic right hallux ulceration Subjective Subjective Mr. Matta is a 67-year-old diabetic male presenting to the wound care center today for follow-up and evaluation of full-thickness wound to the right hallux. Patient has been ambulatory in surgical shoe and wearing a diabetic shoe on his left foot. He presents today for graft application. He denies any drainage. He is doing his own home dressing changes without issues. He is still drinking pop drink. He denies trauma. Denies constitutional symptoms. No other pedal complaints at this time. Objective Data Objective Data Vital Signs: Vital Signs Temp Pulse Resp BP O2 Del Method 96.7 F L 86 16 142/56 H Room Air 05/09/23 13:15 05/09/23 13:15 05/09/23 13:15 05/09/23 13:15 05/09/23 13:15 Oxygen Delivery Method Room Air Weight: 59.24 kg Body Mass Index (BMI) 19.8 Physical Exam Narrative Vascular: DP and PT pulse are palpable. CFT is brisk. Erythema is improved to the right hallux. Nonpitting edema is appreciated to the right lower extremity. Neurological: Light touch intact. Protective sensation is absent. Dermatological: Full-thickness ulceration appreciated to the right hallux measuring 1.7 x 1.5 x 0.1 cm. Improved erytherma. No active drainage. No probe to bone. Excision debridement down to and including subcutaneous tissue with a #15 blade to the full-thickness ulcerations right hallux without incident. Predebridement measurement was 1.1 x 1.0 x 0.1 cm. Postdebridement measurement is 1.7 x 1.5 x 0.2 cm. EpiFix 18 mm disc was applied to the right hallux full-thickness ulceration with 100% use. Fourth application. The graft site was free and clear of any infection. The wound/skin graft substitute was dressed with nonadherent bandage secured in place with Steri-Strips followed by bolster dressing as well as a double layer Tubigrip. Muscle skeletal: No pain on palpation to full-thickness ulceration right hallux. No pain with calf pressure. Debridement Note Debridement Note Debridement Free Text: Excision debridement down to and including subcutaneous tissue with a #15 blade to the full-thickness ulcerations right hallux without incident. Predebridement measurement was 1.1 x 1.0 x 0.1 cm. Postdebridement measurement is 1.7 x 1.5 x 0.2 cm. EpiFix 18 mm disc was applied to the right hallux full-thickness ulceration with 100% use. Fourth application. The graft site was free and clear of any infection. The wound/skin graft substitute was dressed with nonadherent bandage secured in place with Steri-Strips followed by bolster dressing as well as a double layer Tubigrip. Post-Debridement Measurements and Additional Note: Post-Debridement Measurements/Treatment - Nurse 1 - General Ulcer Assessment Start: 04/18/23 13:09 Freq: Status: Active Protocol: .[place] Activity Type Activity Date Activity User E-sign Co-sign Detail Recorded Client Recorded Date Recorded By Document 04/18/23 13:10 Laptop 04/18/23 13:15 Document 04/25/23 13:11 [facility] Desktop 04/25/23 13:14 [facility] Document 05/02/23 13:31 Desktop 05/02/23 13:35 Document 05/09/23 13:15 [facility] Desktop 05/09/23 13:20 [facility] 04/18/23 04/25/23 05/02/23 13:10 13:11 13:31 - Today's Visit Information Type of service Follow-up Visit Follow-up Visit Follow-up Visit (Physician/POSITION DESCRIPTION MANAGER (Physician/POSITION DESCRIPTION MANAGER (Physician/POSITION DESCRIPTION MANAGER ) ) ) Arrival Mode Ambulatory Ambulatory Ambulatory Transfer Assistance None None Patient Identification Verified (Name & Yes Yes Yes ) Patient Requires Transmission-Based No No No Precautions Finger Stick Blood Sugar(mg/dl) (if 143 154 indicated): Blood Sugar Stated by Stated by Patient Patient Height and Weight Body Mass Index (BMI) 19.8 19.8 19.8 BMI Classification Normal Normal Normal Vital Signs Temperature (97.8 F-99.1 F) 96 F L 96.2 F L Temperature Source Temporal Temporal Pulse Rate (60-100) 78 89 71 Pulse Location Monitor Monitor Monitor Respiratory Rate (12-18) 16 16 18 Respiratory rate source Observation Observation Observation Oxygen Delivery Method Room Air Room Air Blood Pressure (90/60-120/80) 139/59 H 152/54 H 135/55 H Blood Pressure Mean (mm Hg) 85 86 81 Source Monitor Monitor Monitor Position Sitting Sitting Sitting Blood Pressure Location Left Arm Left Arm Left Arm History Since Last Visit- (Skip if this is Patient's initial visit) Have you changed medications since your No No No last visit? Any new allergies or adverse reactions No No No Had a fall/change in ADL's that may No No No increase risk of falls Signs or symptoms of abuse and/or No No No neglect since last visit Have you been in the hospital since your No No No last visit? Has dressing in place as prescribed Yes Yes Yes Has compression in place as prescribed N/A N/A No Has offloadiing in place as prescribed Yes N/A Yes Experienced any changes in pain level or No No No management Left Footwear Diabetic Shoe Regular Shoe Right Footwear Surgical Shoe Regular Shoe with pressure relief insole Pain Scale: 0-10 Numeric Is Patient Pain Free? Yes Yes Yes 05/09/23 13:15 WC - Today's Visit Information Type of service Follow-up Visit (Physician/POSITION DESCRIPTION MANAGER ) Arrival Mode Ambulatory Transfer Assistance None Patient Identification Verified (Name & No ) Patient Requires Transmission-Based No Precautions Finger Stick Blood Sugar(mg/dl) (if indicated): Blood Sugar Height and Weight Body Mass Index (BMI) 19.8 BMI Classification Normal Vital Signs Temperature (97.8 F-99.1 F) 96.7 F L Temperature Source Temporal Pulse Rate (60-100) 86 Pulse Location Monitor Respiratory Rate (12-18) 16 Respiratory rate source Observation Oxygen Delivery Method Room Air Blood Pressure (90/60-120/80) 142/56 H Blood Pressure Mean (mm Hg) 84 Source Manual Position Sitting Blood Pressure Location Left Arm History Since Last Visit- (Skip if this is Patient's initial visit) Have you changed medications since your No last visit? Any new allergies or adverse reactions No Had a fall/change in ADL's that may No increase risk of falls Signs or symptoms of abuse and/or No neglect since last visit Have you been in the hospital since your No last visit? Has dressing in place as prescribed Yes Has compression in place as prescribed N/A Has offloadiing in place as prescribed Yes Experienced any changes in pain level or No management Left Footwear Diabetic Shoe Right Footwear Surgical Shoe with pressure relief insole Pain Scale: 0-10 Numeric Is Patient Pain Free? Yes WC - Nurse 1 - General Ulcer Measurement Start: 04/18/23 13:09 Freq: Status: Active Protocol: Activity Type Activity Date Activity User E-sign Co-sign Detail Recorded Client Recorded Date Recorded By Document 04/18/23 13:10 Laptop 04/18/23 13:15 Document 04/25/23 13:11 [facility] [employer] 04/25/23 13:14 [facility] Document 05/02/23 13:31 Desktop 05/02/23 13:35 Document 05/09/23 13:15 [facility] Desktop 05/09/23 13:20 F 04/18/23 04/25/23 05/02/23 13:10 13:11 13:31 Wound Center Nurse 1 #5 R lateralHallux -Combined with other wound No No -Current Size (cm) - Length 1.3 1.2 0.8 -Current Size (cm) - Width 0.8 1.4 0.7 -Current Size (cm) - Depth 0.1 0.1 0.2 -Total Square Cm 1.04 1.68 0.56 -Date of Last Picture (Recall this 04/25/23 field) -Photo Taken No Yes -Epithelialization Small 1-33% Small 1-33% -Tunneling No No No -Undermining/Tunneling No No No -Circular Undermining No No No -Exudate Amt Small Medium Small -Exudate Type Serosanguineous Serosanguineous Serous -Wound Margin Flat & Intact Distinct, Flat & Intact Outline Attached -Granulation Amt Medium (34-66%) None Present (0 Small (1-33%) %) -Granulation Quality [place] -Slough/Fibrin Yes Yes No -Necrosis Amt Small (1-33%) Large (67-100%) Small (1-33%) -Necrotic Tissue Type Adherent Slough Adherent Slough Adherent Slough -Structure Exposed N/A -Texture (Maddison-wound Skin Appearance) Assessed Assessed, Assessed, Localized Edema Scarring ,Scarring -Moisture (Maddison-wound Skin Appearance) Assessed,Dry/ Assessed Assessed Scaly -Color (Maddison-wound Skin Appearance) Assessed Assessed Assessed -Temperature (Maddison-wound Skin No Abnormality No Abnormality No Abnormality Appearance) (Pt Warm) (Pt Warm) (Pt Warm) -Tenderness on Palpation (Maddison-wound No Skin Appearance) -Ulcer Cleansing Rinsed/ Soap and Water Soap and Water Irrigated with Saline -Foul Odor after Cleansing No No No -Anesthetic Used 5% Lidocaine 5% Lidocaine 5% Lidocaine Gel Gel Gel Lower Limb Edema Present NA 05/09/23 13:15 Wound Center Nurse 1 #5 R lateralHallux -Combined with other wound No -Current Size (cm) - Length 1.9 -Current Size (cm) - Width 1.5 -Current Size (cm) - Depth 0.1 -Total Square Cm 2.85 -Date of Last Picture (Recall this 05/09/23 field) -Photo Taken Yes -Epithelialization -Tunneling -Undermining/Tunneling -Circular Undermining -Exudate Amt Medium -Exudate Type Purulent -Wound Margin Distinct, Outline Attached -Granulation Amt None Present (0 %) -Granulation Quality -Slough/Fibrin Yes -Necrosis Amt Large (67-100%) -Necrotic Tissue Type Adherent Slough -Structure Exposed -Texture (Maddison-wound Skin Appearance) Assessed, Scarring -Moisture (Maddison-wound Skin Appearance) Assessed -Color (Maddison-wound Skin Appearance) Assessed -Temperature (Maddison-wound Skin No Abnormality Appearance) (Pt Warm) -Tenderness on Palpation (Maddison-wound No Skin Appearance) -Ulcer Cleansing Soap and Water -Foul Odor after Cleansing No -Anesthetic Used 5% Lidocaine Gel Lower Limb Edema Present WC - Nurse 2 - General Ulcer CM Notes Start: 04/18/23 13:09 Freq: Status: Active Protocol: Activity Type Activity Date Activity User E-sign Co-sign Detail Recorded Client Recorded Date Recorded By Document 04/18/23 13:19 Laptop 04/18/23 13:24 Document 04/25/23 13:17 Laptop 04/25/23 13:25 Document 05/02/23 13:41 Laptop 05/02/23 13:44 JF Document 05/09/23 13:29 Laptop 05/09/23 13:31 04/18/23 04/25/23 05/02/23 13:19 13:17 13:41 Wound Center Nurse 2 #5 R lateralHallux -Time 13:21 13:24 13:42 -Correct Patient Yes Yes Yes -Correct Side, Site, Position Yes Yes Yes -Correct Procedure Yes Yes Yes -Procedure Performed Yes Yes Yes -Type of Procedure Debridement Debridement Debridement -Clinical Debridement Subcutaneous Subcutaneous Subcutaneous -Tissue Removed Subcutaneous Subcutaneous Subcutaneous -Post Debridement (cm) - Length 1.2 1.2 -Post Debridement (cm) - Width 1.3 0.9 -Post Debridement (cm) - Depth 0.3 0.1 -Total Square (Post) (cm) 1.56 1.08 -Area of Debridement (cm) - Length 1.2 1.2 -Area of Debridement (cm) - Width 1.3 0.9 -Total Square (Area) (cm) 1.56 1.08 -Tunneling No No No -Undermining/Tunneling No No No -Circular Undermining No No No -Wound/Ulcer Outcome Not Healed Not Healed Not Healed -Ulcer Cleansing Rinsed/ Rinsed/ Rinsed/ Irrigated with Irrigated with Irrigated with Saline Saline Saline -Foul Odor after Cleansing No No No -Bioengineered Tissue Yes Yes Yes -Type of Bioengineered Tissue -Type of Bioengineered Tissue Epifix 18mm Epifix 18mm Epifix 18mm Disc Disc Disc -Expiration Date 12/16/27 12/16/27 12/16/27 -Product Lot Number [id number] -Percent Used 100 100 100 -Lot number of Saline Used [id number] -Bleeding Controlled with Pressure Pressure Pressure -Treatment Response Procedure Procedure Procedure Tolerated Well Tolerated Well Tolerated Well -Offloading Yes Yes No -Type of Offloading Surgical Shoe Surgical Shoe -Debridement - Subq, 1st 20sq cm No No No -Apply Skin Sub - 1st 25 sq cm - Feet 1 1 1 -Epifix 18mm Disc 3 3 3 Pain Scale: 0-10 Numeric Is Patient Pain Free? Yes Yes Yes 05/09/23 13:29 Wound Center Nurse 2 #5 R lateralHallux -Time 13:29 -Correct Patient Yes -Correct Side, Site, Position Yes -Correct Procedure Yes -Procedure Performed Yes -Type of Procedure Debridement -Clinical Debridement Subcutaneous -Tissue Removed Subcutaneous -Post Debridement (cm) - Length 1.7 -Post Debridement (cm) - Width 1.5 -Post Debridement (cm) - Depth 0.2 -Total Square (Post) (cm) 2.55 -Area of Debridement (cm) - Length 1.7 -Area of Debridement (cm) - Width 1.5 -Total Square (Area) (cm) 2.55 -Tunneling No -Undermining/Tunneling No -Circular Undermining No -Wound/Ulcer Outcome Not Healed -Ulcer Cleansing Rinsed/ Irrigated with Saline -Foul Odor after Cleansing No -Bioengineered Tissue Yes -Type of Bioengineered Tissue Epifix 18mm Disc -Type of Bioengineered Tissue -Expiration Date 12/16/27 -Product Lot Number [id number] -Percent Used 100 -Lot number of Saline Used [id number] -Bleeding Controlled with Pressure -Treatment Response Procedure Tolerated Well -Offloading Yes -Type of Offloading Surgical Shoe -Debridement - Subq, 1st 20sq cm Yes -Apply Skin Sub - 1st 25 sq cm - Feet -Epifix 18mm Disc Pain Scale: 0-10 Numeric Is Patient Pain Free? Yes - Nurse 3 - General Ulcer D/C NN Start: 04/18/23 13:09 Freq: Status: Active Protocol: Activity Type Activity Date Activity User E-sign Co-sign Detail Recorded Client Recorded Date Recorded By Document 04/18/23 13:28 KW Desktop 04/18/23 13:28 KW Document 04/25/23 13:28 KW Desktop 04/25/23 13:28 KW Document 05/02/23 13:47 KW Desktop 05/02/23 13:47 KW 04/18/23 04/25/23 05/02/23 13:28 13:28 13:47 Wound Care Center Nurse 3 #5 R lateralHallux -Other Dressing epifix -Primary Dressing Covered/Secured with Dry Gauze & Dry Gauze, Dry Gauze & Roll Gauze, Secured with Roll Gauze, Secured with Tape Secured with Tape Tape Treatment Response Procedure Tolerated Well Pain Scale: 0-10 Numeric Is Patient Pain Free? Yes Yes Yes WC - Visit Discharge Discharge Condition Stable Stable Stable Ambulatory Status Ambulatory Ambulatory,Cane Ambulatory Transportation Private Auto Private Auto Private Auto Medication Reconcilliation completed & No No provided to patient/care provider Clinical Summary of Care Provided Yes Yes Assessment/Plan Assessment/Plan (1) Non-pressure chronic ulcer of other part of right foot with fat layer exposed: CODE(S): L97.512 - Non-pressure chronic ulcer of other part of right foot with fat layer exposed PLAN: Patient was examined and evaluated. All findings were discussed with the patient. All questions were answered to the patient's satisfaction. [insert]Excision debridement down to and including subcutaneous tissue with a #15 blade to the full-thickness ulcerations right hallux without incident. Predebridement measurement was 1.1 x 1.0 x 0.1 cm. Postdebridement measurement is 1.7 x 1.5 x 0.2 cm. EpiFix 18 mm disc was applied to the right hallux full-thickness ulceration with 100% use. Fourth application. The graft site was free and clear of any infection. The wound/skin graft substitute was dressed with nonadherent bandage secured in place with Steri-Strips followed by bolster dressing as well as a double layer Tubigrip. Educated the patient to stop drinking carbonated sodas as they will increase his blood sugar. Educated him on strict blood sugar control to get his wound to heal. The wound shows no evidence of erythema or sign of infection at this time. The patient will follow-up with Dr. Altamirano for evaluation on 05/27/2023. Follow-up at the wound care center with Dr. Ontiveros in 1 week. (2) PAD (peripheral artery disease): CODE(S): I73.9 - Peripheral vascular disease, unspecified
[2023-05-16 13:41] VITALS: BP 109/48; PULSE 66; RESP 16; BMI 19.8
--- NOTE | 2023-05-16 14:23 | PCM.WC.PN ---
History of Present Illness Date of Service: 05/16/23 Chief Complaint: Mr. Guadalupe is a 67-year-old diabetic male presenting to the wound care center today for second opinion to full-thickness ulceration to right big toe. He was seen by an outside provider at [facility]. [facility] furniture mechanic is his primary furniture mechanic but is sending to the wound care center today for the full-thickness wound to the right hallux for treatment and care. He denies trauma. Denies constitutional symptoms. Other pedal complaints at this time. History of Wound: Chronic right hallux ulceration Subjective Subjective Mr. Matta is a 67-year-old diabetic male presenting to the wound care center today for follow-up and evaluation of full-thickness wound to the right hallux. Patient has been ambulatory in surgical shoe and wearing a diabetic shoe on his left foot. He presents today for graft application. He denies any drainage. He is doing his own home dressing changes without issues. He will be following with Dr. Altamirano next week. He denies trauma. Denies constitutional symptoms. No other pedal complaints at this time. Objective Data Objective Data Vital Signs: Vital Signs Temp Pulse Resp BP O2 Del Method 96.7 F L 66 16 109/48 L Room Air 05/09/23 13:15 05/16/23 13:41 05/16/23 13:41 05/16/23 13:41 05/16/23 13:41 Oxygen Delivery Method Room Air Weight: 59.24 kg Body Mass Index (BMI) 19.8 Physical Exam Narrative Vascular: DP and PT pulse are palpable. CFT is brisk. Erythema is improved to the right hallux. Nonpitting edema is appreciated to the right lower extremity. Neurological: Light touch intact. Protective sensation is absent. Dermatological: Full-thickness ulceration appreciated to the right hallux measuring 1.2 x 1.4 x 0.1 cm. Improved erytherma. No active drainage. No probe to bone. Excision debridement down to and including subcutaneous tissue with a #15 blade to the full-thickness ulcerations right hallux without incident. Predebridement measurement was 1.0 x 1.2 x 0.1 cm. Postdebridement measurement is 1.2 x 1.4 x 0.1 cm. EpiFix 18 mm disc was applied to the right hallux full-thickness ulceration with 100% use. Fifth application. The graft site was free and clear of any infection. The wound/skin graft substitute was dressed with nonadherent bandage secured in place with Steri-Strips followed by bolster dressing as well as a double layer Tubigrip. Muscle skeletal: No pain on palpation to full-thickness ulceration right hallux. No pain with calf pressure. Debridement Note Debridement Note Debridement Free Text: Excision debridement down to and including subcutaneous tissue with a #15 blade to the full-thickness ulcerations right hallux without incident. Predebridement measurement was 1.0 x 1.2 x 0.1 cm. Postdebridement measurement is 1.2 x 1.4 x 0.1 cm. EpiFix 18 mm disc was applied to the right hallux full-thickness ulceration with 100% use. Fifth application. The graft site was free and clear of any infection. The wound/skin graft substitute was dressed with nonadherent bandage secured in place with Steri-Strips followed by bolster dressing as well as a double layer Tubigrip. Post-Debridement Measurements and Additional Note: Post-Debridement Measurements/Treatment - Nurse 1 - General Ulcer Assessment Start: 04/18/23 13:09 Freq: Status: Active Protocol: ANIA.LORAINE Activity Type Activity Date Activity User E-sign Co-sign Detail Recorded Client Recorded Date Recorded By Document 04/18/23 13:10 Laptop 04/18/23 13:15 Document 04/25/23 13:11 [facility] Desktop 04/25/23 13:14 [facility] Document 05/02/23 13:31 Desktop 05/02/23 13:35 Document 05/09/23 13:15 [facility] Desktop 05/09/23 13:20 [facility] Document 05/16/23 13:41 Desktop 05/16/23 13:43 04/18/23 04/25/23 05/02/23 13:10 13:11 13:31 - Today's Visit Information Type of service Follow-up Visit Follow-up Visit Follow-up Visit (Physician/SERVICE ORDER TAKER (Physician/SERVICE ORDER TAKER (Physician/SERVICE ORDER TAKER ) ) ) Arrival Mode Ambulatory Ambulatory Ambulatory Transfer Assistance None None Patient Identification Verified (Name & Yes Yes Yes ) Patient Requires Transmission-Based No No No Precautions Finger Stick Blood Sugar(mg/dl) (if 143 154 indicated): Blood Sugar Stated by Stated by Patient Patient Height and Weight Body Mass Index (BMI) 19.8 19.8 19.8 BMI Classification Normal Normal Normal Vital Signs Temperature (97.8 F-99.1 F) 96 F L 96.2 F L Temperature Source Temporal Temporal Pulse Rate (60-100) 78 89 71 Pulse Location Monitor Monitor Monitor Respiratory Rate (12-18) 16 16 18 Respiratory rate source Observation Observation Observation Oxygen Delivery Method Room Air Room Air Blood Pressure (90/60-120/80) 139/59 H 152/54 H 135/55 H Blood Pressure Mean (mm Hg) 85 86 81 Source Monitor Monitor Monitor Position Sitting Sitting Sitting Blood Pressure Location Left Arm Left Arm Left Arm History Since Last Visit- (Skip if this is Patient's initial visit) Have you changed medications since your No No No last visit? Any new allergies or adverse reactions No No No Had a fall/change in ADL's that may No No No increase risk of falls Signs or symptoms of abuse and/or No No No neglect since last visit Have you been in the hospital since your No No No last visit? Has dressing in place as prescribed Yes Yes Yes Has compression in place as prescribed N/A N/A No Has offloadiing in place as prescribed Yes N/A Yes Experienced any changes in pain level or No No No management Left Footwear Diabetic Shoe Regular Shoe Right Footwear Surgical Shoe Regular Shoe with pressure relief insole Pain Scale: 0-10 Numeric Is Patient Pain Free? Yes Yes Yes 05/09/23 05/16/23 13:15 13:41 WC - Today's Visit Information Type of service Follow-up Visit Follow-up Visit (Physician/SERVICE ORDER TAKER (Physician/SERVICE ORDER TAKER ) ) Arrival Mode Ambulatory Ambulatory,Cane Transfer Assistance None None Patient Identification Verified (Name & No Yes ) Patient Requires Transmission-Based No No Precautions Finger Stick Blood Sugar(mg/dl) (if 128 indicated): Blood Sugar Stated by Patient Height and Weight Body Mass Index (BMI) 19.8 19.8 BMI Classification Normal Normal Vital Signs Temperature (97.8 F-99.1 F) 96.7 F L Temperature Source Temporal Pulse Rate (60-100) 86 66 Pulse Location Monitor Monitor Respiratory Rate (12-18) 16 16 Respiratory rate source Observation Observation Oxygen Delivery Method Room Air Room Air Blood Pressure (90/60-120/80) 142/56 H 109/48 L Blood Pressure Mean (mm Hg) 84 68 Source Manual Monitor Position Sitting Semi-Fowlers Blood Pressure Location Left Arm Right Arm History Since Last Visit- (Skip if this is Patient's initial visit) Have you changed medications since your No No last visit? Any new allergies or adverse reactions No No Had a fall/change in ADL's that may No No increase risk of falls Signs or symptoms of abuse and/or No No neglect since last visit Have you been in the hospital since your No No last visit? Has dressing in place as prescribed Yes Yes Has compression in place as prescribed N/A N/A Has offloadiing in place as prescribed Yes Yes Experienced any changes in pain level or No No management Left Footwear Diabetic Shoe Regular Shoe Right Footwear Surgical Shoe Surgical Shoe with pressure with pressure relief insole relief insole Pain Scale: 0-10 Numeric Is Patient Pain Free? Yes Yes WC - Nurse 1 - General Ulcer Measurement Start: 04/18/23 13:09 Freq: Status: Active Protocol: Activity Type Activity Date Activity User E-sign Co-sign Detail Recorded Client Recorded Date Recorded By Document 04/18/23 13:10 [employer] Laptop 04/18/23 13:15 Document 04/25/23 13:11 [facility] Desktop 04/25/23 13:14 [facility] Document 05/02/23 13:31 Desktop 05/02/23 13:35 Document 05/09/23 13:15 [facility] Desktop 05/09/23 13:20 [facility] Document 05/16/23 13:41 Desktop 05/16/23 13:43 04/18/23 04/25/23 05/02/23 13:10 13:11 13:31 Wound Center Nurse 1 #5 R lateralHallux -Combined with other wound No No -Current Size (cm) - Length 1.3 1.2 0.8 -Current Size (cm) - Width 0.8 1.4 0.7 -Current Size (cm) - Depth 0.1 0.1 0.2 -Total Square Cm 1.04 1.68 0.56 -Date of Last Picture (Recall this 04/25/23 field) -Photo Taken No Yes -Epithelialization Small 1-33% Small 1-33% -Tunneling No No No -Undermining/Tunneling No No No -Circular Undermining No No No -Exudate Amt Small Medium Small -Exudate Type Serosanguineous Serosanguineous Serous -Wound Margin Flat & Intact Distinct, Flat & Intact Outline Attached -Granulation Amt Medium (34-66%) None Present (0 Small (1-33%) %) -Granulation Quality [place] -Slough/Fibrin Yes Yes No -Necrosis Amt Small (1-33%) Large (67-100%) Small (1-33%) -Necrotic Tissue Type Adherent Slough Adherent Slough Adherent Slough -Structure Exposed N/A -Texture (Maddison-wound Skin Appearance) Assessed Assessed, Assessed, Localized Edema Scarring ,Scarring -Moisture (Maddison-wound Skin Appearance) Assessed,Dry/ Assessed Assessed Scaly -Color (Maddison-wound Skin Appearance) Assessed Assessed Assessed -Temperature (Maddison-wound Skin No Abnormality No Abnormality No Abnormality Appearance) (Pt Warm) (Pt Warm) (Pt Warm) -Tenderness on Palpation (Maddison-wound No Skin Appearance) -Ulcer Cleansing Rinsed/ Soap and Water Soap and Water Irrigated with Saline -Foul Odor after Cleansing No No No -Anesthetic Used 5% Lidocaine 5% Lidocaine 5% Lidocaine Gel Gel Gel Lower Limb Edema Present NA 05/09/23 05/16/23 13:15 13:41 Wound Center Nurse 1 #5 R lateralHallux -Combined with other wound No No -Current Size (cm) - Length 1.9 1.5 -Current Size (cm) - Width 1.5 1.4 -Current Size (cm) - Depth 0.1 0.1 -Total Square Cm 2.85 2.10 -Date of Last Picture (Recall this 05/09/23 field) -Photo Taken Yes No -Epithelialization Small 1-33% -Tunneling No -Undermining/Tunneling No -Circular Undermining No -Exudate Amt Medium Small -Exudate Type Purulent Serosanguineous -Wound Margin Distinct, Distinct, Outline Outline Attached Attached -Granulation Amt None Present (0 Medium (34-66%) %) -Granulation Quality [place] -Slough/Fibrin Yes Yes -Necrosis Amt Large (67-100%) Medium (34-66%) -Necrotic Tissue Type Adherent Slough -Structure Exposed N/A -Texture (Maddison-wound Skin Appearance) Assessed, Assessed Scarring -Moisture (Maddison-wound Skin Appearance) Assessed Assessed -Color (Maddison-wound Skin Appearance) Assessed Assessed -Temperature (Maddison-wound Skin No Abnormality No Abnormality Appearance) (Pt Warm) (Pt Warm) -Tenderness on Palpation (Maddison-wound No No Skin Appearance) -Ulcer Cleansing Soap and Water Soap and Water -Foul Odor after Cleansing No -Anesthetic Used 5% Lidocaine 5% Lidocaine Gel Gel Lower Limb Edema Present WC - Nurse 2 - General Ulcer CM Notes Start: 04/18/23 13:09 Freq: Status: Active Protocol: Activity Type Activity Date Activity User E-sign Co-sign Detail Recorded Client Recorded Date Recorded By Document 04/18/23 13:19 Laptop 04/18/23 13:24 JF Document 04/25/23 13:17 JF Laptop 04/25/23 13:25 JF Document 05/02/23 13:41 JF Laptop 05/02/23 13:44 JF Document 05/09/23 13:29 JF Laptop 05/09/23 13:31 Edit Result 05/09/23 13:29 JF (1) [id number] 05/10/23 07:10 PL Document 05/16/23 13:50 JF Laptop 05/16/23 13:58 JF (1) #5 R lateralHallux - Debridement - Subq, 1st 20sq cm Yes => No - Apply Skin Sub - 1st 25 sq cm - Feet => 1 - Epifix 18mm Disc => 3 04/18/23 04/25/23 05/02/23 13:19 13:17 13:41 Wound Center Nurse 2 #5 R lateralHallux -Time 13:21 13:24 13:42 -Correct Patient Yes Yes Yes -Correct Side, Site, Position Yes Yes Yes -Correct Procedure Yes Yes Yes -Procedure Performed Yes Yes Yes -Type of Procedure Debridement Debridement Debridement -Clinical Debridement Subcutaneous Subcutaneous Subcutaneous -Tissue Removed Subcutaneous Subcutaneous Subcutaneous -Post Debridement (cm) - Length 1.2 1.2 -Post Debridement (cm) - Width 1.3 0.9 -Post Debridement (cm) - Depth 0.3 0.1 -Total Square (Post) (cm) 1.56 1.08 -Area of Debridement (cm) - Length 1.2 1.2 -Area of Debridement (cm) - Width 1.3 0.9 -Total Square (Area) (cm) 1.56 1.08 -Tunneling No No No -Undermining/Tunneling No No No -Circular Undermining No No No -Wound/Ulcer Outcome Not Healed Not Healed Not Healed -Ulcer Cleansing Rinsed/ Rinsed/ Rinsed/ Irrigated with Irrigated with Irrigated with Saline Saline Saline -Foul Odor after Cleansing No No No -Bioengineered Tissue Yes Yes Yes -Type of Bioengineered Tissue -Type of Bioengineered Tissue Epifix 18mm Epifix 18mm Epifix 18mm Disc Disc Disc -Expiration Date 12/16/27 12/16/27 12/16/27 -Product Lot Number [id number] -Percent Used 100 100 100 -Lot number of Saline Used [id number] -Bleeding Controlled with Pressure Pressure Pressure -Treatment Response Procedure Procedure Procedure Tolerated Well Tolerated Well Tolerated Well -Offloading Yes Yes No -Type of Offloading Surgical Shoe Surgical Shoe -Debridement - Subq, 1st 20sq cm No No No -Apply Skin Sub - 1st 25 sq cm - Feet 1 1 1 -Epifix 18mm Disc 3 3 3 Pain Scale: 0-10 Numeric Is Patient Pain Free? Yes Yes Yes 05/09/23 05/16/23 13:29 13:50 Wound Center Nurse 2 #5 R lateralHallux -Time 13:29 13:50 -Correct Patient Yes Yes -Correct Side, Site, Position Yes Yes -Correct Procedure Yes Yes -Procedure Performed Yes Yes -Type of Procedure Debridement Debridement -Clinical Debridement Subcutaneous Subcutaneous -Tissue Removed Subcutaneous Subcutaneous -Post Debridement (cm) - Length 1.7 -Post Debridement (cm) - Width 1.5 -Post Debridement (cm) - Depth 0.2 -Total Square (Post) (cm) 2.55 -Area of Debridement (cm) - Length 1.7 -Area of Debridement (cm) - Width 1.5 -Total Square (Area) (cm) 2.55 -Tunneling No No -Undermining/Tunneling No No -Circular Undermining No No -Wound/Ulcer Outcome Not Healed Not Healed -Ulcer Cleansing Rinsed/ Rinsed/ Irrigated with Irrigated with Saline Saline -Foul Odor after Cleansing No No -Bioengineered Tissue Yes Yes -Type of Bioengineered Tissue Epifix 18mm Epifix 18mm Disc Disc -Type of Bioengineered Tissue -Expiration Date 12/16/27 01/15/28 -Product Lot Number [id number] -Percent Used 100 100 -Lot number of Saline Used [id number] -Bleeding Controlled with Pressure Pressure -Treatment Response Procedure Procedure Tolerated Well Tolerated Well -Offloading Yes No -Type of Offloading Surgical Shoe -Debridement - Subq, 1st 20sq cm No No -Apply Skin Sub - 1st 25 sq cm - Feet 1 1 -Epifix 18mm Disc 3 3 Pain Scale: 0-10 Numeric Is Patient Pain Free? Yes Yes - Nurse 3 - General Ulcer D/C NN Start: 04/18/23 13:09 Freq: Status: Active Protocol: Activity Type Activity Date Activity User E-sign Co-sign Detail Recorded Client Recorded Date Recorded By Document 04/18/23 13:28 KW Desktop 04/18/23 13:28 KW Document 04/25/23 13:28 KW Desktop 04/25/23 13:28 KW Document 05/02/23 13:47 KW Desktop 05/02/23 13:47 KW Document 05/09/23 13:32 Desktop 05/09/23 13:34 Document 05/16/23 14:11 KW Desktop 05/16/23 14:11 KW 04/18/23 04/25/23 05/02/23 13:28 13:28 13:47 Wound Care Center Nurse 3 #5 R lateralHallux -Ulcer Cleansing -Foul Odor after Cleansing -Other Dressing epifix -Primary Dressing Covered/Secured with Dry Gauze & Dry Gauze, Dry Gauze & Roll Gauze, Secured with Roll Gauze, Secured with Tape Secured with Tape Tape -Other Covering Treatment Response Procedure Tolerated Well Pain Scale: 0-10 Numeric Is Patient Pain Free? Yes Yes Yes Teaching: Wound Center Dressing wound -Person Taught -Teaching Method -Response to teaching - Visit Discharge Discharge Condition Stable Stable Stable Ambulatory Status Ambulatory Ambulatory,Cane Ambulatory Transportation Private Auto Private Auto Private Auto Medication Reconcilliation completed & No No provided to patient/care provider Clinical Summary of Care Provided Yes Yes 01/24/24 01/31/24 13:32 14:11 Wound Care Center Nurse 3 #5 R lateralHallux -Ulcer Cleansing Not Cleansed -Foul Odor after Cleansing No -Other Dressing -Primary Dressing Covered/Secured with Dry Gauze, Dry Gauze & Secured with Roll Gauze, Tape,Other Secured with Tape -Other Covering coban Treatment Response Pain Scale: 0-10 Numeric Is Patient Pain Free? Yes Yes Teaching: Wound Center Dressing wound -Person Taught Patient -Teaching Method Demonstration -Response to teaching Verbalize understanding WC - Visit Discharge Discharge Condition Stable Stable Ambulatory Status Ambulatory,Cane Ambulatory,Cane Transportation Private Auto Private Auto Medication Reconcilliation completed & Yes No provided to patient/care provider Clinical Summary of Care Provided Yes Yes Assessment/Plan Assessment/Plan (1) Non-pressure chronic ulcer of other part of right foot with fat layer exposed: CODE(S): L97.512 - Non-pressure chronic ulcer of other part of right foot with fat layer exposed PLAN: Patient was examined and evaluated. All findings were discussed with the patient. All questions were answered to the patient's satisfaction. Excision debridement down to and including subcutaneous tissue with a #15 blade to the full-thickness ulcerations right hallux without incident. Predebridement measurement was 1.0 x 1.2 x 0.1 cm. Postdebridement measurement is 1.2 x 1.4 x 0.1 cm. EpiFix 18 mm disc was applied to the right hallux full-thickness ulceration with 100% use. Fifth application. The graft site was free and clear of any infection. The wound/skin graft substitute was dressed with nonadherent bandage secured in place with Steri-Strips followed by bolster dressing as well as a double layer Tubigrip. Follow-up at the wound care center with Dr. Ontiveros in 1 week. (2) Acute painful diabetic polyneuropathy: CODE(S): E11.42 - Type 2 diabetes mellitus with diabetic polyneuropathy (3) PAD (peripheral artery disease): CODE(S): I73.9 - Peripheral vascular disease, unspecified PLAN: Patient will be following up with vascular surgery next week for evaluation and possible intervention.
== END 2023-05-16 23:59 | disposition home or self-care (01) ==
LOC: WC 13:15
PROVIDERS: PCP Student in an Organized Health Care Education/Training Program; Referring Provider Podiatrist Foot & Ankle Surgery; Visit Provider Podiatrist Foot & Ankle Surgery
DX: L97.512 Non-pressure chronic ulcer of other part of right foot with fat layer exposed (principal); E11.42 Type 2 diabetes mellitus with diabetic polyneuropathy; I73.9 Peripheral vascular disease, unspecified; R60.0 Localized edema
CPT/HCPCS: 11042; 15275; 93923; 93970; Q4186

== ENCOUNTER 2023-06-13 13:15 | Outpatient (RCR) | payer MEDICARE, OTHER, SELFPAY ==
[2023-05-17 00:51] VITALS: BP 109/48; PULSE 66; RESP 16; TEMP 35.9; BMI 19.8
[2023-05-23 13:20] VITALS: BP 124/61; PULSE 71; RESP 16; TEMP 35.7; BMI 19.8
--- NOTE | 2023-05-23 15:04 | RAD_ITS ---
INDICATION: ULCER EXAMINATION/TECHNIQUE: X-RAY - RIGHT XR Foot Min 3 Views 3 VIEWS COMPARISON: No relevant prior comparison study available FINDINGS: SOFT TISSUES: No soft tissue swelling or gas. Vascular calcifications. BONES/JOINTS: No acute fracture or subluxation. Well-defined bony density lateral to the cuboid and the base of the fifth metatarsal could be due to old injury. Mild degenerative arthrosis of the metatarsophalangeal joint of the great toe. No evidence of erosions. No sclerotic or destructive changes observed. RAD/Foot min 3 Views IMPRESSION: No evidence of acute osseous changes. Electronically Signed: Ambrosio Martinez MD at 8:08 EST ,
--- NOTE | 2023-05-23 15:08 | PN.PCM_ITS ---
History of Present Illness Date of Service: 05/23/23 Chief Complaint: Mr. Guadalupe is a 67-year-old diabetic male presenting to the wound care center today for second opinion to full-thickness ulceration to right big toe. He was seen by an outside provider at [facility]. [facility] mulcher operator is his primary mulcher operator but is sending to the wound care center today for the full-thickness wound to the right hallux for treatment and care. He denies trauma. Denies constitutional symptoms. Other pedal compl aints at this time. History of Wound: Chronic right hallux ulceration Subjective Subjective Mr. Matta is a 67-year-old diabetic male presenting to the wound care center today for follow-up and evaluation of full-thickness wound to the right hallux. Patient has been ambulatory in surgical shoe and wearing a diabetic shoe on his left foot. He presents today for graft application. He denies any drainage. He is doing his own home dressing changes without issues. He denies trauma. Denies constitutional symptoms. No other pedal complaints at this time Objective Data Objective Data Vital Signs: Vital Signs Temp Pulse Resp BP O2 Del Method 96.3 F L 71 16 124/61 H Room Air 05/23/23 13:20 05/23/23 13:20 05/23/23 13:20 05/23/23 13:20 05/23/23 13:20 Oxygen Delivery Method Room Air Weight: 59.24 kg Body Mass Index (BMI) 19.8 Physical Exam Narrative Vascular: DP and PT pulse are palpable. CFT is brisk. Erythema is improved to the right hallux. Nonpitting edema is appreciated to the right lower extremity. Neurological: Light touch intact. Protective sensation is absent. Dermatological: Full-thickness ulceration appreciated to the right hallux measuring 1.8 x 1.7 x 0.3 cm. Probe to periosteum. Improved erytherma. No active drainage. No probe to bone. Excision debridement down to and including subcutaneous tissue with a #15 blade to the full-thickness ulcerations right hallux without incident. Predebridement measurement was 1.5 x 1.5 x 0.1 cm. Postdebridement measurement is 1.8 x 1.7 x 0.1 cm. EpiFix 18 mm disc was applied to the right hallux full-thickness ulceration with 100% use. Sixth application. The graft site was free and clear of any infection. The wound/skin graft substitute was dressed with nonadherent bandage secured in place with Steri-Strips followed by bolster dressing as well as a double layer Tubigrip. Muscle skeletal: No pain on palpation to full-thickness ulceration right hallux. No pain with calf pressure. Debridement Note Debridement Note Debridement Free Text: Excision debridement down to and including subcutaneous tissue with a #15 blade to the full-thickness ulcerations right hallux without incident. Predebridement measurement was 1.5 x 1.5 x 0.1 cm. Postdebridement measurement is 1.8 x 1.7 x 0.1 cm. EpiFix 18 mm disc was applied to the right hallux full-thickness ulceration with 100% use. Sixth application. The graft site was free and clear of any infection. The wound/skin graft substitute was dressed with nonadherent bandage secured in place with Steri-Strips followed by bolster dressing as well as a double layer Tubigrip. Post-Debridement Measurements and Additional Note: Post-Debridement Measurements/Treatment - Nurse 1 - General Ulcer Assessment Start: 05/23/23 13:20 Freq: Status: Active Protocol: [email or web address].[email or web address] Activity Type Activity Date Activity User E-sign Co-sign Detail Recorded Client Recorded Date Recorded By Document 05/23/23 13:20 KW Desktop 05/23/23 13:31 KW 05/23/23 13:20 - Today's Visit Information Type of service Follow-up Visit (Physician/GRATED [employer]KER ) Arrival Mode Ambulatory,Cane Patient Identification Verified (Name & Yes ) Finger Stick Blood Sugar(mg/dl) (if 107 indicated): Blood Sugar Stated by Patient Height and Weight Body Mass Index (BMI) 19.8 BMI Classification Normal Vital Signs Temperature (97.8 F-99.1 F) 96.3 F L Temperature Source Temporal Pulse Rate (60-100) 71 Pulse Location Monitor Respiratory Rate (12-18) 16 Respiratory rate source Observation Oxygen Delivery Method Room Air Blood Pressure (90/60-120/80) 124/61 H Blood Pressure Mean (mm Hg) 82 Source Monitor Position Semi-Fowlers Blood Pressure Location Left Arm History Since Last Visit- (Skip if this is Patient's initial visit) Have you changed medications since your No last visit? Any new allergies or adverse reactions No Had a fall/change in ADL's that may No increase risk of falls Signs or symptoms of abuse and/or No neglect since last visit Have you been in the hospital since your No last visit? Has dressing in place as prescribed Yes Has compression in place as prescribed No Has offloadiing in place as prescribed Yes Experienced any changes in pain level or No management Left Footwear Regular Shoe Right Footwear Wedge Shoe Pain Scale: 0-10 Numeric Is Patient Pain Free? Yes - Nurse 1 - General Ulcer Measurement Start: 05/23/23 13:20 Freq: Status: Active Protocol: Activity Type Activity Date Activity User E-sign Co-sign Detail Recorded Client Recorded Date Recorded By Document 05/23/23 13:20 KW Desktop 05/23/23 13:31 KW 05/23/23 13:20 Wound Center Nurse 1 #5 R lateralHallux -Current Size (cm) - Length 1.1 -Current Size (cm) - Width 1 -Current Size (cm) - Depth 0.2 -Total Square Cm 1.1 -Exudate Amt Medium -Exudate Type Serosanguineous -Wound Margin Distinct, Outline Attached -Granulation Amt Medium (34-66%) -Granulation Quality [place],Red -Necrosis Amt Medium (34-66%) -Necrotic Tissue Type Adherent Slough -Texture (Maddison-wound Skin Appearance) Assessed -Moisture (Maddison-wound Skin Appearance) Assessed -Color (Maddison-wound Skin Appearance) Assessed -Temperature (Maddison-wound Skin No Abnormality Appearance) (Pt Warm) -Ulcer Cleansing Soap and Water -Anesthetic Used 5% Lidocaine Gel - Nurse 2 - General Ulcer CM Notes Start: 05/23/23 13:20 Freq: Status: Active Protocol: Activity Type Activity Date Activity User E-sign Co-sign Detail Recorded Client Recorded Date Recorded By Document 05/23/23 13:39 Laptop 05/23/23 13:46 05/23/23 13:39 Wound Center Nurse 2 -Time 13:39 -Correct Patient Yes -Correct Side, Site, Position Yes -Correct Procedure Yes -Procedure Performed Yes -Type of Procedure Debridement -Clinical Debridement Bone -Tissue Removed Slough -Post Debridement (cm) - Length 1.8 -Post Debridement (cm) - Width 1.7 -Post Debridement (cm) - Depth 0.3 -Total Square (Post) (cm) 3.06 -Area of Debridement (cm) - Length 1.8 -Area of Debridement (cm) - Width 1.7 -Total Square (Area) (cm) 3.06 -Tunneling No -Undermining/Tunneling No -Circular Undermining No -Wound/Ulcer Outcome Not Healed -Ulcer Cleansing Rinsed/ Irrigated with Saline -Foul Odor after Cleansing No -Bioengineered Tissue Yes -Type of Bioengineered Tissue Epifix 18mm Disc -Expiration Date 01/15/28 -Product Lot Number [id number] -Percent Used 100 -Lot number of Saline Used [id number] -Bleeding Controlled with Pressure -Treatment Response Procedure Tolerated Well -Offloading Yes -Type of Offloading Surgical Shoe -Debridement - Subq, 1st 20sq cm No -Debridement - Bone, 1st 20sq cm No -Apply Skin Sub - 1st 25 sq cm - Feet 1 -Epifix 18mm Disc 3 Pain Scale: 0-10 Numeric Is Patient Pain Free? Yes - Nurse 3 - General Ulcer D/C NN Start: 05/23/23 13:20 Freq: Status: Active Protocol: Activity Type Activity Date Activity User E-sign Co-sign Detail Recorded Client Recorded Date Recorded By Document 05/23/23 13:48 KW Desktop 05/23/23 13:49 KW 05/23/23 13:48 Wound Care Center Nurse 3 #5 R lateralHallux -Primary Dressing Covered/Secured with Dry Gauze & Roll Gauze, Secured with Tape Pain Scale: 0-10 Numeric Is Patient Pain Free? 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 All findings were discussed with the patient. All questions were answered to the patient's satisfaction. Excision debridement down to and including subcutaneous tissue with a #15 blade to the full-thickness ulcerations right hallux without incident. Predebridement measurement was 1.5 x 1.5 x 0.1 cm. Postdebridement measurement is 1.8 x 1.7 x 0.1 cm. EpiFix 18 mm disc was applied to the right hallux full-thickness ulceration with 100% use. Sixth application. The graft site was free and clear of any infection. The wound/skin graft substitute was dressed with nonadherent bandage secured in place with Steri-Strips followed by bolster dressing as well as a double layer Tubigrip. Follow-up at the wound care center with Dr. Ontiveros in 1 week. (2) PAD (peripheral artery disease): CODE(S): I73.9 - Peripheral vascular disease, unspecified PLAN: Patient will follow-up with Dr. Altamirano this week for consultation.
--- NOTE | 2023-05-30 15:47 | PCM.WC.PN ---
History of Present Illness Date of Service: 05/30/23 Chief Complaint: Mr. Guadalupe is a 67-year-old diabetic male presenting to the wound care center today for second opinion to full-thickness ulceration to right big toe. He was seen by an outside provider at [facility]. [facility] sfdc architect is his primary sfdc architect but is sending to the wound care center today for the full-thickness wound to the right hallux for treatment and care. He denies trauma. Denies constitutional symptoms. Other pedal complaints at this time. History of Wound: Chronic right hallux ulceration Subjective Subjective Mr. Matta is a 67-year-old diabetic male presenting to the wound care center today for follow-up and evaluation of full-thickness wound to the right hallux. Patient has been ambulatory in surgical shoe and wearing a diabetic shoe on his left foot. He presents today for graft application. He denies any drainage. He is doing his own home dressing changes without issues. He denies trauma. Denies constitutional symptoms. No other pedal complaints at this time Objective Data Objective Data Vital Signs: Vital Signs Temp Pulse Resp BP O2 Del Method 96.3 F L 71 16 124/61 H Room Air 05/23/23 13:20 05/23/23 13:20 05/23/23 13:20 05/23/23 13:20 05/23/23 13:20 Oxygen Delivery Method Room Air Weight: 59.24 kg Body Mass Index (BMI) 19.8 Physical Exam Narrative Vascular: DP and PT pulse are palpable. CFT is brisk. Erythema is improved to the right hallux. Nonpitting edema is appreciated to the right lower extremity. Neurological: Light touch intact. Protective sensation is absent. Dermatological: Full-thickness ulceration appreciated to the right hallux measuring 1.3 x 1.3 x 0.3 cm. Probe to periosteum. Improved erytherma. No active drainage. No probe to bone. Excision debridement down to and including subcutaneous tissue with a #15 blade to the full-thickness ulcerations right hallux without incident. Predebridement measurement was 1.1 x 1.1 x 0.1 cm. Postdebridement measurement is 1.3 x 1.3 x 0.3 cm. EpiFix 18 mm disc was applied to the right hallux full-thickness ulceration with 100% use. Seventh application. The graft site was free and clear of any infection. The wound/skin graft substitute was dressed with nonadherent bandage secured in place with Steri-Strips followed by bolster dressing as well as a double layer Tubigrip. Muscle skeletal: No pain on palpation to full-thickness ulceration right hallux. No pain with calf pressure. Debridement Note Debridement Note Debridement Free Text: Excision debridement down to and including subcutaneous tissue with a #15 blade to the full-thickness ulcerations right hallux without incident. Predebridement measurement was 1.1 x 1.1 x 0.1 cm. Postdebridement measurement is 1.3 x 1.3 x 0.3 cm. EpiFix 18 mm disc was applied to the right hallux full-thickness ulceration with 100% use. Seventh application. The graft site was free and clear of any infection. The wound/skin graft substitute was dressed with nonadherent bandage secured in place with Steri-Strips followed by bolster dressing as well as a double layer Tubigrip. Post-Debridement Measurements and Additional Note: Post-Debridement Measurements/Treatment - Nurse 1 - General Ulcer Assessment Start: 05/23/23 13:20 Freq: Status: Active Protocol: [email or web address] Activity Type Activity Date Activity User E-sign Co-sign Detail Recorded Client Recorded Date Recorded By Document 05/23/23 13:20 KW Desktop 05/23/23 13:31 KW 05/23/23 13:20 - Today's Visit Information Type of service Follow-up Visit (Physician/MIXER AND SCALER ) Arrival Mode Ambulatory,Cane Patient Identification Verified (Name & Yes ) Finger Stick Blood Sugar(mg/dl) (if 107 indicated): Blood Sugar Stated by Patient Height and Weight Body Mass Index (BMI) 19.8 BMI Classification Normal Vital Signs Temperature (97.8 F-99.1 F) 96.3 F L Temperature Source Temporal Pulse Rate (60-100) 71 Pulse Location Monitor Respiratory Rate (12-18) 16 Respiratory rate source Observation Oxygen Delivery Method Room Air Blood Pressure (90/60-120/80) 124/61 H Blood Pressure Mean (mm Hg) 82 Source Monitor Position Semi-Fowlers Blood Pressure Location Left Arm History Since Last Visit- (Skip if this is Patient's initial visit) Have you changed medications since your No last visit? Any new allergies or adverse reactions No Had a fall/change in ADL's that may No increase risk of falls Signs or symptoms of abuse and/or No neglect since last visit Have you been in the hospital since your No last visit? Has dressing in place as prescribed Yes Has compression in place as prescribed No Has offloadiing in place as prescribed Yes Experienced any changes in pain level or No management Left Footwear Regular Shoe Right Footwear Wedge Shoe Pain Scale: 0-10 Numeric Is Patient Pain Free? Yes - Nurse 1 - General Ulcer Measurement Start: 05/23/23 13:20 Freq: Status: Active Protocol: Activity Type Activity Date Activity User E-sign Co-sign Detail Recorded Client Recorded Date Recorded By Document 05/23/23 13:20 KW Desktop 05/23/23 13:31 KW 05/23/23 13:20 Wound Center Nurse 1 #5 R lateralHallux -Current Size (cm) - Length 1.1 -Current Size (cm) - Width 1 -Current Size (cm) - Depth 0.2 -Total Square Cm 1.1 -Exudate Amt Medium -Exudate Type Serosanguineous -Wound Margin Distinct, Outline Attached -Granulation Amt Medium (34-66%) -Granulation Quality [place],Red -Necrosis Amt Medium (34-66%) -Necrotic Tissue Type Adherent Slough -Texture (Maddison-wound Skin Appearance) Assessed -Moisture (Maddison-wound Skin Appearance) Assessed -Color (Maddison-wound Skin Appearance) Assessed -Temperature (Maddison-wound Skin No Abnormality Appearance) (Pt Warm) -Ulcer Cleansing Soap and Water -Anesthetic Used 5% Lidocaine Gel - Nurse 2 - General Ulcer CM Notes Start: 05/23/23 13:20 Freq: Status: Active Protocol: Activity Type Activity Date Activity User E-sign Co-sign Detail Recorded Client Recorded Date Recorded By Document 05/23/23 13:39 Laptop 05/23/23 13:46 05/23/23 13:39 Wound Center Nurse 2 -Time 13:39 -Correct Patient Yes -Correct Side, Site, Position Yes -Correct Procedure Yes -Procedure Performed Yes -Type of Procedure Debridement -Clinical Debridement Bone -Tissue Removed Slough -Post Debridement (cm) - Length 1.8 -Post Debridement (cm) - Width 1.7 -Post Debridement (cm) - Depth 0.3 -Total Square (Post) (cm) 3.06 -Area of Debridement (cm) - Length 1.8 -Area of Debridement (cm) - Width 1.7 -Total Square (Area) (cm) 3.06 -Tunneling No -Undermining/Tunneling No -Circular Undermining No -Wound/Ulcer Outcome Not Healed -Ulcer Cleansing Rinsed/ Irrigated with Saline -Foul Odor after Cleansing No -Bioengineered Tissue Yes -Type of Bioengineered Tissue Epifix 18mm Disc -Expiration Date 01/15/28 -Product Lot Number [id number] -Percent Used 100 -Lot number of Saline Used [id number] -Bleeding Controlled with Pressure -Treatment Response Procedure Tolerated Well -Offloading Yes -Type of Offloading Surgical Shoe -Debridement - Subq, 1st 20sq cm No -Debridement - Bone, 1st 20sq cm No -Apply Skin Sub - 1st 25 sq cm - Feet 1 -Epifix 18mm Disc 3 Pain Scale: 0-10 Numeric Is Patient Pain Free? Yes - Nurse 3 - General Ulcer D/C NN Start: 05/23/23 13:20 Freq: Status: Active Protocol: Activity Type Activity Date Activity User E-sign Co-sign Detail Recorded Client Recorded Date Recorded By Document 05/23/23 13:48 KW Desktop 05/23/23 13:49 KW 05/23/23 13:48 Wound Care Center Nurse 3 #5 R lateralHallux -Primary Dressing Covered/Secured with Dry Gauze & Roll Gauze, Secured with Tape Pain Scale: 0-10 Numeric Is Patient Pain Free? 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 All findings were discussed with the patient. All questions were answered to the patient's satisfaction. Excision debridement down to and including subcutaneous tissue with a #15 blade to the full-thickness ulcerations right hallux without incident. Predebridement measurement was 1.1 x 1.1 x 0.1 cm. Postdebridement measurement is 1.3 x 1.3 x 0.3 cm. EpiFix 18 mm disc was applied to the right hallux full-thickness ulceration with 100% use. Seventh application. The graft site was free and clear of any infection. The wound/skin graft substitute was dressed with nonadherent bandage secured in place with Steri-Strips followed by bolster dressing as well as a double layer Tubigrip. Patient will follow-up on the 26 for surgical consultation in private office. Follow-up at the wound care center with Dr. Ontiveros in 1 week. (2) Acute painful diabetic polyneuropathy: CODE(S): E11.42 - Type 2 diabetes mellitus with diabetic polyneuropathy PLAN: Educated patient on strict blood sugar control. (3) Acute osteomyelitis of left foot: CODE(S): M86.172 - Other acute osteomyelitis, left ankle and foot PLAN: Review of the patient's three-view nonweightbearing left foot films. The bone stock is within normal limits for the patient's age and age. There is no evidence of gross distraction to the bone architecture to the left hallux. On further review and zooming in on the proximal phalanx head there shows evidence of mild periosteal reaction that is concerning for osteomyelitis. We are planning to move forward with surgical intervention to that left great toe with removal of that section of bone and will change the surgical plan to incorporate antibiotic beads. All risk and benefits were discussed with patient great detail. He is understanding about elective surgery.
[2023-05-30 15:52] VITALS: BP 148/62; PULSE 66; RESP 18; TEMP 36; BMI 19.8
[2023-06-06 13:19] VITALS: BP 124/54; PULSE 71; RESP 16; TEMP 35.6; BMI 19.8
--- NOTE | 2023-06-06 13:57 | PCM.WC.PN ---
History of Present Illness Date of Service: 06/06/23 Chief Complaint: Mr. Guadalupe is a 67-year-old diabetic male presenting to the wound care center today for second opinion to full-thickness ulceration to right big toe. He was seen by an outside provider at [facility]. The [facility] outside production inspector is his primary outside production inspector but is sending to the wound care center today for the full-thickness wound to the right hallux for treatment and care. He denies trauma. Denies constitutional symptoms. Other pedal complaints at this time. History of Wound: Chronic right hallux ulceration Subjective Subjective Mr. Guadalupe is a 67-year-old diabetic male presented wound care center today for follow-up evaluation of right full-thickness hallux wound. Patient is concerned when we discussed his surgical intervention last week that he may or may not have bone infection in the great toe. Patient admits that the wound was present at 3 months prior to meeting me at the wound care center at [facility]. Patient would like to keep as much detail as possible. He was following up in private office with Dr. Ontiveros for surgical consultation and signing of paperwork prior to surgery. We will plan for IPJ arthroplasty with application of antibiotic beads to the right hallux. Patient is aware that he still may lose the toe if the bone infection is not eradicated. He denies trauma. Denies constitutional symptoms. No other pedal complaints at this time. Objective Data Objective Data Vital Signs: Vital Signs Temp Pulse Resp BP O2 Del Method 96.1 F L 71 16 124/54 H Room Air 06/06/23 13:19 06/06/23 13:19 06/06/23 13:19 06/06/23 13:19 05/30/23 15:52 Oxygen Delivery Method Room Air Weight: 59.24 kg Body Mass Index (BMI) 19.8 Physical Exam Narrative Vascular: DP and PT pulse are palpable. CFT is brisk. Erythema is improved to the right hallux. Nonpitting edema is appreciated to the right lower extremity. Neurological: Light touch intact. Protective sensation is absent. Dermatological: Full-thickness ulceration appreciated to the right hallux measuring 1.1 x 1.3 x 0.6 cm. Erytherma present. No active drainage. Probe to bone. Excision debridement down to and including subcutaneous tissue, fascia muscle and bone with rongeur and 3 mm dermal curette to the full-thickness ulcerations right hallux without incident. Predebridement measurement was 1.0 x 1.1 x 0.2 cm. Postdebridement measurement is 1.1 x 1.3 x 0.6 cm. Muscle skeletal: No pain on palpation to full-thickness ulceration right hallux. No pain with calf pressure. Debridement Note Debridement Note Debridement Free Text: Excision debridement down to and including subcutaneous tissue, fascia muscle and bone with rongeur and 3 mm dermal curette to the full-thickness ulcerations right hallux without incident. Predebridement measurement was 1.0 x 1.1 x 0.2 cm. Postdebridement measurement is 1.1 x 1.3 x 0.6 cm. Post-Debridement Measurements and Additional Note: Post-Debridement Measurements/Treatment - Nurse 1 - General Ulcer Assessment Start: 05/23/23 13:20 Freq: Status: Active Protocol: .LORANIE Activity Type Activity Date Activity User E-sign Co-sign Detail Recorded Client Recorded Date Recorded By Document 05/23/23 13:20 [employer] Desktop 05/23/23 13:31 KW Document 05/30/23 15:52 Desktop 05/30/23 15:55 Document 06/06/23 13:19 Laptop 06/06/23 13:23 05/23/23 05/30/23 06/06/23 13:20 15:52 13:19 - Today's Visit Information Type of service Follow-up Visit Follow-up Visit Follow-up Visit (Physician/FOOD PROCESSOR (Physician/FOOD PROCESSOR (Physician/FOOD PROCESSOR ) ) ) Arrival Mode Ambulatory,Cane Ambulatory,Cane Ambulatory Transfer Assistance None Patient Identification Verified (Name & Yes Yes Yes ) Patient Requires Transmission-Based No No Precautions Finger Stick Blood Sugar(mg/dl) (if 107 140 indicated): Blood Sugar Stated by Stated by Patient Patient Height and Weight Body Mass Index (BMI) 19.8 19.8 19.8 BMI Classification Normal Normal Normal Vital Signs Temperature (97.8 F-99.1 F) 96.3 F L 96.8 F L 96.1 F L Temperature Source Temporal Temporal Temporal Pulse Rate (60-100) 71 66 71 Pulse Location Monitor Monitor Monitor Respiratory Rate (12-18) 16 18 16 Respiratory rate source Observation Observation Observation Oxygen Delivery Method Room Air Room Air Blood Pressure (90/60-120/80) 124/61 H 148/62 H 124/54 H Blood Pressure Mean (mm Hg) 82 90 77 Source Monitor Monitor Monitor Position Semi-Fowlers Sitting Semi-Fowlers Blood Pressure Location Left Arm Left Arm Right Arm History Since Last Visit- (Skip if this is Patient's initial visit) Have you changed medications since your No No No last visit? Any new allergies or adverse reactions No No No Had a fall/change in ADL's that may No No No increase risk of falls Signs or symptoms of abuse and/or No No No neglect since last visit Have you been in the hospital since your No No No last visit? Has dressing in place as prescribed Yes Yes Yes Has compression in place as prescribed No Yes Yes Has offloadiing in place as prescribed Yes No Yes Experienced any changes in pain level or No No No management Left Footwear Regular Shoe Regular Shoe Regular Shoe Right Footwear Wedge Shoe Wedge Shoe Surgical Shoe with pressure relief insole Pain Scale: 0-10 Numeric Is Patient Pain Free? Yes Yes Yes - Nurse 1 - General Ulcer Measurement Start: 05/23/23 13:20 Freq: Status: Active Protocol: Activity Type Activity Date Activity User E-sign Co-sign Detail Recorded Client Recorded Date Recorded By Document 05/23/23 13:20 KW Desktop 05/23/23 13:31 KW Document 05/30/23 15:52 Desktop 05/30/23 15:55 Document 06/06/23 13:19 Laptop 06/06/23 13:23 JF Edit Result 06/06/23 13:19 JF (1) Laptop 06/06/23 13:31 JF (1) #5 R lateralHallux - Current Size (cm) - Length 1.3 => 1.0 - Current Size (cm) - Width 1.5 => 1.2 - Total Square Cm 1.95 => 1.20 05/23/23 05/30/23 06/06/23 13:20 15:52 13:19 Wound Center Nurse 1 #5 R lateralHallux -Combined with other wound No -Current Size (cm) - Length 1.1 1.3 1.0 -Current Size (cm) - Width 1 1.4 1.2 -Current Size (cm) - Depth 0.2 0.4 0.5 -Total Square Cm 1.1 1.82 1.20 -Photo Taken No No -Epithelialization None Present Small 1-33% -Tunneling No No -Undermining/Tunneling No No -Circular Undermining No No -Exudate Amt Medium Small Medium -Exudate Type Serosanguineous Serous Serosanguineous -Wound Margin Distinct, Distinct, Flat & Intact Outline Outline Attached Attached -Granulation Amt Medium (34-66%) Small (1-33%) -Granulation Quality [place],Red [place] Pale -Slough/Fibrin No Yes -Necrosis Amt Medium (34-66%) Medium (34-66%) -Necrotic Tissue Type Adherent Slough Adherent Slough -Structure Exposed N/A Bone -Texture (Maddison-wound Skin Appearance) Assessed Assessed Assessed -Moisture (Maddison-wound Skin Appearance) Assessed Assessed, Assessed,Dry/ Maceration Scaly -Color (Maddison-wound Skin Appearance) Assessed Assessed Assessed -Temperature (Maddison-wound Skin No Abnormality No Abnormality No Abnormality Appearance) (Pt Warm) (Pt Warm) (Pt Warm) -Tenderness on Palpation (Maddison-wound No No Skin Appearance) -Ulcer Cleansing Soap and Water Soap and Water Wound Cleanser -Foul Odor after Cleansing No No -Anesthetic Used 5% Lidocaine 5% Lidocaine Gel Gel Lower Limb Edema Present NA WC - Nurse 2 - General Ulcer CM Notes Start: 05/23/23 13:20 Freq: Status: Active Protocol: Activity Type Activity Date Activity User E-sign Co-sign Detail Recorded Client Recorded Date Recorded By Document 05/23/23 13:39 Laptop 05/23/23 13:46 Document 05/30/23 16:06 Laptop 05/30/23 16:07 Document 06/06/23 13:23 Laptop 06/06/23 13:30 05/23/23 05/30/23 06/06/23 13:39 16:06 13:23 Wound Center Nurse 2 #5 R lateralHallux -Time 13:39 16:06 13:23 -Correct Patient Yes Yes Yes -Correct Side, Site, Position Yes Yes Yes -Correct Procedure Yes Yes Yes -Procedure Performed Yes Yes Yes -Type of Procedure Debridement Debridement Debridement -Clinical Debridement Bone Muscle / Fascia Bone -Tissue Removed Slough Muscle,Fascia Slough -Post Debridement (cm) - Length 1.8 1.3 1.1 -Post Debridement (cm) - Width 1.7 0.3 1.3 -Post Debridement (cm) - Depth 0.3 0.1 0.6 -Total Square (Post) (cm) 3.06 0.39 1.43 -Area of Debridement (cm) - Length 1.8 1.3 1.1 -Area of Debridement (cm) - Width 1.7 1.3 1.3 -Total Square (Area) (cm) 3.06 1.69 1.43 -Tunneling No No No -Undermining/Tunneling No No No -Circular Undermining No No No -Wound/Ulcer Outcome Not Healed Not Healed Not Healed -Ulcer Cleansing Rinsed/ Rinsed/ Rinsed/ Irrigated with Irrigated with Irrigated with Saline Saline Saline -Foul Odor after Cleansing No No -Bioengineered Tissue Yes Yes No -Type of Bioengineered Tissue Epifix 18mm Epifix 18mm Disc Disc -Expiration Date 01/15/28 01/15/28 -Product Lot Number [id number] -Percent Used 100 100 -Lot number of Saline Used [id number] -Bleeding Controlled with Pressure Pressure Pressure -Treatment Response Procedure Procedure Procedure Tolerated Well Tolerated Well Tolerated Well -Offloading Yes Yes Yes -Type of Offloading Surgical Shoe Surgical Shoe Surgical Shoe -Debridement - Subq, 1st 20sq cm No No -Debridement - Muscle / Fascia, 1st No 20sq cm -Debridement - Bone, 1st 20sq cm No Yes -Apply Skin Sub - 1st 25 sq cm - Feet 1 1 -Epifix 18mm Disc 3 3 Pain Scale: 0-10 Numeric Is Patient Pain Free? Yes Yes Yes WC - Nurse 3 - General Ulcer D/C NN Start: 05/23/23 13:20 Freq: Status: Active Protocol: Activity Type Activity Date Activity User E-sign Co-sign Detail Recorded Client Recorded Date Recorded By Document 05/23/23 13:48 KW Desktop 05/23/23 13:49 KW Document 05/30/23 16:10 KW Desktop 05/30/23 16:15 KW Document 06/06/23 13:35 KW Desktop 06/06/23 13:36 KW 05/23/23 05/30/23 06/06/23 13:48 16:10 13:35 Wound Care Center Nurse 3 #5 R lateralHallux -Primary Dressing Applied Other -Other Dressing betadine soaked gauze -Primary Dressing Covered/Secured with Dry Gauze & Dry Gauze,Other Dry Gauze & Roll Gauze, Roll Gauze, Secured with Secured with Tape Tape -Other Covering coban Pain Scale: 0-10 Numeric Is Patient Pain Free? Yes Yes Yes WC - Visit Discharge Discharge Condition Stable Stable Stable Ambulatory Status Ambulatory,Cane Ambulatory,Cane Ambulatory,Cane Transportation Private Auto Private Auto Private Auto Medication Reconcilliation completed & No No No provided to patient/care provider Clinical Summary of Care Provided Yes Yes Yes Assessment/Plan Assessment/Plan (1) Acute osteomyelitis of left foot: CODE(S): M86.172 - Other acute osteomyelitis, left ankle and foot PLAN: Patient was examined and evaluated. All findings were discussed with the patient. All questions were answered to the patient's satisfaction. Excision debridement down to and including subcutaneous tissue, fascia muscle and bone with rongeur and 3 mm dermal curette to the full-thickness ulcerations right hallux without incident. Predebridement measurement was 1.0 x 1.1 x 0.2 cm. Postdebridement measurement is 1.1 x 1.3 x 0.6 cm. Right hallux were cleaned and patted dry. There is dressed with Betadine paint, Betadine soaked gauze dry sterile dressing and single-layer Tubigrip was donned. Patient was educated on strict blood sugar control. Patient will follow-up next week for surgical consultation. Deep bone culture was taken from the right hallux with rongeur and passed the back table and was sent off for microbiology for culture and sensitivity. Antibiotics to follow. Follow-up at the wound care center with Dr. Ontiveros in 1 week. 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
[2023-06-13 13:01] VITALS: BP 136/64; PULSE 77; RESP 18; TEMP 35.6; BMI 19.8
--- NOTE | 2023-06-13 13:25 | PN.PCM_ITS ---
History of Present Illness Date of Service: 06/13/23 Chief Complaint: Mr. Guadalupe is a 67-year-old diabetic male presenting to the wound care center today for second opinion to full-thickness ulceration to right big toe. He was seen by an outside provider at [facility]. [facility] manager vehicle is his primary manager vehicle but is sending to the wound care center today for the full-thickness wound to the right hallux for treatment and care. He denies trauma. Denies constitutional symptoms. Other pedal compl aints at this time. History of Wound: Chronic right hallux ulceration Subjective Subjective Mr. Guadalupe is a 67-year-old diabetic male presented wound care center today for follow-up evaluation of right full-thickness hallux wound. Patient is concerned when we discussed his surgical intervention last week that he may or may not have bone infection in the great toe. Patient's bone culture has returned and shows evidence of 5 bacteria that has grown from the sample. At this time the patient's bone infection is chronic in nature and we are planning on surgical intervention to the right hallux next 06/22/2023. Patient is ready to move forward with surgery. He understands all risk and benefits. Denies trauma. Denies constitutional symptoms. No other pedal complaints at this time. Objective Data Objective Data Vital Signs: Vital Signs Temp Pulse Resp BP O2 Del Method 96.0 F L 77 18 136/64 H Room Air 06/13/23 13:01 06/13/23 13:01 06/13/23 13:01 06/13/23 13:01 06/13/23 13:01 Oxygen Delivery Method Room Air Weight: 59.24 kg Body Mass Index (BMI) 19.8 Lab / Micro Data Micro: Microbiology 06/06/23 13:22 Bone - Toe Gram Stain - Final 06/06/23 13:22 Bone - Toe Wound Culture - Final Enterococcus faecalis Enterococcus avium Staphylococcus epidermidis Stenotrophomonas maltophilia Pseudomonas aeruginosa 06/06/23 13:22 Bone - Toe Anaerobic Culture - Final No anaerobic bacteria isolated. Physical Exam Narrative Vascular: DP and PT pulse are palpable. CFT is brisk. Erythema is improved to the right hallux. Nonpitting edema is appreciated to the right lower extremity. Neurological: Light touch intact. Protective sensation is absent. Dermatological: Full-thickness ulceration appreciated to the right hallux measuring 1.4 x 1.3 x 0.6 cm. Erytherma present. No active drainage. Probe to bone. Excision debridement down to and including subcutaneous tissue, fascia muscle and bone with rongeur and 3 mm dermal curette to the full-thickness ulcerations right hallux without incident. Predebridement measurement was 1.2 x 1.2 x 0.2 cm. Postdebridement measurement is 1.4 x 1.3 x 0.6 cm. Muscle skeletal: No pain on palpation to full-thickness ulceration right hallux. No pain with calf pressure. Debridement Note Debridement Note Debridement Free Text: Excision debridement down to and including subcutaneous tissue, fascia muscle and bone with rongeur and 3 mm dermal curette to the full- thickness ulcerations right hallux without incident. Predebridement measurement was 1.2 x 1.2 x 0.2 cm. Postdebridement measurement is 1.4 x 1.3 x 0.6 cm. Post-Debridement Measurements and Additional Note: Post-Debridement Measurements/Treatment - Nurse 1 - General Ulcer Assessment Start: 05/23/23 13:20 Freq: Status: Active Protocol: .LOWLAURA Activity Type Activity Date Activity User E-sign Co-sign Detail Recorded Client Recorded Date Recorded By Document 05/23/23 13:20 Casetext Desktop 05/23/23 13:31 Document 05/30/23 15:52 Desktop 05/30/23 15:55 Document 06/06/23 13:19 Laptop 06/06/23 13:23 Document 06/13/23 13:01 Desktop 06/13/23 13:04 05/23/23 05/30/23 06/06/23 13:20 15:52 13:19 - Today's Visit Information Type of service Follow-up Visit Follow-up Visit Follow-up Visit (Physician/RETURN TO SERVICE INSPECTOR (Physician/RETURN TO SERVICE INSPECTOR (Physician/RETURN TO SERVICE INSPECTOR ) ) ) Arrival Mode Ambulatory,Cane Ambulatory,Cane Ambulatory Transfer Assistance None Patient Identification Verified (Name & Yes Yes Yes ) Patient Requires Transmission-Based No No Precautions Finger Stick Blood Sugar(mg/dl) (if 107 140 indicated): Blood Sugar Stated by Stated by Patient Patient Height and Weight Body Mass Index (BMI) 19.8 19.8 19.8 BMI Classification Normal Normal Normal Vital Signs Temperature (97.8 F-99.1 F) 96.3 F L 96.8 F L 96.1 F L Temperature Source Temporal Temporal Temporal Pulse Rate (60-100) 71 66 71 Pulse Location Monitor Monitor Monitor Respiratory Rate (12-18) 16 18 16 Respiratory rate source Observation Observation Observation Oxygen Delivery Method Room Air Room Air Blood Pressure (90/60-120/80) 124/61 H 148/62 H 124/54 H Blood Pressure Mean (mm Hg) 82 90 77 Source Monitor Monitor Monitor Position Semi-Fowlers Sitting Semi-Fowlers Blood Pressure Location Left Arm Left Arm Right Arm History Since Last Visit- (Skip if this is Patient's initial visit) Have you changed medications since your No No No last visit? Any new allergies or adverse reactions No No No Had a fall/change in ADL's that may No No No increase risk of falls Signs or symptoms of abuse and/or No No No neglect since last visit Have you been in the hospital since your No No No last visit? Has dressing in place as prescribed Yes Yes Yes Has compression in place as prescribed No Yes Yes Has offloadiing in place as prescribed Yes No Yes Experienced any changes in pain level or No No No management Left Footwear Regular Shoe Regular Shoe Regular Shoe Right Footwear Wedge Shoe Wedge Shoe Surgical Shoe with pressure relief insole Pain Scale: 0-10 Numeric Is Patient Pain Free? Yes Yes Yes 06/13/23 13:01 WC - Today's Visit Information Type of service Follow-up Visit (Physician/RETURN TO SERVICE INSPECTOR ) Arrival Mode Ambulatory,Cane Transfer Assistance None Patient Identification Verified (Name & Yes ) Patient Requires Transmission-Based No Precautions Finger Stick Blood Sugar(mg/dl) (if indicated): Blood Sugar Height and Weight Body Mass Index (BMI) 19.8 BMI Classification Normal Vital Signs Temperature (97.8 F-99.1 F) 96.0 F L Temperature Source Temporal Pulse Rate (60-100) 77 Pulse Location Monitor Respiratory Rate (12-18) 18 Respiratory rate source Observation Oxygen Delivery Method Room Air Blood Pressure (90/60-120/80) 136/64 H Blood Pressure Mean (mm Hg) 88 Source Monitor Position Sitting Blood Pressure Location Left Arm History Since Last Visit- (Skip if this is Patient's initial visit) Have you changed medications since your No last visit? Any new allergies or adverse reactions No Had a fall/change in ADL's that may No increase risk of falls Signs or symptoms of abuse and/or No neglect since last visit Have you been in the hospital since your No last visit? Has dressing in place as prescribed Yes Has compression in place as prescribed N/A Has offloadiing in place as prescribed Yes Experienced any changes in pain level or No management Left Footwear Right Footwear Pain Scale: 0-10 Numeric Is Patient Pain Free? Yes WC - Nurse 1 - General Ulcer Measurement Start: 05/23/23 13:20 Freq: Status: Active Protocol: Activity Type Activity Date Activity User E-sign Co-sign Detail Recorded Client Recorded Date Recorded By Document 05/23/23 13:20 KW Desktop 05/23/23 13:31 KW Document 05/30/23 15:52 GM Desktop 05/30/23 15:55 GM Document 06/06/23 13:19 JF Laptop 06/06/23 13:23 JF Edit Result 06/06/23 13:19 JF (1) Laptop 06/06/23 13:31 JF Document 06/13/23 13:01 GM Desktop 06/13/23 13:04 GM (1) #5 R lateralHallux - Current Size (cm) - Length 1.3 => 1.0 - Current Size (cm) - Width 1.5 => 1.2 - Total Square Cm 1.95 => 1.20 05/23/23 05/30/23 06/06/23 13:20 15:52 13:19 Wound Center Nurse 1 #5 R lateralHallux -Combined with other wound No -Current Size (cm) - Length 1.1 1.3 1.0 -Current Size (cm) - Width 1 1.4 1.2 -Current Size (cm) - Depth 0.2 0.4 0.5 -Total Square Cm 1.1 1.82 1.20 -Date of Last Picture (Recall this field) -Photo Taken No No -Epithelialization None Present Small 1-33% -Tunneling No No -Undermining/Tunneling No No -Circular Undermining No No -Exudate Amt Medium Small Medium -Exudate Type Serosanguineous Serous Serosanguineous -Wound Margin Distinct, Distinct, Flat & Intact Outline Outline Attached Attached -Granulation Amt Medium (34-66%) Small (1-33%) -Granulation Quality Clements,Red Clements Pale -Slough/Fibrin No Yes -Necrosis Amt Medium (34-66%) Medium (34-66%) -Necrotic Tissue Type Adherent Slough Adherent Slough -Structure Exposed N/A Bone -Texture (Maddison-wound Skin Appearance) Assessed Assessed Assessed -Moisture (Maddison-wound Skin Appearance) Assessed Assessed, Assessed,Dry/ Maceration Scaly -Color (Maddison-wound Skin Appearance) Assessed Assessed Assessed -Temperature (Maddison-wound Skin No Abnormality No Abnormality No Abnormality Appearance) (Pt Warm) (Pt Warm) (Pt Warm) -Tenderness on Palpation (Maddison-wound No No Skin Appearance) -Ulcer Cleansing Soap and Water Soap and Water Wound Cleanser -Foul Odor after Cleansing No No -Anesthetic Used 5% Lidocaine 5% Lidocaine Gel Gel Lower Limb Edema Present NA 06/13/23 13:01 Wound Center Nurse 1 #5 R lateralHallux -Combined with other wound -Current Size (cm) - Length 1.2 -Current Size (cm) - Width 1.3 -Current Size (cm) - Depth 0.2 -Total Square Cm 1.56 -Date of Last Picture (Recall this 06/13/23 field) -Photo Taken Yes -Epithelialization -Tunneling No -Undermining/Tunneling No -Circular Undermining No -Exudate Amt -Exudate Type -Wound Margin Distinct, Outline Attached -Granulation Amt Small (1-33%) -Granulation Quality Clements -Slough/Fibrin Yes -Necrosis Amt -Necrotic Tissue Type Adherent Slough -Structure Exposed N/A -Texture (Maddison-wound Skin Appearance) Assessed -Moisture (Maddison-wound Skin Appearance) Assessed, Maceration -Color (Maddison-wound Skin Appearance) Assessed -Temperature (Maddison-wound Skin No Abnormality Appearance) (Pt Warm) -Tenderness on Palpation (Maddison-wound No Skin Appearance) -Ulcer Cleansing Rinsed/ Irrigated with Saline -Foul Odor after Cleansing No -Anesthetic Used Lower Limb Edema Present - Nurse 2 - General Ulcer CM Notes Start: 05/23/23 13:20 Freq: Status: Active Protocol: Activity Type Activity Date Activity User E-sign Co-sign Detail Recorded Client Recorded Date Recorded By Document 05/23/23 13:39 Laptop 05/23/23 13:46 Document 05/30/23 16:06 Laptop 05/30/23 16:07 Document 06/06/23 13:23 Laptop 06/06/23 13:30 Document 06/13/23 13:18 Laptop 06/13/23 13:21 05/23/23 05/30/23 06/06/23 13:39 16:06 13:23 Wound Center Nurse 2 #5 R lateralHallux -Time 13:39 16:06 13:23 -Correct Patient Yes Yes Yes -Correct Side, Site, Position Yes Yes Yes -Correct Procedure Yes Yes Yes -Procedure Performed Yes Yes Yes -Type of Procedure Debridement Debridement Debridement -Clinical Debridement Bone Muscle / Fascia Bone -Tissue Removed Slough Muscle,Fascia Slough -Post Debridement (cm) - Length 1.8 1.3 1.1 -Post Debridement (cm) - Width 1.7 0.3 1.3 -Post Debridement (cm) - Depth 0.3 0.1 0.6 -Total Square (Post) (cm) 3.06 0.39 1.43 -Area of Debridement (cm) - Length 1.8 1.3 1.1 -Area of Debridement (cm) - Width 1.7 1.3 1.3 -Total Square (Area) (cm) 3.06 1.69 1.43 -Tunneling No No No -Undermining/Tunneling No No No -Circular Undermining No No No -Wound/Ulcer Outcome Not Healed Not Healed Not Healed -Ulcer Cleansing Rinsed/ Rinsed/ Rinsed/ Irrigated with Irrigated with Irrigated with Saline Saline Saline -Foul Odor after Cleansing No No -Bioengineered Tissue Yes Yes No -Type of Bioengineered Tissue Epifix 18mm Epifix 18mm Disc Disc -Expiration Date 01/15/28 01/15/28 -Product Lot Number [id number] -Percent Used 100 100 -Lot number of Saline Used [id number] -Bleeding Controlled with Pressure Pressure Pressure -Treatment Response Procedure Procedure Procedure Tolerated Well Tolerated Well Tolerated Well -Offloading Yes Yes Yes -Type of Offloading Surgical Shoe Surgical Shoe Surgical Shoe -Debridement - Subq, 1st 20sq cm No No -Debridement - Muscle / Fascia, 1st No 20sq cm -Debridement - Bone, 1st 20sq cm No Yes -Apply Skin Sub - 1st 25 sq cm - Feet 1 1 -Epifix 18mm Disc 3 3 Pain Scale: 0-10 Numeric Is Patient Pain Free? Yes Yes Yes 06/13/23 13:18 Wound Center Nurse 2 #5 R lateralHallux -Time 13:19 -Correct Patient Yes -Correct Side, Site, Position Yes -Correct Procedure Yes -Procedure Performed Yes -Type of Procedure Debridement -Clinical Debridement Bone -Tissue Removed Slough -Post Debridement (cm) - Length 1.4 -Post Debridement (cm) - Width 1.3 -Post Debridement (cm) - Depth 0.6 -Total Square (Post) (cm) 1.82 -Area of Debridement (cm) - Length 1.4 -Area of Debridement (cm) - Width 1.3 -Total Square (Area) (cm) 1.82 -Tunneling No -Undermining/Tunneling No -Circular Undermining No -Wound/Ulcer Outcome Not Healed -Ulcer Cleansing Rinsed/ Irrigated with Saline -Foul Odor after Cleansing No -Bioengineered Tissue No -Type of Bioengineered Tissue -Expiration Date -Product Lot Number -Percent Used -Lot number of Saline Used -Bleeding Controlled with Pressure -Treatment Response Procedure Tolerated Well -Offloading Yes -Type of Offloading Surgical Shoe -Debridement - Subq, 1st 20sq cm -Debridement - Muscle / Fascia, 1st 20sq cm -Debridement - Bone, 1st 20sq cm Yes -Apply Skin Sub - 1st 25 sq cm - Feet -Epifix 18mm Disc Pain Scale: 0-10 Numeric Is Patient Pain Free? Yes - Nurse 3 - General Ulcer D/C NN Start: 05/23/23 13:20 Freq: Status: Active Protocol: Activity Type Activity Date Activity User E-sign Co-sign Detail Recorded Client Recorded Date Recorded By Document 05/23/23 13:48 KW Desktop 05/23/23 13:49 KW Document 05/30/23 16:10 KW Desktop 05/30/23 16:15 KW Document 06/06/23 13:35 KW Desktop 06/06/23 13:36 KW 05/23/23 05/30/23 06/06/23 13:48 16:10 13:35 Wound Care Center Nurse 3 #5 R lateralHallux -Primary Dressing Applied Other -Other Dressing betadine soaked gauze -Primary Dressing Covered/Secured with Dry Gauze & Dry Gauze,Other Dry Gauze & Roll Gauze, Roll Gauze, Secured with Secured with Tape Tape -Other Covering coban Pain Scale: 0-10 Numeric Is Patient Pain Free? Yes Yes Yes WC - Visit Discharge Discharge Condition Stable Stable Stable Ambulatory Status Ambulatory,Cane Ambulatory,Cane Ambulatory,Cane Transportation Private Auto Private Auto Private Auto Medication Reconcilliation completed & No No No provided to patient/care provider Clinical Summary of Care Provided Yes Yes Yes Assessment/Plan Assessment/Plan (1) Acute osteomyelitis of left foot: CODE(S): M86.172 - Other acute osteomyelitis, left ankle and foot PLAN: Patient was examined and evaluated. All findings were discussed with the patient. All questions were answered to the patient's satisfaction. Excision debridement down to and including subcutaneous tissue, fascia muscle and bone with rongeur and 3 mm dermal curette to the full-thickness ulcerations right hallux without incident. Predebridement measurement was 1.2 x 1.2 x 0.2 cm. Postdebridement measurement is 1.4 x 1.3 x 0.6 cm. Ulceration was dressed with Betadine paint, Betadine soaked gauze and dry sterile dressing with a single-layer Tubigrip. We will plan on right hallux IPJ arthroplasty, application of antibiotic beads, surgical skin graft site prep with application of graft substitute to the right hallux. Clean margins will be taken from the base of the distal phalanx and diaphysis of the proximal phalanx of the right hallux while in surgery and base 4-week to 6-week oral antibiotics from those cultures. Patient was educated on strict blood sugar control. 06/06/23 13:22 Bone - Toe Gram Stain - Final 06/06/23 13:22 Bone - Toe Wound Culture - Final Enterococcus faecalis Enterococcus avium Staphylococcus epidermidis Stenotrophomonas maltophilia Pseudomonas aeruginosa 06/06/23 13:22 Bone - Toe Anaerobic Culture - Final No anaerobic bacteria isolated. Follow-up at the wound care center with Dr. Ontiveros in 1 week. 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
== END 2023-06-14 23:59 | disposition home or self-care (01) ==
LOC: WC 13:15
PROVIDERS: PCP Student in an Organized Health Care Education/Training Program; Referring Provider Podiatrist Foot & Ankle Surgery; Visit Provider Podiatrist Foot & Ankle Surgery
DX: E11.621 Type 2 diabetes mellitus with foot ulcer (principal); L97.514 Non-pressure chronic ulcer of other part of right foot with necrosis of bone; L97.512 Non-pressure chronic ulcer of other part of right foot with fat layer exposed; M86.172 Other acute osteomyelitis, left ankle and foot; E11.42 Type 2 diabetes mellitus with diabetic polyneuropathy; I73.9 Peripheral vascular disease, unspecified
CPT/HCPCS: 11044; 15275; 73630; 87070; 87075; 87077; 87101; 87186; 87205; Q4186

== ENCOUNTER 2023-06-22 12:27 | Observation (INO) | payer MEDICARE, OTHER, SELFPAY ==
[2023-06-13 15:01] LABS: Magnesium 1.7 mg/dL (1.6-2.6)
[2023-06-13 15:10] LABS: Hemoglobin A1c 6.4 % (3.8-5.6); Vitamin D,25 Hydroxy 63.2 ng/mL
[2023-06-19 14:09] LABS: Cotinine Screen Blood <1.0 ng/mL (.); Nicotine Blood <1.0 ng/mL (.)
[2023-06-22] VITALS (12 sets, daily range): BP systolic 141–185; BP diastolic 61–69; PULSE 74–104; RESP 11–18; TEMP 36.4–37.2; O2SAT 97–100; BMI 37.8
[2023-06-22 10:53] LABS: Bedside Glucose 198 mg/dL (74-106)
[2023-06-22] MEDS: Magnesium 2 GM for ERAS IV (11:11)
[2023-06-22] MEDS: Gabapentin 600 MG Tablet PO (11:12)
[2023-06-22] MEDS: Acetaminophen 500 MG Tablet 1000 MG PO (11:12)
[2023-06-22] MEDS: Insulin Lispro 100 UNIT/ML INSULN.PEN SC ×2 (11:13→22:46)
[2023-06-22] MEDS: Cefazolin 2 GM in 0.9% Normal Saline (100mL Bag) 100 ML IV (11:30)
--- NOTE | 2023-06-22 11:30 | RAD_ITS ---
HISTORY: EXTENSOR TENOTOMY CAPSULOTOMY OF 4TH DIGIT MPJ. TECHNIQUE: Right toes one spot image. COMPARISON: XR 05/23/2023. FINDINGS: OSSEOUS STRUCTURES: Postoperative changes of the first proximal phalangeal head FLUOROSCOPY TIME: 27 seconds. RADIATION DOSE: 0.1292 mGy RAD/Foot 2 Views IMPRESSION: Image guidance for right foot procedure. Electronically Signed: Kira Morgan MD at 11:53 EST ,
[2023-06-22] MEDS: Bupivacaine Mpf 0.5% 30 ML VIAL (11:35)
[2023-06-22] MEDS: Vancomycin IV 1,000 MG/20 ML Vial 1000 MG OPERA.SITE (11:45)
--- NOTE | 2023-06-22 12:27 | OP.PCM_ITS ---
Problems Associated Problem List Diagnoses (1) Other deformities of toe(s) (acquired), right foot: (2) Acute osteomyelitis of right foot: (3) Contracture, right foot: (4) Non-pressure chronic ulcer of other part of right foot with fat layer exposed: Report of Operation Date of Procedure: 06/22/23 Pre-Operative Diagnosis: 1. Osteomyelitis, right foot 2. Full-thickness ulceration, right foot 3. Contracture of foot, right foot 4. Deformity of toe, fourth digit, right foot Post-Operative Diagnosis: 1. Osteomyelitis, right foot 2. Full-thickness ulceration, right foot 3. Contracture of foot, right foot 4. Deformity of toe, fourth digit, right foot Surgery/Procedure Performed:: 1. Extensor tenotomy and capsulotomy, fourth metatarsophalangeal joint, right foot 2. Incision of bone cortex, right hallux 3. Application of antibiotic beads, right hallux 4. Surgical prep of skin graft site, right foot 5. Application of skin graft substitute, right foot 1. Description of Surgical Findings:: 1. Release of contracture to the fourth digit, right foot 2. Evidence of periosteal reaction to the medial head of the proximal phalanx, right hallux 3. Application of antibiotic beads, 1 g vancomycin. Surgeon: Gerry Ontiveros home care giver: None Type of Anesthesia: General and Local Anesthesiologist: Shailesh Garay Special Medications: Per anesthesia Specimen's removed: 1. Incision of bone cortex, right hallux, sent to pathology 2. Incision of bone cortex, right hallux, sent for microbiology culture and sensitivity Drains: None Estimated Blood Loss (mL): 30 mL Fluids Replaced: Per anesthesia Description of Procedure: Indications For Operation: Mr. Guadalupe is a 67-year-old diabetic male who was admitted to [facility] for elective surgery consisting of extensor tenotomy and capsulotomy of the fourth digit, incision bone cortex of the right hallux which application of antibiotic beads, surgical skin graft site prep with application of skin graft substitute to the right hallux/right lower extremity. Patient is well-known to my service and has been following me at the wound care center for graft placement and excisional debridements weekly. Patient showed evidence of concern for probe to bone during the physical examination where a bone culture was taken and sent to microbiology for culture and sensitivity. After the culture grew bacteria deem necessary to take the patient to the operating room to perform the above procedure. Patient was seen in office for surgical consultation with all risk and benefits discussed with the patient in great detail. Due to concern of worsening osteomyelitis to right hallux and contracture of the fourth digit of the right foot it has been deemed necessary at this time to take the patient to the operating room to perform the above procedures to help relieve his constant pain and remove the infection from his right foot. The nature of the problem, anticipated procedures, postop recovery/convalences and risk/complications include but not limited to infection, wound healing complications, digital amputation, hypertrophic scarring, numbness, tingling, chronic pain, CRPS, over and under correction, recurrence of deformity, DVT and or PE and the need for further surgery have been discussed in great detail with the patient. All questions have been answered to the patient's satisfaction. There are no guarantees given as to the outcome of the procedure. Description of Procedure: Under mild sedation, the patient was brought into the operating room and placed on the operating table in supine position. Once the patient was under monitored anesthesia care anesthesia with laryngeal mask airway, the right lower extremity was blocked using approximately 20 mL 0.5% Marcaine plain. Next, a well-padded calf tourniquet was applied to the right lower extremity. Next, the right lower extremity was prepped and draped in normal aseptic manner. Next, a timeout was then undertaken verifying the correct patient, extremity, visibility of preoperative markings, availability of the equipment. Next, attention was directed to the right lower extremity. Using a 4 inch E[place]arch, right lower extremity was exsanguinated and elevated to 60 degrees for 1 minute, tourniquet was inflated to 250 mm per mercury. Procedure #1, extensor tenotomy and capsulotomy fourth metatarsal phalangeal joint, right foot Next, attention was directed to the level of the fourth metatarsal phalangeal joint. Made using mini C arm fluoroscopy. The joint was identified using a [place]. Using a #69 blade, the extensor tenotomy and capsulotomy were performed minimally invasive. After release of the capsule and tendon the fourth digit was able to be released and sat down more in a rectus fashion. The percutaneous incision was flushed with couple jenelle of normal saline. The incision was closed with 3-0 nylon in simple interrupted suture technique. Procedure #2, incision of bone cortex, right hallux Next, attention was directed to the right hallux. There showed evidence of a full-thickness wound with probe to bone prior to incision. Using mini C arm fluoroscopy the interphalangeal joint was marked followed by marking of the sagittal saw blade cut. Next, using a #15 blade a equidistant incision full- thickness was carried down to bone along the medial aspect of the right hallux. Continued sharp dissection was carried around the bone and the interphalangeal joint was identified. Using a [place], the head of the proximal phalanx was freed from the interphalangeal joint and its remaining soft tissue attachments. Next, using a sagittal saw and #111 blade, the incision of bone cortex was performed approximately one third from the interphalangeal joint. Using towel clamps, the head of the proximal phalanx was secured and continued sharp dissection was carried around the head of the freed proximal phalanx. The proximal phalanx was removed. The bone was passed the back table and for one half to be sent for pathology and the other half to be sent for microbiology culture and sensitivity. Copious amounts of normal saline was used to flush the incision. Inspection of the base of the distal phalanx showed to be hard in nature with no concern of softening of bone. The remaining cortex of the proximal phalanx was identified to show good integrity and no softening except for the medullary canal. Again the incision was flushed with copious jenelle of normal saline. Procedure #3, application of antibiotic beads, vancomycin (1 gm), right hallux Next, the [facility] OsteoSet antibiotic beads were prepared on the back table with 1 g of vancomycin powder per the teacher emotionally impaired's recommendation. After the time allotted to allow the antibiotic cement to cure, the antibiotic cement beads were placed in the full-thickness incision with care not to overstuff the soft tissue envelope. The application of the beads was visualized clinically as well as on mini C arm fluoroscopy. Procedure #4, surgical prep of skin graft site, right hallux Next, attention was directed to the full-thickness ulceration along the medial aspect of the right hallux. Using a rongeur excisional debridement down to and including bone was carried out with removal of all devitalized tissue. After debridement there showed evidence of excellent sanguinous drainage. At this time the right calf tourniquet was deflated and reperfusion was noted to the right lower extremity instantly. Procedure #5, application of skin graft substitute, right hallux Next, attention was directed to the surgical prep site of the right hallux. Using Brickflow BioSkin 2 x 4 cm, the skin graft substitute was applied per the teacher emotionally impaired's recommendation. Next, the subcutaneous tissue was reapproximated and closed with 3-0 nylon in buried interrupted suture technique. The skin was reapproximated and closed along the right hallux with 3-0 nylon in simple interrupted suture technique. The right lower extremity is white clean and patted dry. The skin graft substitute was covered with Adaptic followed by Steri-Strips. The incision was dressed with Betadine soaked Adaptic followed by 4 x 4's, dry sterile dressing and a single layer Brantley compression bandage was donned to the right lower extremity. The patient tolerated the procedure and anesthesia well and apparent satisfactory condition and was transported to the PACU for further monitoring prior to discharge for 23 hours observation on the floor. Vital signs stable and vascular status intact to all digits bilateral. Post Operative Plan: Weightbearing: Partial weightbearing to heel, right lower extremity. Full weightbearing left lower extremity. Antibiotics: 2 g Ancef through the IV DVT Prophylaxis: Patient is currently on dual platelet therapy. Callejas: None Dressing: Adaptic, Betadine soaked Adaptic, 4 x 4's, dry sterile dressing, single layer Br[place]ley compression bandage X-Rays: Post-operative films taken on the operating room. Pain Medication: Percocet 5/325, 0.5 mg Dilaudid Follow-up: Patient will be admitted to the hospital for 23 hours observation as he does not have a friend or family member to take him home after surgery today. The patient will be discharged per provide a ride tomorrow morning which he will arrange on his own. The patient will follow-up with Dr. Ontiveros next Sunday at the wound care center. Grafts/Implants Used: BioSkin 2 x 4 cm, OsteoSet antibiotic beads Complications None Admit VTE Documentation VTE Present on Admission: No VTE Mechan Device Prophylaxis: SCD's VTE Pharm Prophylaxis ordered?: No
[2023-06-22 12:56] LABS: Bedside Glucose 148 mg/dL (74-106)
--- NOTE | 2023-06-22 15:05 | NURSING ---
Patient called daughter Debbie while this nurse was in the room she stated she has his cane at home with her.
[2023-06-22] MEDS: metFORMIN HCl 850 MG Tablet PO (17:42)
[2023-06-22 19:07] LABS: Bedside Glucose 308 mg/dL (74-106)
[2023-06-22] MEDS: Metoprolol Tartrate 100 MG Tablet PO (20:50)
[2023-06-22] MEDS: Nortriptyline 25 MG Capsule 50 MG PO (20:51)
[2023-06-22] MEDS: Sertraline 50 MG Tablet PO (20:51)
[2023-06-22 21:21] LABS: Bedside Glucose 272 mg/dL (74-106)
[2023-06-22] MEDS: Famotidine 20 MG Tablet PO (22:46)
[2023-06-23 01:36] VITALS: BP 144/67; PULSE 70; RESP 18; TEMP 36.6; O2SAT 98
--- NOTE | 2023-06-23 05:25 | NURSING ---
Patient voided 250 ml and stated he felt he still had the pressure to void more. Bladder scanned for 636 ml. Ambulated pt to BR to attempt to urinate, pt voided again. Bladder scanned again for 16 ml.
[2023-06-23 06:59] LABS: Bedside Glucose 147 mg/dL (74-106)
[2023-06-23 07:59] VITALS: PULSE 76
[2023-06-23] MEDS: Multivitamins,Therapeutic Tablet 1 TABLET PO (07:59)
[2023-06-23] MEDS: Metoprolol Tartrate 100 MG Tablet PO (07:59)
[2023-06-23] MEDS: metFORMIN HCl 850 MG Tablet PO (07:59)
[2023-06-23] MEDS: Omega-3 Acid Ethyl Esters 1 GM Capsule 2 GM PO (07:59)
[2023-06-23] MEDS: Famotidine 20 MG Tablet PO (08:00)
[2023-06-23] MEDS: Spironolactone 50 MG Tablet PO (08:00)
[2023-06-23 09:17] VITALS: BP 140/61; PULSE 76; RESP 16; TEMP 36.8; O2SAT 95
--- NOTE | 2023-06-23 09:37 | CASEMGMT ---
RN VAN Assessment: Face to Face with pt for initial transition planning/care coordination assessment. RN VAN introduced self and role at [facility], pt voices understanding and consents to assessment. Pt is A&O x4 and answers all questions appropriately at this time. Care providers, pharmacy, and demographics verified/updated. Admitting Dx: Post Op pain, fall risk PCP: Dr. Mcgovern Specialists:Dr. Ontiveros with Podiatry Preferred Pharmacy: [facility] Pharmacy Insurance: Medicare A/B Prescription Benefit: yes LNOK: Daughter Mer [phone] Living Arrangements: Pt lives at home alone in a mobile home with 3-4 steps to enter. Pt reports b/l rails on stairs. Pt reports he is independent, does sponge bathe due to wounds. Transportation: Pt does not drive. Pt has transportation assistance through friends and his jain. DME: Rolling walker, w/c, shower chair, cane, hand rails HHC/SNF: None Pt reports he will not have any wound care at [facility] as podiatry stated he is to leave the dressing alone until follow up. Dressing noted to be intact and boot in place. Pt states that he was interested in HHC at discharge. Inquired on why he felt he needed HHC. Pt reports he wants some to come check on him every now and again. Explained to pt that too have a RN come out there must be a skilled need and that without wound care he needed he does not have one at this time. Pt reports he thought so, as he has been told this in the past. Pt also inquiring on a rollator. Inquired how he would use the rollator different than his rolling walker. Pt reports he would sit on it and hold his leg up and roll to the back of the home, pt then reports he wants something to just rest his knee on and inquiring on getting a knee scooter. Pt reports he wants something to help him get down his hallway. Explained to pt that this would not be covered by his insurance but that he could purchase one on his own. Looked at [employer], [employer], and [facility] with patient to find options. Pt states no further concerns/needs. CM to follow. Advised pt to ask CM if any further question/concerns/needs arise, voices understanding. Pt Goal: Home Plan: Home Eunice CHIN, RN, CCM
--- NOTE | 2023-06-23 10:21 | PCM.PROGNOTE ---
Subjective Subjective Patient 1 day postop. No pain today. Denies constitutional symptoms. Voiding urine passing gas. No other complaints overnight. Objective Data Objective Data Vital Signs: Vital Signs Temp Pulse Resp BP Pulse Ox O2 Del Method O2 Flow Rate 98.2 F 76 16 140/61 H 95 Room Air 4 06/23/23 09:17 06/23/23 09:17 06/23/23 09:17 06/23/23 09:17 06/23/23 09:17 06/23/23 09:17 06/22/23 12:50 Oxygen Flow Rate (L/min) 4 Oxygen Delivery Method Room Air Weight: 113 kg Body Mass Index (BMI) 37.8 Intake & Output: Intake and Output for Last 24 Hours 06/21/23 06/22/23 06/23/23 23:59 23:59 23:59 Intake Total 214 / 514 750 / 750 Output Total 250 / 250 Balance 214 / 514 500 / 500 Lab / Micro Data Labs: Laboratory Results - last 24 hr 06/22/23 10:32: POC Glucose 198 H 06/22/23 12:38: POC Glucose 148 H 06/22/23 18:00: POC Glucose 308 H 06/22/23 20:46: POC Glucose 272 H 06/23/23 06:40: POC Glucose 147 H Micro: Microbiology 06/13/23 13:51 Swab (Method) Nasal Screen MRSA/MSSA - Final Physical Exam Narrative Neurovascular status unchanged to right lower extremity. Intact dressing with no strikethrough noted to right foot. No sign DVT. Assessment & Plan Assessment/Plan (1) Contracture, right foot: PLAN: Exam performed. Patient stable. Will plan for discharge home. Patient continue treatment per Dr. Ontiveros. Patient will follow-up in [address] Ontiveros. (2) Acute osteomyelitis of right foot: (3) Other deformities of toe(s) (acquired), right foot: (4) Non-pressure chronic ulcer of other part of right foot with necrosis of bone:
--- NOTE | 2023-06-23 11:45 | NURSING ---
pt requesting discharge inst be given to him and sl be remove. explained that daughter wanted us to wait for her to get here for discharge inst pt stated that it is none of her business and he wants to go home. discharge inst given to pt. instructed pt call when ride gets here.
[2023-06-23 11:48] VITALS: BP 126/48; PULSE 72; RESP 16; TEMP 37.1; O2SAT 97
[2023-06-23 12:01] LABS: Bedside Glucose 239 mg/dL (74-106)
--- NOTE | 2023-06-23 21:26 | PCM.DC.SUM ---
Providers Date of Admission: 06/22/23 Date of Discharge: 06/23/23 Primary Care Physician: Dr. Edward Mcgovern DO Reason For Visit: POSTOPERATIVE PAIN, FALL RISK Diagnosis Discharge Diagnosis (1) Other deformities of toe(s) (acquired), right foot: Status: Acute Code(s): M20.5X1 - Other deformities of toe(s) (acquired), right foot (2) Acute osteomyelitis of right foot: Status: Acute Code(s): M86.171 - Other acute osteomyelitis, right ankle and foot Plan: Patient was taken to the operating room by Dr. Ontiveros on 06/22/2023. Patient underwent elective right foot surgery secondary to osteomyelitis of the hallux and contracture of the foot to the fourth digit. After surgery the patient was admitted for postoperative pain and fall risk. Patient was managed by podiatry during his 23-hour observation. Patient's stay was uneventful. He was discharged today and take him home where he will follow-up with Dr. Ontiveros at the wound care center this Sunday. (3) Contracture, right foot: Status: Acute Code(s): M24.574 - Contracture, right foot (4) Non-pressure chronic ulcer of other part of right foot with fat layer exposed: Status: Chronic Code(s): L97.512 - Non-pressure chronic ulcer of other part of right foot with fat layer exposed Medications at Discharge Home Medications amlodipine 10 mg tablet 10 mg PO DAILY blood pressure 08/19/18 aspirin 81 mg tablet,delayed release 81 mg PO DAILY health maintenance 08/19/18 doxazosin 2 mg tablet 2 mg PO QHS prostate 08/19/18 gabapentin 300 mg capsule 300 mg PO TID neuropathy 08/19/18 gabapentin 300 mg capsule 600 mg PO QHS neuropathy 08/19/18 losartan 100 mg tablet 100 mg PO DAILY blood pressure 08/19/18 magnesium oxide 400 mg PO DAILY supplement 08/19/18 metformin 850 mg tablet 850 mg PO TIDCM diabetes 08/19/18 metoprolol tartrate 100 mg tablet 100 mg PO BID blood pressure 08/19/18 nitroglycerin 400 mcg/spray translingual 0.4 mg sublingual PRN PRN Pain 08/19/18 spironolactone 50 mg tablet 50 mg PO DAILY hypertension 08/19/18 insulin lispro 100 unit/mL subcutaneous pen See Protocol SQ ACHS 11/04/18 loratadine 10 mg capsule 10 mg PO DAILY 04/07/19 meloxicam 15 mg tablet 15 mg PO DAILY 01/30/20 atorvastatin 10 mg tablet 10 mg PO QHS 10/30/22 cholecalciferol (vitamin D3) 125 mcg (5,000 unit) capsule 125 mcg PO DAILY 10/30/22 docusate sodium 100 mg capsule 200 mg PO QHS bowels 10/30/22 insulin glargine 100 unit/mL (3 mL) subcutaneous pen 20 unit subcut QHS diabetes 10/30/22 nortriptyline 50 mg capsule 50 mg PO QHS 10/30/22 sertraline 50 mg tablet 50 mg PO QHS 10/30/22 triamcinolone acetonide 0.5 % topical cream 1 applic topical DAILY PRN itching 10/30/22 clopidogrel 75 mg tablet 75 mg PO QHS 06/12/23 multivitamin (Daily Multi-Vitamin tablet) 1 tab PO DAILY 06/12/23 omega 2-owc-tsq-fish oil 300 mg-1,000 mg capsule,delayed release (Fish Oil) 2 cap PO DAILY 06/12/23 Hospital Course Operations - (Extensor tenotomy and capsulotomy of the fourth metatarsal phalangeal joint, incision bone cortex, surgical skin graft site prep and application of skin graft substitute, right foot) Summary of Care Provided Minutes Spent on Discharge: 20 Hospital Course: Mr. Matta is a 67-year-old diabetic male who was admitted after surgery by Dr. Byrne for postoperative pain and fall risk. Patient had undergone right foot surgery consisting of extensor tenotomy capsulotomy of the fourth metatarsal phalangeal joint, incision of bone cortex, right hallux, surgical skin graft site prep with application of skin graft substitute right foot. Patient's hospital stay was uneventful. No consults were needed due to a 23-hour observation after surgery. Patient was discharged today with no acute events overnight during his hospital stay. Patient will follow-up with Dr. Byrne at the wound care center this Sunday. Physical Exam Narrative Vascular: Capillary refill time is brisk. Nonpitting edema appreciated the proximal and distal aspect of the right lower extremity with dressing clean dry and intact. Neurological: Light touch intact. Patient does not respond to painful stimuli Dermatological: Skin is supple to the digits. Nonpitting edema appreciated the proximal and distal aspects of the right lower extremity with dressing clean dry and intact. Musculoskeletal: Active and passive range of motion of lesser digits is pain-free. No pain on palpation to the full-thickness ulceration right hallux. No pain with calf compression. Const alert, oriented x3 and no apparent distress General Appearance: cooperative, comfortable, well kempt and well developed Orientation / Consciousness: awake, oriented to person, oriented to place and oriented to time Exam Limitations: no limitations Nutritional Appearance: overweight HEENT normocephalic Head and Scalp: normal to inspection Weight / BMI Weight Weight: 113 kg Body Mass Index (BMI) 37.8 ABG / Lab / Microbiology Data Laboratory: Laboratory Results - last 24 hr 06/23/23 06:40: POC Glucose 147 H 06/23/23 11:36: POC Glucose 239 H Microbiology: Microbiology 06/22/23 12:12 Bone - Toe Gram Stain - Final 06/13/23 13:51 Swab (Method) Nasal Screen MRSA/MSSA - Final Radiography Diagnostic Testing: Radiology Impression Foot X-Ray 06/22/23 11:30 IMPRESSION: Image guidance for right foot procedure. Electronically Signed: Kira Morgan MD at 11:53 EST Reading Location ID and State: [facility] Tel , Service support , D/C Instructions May shower in (days): 03 September resume sexual activity in: No Restrictions Weight Bearing Status: Partial weight bearing Call your doctor if your incision/area has: Continuous Slow Oozing, Sudden Increased Bleeding, Increased Pain/ Swelling and Increased Redness Call your doctor if you observe: Fever of 101 or Higher Suture Line Care: Avoid Pulling/Pushing Change Dressing in: leave in place till F/U Remove Dressing in: leave in place till F/U Please Follow Up With: Gerry Ontiveros DPM When: Next Sunday at the wound care center Meaningful Use Info Meaningful Use Diagnoses (Choose all that apply): None applicable Discharge Plan Admission Admit Date/Time: 06/22/23 12:27 Attending Provider: Gerry Ontiveros Primary Care Provider: Edward Mcgovern Instructions Patient Instructions: Post-Op Tips: Foot Additional Instructions / Restrictions: Follow-up with Dr. Ontiveros, 1 week Keep dressing clean dry and intact until follow up Maintain nonweightbearing right lower extremity until follow-up. Patient can bear weight to heel in surgical shoe for transfer purposes assisted by walker. Contact our office with any issues or present to ED. Discharge Orders/Prescriptions Prescriptions: Continued triamcinolone acetonide 0.5 % cream 1 applic TOPICAL DAILY PRN (Reason: itching) meloxicam 15 mg tablet 15 mg PO DAILY Patient Comments: TAKE 1 TABLET BY MOUTH ONCE DAILY WITH FOOD FOR JOINT PAIN AND ARTHRITIS cholecalciferol (vitamin D3) 125 mcg (5,000 unit) capsule 125 mcg PO DAILY nortriptyline 50 mg capsule 50 mg PO QHS Patient Comments: TAKE 1 CAPSULE BY MOUTH ONCE DAILY AT BEDTIME sertraline 50 mg tablet 50 mg PO QHS Patient Comments: TAKE 1 TABLET BY MOUTH ONCE DAILY AT BEDTIME atorvastatin 10 mg tablet 10 mg PO QHS Patient Comments: TAKE 1 TABLET BY MOUTH ONCE DAILY AT BEDTIME FOR CHOLESTEROL aspirin 81 MG tablet,delayed release (DR/EC) 81 mg PO DAILY amlodipine 10 MG tablet 10 mg PO DAILY gabapentin 300 MG capsule 300 mg PO TID gabapentin 300 MG capsule 600 mg PO QHS losartan 100 MG tablet 100 mg PO DAILY magnesium oxide 400 MG capsule 400 mg PO DAILY metoprolol tartrate 100 MG tablet 100 mg PO BID metformin 850 MG tablet 850 mg PO TIDCM nitroglycerin 0.4 MG bottle 0.4 mg SUBLINGUAL PRN PRN (Reason: Pain) spironolactone 50 MG tablet 50 mg PO DAILY doxazosin 2 MG tablet 2 mg PO QHS Patient Comments: TAKE ONE TABLET AT BEDTIME insulin glargine 100 unit/mL (3 mL) insulin pen 20 unit subcut QHS docusate sodium 100 mg capsule 200 mg PO QHS insulin lispro 100 UNIT/ML insulin pen See Protocol SQ ACHS Protocol: 3. Sliding Scale Insulin Med Dosing Condition: 150-189 mg/dl = 1 unit Condition: 190-229 mg/dl = 2 units Condition: 230-269 mg/dl = 3 units Condition: 270-309 mg/dl = 4 units Condition: 310-349 mg/dl = 5 units Condition: 350-399 mg/dl = 6 units Condition: 400-449 mg/dl = 7 units Condition: Greater than 449 call physician Protocol Text: - Use for Total Daily Dose of Insulin 37-55 units - Obsese, infected, or steroid patients MEDIUM DOSING ALGORITHIM loratadine 10 MG capsule 10 mg PO DAILY multivitamin [Daily Multi-Vitamin] Tablet 1 tab PO DAILY omega 2-kat-dyy-fish oil [Fish Oil] 300-1,000 mg capsule,delayed release(DR/EC) 2 cap PO DAILY clopidogrel 75 mg tablet 75 mg PO QHS Referrals / Follow Up: Edward Mcgovern DO [Primary Care Provider] - Disposition Disposition (needs filled in before D/C Order can be placed): Home, Self Care
== END 2023-06-23 12:11 | disposition home or self-care (01) ==
LOC: SDC 12:38 → MS3 12:38
PROVIDERS: Anesthesiology; Admitting Provider Podiatrist Foot & Ankle Surgery; PCP Student in an Organized Health Care Education/Training Program; Referring Provider Podiatrist Foot & Ankle Surgery; Visit Provider Podiatrist Foot & Ankle Surgery
PROC: (CPT 28825; principal; 2023-06-22 11:15)
DX: E11.69 Type 2 diabetes mellitus with other specified complication (principal); E11.621 Type 2 diabetes mellitus with foot ulcer; E11.51 Type 2 diabetes mellitus with diabetic peripheral angiopathy without gangrene; Z89.422 Acquired absence of other left toe(s); L97.512 Non-pressure chronic ulcer of other part of right foot with fat layer exposed; M86.171 Other acute osteomyelitis, right ankle and foot; F33.1 Major depressive disorder, recurrent, moderate; E11.42 Type 2 diabetes mellitus with diabetic polyneuropathy; E66.01 Morbid (severe) obesity due to excess calories; Z68.41 Body mass index [BMI] 40.0-44.9, adult; Z79.4 Long term (current) use of insulin; M24.574 Contracture, right foot; I10 Essential (primary) hypertension; M19.90 Unspecified osteoarthritis, unspecified site; I25.10 Atherosclerotic heart disease of native coronary artery without angina pectoris; E78.5 Hyperlipidemia, unspecified; Z79.899 Other long term (current) drug therapy; Z87.891 Personal history of nicotine dependence; R06.02 Shortness of breath; L57.0 Actinic keratosis; Z79.02 Long term (current) use of antithrombotics/antiplatelets; Z79.82 Long term (current) use of aspirin; Z79.84 Long term (current) use of oral hypoglycemic drugs; M20.61 Acquired deformities of toe(s), unspecified, right foot
CPT/HCPCS: 28825; 28234; 15004; 15275; 01470; 36415; 73620; 76000; 80323; 82306; 82962; 83036; 83735; 87070; 87075; 87077; 87081; 87102; 87186; 87205; 87206; 88304; 88311; 99221; J7120; G0378; G0480; J2405

== ENCOUNTER 2023-07-04 13:15 | Outpatient (RCR) | payer MEDICARE, OTHER, SELFPAY ==
[2023-06-15 00:17] VITALS: BP 136/64; PULSE 77; RESP 18; TEMP 35.6; BMI 19.8
[2023-06-20 13:23] VITALS: BP 154/70; PULSE 76; RESP 18; BMI 19.8
--- NOTE | 2023-06-20 16:20 | PCM.WC.PN ---
History of Present Illness Date of Service: 06/20/23 Chief Complaint: Mr. Guadalupe is a 67-year-old diabetic male presenting to the wound care center today for second opinion to full-thickness ulceration to right big toe. He was seen by an outside provider at [facility]. [facility] mallet and die cutter is his primary mallet and die cutter but is sending to the wound care center today for the full-thickness wound to the right hallux for treatment and care. He denies trauma. Denies constitutional symptoms. Other pedal complaints at this time. History of Wound: Chronic right hallux ulceration Subjective Subjective Mr. Guadalupe is a 67-year-old diabetic male presented wound care center today for follow-up evaluation of right full-thickness hallux wound. Patient is concerned when we discussed his surgical intervention last week that he may or may not have bone infection in the great toe. Patient's bone culture has returned and shows evidence of 5 bacteria that has grown from the sample. At this time the patient's bone infection is chronic in nature and we are planning on surgical intervention to the right hallux next 06/22/2023. Patient is ready to move forward with surgery. He understands all risk and benefits. Denies trauma. Denies constitutional symptoms. No other pedal complaints at this time. Objective Data Objective Data Vital Signs: Vital Signs Temp Pulse Resp BP O2 Del Method 96.0 F L 76 18 154/70 H Room Air 06/15/23 00:17 06/20/23 13:23 06/20/23 13:23 06/20/23 13:23 06/20/23 13:23 Oxygen Delivery Method Room Air Weight: 59.24 kg Body Mass Index (BMI) 19.8 Physical Exam Narrative Vascular: DP and PT pulse are palpable. CFT is brisk. Erythema is improved to the right hallux. Nonpitting edema is appreciated to the right lower extremity. Neurological: Light touch intact. Protective sensation is absent. Dermatological: Full-thickness ulceration appreciated to the right hallux measuring 1.0 x 1.2 x 0.4 cm. Erytherma present. No active drainage. Probe to bone. Excision debridement down to and including subcutaneous tissue, fascia muscle and bone with 3 mm dermal curette to the full-thickness ulcerations right hallux without incident. Predebridement measurement was 1.0 x 0.8 x 0.3 cm. Postdebridement measurement is 1.0 x 1.2 x 0.4 cm. Muscle skeletal: No pain on palpation to full-thickness ulceration right hallux. No pain with calf pressure. Debridement Note Debridement Note Debridement Free Text: Excision debridement down to and including subcutaneous tissue, fascia muscle and bone with 3 mm dermal curette to the full-thickness ulcerations right hallux without incident. Predebridement measurement was 1.0 x 0.8 x 0.3 cm. Postdebridement measurement is 1.0 x 1.2 x 0.4 cm. Post-Debridement Measurements and Additional Note: Post-Debridement Measurements/Treatment - Nurse 1 - General Ulcer Assessment Start: 06/20/23 13:22 Freq: Status: Active Protocol: BREANA Activity Type Activity Date Activity User E-sign Co-sign Detail Recorded Client Recorded Date Recorded By Document 06/20/23 13:23 KW Desktop 06/20/23 13:28 KW 06/20/23 13:23 - Today's Visit Information Type of service Follow-up Visit (Physician/MOBILE NURSE ) Arrival Mode Ambulatory,Cane Patient Identification Verified (Name & Yes ) Height and Weight Body Mass Index (BMI) 19.8 BMI Classification Normal Vital Signs Pulse Rate (60-100) 76 Pulse Location Monitor Respiratory Rate (12-18) 18 Respiratory rate source Observation Oxygen Delivery Method Room Air Blood Pressure (90/60-120/80) 154/70 H Blood Pressure Mean (mm Hg) 98 Source Monitor Position Semi-Fowlers Blood Pressure Location Left Arm History Since Last Visit- (Skip if this is Patient's initial visit) Have you changed medications since your No last visit? Any new allergies or adverse reactions No Had a fall/change in ADL's that may Yes increase risk of falls Signs or symptoms of abuse and/or No neglect since last visit Have you been in the hospital since your No last visit? Has dressing in place as prescribed Yes Has compression in place as prescribed N/A Has offloadiing in place as prescribed Yes Experienced any changes in pain level or No management Left Footwear Regular Shoe Right Footwear Surgical Shoe with pressure relief insole Pain Scale: 0-10 Numeric Is Patient Pain Free? Yes - Nurse 1 - General Ulcer Measurement Start: 06/20/23 13:22 Freq: Status: Active Protocol: Activity Type Activity Date Activity User E-sign Co-sign Detail Recorded Client Recorded Date Recorded By Document 06/20/23 13:23 KW Desktop 06/20/23 13:28 06/20/23 13:23 Wound Center Nurse 1 #5 R lateralHallux -Current Size (cm) - Length 1 -Current Size (cm) - Width 0.8 -Current Size (cm) - Depth 0.4 -Total Square Cm 0.8 -Exudate Amt Small -Exudate Type Serosanguineous -Wound Margin Distinct, Outline Attached -Granulation Amt Small (1-33%) -Granulation Quality Pale,[place] -Necrosis Amt Large (67-100%) -Necrotic Tissue Type Adherent Slough -Texture (Maddison-wound Skin Appearance) Assessed -Moisture (Maddison-wound Skin Appearance) Maceration -Color (Maddison-wound Skin Appearance) Assessed -Temperature ([place]addison-wound Skin No Abnormality Appearance) (Pt Warm) -Ulcer Cleansing Rinsed/ Irrigated with Saline -Anesthetic Used 5% Lidocaine Gel WC - Nurse 2 - General Ulcer CM Notes Start: 06/20/23 13:22 Freq: Status: Active Protocol: Activity Type Activity Date Activity User E-sign Co-sign Detail Recorded Client Recorded Date Recorded By Document 06/20/23 13:31 Desktop 06/20/23 13:35 06/20/23 13:31 Wound Center Nurse 2 -Time 13:32 -Correct Patient Yes -Correct Side, Site, Position Yes -Correct Procedure Yes -Procedure Performed Yes -Type of Procedure Debridement -Clinical Debridement Bone -Tissue Removed Biofilm -Post Debridement (cm) - Length 1.0 -Post Debridement (cm) - Width 1.2 -Post Debridement (cm) - Depth 0.4 -Total Square (Post) (cm) 1.20 -Area of Debridement (cm) - Length 1.0 -Area of Debridement (cm) - Width 1.2 -Total Square (Area) (cm) 1.20 -Tunneling No -Undermining/Tunneling No -Circular Undermining No -Wound/Ulcer Outcome Not Healed -Ulcer Cleansing Rinsed/ Irrigated with Saline -Foul Odor after Cleansing No -Bioengineered Tissue No -Bleeding Controlled with Pressure -Treatment Response Procedure Tolerated Well -Offloading Yes -Type of Offloading Surgical Shoe -Debridement - Bone, 1st 20sq cm Yes Pain Scale: 0-10 Numeric Is Patient Pain Free? Yes WC - Nurse 3 - General Ulcer D/C NN Start: 06/20/23 13:22 Freq: Status: Active Protocol: Activity Type Activity Date Activity User E-sign Co-sign Detail Recorded Client Recorded Date Recorded By Document 06/20/23 13:44 [facility] Desktop 06/20/23 13:44 [facility] 06/20/23 13:44 Wound Care Center Nurse 3 #5 R lateralHallux -Ulcer Cleansing Rinsed/ Irrigated with Saline -Foul Odor after Cleansing No -Other Dressing BETADINE -Primary Dressing Covered/Secured with Dry Gauze, Secured with Tape Treatment Response Procedure Tolerated Well Pain Scale: 0-10 Numeric Is Patient Pain Free? Yes WC - Visit Discharge Discharge Condition Stable Ambulatory Status Ambulatory,Cane Transportation Private Auto Assessment/Plan Assessment/Plan (1) Non-pressure chronic ulcer of other part of right foot with necrosis of bone: CODE(S): L97.514 - Non-pressure chronic ulcer of other part of right foot with necrosis of bone PLAN: Patient was examined and evaluated. All findings were discussed with the patient. All questions were answered to the patient's satisfaction. Excision debridement down to and including subcutaneous tissue, fascia muscle and bone with 3 mm dermal curette to the full-thickness ulcerations right hallux without incident. Predebridement measurement was 1.0 x 0.8 x 0.3 cm. Postdebridement measurement is 1.0 x 1.2 x 0.4 cm. Patient's ulceration was dressed with Betadine paint dry sterile dressing. Patient will be seen this Sunday for surgical intervention to the right hallux. Following surgery the patient will be admitted since he does not have a ride home so that he may get provide a ride transport today after surgery as he will be under general anesthesia and is not allowed to go home with anybody that is not a close relative family or friend. Follow-up at the wound care center with Dr. Ontiveros in 1 week. (2) Acute osteomyelitis of left foot: CODE(S): M86.172 - Other acute osteomyelitis, left ankle and foot
[2023-06-27 13:13] VITALS: BP 148/80; PULSE 96; RESP 16; TEMP 36.1; BMI 19.8
--- NOTE | 2023-06-27 13:53 | PCM.WC.PN ---
History of Present Illness Date of Service: 06/27/23 Chief Complaint: Mr. Guadalupe is a 67-year-old diabetic male presenting to the wound care center today for second opinion to full-thickness ulceration to right big toe. He was seen by an outside provider at [facility]. [facility] business services clerk is his primary business services clerk but is sending to the wound care center today for the full-thickness wound to the right hallux for treatment and care. He denies trauma. Denies constitutional symptoms. Other pedal complaints at this time. History of Wound: Chronic right hallux ulceration Subjective Subjective Mr. Guadalupe is a 67-year-old diabetic male presenting for follow-up and evaluation status post incision bone cortex with surgical skin graft site prep skin graft substitute with application of antibiotic beads to the right hallux. Patient denies any pain to his surgical site. His stay in the hospital after surgery was uneventful. He admits to strict blood sugar control. Denies trauma. Denies constitutional symptoms. He is left his postoperative dressing clean dry and intact. No other pedal complaints at this time. Objective Data Objective Data Vital Signs: Vital Signs Temp Pulse Resp BP O2 Del Method 96.9 F L 96 16 148/80 H Room Air 06/27/23 13:13 06/27/23 13:13 06/27/23 13:13 06/27/23 13:13 06/20/23 13:23 Oxygen Delivery Method Room Air Weight: 59.24 kg Body Mass Index (BMI) 19.8 Physical Exam Narrative Vascular: DP and PT pulse are palpable. CFT is brisk. Nonpitting edema appreciated to the right hallux. Erythema is blanchable without proximal streaking. Skin temperature great is warm to warm from proximal ankle to distal digits. No focal increase is appreciated. Neurological: Light touch intact. Protective sensation is absent. Dermatological: Full-thickness ulceration appreciated to the right hallux measuring 0.8 x 0.8 x 0.3 cm. Improved erythema. Evidence of antibiotic beads to the full-thickness ulceration. The remaining incision is well coapted with suture. Suture noted to the dorsal aspect of the fourth metatarsophalangeal joint. blanchable erythema is appreciated. No surgical wound dehiscence, drainage. Excision debridement down to and including subcutaneous tissue with 3 mm dermal curette to the full-thickness ulcerations right hallux without incident. Predebridement measurement was 0.7 x 0.7 x 0.2 cm. Postdebridement measurement is 0.8 x 0.8 x 0.3 cm. Muscle skeletal: No pain on palpation to full-thickness ulceration right hallux. No pain with calf pressure. Evidence of rectus fourth digit to the right foot after tenotomy. Debridement Note Debridement Note Debridement Free Text: Excision debridement down to and including subcutaneous tissue with 3 mm dermal curette to the full-thickness ulcerations right hallux without incident. Predebridement measurement was 0.7 x 0.7 x 0.2 cm. Postdebridement measurement is 0.8 x 0.8 x 0.3 cm. Post-Debridement Measurements and Additional Note: Post-Debridement Measurements/Treatment WC - Nurse 1 - General Ulcer Assessment Start: 06/20/23 13:22 Freq: Status: Active Protocol: WC.LOWEXT Activity Type Activity Date Activity User E-sign Co-sign Detail Recorded Client Recorded Date Recorded By Document 06/20/23 13:23 [facility] Desktop 06/20/23 13:28 KW Document 06/27/23 13:13 Laptop 06/27/23 13:14 06/20/23 06/27/23 13:23 13:13 - Today's Visit Information Type of service Follow-up Visit Follow-up Visit (Physician/DISC PAD PLATE FILLER (Physician/DISC PAD PLATE FILLER ) ) Arrival Mode Ambulatory,Cane Ambulatory,Cane Patient Identification Verified (Name & Yes Yes ) Patient Requires Transmission-Based No Precautions Height and Weight Body Mass Index (BMI) 19.8 19.8 BMI Classification Normal Normal Vital Signs Temperature (97.8 F-99.1 F) 96.9 F L Temperature Source Temporal Pulse Rate (60-100) 76 96 Pulse Location Monitor Monitor Respiratory Rate (12-18) 18 16 Respiratory rate source Observation Observation Oxygen Delivery Method Room Air Blood Pressure (90/60-120/80) 154/70 H 148/80 H Blood Pressure Mean (mm Hg) 98 102 Source Monitor Monitor Position Semi-Fowlers Semi-Fowlers Blood Pressure Location Left Arm Left Forearm History Since Last Visit- (Skip if this is Patient's initial visit) Have you changed medications since your No No last visit? Any new allergies or adverse reactions No No Had a fall/change in ADL's that may Yes No increase risk of falls Signs or symptoms of abuse and/or No No neglect since last visit Have you been in the hospital since your No No last visit? Has dressing in place as prescribed Yes Yes Has compression in place as prescribed N/A Yes Has offloadiing in place as prescribed Yes Yes Experienced any changes in pain level or No No management Left Footwear Regular Shoe Surgical Shoe with pressure relief insole Right Footwear Surgical Shoe Regular Shoe with pressure relief insole Pain Scale: 0-10 Numeric Is Patient Pain Free? Yes Yes WC - Nurse 1 - General Ulcer Measurement Start: 06/20/23 13:22 Freq: Status: Active Protocol: Activity Type Activity Date Activity User E-sign Co-sign Detail Recorded Client Recorded Date Recorded By Document 06/20/23 13:23 KW Desktop 06/20/23 13:28 KW Document 06/27/23 13:13 JF Laptop 06/27/23 13:14 JF 06/20/23 06/27/23 13:23 13:13 Wound Center Nurse 1 #5 R lateralHallux -Combined with other wound No -Current Size (cm) - Length 1 -Current Size (cm) - Width 0.8 -Current Size (cm) - Depth 0.4 -Total Square Cm 0.8 -Photo Taken No -Epithelialization Small 1-33% -Tunneling No -Undermining/Tunneling No -Circular Undermining No -Exudate Amt Small Medium -Exudate Type Serosanguineous Serosanguineous -Wound Margin Distinct, Flat & Intact Outline Attached -Granulation Amt Small (1-33%) None Present (0 %) -Granulation Quality Pale,Gerty -Slough/Fibrin Yes -Necrosis Amt Large (67-100%) Large (67-100%) -Necrotic Tissue Type Adherent Slough Adherent Slough -Structure Exposed N/A -Texture (Maddison-wound Skin Appearance) Assessed Assessed, Localized Edema -Moisture (Maddison-wound Skin Appearance) Maceration Assessed,Dry/ Scaly -Color (Maddison-wound Skin Appearance) Assessed Assessed -Temperature (Maddison-wound Skin No Abnormality No Abnormality Appearance) (Pt Warm) (Pt Warm) -Tenderness on Palpation (Maddison-wound No Skin Appearance) -Ulcer Cleansing Rinsed/ Rinsed/ Irrigated with Irrigated with Saline Saline -Foul Odor after Cleansing No -Anesthetic Used 5% Lidocaine Gel Lower Limb Edema Present NA WC - Nurse 2 - General Ulcer CM Notes Start: 06/20/23 13:22 Freq: Status: Active Protocol: Activity Type Activity Date Activity User E-sign Co-sign Detail Recorded Client Recorded Date Recorded By Document 06/20/23 13:31 JF Desktop 06/20/23 13:35 Document 06/27/23 13:14 JF Laptop 06/27/23 13:17 JF 06/20/23 06/27/23 13:31 13:14 Wound Center Nurse 2 #5 R lateralHallux -Time 13:32 13:15 -Correct Patient Yes Yes -Correct Side, Site, Position Yes Yes -Correct Procedure Yes Yes -Procedure Performed Yes Yes -Type of Procedure Debridement Debridement -Clinical Debridement Bone Subcutaneous -Tissue Removed Biofilm Subcutaneous -Post Debridement (cm) - Length 1.0 0.8 -Post Debridement (cm) - Width 1.2 0.8 -Post Debridement (cm) - Depth 0.4 0.3 -Total Square (Post) (cm) 1.20 0.64 -Area of Debridement (cm) - Length 1.0 0.8 -Area of Debridement (cm) - Width 1.2 0.8 -Total Square (Area) (cm) 1.20 0.64 -Tunneling No No -Undermining/Tunneling No No -Circular Undermining No No -Wound/Ulcer Outcome Not Healed Not Healed -Ulcer Cleansing Rinsed/ Rinsed/ Irrigated with Irrigated with Saline Saline -Foul Odor after Cleansing No No -Bioengineered Tissue No No -Bleeding Controlled with Pressure Pressure,Silver Nitrate -Treatment Response Procedure Procedure Tolerated Well Tolerated Well -Offloading Yes Yes -Type of Offloading Surgical Shoe Surgical Shoe -Debridement - Subq, 1st 20sq cm Yes -Debridement - Bone, 1st 20sq cm Yes Pain Scale: 0-10 Numeric Is Patient Pain Free? Yes Yes WC - Nurse 3 - General Ulcer D/C NN Start: 06/20/23 13:22 Freq: Status: Active Protocol: Activity Type Activity Date Activity User E-sign Co-sign Detail Recorded Client Recorded Date Recorded By Document 06/20/23 13:44 [facility] Desktop 06/20/23 13:44 [facility] Document 06/27/23 13:34 KW Desktop 06/27/23 13:35 KW 06/20/23 06/27/23 13:44 13:34 Wound Care Center Nurse 3 #5 R lateralHallux -Ulcer Cleansing Rinsed/ Irrigated with Saline -Foul Odor after Cleansing No -Primary Dressing Applied Other -Other Dressing BETADINE UNDERCASTING -Primary Dressing Covered/Secured with Dry Gauze, Dry Gauze & Secured with Roll Gauze, Tape Secured with Tape Right -Compression Wrap Hadley Wrap Treatment Response Procedure Tolerated Well Pain Scale: 0-10 Numeric Is Patient Pain Free? Yes Yes WC - Visit Discharge Discharge Condition Stable Stable Ambulatory Status Ambulatory,Cane Ambulatory Transportation Private Auto Private Auto Medication Reconcilliation completed & No provided to patient/care provider Clinical Summary of Care Provided Yes Assessment/Plan Assessment/Plan (1) Acute osteomyelitis of right foot: CODE(S): M86.171 - Other acute osteomyelitis, right ankle and foot PLAN: Patient was examined and evaluated. All findings were discussed with the patient. All questions were answered to the patient's satisfaction. Excision debridement down to and including subcutaneous tissue with 3 mm dermal curette to the full-thickness ulcerations right hallux without incident. Predebridement measurement was 0.7 x 0.7 x 0.2 cm. Postdebridement measurement is 0.8 x 0.8 x 0.3 cm. The patient is recovering well from his surgery. There is evidence of a full-thickness ulceration that was present the OR that is present today but much improved. The incision was dressed with Betadine paint followed by dry sterile dressing, the dorsal stitch over the fourth metatarsal phalangeal joint was dressed Betadine paint dry sterile dressing Kerlix and a single-layer Tubigrip was donned to the right lower extremity. Patient was instructed to watch his blood sugar and continue strict blood sugar control. He was understanding of this. He was also educated to the patient that if he has any strikethrough to the dressing and is concerned he is to either follow-up back at the wound care center for dressing change or reach out to Dr. Ontiveros and will have him follow-up in the office. Follow-up at the wound care center with Dr. Ontiveros in 1 week. (2) Non-pressure chronic ulcer of other part of right foot with fat layer exposed: CODE(S): L97.512 - Non-pressure chronic ulcer of other part of right foot with fat layer exposed (3) Contracture, right foot: CODE(S): M24.574 - Contracture, right foot
[2023-07-04 13:23] VITALS: BP 134/62; PULSE 68; RESP 18; TEMP 35.9; BMI 19.8
--- NOTE | 2023-07-04 20:24 | PCM.WC.PN ---
History of Present Illness Date of Service: 07/04/23 Chief Complaint: Mr. Guadalupe is a 67-year-old diabetic male presenting to the wound care center today for second opinion to full-thickness ulceration to right big toe. He was seen by an outside provider at [facility]. [facility] drop pit worker is his primary drop pit worker but is sending to the wound care center today for the full-thickness wound to the right hallux for treatment and care. He denies trauma. Denies constitutional symptoms. Other pedal complaints at this time. History of Wound: Chronic right hallux ulceration Subjective Subjective Mr. Guadalupe is a 67-year-old diabetic male presenting for follow-up and evaluation status post incision bone cortex with surgical skin graft site prep skin graft substitute with application of antibiotic beads to the right hallux. Patient denies any pain to his surgical site. His stay in the hospital after surgery was uneventful. He admits to strict blood sugar control. Denies trauma. Denies constitutional symptoms. He is left his postoperative dressing clean dry and intact. No other pedal complaints at this time. Objective Data Objective Data Vital Signs: Vital Signs Temp Pulse Resp BP O2 Del Method 96.7 F L 68 18 134/62 H Room Air 07/04/23 13:23 07/04/23 13:23 07/04/23 13:23 07/04/23 13:23 07/04/23 13:23 Oxygen Delivery Method Room Air Weight: 59.24 kg Body Mass Index (BMI) 19.8 Physical Exam Narrative Vascular: DP and PT pulse are palpable. CFT is brisk. Nonpitting edema appreciated to the right hallux. Erythema is blanchable without proximal streaking. Skin temperature great is warm to warm from proximal ankle to distal digits. No focal increase is appreciated. Neurological: Light touch intact. Protective sensation is absent. Dermatological: Full-thickness ulceration appreciated to the right hallux measuring 0.8 x 1.2 x 1.3 cm. Improved erythema. Evidence of antibiotic beads to the full-thickness ulceration. The remaining incision is well coapted with suture. Suture noted to the dorsal aspect of the fourth metatarsophalangeal joint. blanchable erythema is appreciated. No surgical wound dehiscence, drainage. Excision debridement down to and including subcutaneous tissue with 3 mm dermal curette to the full-thickness ulcerations right hallux without incident. Predebridement measurement was 0.6 x 0.8 x 0.5 cm. Postdebridement measurement is 0.8 x 1.2 x 1.3 cm. Muscle skeletal: No pain on palpation to full-thickness ulceration right hallux. No pain with calf pressure. Evidence of rectus fourth digit to the right foot after tenotomy. Debridement Note Debridement Note Debridement Free Text: Excision debridement down to and including subcutaneous tissue with 3 mm dermal curette to the full-thickness ulcerations right hallux without incident. Predebridement measurement was 0.6 x 0.8 x 0.5 cm. Postdebridement measurement is 0.8 x 1.2 x 1.3 cm. Post-Debridement Measurements and Additional Note: Post-Debridement Measurements/Treatment - Nurse 1 - General Ulcer Assessment Start: 06/20/23 13:22 Freq: Status: Active Protocol: [email or web address].[email or web address] Activity Type Activity Date Activity User E-sign Co-sign Detail Recorded Client Recorded Date Recorded By Document 06/20/23 13:23 [employer] Desktop 06/20/23 13:28 KW Document 06/27/23 13:13 Laptop 06/27/23 13:14 Document 07/04/23 13:23 Desktop 07/04/23 13:29 06/20/23 06/27/23 07/04/23 13:23 13:13 13:23 - Today's Visit Information Type of service Follow-up Visit Follow-up Visit Follow-up Visit (Physician/PUBLIC RELATIONS INTERN (Physician/PUBLIC RELATIONS INTERN (Physician/PUBLIC RELATIONS INTERN ) ) ) Arrival Mode Ambulatory,Cane Ambulatory,Cane Ambulatory Transfer Assistance None Patient Identification Verified (Name & Yes Yes Yes ) Patient Requires Transmission-Based No Precautions Height and Weight Body Mass Index (BMI) 19.8 19.8 19.8 BMI Classification Normal Normal Normal Vital Signs Temperature (97.8 F-99.1 F) 96.9 F L 96.7 F L Temperature Source Temporal Temporal Pulse Rate (60-100) 76 96 68 Pulse Location Monitor Monitor Monitor Respiratory Rate (12-18) 18 16 18 Respiratory rate source Observation Observation Observation Oxygen Delivery Method Room Air Room Air Blood Pressure (90/60-120/80) 154/70 H 148/80 H 134/62 H Blood Pressure Mean (mm Hg) 98 102 86 Source Monitor Monitor Monitor Position Semi-Fowlers Semi-Fowlers Sitting Blood Pressure Location Left Arm Left Forearm Left Arm History Since Last Visit- (Skip if this is Patient's initial visit) Have you changed medications since your No No No last visit? Any new allergies or adverse reactions No No No Had a fall/change in ADL's that may Yes No No increase risk of falls Signs or symptoms of abuse and/or No No No neglect since last visit Have you been in the hospital since your No No No last visit? Has dressing in place as prescribed Yes Yes Yes Has compression in place as prescribed N/A Yes No Has offloadiing in place as prescribed Yes Yes Yes Experienced any changes in pain level or No No No management Left Footwear Regular Shoe Surgical Shoe with pressure relief insole Right Footwear Surgical Shoe Regular Shoe Surgical Shoe with pressure with pressure relief insole relief insole Pain Scale: 0-10 Numeric Is Patient Pain Free? Yes Yes Yes WC - Nurse 1 - General Ulcer Measurement Start: 06/20/23 13:22 Freq: Status: Active Protocol: Activity Type Activity Date Activity User E-sign Co-sign Detail Recorded Client Recorded Date Recorded By Document 06/20/23 13:23 [employer] Desktop 06/20/23 13:28 [employer] Document 06/27/23 13:13 [employer] Laptop 06/27/23 13:14 [employer] Document 07/04/23 13:23 Desktop 07/04/23 13:29 06/20/23 06/27/23 07/04/23 13:23 13:13 13:23 Wound Center Nurse 1 #5 R lateralHallux -Combined with other wound No -Combined with (Name of Wound-Exactly 0.1 as it is documented) -Current Size (cm) - Length 1 0.1 -Current Size (cm) - Width 0.8 0.1 -Current Size (cm) - Depth 0.4 -Total Square Cm 0.8 0.01 -Date of Last Picture (Recall this 07/04/23 field) -Photo Taken No Yes -Epithelialization Small 1-33% -Tunneling No -Undermining/Tunneling No -Circular Undermining No -Exudate Amt Small Medium -Exudate Type Serosanguineous Serosanguineous Sanguineous -Wound Margin Distinct, Flat & Intact Outline Attached -Granulation Amt Small (1-33%) None Present (0 %) -Granulation Quality Pale,[place] -Slough/Fibrin Yes -Necrosis Amt Large (67-100%) Large (67-100%) -Necrotic Tissue Type Adherent Slough Adherent Slough -Structure Exposed N/A -Texture (Maddison-wound Skin Appearance) Assessed Assessed, Localized Edema -Moisture (Maddison-wound Skin Appearance) Maceration Assessed,Dry/ Scaly -Color (Maddison-wound Skin Appearance) Assessed Assessed -Temperature (Maddison-wound Skin No Abnormality No Abnormality No Abnormality Appearance) (Pt Warm) (Pt Warm) (Pt Warm) -Tenderness on Palpation (Maddison-wound No Skin Appearance) -Ulcer Cleansing Rinsed/ Rinsed/ Rinsed/ Irrigated with Irrigated with Irrigated with Saline Saline Saline -Foul Odor after Cleansing No No -Anesthetic Used 5% Lidocaine Gel Lower Limb Edema Present NA WC - Nurse 2 - General Ulcer CM Notes Start: 06/20/23 13:22 Freq: Status: Active Protocol: Activity Type Activity Date Activity User E-sign Co-sign Detail Recorded Client Recorded Date Recorded By Document 06/20/23 13:31 Desktop 06/20/23 13:35 Document 06/27/23 13:14 [employer] Laptop 06/27/23 13:17 Document 07/04/23 14:06 [employer] Laptop 07/04/23 14:11 06/20/23 06/27/23 07/04/23 13:31 13:14 14:06 Wound Center Nurse 2 #5 R lateralHallux -Time 13:32 13:15 14:06 -Correct Patient Yes Yes Yes -Correct Side, Site, Position Yes Yes Yes -Correct Procedure Yes Yes Yes -Procedure Performed Yes Yes Yes -Type of Procedure Debridement Debridement Debridement -Clinical Debridement Bone Subcutaneous Subcutaneous -Tissue Removed Biofilm Subcutaneous Subcutaneous -Post Debridement (cm) - Length 1.0 0.8 0.8 -Post Debridement (cm) - Width 1.2 0.8 1.2 -Post Debridement (cm) - Depth 0.4 0.3 1.2 -Total Square (Post) (cm) 1.20 0.64 0.96 -Area of Debridement (cm) - Length 1.0 0.8 0.8 -Area of Debridement (cm) - Width 1.2 0.8 1.2 -Total Square (Area) (cm) 1.20 0.64 0.96 -Tunneling No No No -Undermining/Tunneling No No No -Circular Undermining No No No -Wound/Ulcer Outcome Not Healed Not Healed Not Healed -Ulcer Cleansing Rinsed/ Rinsed/ Rinsed/ Irrigated with Irrigated with Irrigated with Saline Saline Saline -Foul Odor after Cleansing No No No -Bioengineered Tissue No No No -Bleeding Controlled with Pressure Pressure,Silver Pressure,Silver Nitrate Nitrate -Treatment Response Procedure Procedure Procedure Tolerated Well Tolerated Well Tolerated Well -Offloading Yes Yes Yes -Type of Offloading Surgical Shoe Surgical Shoe Surgical Shoe -Debridement - Subq, 1st 20sq cm Yes Yes -Debridement - Bone, 1st 20sq cm Yes Pain Scale: 0-10 Numeric Is Patient Pain Free? Yes Yes Yes - Nurse 3 - General Ulcer D/C NN Start: 06/20/23 13:22 Freq: Status: Active Protocol: Activity Type Activity Date Activity User E-sign Co-sign Detail Recorded Client Recorded Date Recorded By Document 06/20/23 13:44 [facility] Desktop 06/20/23 13:44 [facility] Document 06/27/23 13:34 KW Desktop 06/27/23 13:35 KW Document 07/04/23 14:25 DL Desktop 07/04/23 14:26 DL 06/20/23 06/27/23 07/04/23 13:44 13:34 14:25 Wound Care Center Nurse 3 #5 R lateralHallux -Ulcer Cleansing Rinsed/ Rinsed/ Irrigated with Irrigated with Saline Saline -Foul Odor after Cleansing No No -Primary Dressing Applied Other Promogran Carol Matter -Other Dressing BETADINE UNDERCASTING betadine -Primary Dressing Covered/Secured with Dry Gauze, Dry Gauze & Dry Gauze, Secured with Roll Gauze, Secured with Tape Secured with Tape Tape -Promogran Carol Matter 1 Right -Compression Wrap Hadley Wrap Hadley Wrap Treatment Response Procedure Procedure Tolerated Well Tolerated Well Pain Scale: 0-10 Numeric Is Patient Pain Free? Yes Yes Yes - Visit Discharge Discharge Condition Stable Stable Stable Ambulatory Status Ambulatory,Cane Ambulatory Ambulatory Transportation Private Auto Private Auto Private Auto Medication Reconcilliation completed & No provided to patient/care provider Clinical Summary of Care Provided Yes Assessment/Plan Assessment/Plan (1) Non-pressure chronic ulcer of other part of right foot with fat layer exposed: CODE(S): L97.512 - Non-pressure chronic ulcer of other part of right foot with fat layer exposed PLAN: Patient was examined and evaluated. All findings were discussed with the patient. All questions were answered to the patient satisfaction. Excision debridement down to and including subcutaneous tissue with 3 mm dermal curette to the full-thickness ulcerations right hallux without incident. Predebridement measurement was 0.6 x 0.8 x 0.5 cm. Postdebridement measurement is 0.8 x 1.2 x 1.3 cm. Vancomycin antibiotic beads are still present in the ulceration on the right hallux. The hallux was dressed with Carol and dry sterile dressing after debridement. Patient was instructed to leave the dressing clean dry and intact. He will follow-up in [address] Houston for continued management care. On week 2 the patient will follow-up with Dr. Ontiveros for continued care. (2) Acute osteomyelitis of right foot: CODE(S): M86.171 - Other acute osteomyelitis, right ankle and foot PLAN: After review of the patient's microbiology results after surgery the patient will be placed on linezolid 600 mg twice daily for 2 weeks with possible refill for additional 2 weeks.
--- NOTE | 2023-07-09 13:25 | WC ---
3.20.24 RT HALLUX POST OP
== END 2023-07-15 23:59 | disposition home or self-care (01) ==
LOC: WC 13:15
PROVIDERS: PCP Student in an Organized Health Care Education/Training Program; Referring Provider Podiatrist Foot & Ankle Surgery; Visit Provider Podiatrist Foot & Ankle Surgery
DX: L97.514 Non-pressure chronic ulcer of other part of right foot with necrosis of bone (principal); L97.512 Non-pressure chronic ulcer of other part of right foot with fat layer exposed; M86.172 Other acute osteomyelitis, left ankle and foot
CPT/HCPCS: 11042; 11044

== ENCOUNTER 2023-08-08 13:15 | Outpatient (RCR) | payer MEDICARE, OTHER, SELFPAY ==
[2023-07-16 00:18] VITALS: BP 134/62; PULSE 68; RESP 18; TEMP 35.9; BMI 19.8
[2023-07-18 13:19] VITALS: BP 138/63; PULSE 73; RESP 18; TEMP 35.7; BMI 19.8
--- NOTE | 2023-07-18 14:44 | PN.PCM_ITS ---
History of Present Illness Date of Service: 07/18/23 Chief Complaint: Mr. Guadalupe is a 67-year-old diabetic male presenting to the wound care center today for second opinion to full-thickness ulceration to right big toe. He was seen by an outside provider at [facility]. [facility] president and ceo is his primary president and ceo but is sending to the wound care center today for the full-thickness wound to the right hallux for treatment and care. He denies trauma. Denies constitutional symptoms. Other pedal compl aints at this time. History of Wound: Chronic right hallux ulceration Subjective Subjective Mr. Guadalupe is a 67-year-old diabetic male presenting for follow-up and evaluation status post incision bone cortex with surgical skin graft site prep skin graft substitute with application of antibiotic beads to the right hallux. Patient denies any pain to his surgical site. His stay in the hospital after surgery was uneventful. He admits to strict blood sugar control. Denies trauma. Denies constitutional symptoms. He is left his postoperative dressing clean dry and intact. No other pedal complaints at this time. Objective Data Objective Data Vital Signs: Vital Signs Temp Pulse Resp BP O2 Del Method 96.3 F L 73 18 138/63 H Room Air 07/18/23 13:19 07/18/23 13:19 07/18/23 13:19 07/18/23 13:19 07/18/23 13:19 Oxygen Delivery Method Room Air Weight: 59.24 kg Body Mass Index (BMI) 19.8 Physical Exam Narrative Vascular: DP and PT pulse are palpable. CFT is brisk. Nonpitting edema appreciated to the right hallux. Erythema is blanchable without proximal streaking. Skin temperature great is warm to warm from proximal ankle to distal digits. No focal increase is appreciated. Neurological: Light touch intact. Protective sensation is absent. Dermatological: Full-thickness ulceration appreciated to the right hallux measuring 1.2 x 1.0 x 0.5 cm. (+) PTB. Improved erythema. Evidence of antibiotic beads to the full-thickness ulceration. The remaining incision is well coapted with suture. Suture noted to the dorsal aspect of the fourth metatarsophalangeal joint. blanchable erythema is appreciated. No surgical wound dehiscence, drainage. Excision debridement down to and including subcutaneous tissue with 3 mm dermal curette to the full-thickness ulcerations right hallux without incident. Predebridement measurement was 1.0 x 0.8 x 0.4 cm. Postdebridement measurement is 1.2 x 1.0 x 0.5 cm. Muscle skeletal: No pain on palpation to full-thickness ulceration right hallux. No pain with calf pressure. Evidence of rectus fourth digit to the right foot after tenotomy. Debridement Note Debridement Note Debridement Free Text: Excision debridement down to and including subcutaneous tissue with 3 mm dermal curette to the full-thickness ulcerations right hallux without incident. Predebridement measurement was 1.0 x 0.8 x 0.4 cm. Postdebridement measurement is 1.2 x 1.0 x 0.5 cm. Post-Debridement Measurements and Additional Note: Post-Debridement Measurements/Treatment - Nurse 1 - General Ulcer Assessment Start: 07/18/23 13:18 Freq: Status: Active Protocol: [email or web address].LOWEXT Activity Type Activity Date Activity User E-sign Co-sign Detail Recorded Client Recorded Date Recorded By Document 07/18/23 13:19 Desktop 07/18/23 13:21 07/18/23 13:19 - Today's Visit Information Type of service Follow-up Visit (Physician/RUNNING INSTRUCTOR ) Arrival Mode Ambulatory,Cane Transfer Assistance None Patient Identification Verified (Name & Yes ) Patient Requires Transmission-Based No Precautions Finger Stick Blood Sugar(mg/dl) (if 145 indicated): Blood Sugar Stated by Patient Height and Weight Body Mass Index (BMI) 19.8 BMI Classification Normal Vital Signs Temperature (97.8 F-99.1 F) 96.3 F L Temperature Source Temporal Pulse Rate (60-100) 73 Pulse Location Monitor Respiratory Rate (12-18) 18 Respiratory rate source Observation Oxygen Delivery Method Room Air Blood Pressure (90/60-120/80) 138/63 H Blood Pressure Mean (mm Hg) 88 Source Monitor Position Sitting Blood Pressure Location Left Arm History Since Last Visit- (Skip if this is Patient's initial visit) Have you changed medications since your No last visit? Any new allergies or adverse reactions No Had a fall/change in ADL's that may No increase risk of falls Signs or symptoms of abuse and/or No neglect since last visit Have you been in the hospital since your No last visit? Has dressing in place as prescribed Yes Has compression in place as prescribed N/A Has offloadiing in place as prescribed Yes Experienced any changes in pain level or No management Left Footwear Surgical Shoe with pressure relief insole Pain Scale: 0-10 Numeric Is Patient Pain Free? Yes WC - Nurse 1 - General Ulcer Measurement Start: 07/18/23 13:18 Freq: Status: Active Protocol: Activity Type Activity Date Activity User E-sign Co-sign Detail Recorded Client Recorded Date Recorded By Document 07/18/23 13:19 Desktop 07/18/23 13:21 07/18/23 13:19 Wound Center Nurse 1 #5 R lateralHallux -Combined with other wound No -Epithelialization Small 1-33% -Tunneling No -Undermining/Tunneling No -Circular Undermining No -Exudate Amt None Present -Wound Margin Distinct, Outline Attached -Texture (Maddison-wound Skin Appearance) Assessed -Moisture (Maddison-wound Skin Appearance) Assessed, Maceration -Color (Maddison-wound Skin Appearance) Assessed -Temperature (Maddison-wound Skin No Abnormality Appearance) (Pt Warm) -Tenderness on Palpation (Maddison-wound No Skin Appearance) -Ulcer Cleansing Rinsed/ Irrigated with Saline -Foul Odor after Cleansing No -Wound Comment(s) Sutures are still present, the wound looks a little macerated. - Nurse 2 - General Ulcer CM Notes Start: 07/18/23 13:18 Freq: Status: Active Protocol: Activity Type Activity Date Activity User E-sign Co-sign Detail Recorded Client Recorded Date Recorded By Document 07/18/23 13:36 Laptop 07/18/23 13:40 07/18/23 13:36 Wound Center Nurse 2 -Time 13:40 -Correct Patient Yes -Correct Side, Site, Position Yes -Correct Procedure Yes -Procedure Performed Yes -Type of Procedure Debridement -Clinical Debridement Bone -Tissue Removed Slough -Post Debridement (cm) - Length 1.2 -Post Debridement (cm) - Width 1.0 -Post Debridement (cm) - Depth 0.5 -Total Square (Post) (cm) 1.20 -Area of Debridement (cm) - Length 1.2 -Area of Debridement (cm) - Width 1.0 -Total Square (Area) (cm) 1.20 -Tunneling No -Undermining/Tunneling No -Circular Undermining No -Wound/Ulcer Outcome Not Healed -Ulcer Cleansing Rinsed/ Irrigated with Saline -Foul Odor after Cleansing No -Bioengineered Tissue No -Bleeding Controlled with Pressure -Treatment Response Procedure Tolerated Well -Offloading Yes -Type of Offloading Surgical Shoe -Debridement - Bone, 1st 20sq cm Yes Pain Scale: 0-10 Numeric Is Patient Pain Free? Yes Assessment/Plan Assessment/Plan (1) Acute osteomyelitis of right foot: CODE(S): M86.171 - Other acute osteomyelitis, right ankle and foot PLAN: Patient was examined and evaluated. All findings were discussed with the patient. All questions were answered to the patient's satisfaction. Excision debridement down to and including subcutaneous tissue with 3 mm dermal curette to the full-thickness ulcerations right hallux without incident. Predebridement measurement was 1.0 x 0.8 x 0.4 cm. Postdebridement measurement is 1.2 x 1.0 x 0.5 cm. The patient's right hallux sutures were removed without incident. There is still present full-thickness wound with probe to bone to the right hallux. There is concern for cellulitis secondary to home dressing changes and the patient getting his dressing wet. At this time we will stop dressing changes per the patient and the patient will be placed on doxycycline as well as continue his Augmentin. Cultures were taken of the right hallux and will adjust antibiotics as needed. Steri-Strips were applied to the right hallux ulceration to educate the skin lines to help with closure. Patient will apply Betadine paint dry sterile dressing and tape to the hallux. He is understanding of dressing changes. He will continue strict blood sugar control. It was educated the patient that if he noticed increase in redness and warmth and concern for infection he is to present to [facility] emergency department for evaluation and possible admission. Follow-up at the wound care center with Dr. Ontiveros in 1 week. (2) Non-pressure chronic ulcer of other part of right foot with necrosis of bone: CODE(S): L97.514 - Non-pressure chronic ulcer of other part of right foot with necrosis of bone (3) Other deformities of toe(s) (acquired), right foot: CODE(S): M20.5X1 - Other deformities of toe(s) (acquired), right foot
[2023-07-25 14:12] VITALS: BP 147/71; PULSE 71; RESP 18; BMI 19.8
--- NOTE | 2023-07-25 16:26 | PN.PCM_ITS ---
History of Present Illness Date of Service: 07/25/23 Chief Complaint: Mr. Guadalupe is a 67-year-old diabetic male presenting to the wound care center today for second opinion to full-thickness ulceration to right big toe. He was seen by an outside provider at [facility]. [facility] experimental physicist is his primary experimental physicist but is sending to the wound care center today for the full-thickness wound to the right hallux for treatment and care. He denies trauma. Denies constitutional symptoms. Other pedal compl aints at this time. History of Wound: Chronic right hallux ulceration Subjective Subjective Mr. Guadalupe is a 67-year-old diabetic male presenting for follow-up and evaluation status post incision bone cortex with surgical skin graft site prep skin graft substitute with application of antibiotic beads to the right hallux. Patient denies any pain to his surgical site. His stay in the hospital after surgery was uneventful. He admits to strict blood sugar control. Denies trauma. Denies constitutional symptoms. He is left his postoperative dressing clean dry and intact. No other pedal complaints at this time. Objective Data Objective Data Vital Signs: Vital Signs Temp Pulse Resp BP O2 Del Method 96.3 F L 71 18 147/71 H Room Air 07/18/23 13:19 07/25/23 14:12 07/25/23 14:12 07/25/23 14:12 07/25/23 14:12 Oxygen Delivery Method Room Air Weight: 59.24 kg Body Mass Index (BMI) 19.8 Lab / Micro Data Micro: Microbiology 07/19/23 Unknown Wound - Toe Gram Stain - Final 07/19/23 Unknown Wound - Toe Wound Culture - Final Klebsiella pneumoniae sp pneum 07/19/23 Unknown Wound - Toe Anaerobic Culture - Final No anaerobic bacteria isolated. Physical Exam Narrative Vascular: DP and PT pulse are palpable. CFT is brisk. Nonpitting edema appreciated to the right hallux. Erythema is blanchable without proximal streaking. Skin temperature great is warm to warm from proximal ankle to distal digits. No focal increase is appreciated. Neurological: Light touch intact. Protective sensation is absent. Dermatological: Full-thickness ulceration appreciated to the right hallux measuring 1.4 x 0.4 x 2.5 cm. (+) PTB. Improved erythema. Evidence of antibiotic beads to the full-thickness ulceration. The remaining incision is well coapted with suture. Suture noted to the dorsal aspect of the fourth metatarsophalangeal joint. blanchable erythema is appreciated. No surgical wound dehiscence, drainage. Excision debridement down to and including subcutaneous tissue, fascia, muscle and bone with 3 mm dermal curette to the full-thickness ulcerations right hallux without incident. Predebridement measurement was 1.2 x 0.3 x 2.0 cm. Postdebridement measurement is 1.4 x 0.4 x 2.5 cm. Muscle skeletal: No pain on palpation to full-thickness ulceration right hallux. No pain with calf pressure. Evidence of rectus fourth digit to the right foot after tenotomy. Debridement Note Debridement Note Debridement Free Text: Excision debridement down to and including subcutaneous tissue, fascia, muscle and bone with 3 mm dermal curette to the full-thickness ulcerations right hallux without incident. Predebridement measurement was 1.2 x 0.3 x 2.0 cm. Postdebridement measurement is 1.4 x 0.4 x 2.5 cm. Post-Debridement Measurements and Additional Note: Post-Debridement Measurements/Treatment - Nurse 1 - General Ulcer Assessment Start: 07/18/23 13:18 Freq: Status: Active Protocol: ANIA.LORAINE Activity Type Activity Date Activity User E-sign Co-sign Detail Recorded Client Recorded Date Recorded By Document 07/18/23 13:19 Desktop 07/18/23 13:21 Document 07/25/23 14:12 KW Desktop 07/25/23 14:16 KW 07/18/23 07/25/23 13:19 14:12 - Today's Visit Information Type of service Follow-up Visit Follow-up Visit (Physician/DURABILITY ENGINEER (Physician/DURABILITY ENGINEER ) ) Arrival Mode Ambulatory,Cane Ambulatory Transfer Assistance None Patient Identification Verified (Name & Yes Yes ) Patient Requires Transmission-Based No Precautions Finger Stick Blood Sugar(mg/dl) (if 145 indicated): Blood Sugar Stated by Patient Height and Weight Body Mass Index (BMI) 19.8 19.8 BMI Classification Normal Normal Vital Signs Temperature (97.8 F-99.1 F) 96.3 F L Temperature Source Temporal Pulse Rate (60-100) 73 71 Pulse Location Monitor Monitor Respiratory Rate (12-18) 18 18 Respiratory rate source Observation Observation Oxygen Delivery Method Room Air Room Air Blood Pressure (90/60-120/80) 138/63 H 147/71 H Blood Pressure Mean (mm Hg) 88 96 Source Monitor Monitor Position Sitting Semi-Fowlers Blood Pressure Location Left Arm Right Arm History Since Last Visit- (Skip if this is Patient's initial visit) Have you changed medications since your No No last visit? Any new allergies or adverse reactions No No Had a fall/change in ADL's that may No No increase risk of falls Signs or symptoms of abuse and/or No No neglect since last visit Have you been in the hospital since your No No last visit? Has dressing in place as prescribed Yes Yes Has compression in place as prescribed N/A N/A Has offloadiing in place as prescribed Yes Yes Experienced any changes in pain level or No management Left Footwear Surgical Shoe Regular Shoe with pressure relief insole Right Footwear Surgical Shoe with pressure relief insole Pain Scale: 0-10 Numeric Is Patient Pain Free? Yes Yes WC - Nurse 1 - General Ulcer Measurement Start: 07/18/23 13:18 Freq: Status: Active Protocol: Activity Type Activity Date Activity User E-sign Co-sign Detail Recorded Client Recorded Date Recorded By Document 07/18/23 13:19 GM Desktop 07/18/23 13:21 GM Document 07/25/23 14:12 KW Desktop 07/25/23 14:16 KW 07/18/23 07/25/23 13:19 14:12 Wound Center Nurse 1 #5 R lateralHallux -Combined with other wound No -Current Size (cm) - Length 1.1 -Current Size (cm) - Width 0.3 -Current Size (cm) - Depth 3 -Total Square Cm 0.33 -Epithelialization Small 1-33% -Tunneling No -Undermining/Tunneling No -Circular Undermining No -Exudate Amt None Present Small -Exudate Type Serosanguineous -Wound Margin Distinct, Outline Attached -Granulation Amt Small (1-33%) -Granulation Quality Chapman -Texture (Maddison-wound Skin Appearance) Assessed Assessed -Moisture (Maddison-wound Skin Appearance) Assessed, Assessed, Maceration Maceration -Color (Maddison-wound Skin Appearance) Assessed Assessed, Erythema -Temperature (Maddison-wound Skin No Abnormality No Abnormality Appearance) (Pt Warm) (Pt Warm) -Tenderness on Palpation (Maddison-wound No No Skin Appearance) -Ulcer Cleansing Rinsed/ Rinsed/ Irrigated with Irrigated with Saline Saline -Foul Odor after Cleansing No -Anesthetic Used 5% Lidocaine Gel -Wound Comment(s) Sutures are still present, the wound looks a little macerated. ANIA - Nurse 2 - General Ulcer CM Notes Start: 07/18/23 13:18 Freq: Status: Active Protocol: Activity Type Activity Date Activity User E-sign Co-sign Detail Recorded Client Recorded Date Recorded By Document 07/18/23 13:36 Laptop 07/18/23 13:40 Document 07/25/23 14:31 Laptop 07/25/23 14:34 07/18/23 07/25/23 13:36 14:31 Wound Center Nurse 2 #5 R lateralHallux -Time 13:40 14:32 -Correct Patient Yes Yes -Correct Side, Site, Position Yes Yes -Correct Procedure Yes Yes -Procedure Performed Yes Yes -Type of Procedure Debridement Debridement -Clinical Debridement Bone Bone -Tissue Removed Slough Slough -Post Debridement (cm) - Length 1.2 1.4 -Post Debridement (cm) - Width 1.0 0.4 -Post Debridement (cm) - Depth 0.5 2.5 -Total Square (Post) (cm) 1.20 0.56 -Area of Debridement (cm) - Length 1.2 1.4 -Area of Debridement (cm) - Width 1.0 0.4 -Total Square (Area) (cm) 1.20 0.56 -Tunneling No No -Undermining/Tunneling No No -Circular Undermining No No -Wound/Ulcer Outcome Not Healed Not Healed -Ulcer Cleansing Rinsed/ Rinsed/ Irrigated with Irrigated with Saline Saline -Foul Odor after Cleansing No No -Bioengineered Tissue No No -Bleeding Controlled with Pressure Pressure -Treatment Response Procedure Procedure Tolerated Well Tolerated Well -Offloading Yes Yes -Type of Offloading Surgical Shoe Surgical Shoe -Debridement - Bone, 1st 20sq cm Yes Yes Pain Scale: 0-10 Numeric Is Patient Pain Free? Yes Yes ANIA - Nurse 3 - General Ulcer D/C NN Start: 07/18/23 13:18 Freq: Status: Active Protocol: Activity Type Activity Date Activity User E-sign Co-sign Detail Recorded Client Recorded Date Recorded By Document 07/18/23 15:08 [id number] 07/18/23 15:08 JF 07/18/23 15:08 Wound Care Center Nurse 3 #5 R lateralHallux -Ulcer Cleansing Rinsed/ Irrigated with Saline -Foul Odor after Cleansing No -Other Dressing betadine -Primary Dressing Covered/Secured with Dry Gauze, Secured with Tape Pain Scale: 0-10 Numeric Is Patient Pain Free? Yes WC - Visit Discharge Discharge Condition Stable Ambulatory Status Ambulatory Transportation Private Auto Medication Reconcilliation completed & Yes provided to patient/care provider Clinical Summary of Care Provided Yes Assessment/Plan Assessment/Plan (1) Non-pressure chronic ulcer of other part of right foot with necrosis of bone: CODE(S): L97.514 - Non-pressure chronic ulcer of other part of right foot with necrosis of bone PLAN: Patient was examined and evaluated. All findings were discussed with the patient. All questions were answered to the patient's satisfaction. Excision debridement down to and including subcutaneous tissue, fascia, muscle and bone with 3 mm dermal curette to the full-thickness ulcerations right hallux without incident. Predebridement measurement was 1.2 x 0.3 x 2.0 cm. Postdebridement measurement is 1.4 x 0.4 x 2.5 cm. The right hallux was wiped clean and patted dry. The area was dressed with Betadine soaked gauze dry sterile dressing and a single-layer Tubigrip followed by surgical shoe was donne d to the right lower extremity. Patient is currently taking a combination of Augmentin and doxycycline. Instructed the patient to stop taking those antibiotics and he will be placed on a new antibiotic ciprofloxacin 7500 mg twice daily for 2 weeks since the patient grew Klebsiella from his recent cultures. If the patient shows improvement over the next week to 2 weeks we will do an office delayed primary closure to the right hallux full-thickness wound. He was understanding of this. Follow-up at the wound care center with Dr. Ontiveros in 1 week.
[2023-08-01 13:20] VITALS: BP 120/51; PULSE 72; RESP 16; TEMP 37; BMI 19.8
--- NOTE | 2023-08-01 13:35 | PCM.WC.PN ---
History of Present Illness Date of Service: 08/01/23 Chief Complaint: Mr. Guadalupe is a 67-year-old diabetic male presenting to the wound care center today for second opinion to full-thickness ulceration to right big toe. He was seen by an outside provider at [facility]. [facility] revenue cycle analyst is his primary revenue cycle analyst but is sending to the wound care center today for the full-thickness wound to the right hallux for treatment and care. He denies trauma. Denies constitutional symptoms. Other pedal complaints at this time. History of Wound: Chronic right hallux ulceration Subjective Subjective Mr. Guadalupe is a 67-year-old diabetic male presenting to clinic today follow-up evaluation of status post right hallux incision bone cortex with IPJ arthroplasty and graft application. Patient has been recovering for surgery. He presents today for reapplication of graft since he does not have infection to the right hallux anymore. He has been compliant with his oral antibiotic, Cipro 750 mg twice daily for 2 weeks. He has 1 week remaining. He states that his toe feels good denies any pain and he likes how everything is progressing. He admits his blood sugars well-controlled. He denies trauma. Denies constitutional symptoms. No other pedal complaints at this time. Objective Data Objective Data Vital Signs: Vital Signs Temp Pulse Resp BP O2 Del Method 98.6 F 72 16 120/51 L Room Air 08/01/23 13:20 08/01/23 13:20 08/01/23 13:20 08/01/23 13:20 08/01/23 13:20 Oxygen Delivery Method Room Air Weight: 59.24 kg Body Mass Index (BMI) 19.8 Lab / Micro Data Micro: Microbiology 07/19/23 Unknown Wound - Toe Gram Stain - Final 07/19/23 Unknown Wound - Toe Wound Culture - Final Klebsiella pneumoniae sp pneum 07/19/23 Unknown Wound - Toe Anaerobic Culture - Final No anaerobic bacteria isolated. Physical Exam Narrative Vascular: DP and PT pulse are palpable. CFT is brisk. Nonpitting edema appreciated to the right hallux. Erythema is blanchable without proximal streaking. Skin temperature great is warm to warm from proximal ankle to distal digits. No focal increase is appreciated. Neurological: Light touch intact. Protective sensation is absent. Dermatological: Full-thickness ulceration appreciated to the right hallux measuring 1.5 x 0.4 x 1.5 cm. Positive probe to bone secondary to surgery. No concern for osteomyelitis at this time. Erythema is improved. Antibiotic beads have dissolved. Incision has improved in length and width from previous visit. Webspaces 1-4 are clean dry and intact. Excision debridement down to and including subcutaneous tissue with a #15 blade to the full-thickness ulcerations right hallux without incident. Predebridement measurement was 1.3 x 0.2 x 1.3 cm. Postdebridement measurement is 1.5 x 0.4 x 1.5 cm. EpiFix 18 mm disc was applied to the right hallux full-thickness ulceration with 100% use. Eighth application. The graft site was free and clear of any infection. The wound/skin graft substitute was dressed with nonadherent bandage secured in place with Steri-Strips followed by bolster dressing as well as a double layer Tubigrip. Muscle skeletal: No pain on palpation to full-thickness ulceration right hallux. No pain with calf pressure. Evidence of rectus fourth digit to the right foot after tenotomy. Debridement Note Debridement Note Debridement Free Text: Excision debridement down to and including subcutaneous tissue with a #15 blade to the full-thickness ulcerations right hallux without incident. Predebridement measurement was 1.3 x 0.2 x 1.3 cm. Postdebridement measurement is 1.5 x 0.4 x 1.5 cm. EpiFix 18 mm disc was applied to the right hallux full-thickness ulceration with 100% use. Eighth application. The graft site was free and clear of any infection. The wound/skin graft substitute was dressed with nonadherent bandage secured in place with Steri-Strips followed by bolster dressing as well as a double layer Tubigrip. Post-Debridement Measurements and Additional Note: Post-Debridement Measurements/Treatment ANIA - Nurse 1 - General Ulcer Assessment Start: 07/18/23 13:18 Freq: Status: Active Protocol: BREANA Activity Type Activity Date Activity User E-sign Co-sign Detail Recorded Client Recorded Date Recorded By Document 07/18/23 13:19 GM Desktop 07/18/23 13:21 GM Document 07/25/23 14:12 KW Desktop 07/25/23 14:16 KW Document 08/01/23 13:20 CP Desktop 08/01/23 13:22 CP 07/18/23 07/25/23 08/01/23 13:19 14:12 13:20 WC - Today's Visit Information Type of service Follow-up Visit Follow-up Visit Follow-up Visit (Physician/ASSET PROTECTION SPECIALIST (Physician/ASSET PROTECTION SPECIALIST (Physician/ASSET PROTECTION SPECIALIST ) ) ) Arrival Mode Ambulatory,Cane Ambulatory Ambulatory,Cane Transfer Assistance None Patient Identification Verified (Name & Yes Yes Yes ) Patient Requires Transmission-Based No No Precautions Safety Precautions NA Finger Stick Blood Sugar(mg/dl) (if 145 148 indicated): Blood Sugar Stated by Stated by Patient Patient Height and Weight Body Mass Index (BMI) 19.8 19.8 19.8 BMI Classification Normal Normal Normal Vital Signs Temperature (97.8 F-99.1 F) 96.3 F L 98.6 F Temperature Source Temporal Temporal Pulse Rate (60-100) 73 71 72 Pulse Location Monitor Monitor Monitor Respiratory Rate (12-18) 18 18 16 Respiratory rate source Observation Observation Observation Oxygen Delivery Method Room Air Room Air Room Air Blood Pressure (90/60-120/80) 138/63 H 147/71 H 120/51 L Blood Pressure Mean (mm Hg) 88 96 74 Source Monitor Monitor Monitor Position Sitting Semi-Fowlers Sitting Blood Pressure Location Left Arm Right Arm Left Arm History Since Last Visit- (Skip if this is Patient's initial visit) Have you changed medications since your No No No last visit? Any new allergies or adverse reactions No No No Had a fall/change in ADL's that may No No No increase risk of falls Signs or symptoms of abuse and/or No No No neglect since last visit Have you been in the hospital since your No No No last visit? Has dressing in place as prescribed Yes Yes Yes Has compression in place as prescribed N/A N/A N/A Has offloadiing in place as prescribed Yes Yes Yes Experienced any changes in pain level or No No management Left Footwear Surgical Shoe Regular Shoe with pressure relief insole Right Footwear Surgical Shoe Surgical Shoe with pressure with pressure relief insole relief insole Pain Scale: 0-10 Numeric Is Patient Pain Free? Yes Yes Yes - Nurse 1 - General Ulcer Measurement Start: 07/18/23 13:18 Freq: Status: Active Protocol: Activity Type Activity Date Activity User E-sign Co-sign Detail Recorded Client Recorded Date Recorded By Document 07/18/23 13:19 GM Desktop 07/18/23 13:21 GM Document 07/25/23 14:12 KW Desktop 07/25/23 14:16 KW Document 08/01/23 13:20 CP Desktop 08/01/23 13:22 CP 07/18/23 07/25/23 08/01/23 13:19 14:12 13:20 Wound Center Nurse 1 #5 R lateralHallux -Combined with other wound No -Current Size (cm) - Length 1.1 0.1 -Current Size (cm) - Width 0.3 0.2 -Current Size (cm) - Depth 3 0.2 -Total Square Cm 0.33 0.02 -Epithelialization Small 1-33% None Present -Tunneling No -Undermining/Tunneling No No -Circular Undermining No No -Exudate Amt None Present Small Small -Exudate Type Serosanguineous Sanguineous -Wound Margin Distinct, Flat & Intact Outline Attached -Granulation Amt Small (1-33%) Large (67-100%) -Granulation Quality Enoch Enoch -Slough/Fibrin Yes -Necrosis Amt Small (1-33%) -Necrotic Tissue Type Adherent Slough -Structure Exposed N/A -Texture (Maddison-wound Skin Appearance) Assessed Assessed No Abnormality -Moisture (Maddison-wound Skin Appearance) Assessed, Assessed, No Abnormality Maceration Maceration -Color (Maddison-wound Skin Appearance) Assessed Assessed, No Abnormality Erythema -Temperature (Maddison-wound Skin No Abnormality No Abnormality No Abnormality Appearance) (Pt Warm) (Pt Warm) (Pt Warm) -Tenderness on Palpation (Maddison-wound No No No Skin Appearance) -Ulcer Cleansing Rinsed/ Rinsed/ Rinsed/ Irrigated with Irrigated with Irrigated with Saline Saline Saline -Foul Odor after Cleansing No No -Anesthetic Used 5% Lidocaine 5% Lidocaine Gel Gel -Wound Comment(s) Sutures are still present, the wound looks a little macerated. WC - Nurse 2 - General Ulcer CM Notes Start: 07/18/23 13:18 Freq: Status: Active Protocol: Activity Type Activity Date Activity User E-sign Co-sign Detail Recorded Client Recorded Date Recorded By Document 07/18/23 13:36 Laptop 07/18/23 13:40 Document 07/25/23 14:31 Laptop 07/25/23 14:34 07/18/23 07/25/23 13:36 14:31 Wound Center Nurse 2 #5 R lateralHallux -Time 13:40 14:32 -Correct Patient Yes Yes -Correct Side, Site, Position Yes Yes -Correct Procedure Yes Yes -Procedure Performed Yes Yes -Type of Procedure Debridement Debridement -Clinical Debridement Bone Bone -Tissue Removed Slough Slough -Post Debridement (cm) - Length 1.2 1.4 -Post Debridement (cm) - Width 1.0 0.4 -Post Debridement (cm) - Depth 0.5 2.5 -Total Square (Post) (cm) 1.20 0.56 -Area of Debridement (cm) - Length 1.2 1.4 -Area of Debridement (cm) - Width 1.0 0.4 -Total Square (Area) (cm) 1.20 0.56 -Tunneling No No -Undermining/Tunneling No No -Circular Undermining No No -Wound/Ulcer Outcome Not Healed Not Healed -Ulcer Cleansing Rinsed/ Rinsed/ Irrigated with Irrigated with Saline Saline -Foul Odor after Cleansing No No -Bioengineered Tissue No No -Bleeding Controlled with Pressure Pressure -Treatment Response Procedure Procedure Tolerated Well Tolerated Well -Offloading Yes Yes -Type of Offloading Surgical Shoe Surgical Shoe -Debridement - Bone, 1st 20sq cm Yes Yes Pain Scale: 0-10 Numeric Is Patient Pain Free? Yes Yes - Nurse 3 - General Ulcer D/C NN Start: 07/18/23 13:18 Freq: Status: Active Protocol: Activity Type Activity Date Activity User E-sign Co-sign Detail Recorded Client Recorded Date Recorded By Document 07/18/23 15:08 [id number] 07/18/23 15:08 07/18/23 15:08 Wound Care Center Nurse 3 #5 R lateralHallux -Ulcer Cleansing Rinsed/ Irrigated with Saline -Foul Odor after Cleansing No -Other Dressing betadine -Primary Dressing Covered/Secured with Dry Gauze, Secured with Tape Pain Scale: 0-10 Numeric Is Patient Pain Free? Yes - Visit Discharge Discharge Condition Stable Ambulatory Status Ambulatory Transportation Private Auto Medication Reconcilliation completed & Yes provided to patient/care provider Clinical Summary of Care Provided Yes Assessment/Plan Assessment/Plan (1) Non-pressure chronic ulcer of other part of right foot with necrosis of bone: CODE(S): L97.514 - Non-pressure chronic ulcer of other part of right foot with necrosis of bone PLAN: Patient was examined and evaluated. All findings were discussed with the patient. All questions were answered to the patient's satisfaction. Back in May the patient was put on hold for amniotic skin graft substitute, EpiFix 18 mm disc secondary to infection. The patient had undergone surgical intervention to remove the infected bone. The patient is now cleared all evidence of infection and has been on oral antibiotics Cipro, 750 mg twice daily for 1 week and shows excellent improvement with no evidence of remaining infection to right hallux. At this time due to the infection being resolved we will begin reapplication of the remaining amniotic skin graft substitute beginning with today's application. Excision debridement down to and including subcutaneous tissue with a #15 blade to the full-thickness ulcerations right hallux without incident. Predebridement measurement was 1.3 x 0.2 x 1.3 cm. Postdebridement measurement is 1.5 x 0.4 x 1.5 cm. EpiFix 18 mm disc was applied to the right hallux full-thickness ulceration with 100% use. Eighth application. The graft site was free and clear of any infection. The wound/skin graft substitute was dressed with nonadherent bandage secured in place with Steri-Strips followed by bolster dressing as well as a double layer Tubigrip. Follow-up at the wound care center with Dr. Ontiveros in 1 week. (2) Chronic painful diabetic polyneuropathy: CODE(S): E11.42 - Type 2 diabetes mellitus with diabetic polyneuropathy
[2023-08-08 13:22] VITALS: BP 130/58; PULSE 73; RESP 16; TEMP 36.1; BMI 19.8
--- NOTE | 2023-08-08 13:54 | PN.PCM_ITS ---
History of Present Illness Date of Service: 08/08/23 Chief Complaint: Mr. Guadalupe is a 67-year-old diabetic male presenting to the wound care center today for second opinion to full-thickness ulceration to right big toe. He was seen by an outside provider at [facility]. The [facility] hat lining blocker is his primary hat lining blocker but is sending to the wound care center today for the full-thickness wound to the right hallux for treatment and care. He denies trauma. Denies constitutional symptoms. Other pedal compl aints at this time. History of Wound: Chronic right hallux ulceration Subjective Subjective Mr. Matta is a 67-year-old male presenting to wound care center today for follow-up evaluation of full-thickness ulceration to the right hallux. Patient has completed his antibiotic. He states his wound is improving well. He keeps his blood sugar well under control. He has been using a stationary pedaling machine to help with circulation to the bilateral lower extremity. He denies any trauma. Denies constitutional symptoms. No other complaints at this time. Objective Data Objective Data Vital Signs: Vital Signs Temp Pulse Resp BP O2 Del Method 96.9 F L 73 16 130/58 H Room Air 08/08/23 13:22 08/08/23 13:22 08/08/23 13:22 08/08/23 13:22 08/01/23 13:20 Oxygen Delivery Method Room Air Weight: 59.24 kg Body Mass Index (BMI) 19.8 Lab / Micro Data Micro: Microbiology 07/19/23 Unknown Wound - Toe Gram Stain - Final 07/19/23 Unknown Wound - Toe Wound Culture - Final Klebsiella pneumoniae sp pneum 07/19/23 Unknown Wound - Toe Anaerobic Culture - Final No anaerobic bacteria isolated. Physical Exam Narrative Vascular: DP and PT pulse are palpable. CFT is brisk. Nonpitting edema appreciated to the right hallux. Erythema is blanchable without proximal streaking. Skin temperature great is warm to warm from proximal ankle to distal digits. No focal increase is appreciated. Neurological: Light touch intact. Protective sensation is absent. Dermatological: Full-thickness ulceration appreciated to the right hallux measuring 0.9 x 0.3 x 1.4 cm. Positive probe to bone secondary to surgery. No concern for osteomyelitis at this time. Erythema is improved. Antibiotic beads have dissolved. Incision has improved in length and width from previous visit. Webspaces 1-4 are clean dry and intact. Excision debridement down to and including subcutaneous tissue with a #15 blade to the full-thickness ulcerations right hallux without incident. Predebridement measurement was 0.9 x 0.3 x 0.1 cm. Postdebridement measurement is 0.9 x 0.3 x 1.4 cm. EpiFix 18 mm disc was applied to the right hallux full-thickness ulceration with 100% use. Sis application. The graft site was free and clear of any infection. The wound/skin graft substitute was dressed with nonadherent bandage secured in place with Steri-Strips followed by bolster dressing as well as a double layer Tubigrip. Muscle skeletal: No pain on palpation to full-thickness ulceration right hallux. No pain with calf pressure. Evidence of rectus fourth digit to the right foot after tenotomy. Debridement Note Debridement Note Debridement Free Text: Excision debridement down to and including subcutaneous tissue with a #15 blade to the full-thickness ulcerations right hallux without incident. Predebridement measurement was 0.9 x 0.3 x 0.1 cm. Postdebridement measurement is 0.9 x 0.3 x 1.4 cm. EpiFix 18 mm disc was applied to the right hallux full-thickness ulceration with 100% use. Sis application. The graft site was free and clear of any infection. The wound/skin graft substitute was dressed with nonadherent bandage secured in place with Steri-Strips followed by bolster dressing as well as a double layer Tubigrip. Post-Debridement Measurements and Additional Note: Post-Debridement Measurements/Treatment - Nurse 1 - General Ulcer Assessment Start: 07/18/23 13:18 Freq: Status: Active Protocol: [email or web address].[email or web address] Activity Type Activity Date Activity User E-sign Co-sign Detail Recorded Client Recorded Date Recorded By Document 07/18/23 13:19 GM Desktop 07/18/23 13:21 GM Document 07/25/23 14:12 KW Desktop 07/25/23 14:16 KW Document 08/01/23 13:20 CP Desktop 08/01/23 13:22 CP Document 08/08/23 13:22 JF Laptop 08/08/23 13:24 JF 07/18/23 07/25/23 08/01/23 13:19 14:12 13:20 - Today's Visit Information Type of service Follow-up Visit Follow-up Visit Follow-up Visit (Physician/CURTAIN SUPERVISOR (Physician/CURTAIN SUPERVISOR (Physician/CURTAIN SUPERVISOR ) ) ) Arrival Mode Ambulatory,Cane Ambulatory Ambulatory,Cane Transfer Assistance None Patient Identification Verified (Name & Yes Yes Yes ) Patient Requires Transmission-Based No No Precautions Safety Precautions NA Finger Stick Blood Sugar(mg/dl) (if 145 148 indicated): Blood Sugar Stated by Stated by Patient Patient Height and Weight Body Mass Index (BMI) 19.8 19.8 19.8 BMI Classification Normal Normal Normal Vital Signs Temperature (97.8 F-99.1 F) 96.3 F L 98.6 F Temperature Source Temporal Temporal Pulse Rate (60-100) 73 71 72 Pulse Location Monitor Monitor Monitor Respiratory Rate (12-18) 18 18 16 Respiratory rate source Observation Observation Observation Oxygen Delivery Method Room Air Room Air Room Air Blood Pressure (90/60-120/80) 138/63 H 147/71 H 120/51 L Blood Pressure Mean (mm Hg) 88 96 74 Source Monitor Monitor Monitor Position Sitting Semi-Fowlers Sitting Blood Pressure Location Left Arm Right Arm Left Arm History Since Last Visit- (Skip if this is Patient's initial visit) Have you changed medications since your No No No last visit? Any new allergies or adverse reactions No No No Had a fall/change in ADL's that may No No No increase risk of falls Signs or symptoms of abuse and/or No No No neglect since last visit Have you been in the hospital since your No No No last visit? Has dressing in place as prescribed Yes Yes Yes Has compression in place as prescribed N/A N/A N/A Has offloadiing in place as prescribed Yes Yes Yes Experienced any changes in pain level or No No management Left Footwear Surgical Shoe Regular Shoe with pressure relief insole Right Footwear Surgical Shoe Surgical Shoe with pressure with pressure relief insole relief insole Pain Scale: 0-10 Numeric Is Patient Pain Free? Yes Yes Yes 08/08/23 13:22 - Today's Visit Information Type of service Follow-up Visit (Physician/CURTAIN SUPERVISOR ) Arrival Mode Ambulatory,Cane Transfer Assistance Patient Identification Verified (Name & Yes ) Patient Requires Transmission-Based No Precautions Safety Precautions Finger Stick Blood Sugar(mg/dl) (if 168 indicated): Blood Sugar Stated by Patient Height and Weight Body Mass Index (BMI) 19.8 BMI Classification Normal Vital Signs Temperature (97.8 F-99.1 F) 96.9 F L Temperature Source Temporal Pulse Rate (60-100) 73 Pulse Location Monitor Respiratory Rate (12-18) 16 Respiratory rate source Observation Oxygen Delivery Method Blood Pressure (90/60-120/80) 130/58 H Blood Pressure Mean (mm Hg) 82 Source Monitor Position Semi-Fowlers Blood Pressure Location Left Arm History Since Last Visit- (Skip if this is Patient's initial visit) Have you changed medications since your No last visit? Any new allergies or adverse reactions No Had a fall/change in ADL's that may No increase risk of falls Signs or symptoms of abuse and/or No neglect since last visit Have you been in the hospital since your No last visit? Has dressing in place as prescribed Yes Has compression in place as prescribed N/A Has offloadiing in place as prescribed Yes Experienced any changes in pain level or No management Left Footwear Regular Shoe Right Footwear Surgical Shoe with pressure relief insole Pain Scale: 0-10 Numeric Is Patient Pain Free? Yes WC - Nurse 1 - General Ulcer Measurement Start: 07/18/23 13:18 Freq: Status: Active Protocol: Activity Type Activity Date Activity User E-sign Co-sign Detail Recorded Client Recorded Date Recorded By Document 07/18/23 13:19 GM Desktop 07/18/23 13:21 GM Document 07/25/23 14:12 KW Desktop 07/25/23 14:16 KW Document 08/01/23 13:20 CP Desktop 08/01/23 13:22 CP Document 08/08/23 13:22 JF Laptop 08/08/23 13:24 JF 07/18/23 07/25/23 08/01/23 13:19 14:12 13:20 Wound Center Nurse 1 #5 R lateralHallux -Combined with other wound No -Current Size (cm) - Length 1.1 0.1 -Current Size (cm) - Width 0.3 0.2 -Current Size (cm) - Depth 3 0.2 -Total Square Cm 0.33 0.02 -Photo Taken -Epithelialization Small 1-33% None Present -Tunneling No -Undermining/Tunneling No No -Circular Undermining No No -Exudate Amt None Present Small Small -Exudate Type Serosanguineous Sanguineous -Wound Margin Distinct, Flat & Intact Outline Attached -Granulation Amt Small (1-33%) Large (67-100%) -Granulation Quality [place] -Slough/Fibrin Yes -Necrosis Amt Small (1-33%) -Necrotic Tissue Type Adherent Slough -Structure Exposed N/A -Texture (Maddison-wound Skin Appearance) Assessed Assessed No Abnormality -Moisture (Maddison-wound Skin Appearance) Assessed, Assessed, No Abnormality Maceration Maceration -Color (Maddison-wound Skin Appearance) Assessed Assessed, No Abnormality Erythema -Temperature (Maddison-wound Skin No Abnormality No Abnormality No Abnormality Appearance) (Pt Warm) (Pt Warm) (Pt Warm) -Tenderness on Palpation (Maddison-wound No No No Skin Appearance) -Ulcer Cleansing Rinsed/ Rinsed/ Rinsed/ Irrigated with Irrigated with Irrigated with Saline Saline Saline -Foul Odor after Cleansing No No -Anesthetic Used 5% Lidocaine 5% Lidocaine Gel Gel -Wound Comment(s) Sutures are still present, the wound looks a little macerated. Lower Limb Edema Present 08/08/23 13:22 Wound Center Nurse 1 #5 R lateralHallux -Combined with other wound No -Current Size (cm) - Length 0.9 -Current Size (cm) - Width 0.2 -Current Size (cm) - Depth 0.1 -Total Square Cm 0.18 -Photo Taken Yes -Epithelialization Large 67-100% -Tunneling No -Undermining/Tunneling No -Circular Undermining No -Exudate Amt Small -Exudate Type Serosanguineous -Wound Margin Flat & Intact -Granulation Amt Large (67-100%) -Granulation Quality Red -Slough/Fibrin Yes -Necrosis Amt Small (1-33%) -Necrotic Tissue Type Adherent Slough -Structure Exposed N/A -Texture (Maddison-wound Skin Appearance) Assessed -Moisture (Maddison-wound Skin Appearance) Assessed,Dry/ Scaly -Color (Maddison-wound Skin Appearance) Assessed -Temperature (Maddison-wound Skin No Abnormality Appearance) (Pt Warm) -Tenderness on Palpation (Maddison-wound No Skin Appearance) -Ulcer Cleansing Wound Cleanser -Foul Odor after Cleansing No -Anesthetic Used 5% Lidocaine Gel -Wound Comment(s) Lower Limb Edema Present NA - Nurse 2 - General Ulcer CM Notes Start: 07/18/23 13:18 Freq: Status: Active Protocol: Activity Type Activity Date Activity User E-sign Co-sign Detail Recorded Client Recorded Date Recorded By Document 07/18/23 13:36 Laptop 07/18/23 13:40 Document 07/25/23 14:31 Laptop 07/25/23 14:34 Document 08/01/23 13:34 Laptop 08/01/23 13:35 Document 08/08/23 13:27 Laptop 08/08/23 13:34 07/18/23 07/25/23 08/01/23 13:36 14:31 13:34 Wound Center Nurse 2 #5 R lateralHallux -Time 13:40 14:32 13:34 -Correct Patient Yes Yes Yes -Correct Side, Site, Position Yes Yes Yes -Correct Procedure Yes Yes Yes -Procedure Performed Yes Yes Yes -Type of Procedure Debridement Debridement Debridement -Clinical Debridement Bone Bone Subcutaneous -Tissue Removed Slough Slough Subcutaneous -Post Debridement (cm) - Length 1.2 1.4 1.5 -Post Debridement (cm) - Width 1.0 0.4 0.4 -Post Debridement (cm) - Depth 0.5 2.5 1.5 -Total Square (Post) (cm) 1.20 0.56 0.60 -Area of Debridement (cm) - Length 1.2 1.4 1.5 -Area of Debridement (cm) - Width 1.0 0.4 0.4 -Total Square (Area) (cm) 1.20 0.56 0.60 -Tunneling No No No -Undermining/Tunneling No No No -Circular Undermining No No No -Wound/Ulcer Outcome Not Healed Not Healed Not Healed -Ulcer Cleansing Rinsed/ Rinsed/ Rinsed/ Irrigated with Irrigated with Irrigated with Saline Saline Saline -Foul Odor after Cleansing No No No -Bioengineered Tissue No No Yes -Type of Bioengineered Tissue Epifix 18mm Disc -Expiration Date 02/15/28 -Product Lot Number [id number] -Percent Used 100 -Lot number of Saline Used [id number] -Bleeding Controlled with Pressure Pressure Pressure -Treatment Response Procedure Procedure Procedure Tolerated Well Tolerated Well Tolerated Well -Offloading Yes Yes Yes -Type of Offloading Surgical Shoe Surgical Shoe Surgical Shoe -Debridement - Subq, 1st 20sq cm No -Debridement - Bone, 1st 20sq cm Yes Yes -Apply Skin Sub - 1st 25 sq cm - Feet 1 -Epifix 18mm Disc 3 Pain Scale: 0-10 Numeric Is Patient Pain Free? Yes Yes Yes 08/08/23 13:27 Wound Center Nurse 2 #5 R lateralHallux -Time 13:27 -Correct Patient Yes -Correct Side, Site, Position Yes -Correct Procedure Yes -Procedure Performed Yes -Type of Procedure Debridement -Clinical Debridement Subcutaneous -Tissue Removed Subcutaneous -Post Debridement (cm) - Length 0.9 -Post Debridement (cm) - Width 0.3 -Post Debridement (cm) - Depth 1.4 -Total Square (Post) (cm) 0.27 -Area of Debridement (cm) - Length 0.9 -Area of Debridement (cm) - Width 0.3 -Total Square (Area) (cm) 0.27 -Tunneling No -Undermining/Tunneling No -Circular Undermining No -Wound/Ulcer Outcome Not Healed -Ulcer Cleansing Rinsed/ Irrigated with Saline -Foul Odor after Cleansing No -Bioengineered Tissue Yes -Type of Bioengineered Tissue Epifix 18mm Disc -Expiration Date 02/15/28 -Product Lot Number [id number] -Percent Used 100 -Lot number of Saline Used [id number] -Bleeding Controlled with Pressure -Treatment Response Procedure Tolerated Well -Offloading Yes -Type of Offloading Surgical Shoe -Debridement - Subq, 1st 20sq cm No -Debridement - Bone, 1st 20sq cm -Apply Skin Sub - 1st 25 sq cm - Feet 1 -Epifix 18mm Disc 3 Pain Scale: 0-10 Numeric Is Patient Pain Free? Yes - Nurse 3 - General Ulcer D/C NN Start: 07/18/23 13:18 Freq: Status: Active Protocol: Activity Type Activity Date Activity User E-sign Co-sign Detail Recorded Client Recorded Date Recorded By Document 07/18/23 15:08 DARA [email or web address] 07/18/23 15:08 Document 08/01/23 13:46 CP Desktop 08/01/23 13:46 CP Document 08/08/23 13:40 KW Desktop 08/08/23 13:41 KW 07/18/23 08/01/23 08/08/23 15:08 13:46 13:40 Wound Care Center Nurse 3 #5 R lateralHallux -Ulcer Cleansing Rinsed/ Irrigated with Saline -Foul Odor after Cleansing No -Other Dressing betadine -Primary Dressing Covered/Secured with Dry Gauze, Dry Gauze & Dry Gauze, Secured with Roll Gauze, Secured with Tape Secured with Tape Tape Treatment Response Procedure Tolerated Well Pain Scale: 0-10 Numeric Is Patient Pain Free? Yes Yes Yes WC - Visit Discharge Discharge Condition Stable Stable Stable Ambulatory Status Ambulatory Ambulatory,Cane Ambulatory,Cane Transportation Private Auto Private Auto Private Auto Medication Reconcilliation completed & Yes No No provided to patient/care provider Clinical Summary of Care Provided Yes Yes Yes Assessment/Plan Assessment/Plan (1) Non-pressure chronic ulcer of other part of right foot with necrosis of bone: CODE(S): L97.514 - Non-pressure chronic ulcer of other part of right foot with necrosis of bone PLAN: Patient was examined and evaluated. All findings were discussed with the patient. All questions were answered to the patient's satisfaction. Excision debridement down to and including subcutaneous tissue with a #15 blade to the full-thickness ulcerations right hallux without incident. Predebridement measurement was 0.9 x 0.3 x 0.1 cm. Postdebridement measurement is 0.9 x 0.3 x 1.4 cm. EpiFix 18 mm disc was applied to the right hallux full-thickness ulceration with 100% use. Sis application. The graft site was free and clear of any infection. The wound/skin graft substitute was dressed with nonadherent bandage secured in place with Steri-Strips followed by bolster dressing as well as a double layer Tubigrip. Follow-up at the wound care center with Dr. Ontiveros in 1 week.
== END 2023-08-14 23:59 | disposition home or self-care (01) ==
LOC: WC 13:15
PROVIDERS: PCP Student in an Organized Health Care Education/Training Program; Referring Provider Podiatrist Foot & Ankle Surgery; Visit Provider Podiatrist Foot & Ankle Surgery
DX: E11.621 Type 2 diabetes mellitus with foot ulcer (principal); L97.514 Non-pressure chronic ulcer of other part of right foot with necrosis of bone; M86.171 Other acute osteomyelitis, right ankle and foot; E11.69 Type 2 diabetes mellitus with other specified complication; E11.42 Type 2 diabetes mellitus with diabetic polyneuropathy; M20.5X1 Other deformities of toe(s) (acquired), right foot
CPT/HCPCS: 11044; 15275; 87070; 87075; 87077; 87101; 87186; 87205; Q4186

== ENCOUNTER 2023-09-12 13:15 | Outpatient (RCR) | payer MEDICARE, OTHER, SELFPAY ==
[2023-08-15 00:14] VITALS: BP 130/58; PULSE 73; RESP 16; TEMP 36.1; BMI 19.8
[2023-08-15 13:21] VITALS: BP 112/60; PULSE 66; RESP 18; TEMP 36.2; BMI 19.8
--- NOTE | 2023-08-15 14:16 | PN.PCM_ITS ---
History of Present Illness Date of Service: 08/15/23 Chief Complaint: Mr. Guadalupe is a 67-year-old diabetic male presenting to the wound care center today for second opinion to full-thickness ulceration to right big toe. He was seen by an outside provider at [facility]. [facility] geophysical party chief is his primary geophysical party chief but is sending to the wound care center today for the full-thickness wound to the right hallux for treatment and care. He denies trauma. Denies constitutional symptoms. Other pedal compl aints at this time. History of Wound: Chronic right hallux ulceration Subjective Subjective Mr. Guadalupe is a 67-year-old diabetic male presenting to clinic today with a chief complaint of full-thickness ulceration to right hallux status post incision bone cortex with surgical skin graft site and prep and application of skin graft substitute. Patient is kept his dressing clean dry and intact from his last visit with application of skin graft substitute. Patient has been compliant with keeping his dressing clean dry and intact. He does admit to taking a shower yesterday and is unsure if he got his foot wet. Patient states that he feels little bit dizzy since he did not eat and check his blood sugar this m orning. He denies any falls. Denies trauma. Denies constitutional symptoms. Other complaints at this time. Objective Data Objective Data Vital Signs: Vital Signs Temp Pulse Resp BP O2 Del Method 97.1 F L 66 18 112/60 Room Air 08/15/23 13:21 08/15/23 13:21 08/15/23 13:21 08/15/23 13:21 08/15/23 13:21 Oxygen Delivery Method Room Air Weight: 59.24 kg Body Mass Index (BMI) 19.8 Physical Exam Narrative Vascular: DP and PT pulses are palpable to the right lower extremity. CFT is brisk. Nonpitting edema appreciated to the right hallux. Skin temperature great is warm to warm from proximal ankle to distal digits bilateral. No focal increase noted in warmth to the right heel. Blanchable erythema without proximal streaking. Neurological: Light touch and epicritic sensation is intact. Dermatological: Evidence of maceration appreciated to the hallux of the right foot. Evidence of full-thickness ulceration appreciated to the right heel measuring 0.9 x 0.4 x 1.2 cm. Wound base is fibrogranular nature. No malodor. No probe to bone. No sign of infection. No erythema or proximal streaking. Excision debridement down to and including subcutaneous tissue with a #3 mm dermal curette without incident to the right heel. Predebridement measurement was 0.9 x 0.4 x 0.3 centimeter. Postdebridement measurement is 0.9 x 0.4 x 1.2 cm. EpiFix 18 mm disc was applied to the right full-thickness ulceration with 100% use. 10th application. The graft site was free and clear of any infection. The wound/skin graft substitute was dressed with nonadherent bandage secured in place with Steri-Strips followed by bolster dressing as well as a double layer Tubigrip. Musculoskeletal: Muscle strength deferred. Mild pain to palpation of the full- thickness ulceration. No pain with calf Debridement Note Debridement Note Debridement Free Text: Excision debridement down to and including subcutaneous tissue with a #3 mm dermal curette without incident to the right heel. Predebridement measurement was 0.9 x 0.4 x 0.3 centimeter. Postdebridement measurement is 0.9 x 0.4 x 1.2 cm. EpiFix 18 mm disc was applied to the right full-thickness ulceration with 100% use. 10th application. The graft site was free and clear of any infection. The wound/skin graft substitute was dressed with nonadherent bandage secured in place with Steri-Strips followed by bolster dressing as well as a double layer Tubigrip. Post-Debridement Measurements and Additional Note: Post-Debridement Measurements/Treatment - Nurse 1 - General Ulcer Assessment Start: 08/15/23 13:21 Freq: Status: Active Protocol: ANIA.LORAINE Activity Type Activity Date Activity User E-sign Co-sign Detail Recorded Client Recorded Date Recorded By Document 08/15/23 13:21 KW Desktop 08/15/23 13:35 KW 08/15/23 13:21 - Today's Visit Information Type of service Follow-up Visit (Physician/FITTING ROOM CHECKER ) Arrival Mode Ambulatory,Cane Patient Identification Verified (Name & Yes ) Finger Stick Blood Sugar(mg/dl) (if 97 indicated): Blood Sugar Done During this Visit Height and Weight Body Mass Index (BMI) 19.8 BMI Classification Normal Vital Signs Temperature (97.8 F-99.1 F) 97.1 F L Temperature Source Temporal Pulse Rate (60-100) 66 Pulse Location Monitor Respiratory Rate (12-18) 18 Respiratory rate source Observation Oxygen Delivery Method Room Air Blood Pressure (90/60-120/80) 112/60 Blood Pressure Mean (mm Hg) 77 Source Monitor Position Semi-Fowlers Blood Pressure Location Left Arm History Since Last Visit- (Skip if this is Patient's initial visit) Have you changed medications since your No last visit? Any new allergies or adverse reactions No Had a fall/change in ADL's that may No increase risk of falls Signs or symptoms of abuse and/or No neglect since last visit Have you been in the hospital since your No last visit? Has dressing in place as prescribed Yes Has compression in place as prescribed No Has offloadiing in place as prescribed Yes Experienced any changes in pain level or No management Left Footwear Regular Shoe Right Footwear Surgical Shoe with pressure relief insole Pain Scale: 0-10 Numeric Is Patient Pain Free? Yes ANIA - Nurse 1 - General Ulcer Measurement Start: 08/15/23 13:21 Freq: Status: Active Protocol: Activity Type Activity Date Activity User E-sign Co-sign Detail Recorded Client Recorded Date Recorded By Document 08/15/23 13:21 KW Desktop 08/15/23 13:35 KW 08/15/23 13:21 Wound Center Nurse 1 #5 R lateralHallux -Current Size (cm) - Length 0.9 -Current Size (cm) - Width 0.4 -Current Size (cm) - Depth 0.3 -Total Square Cm 0.36 -Granulation Amt Medium (34-66%) -Granulation Quality [place] -Necrosis Amt Small (1-33%) -Necrotic Tissue Type Adherent Slough -Texture (Maddison-wound Skin Appearance) Assessed -Moisture (Maddison-wound Skin Appearance) Maceration -Color (Maddison-wound Skin Appearance) Assessed -Temperature (Maddison-wound Skin No Abnormality Appearance) (Pt Warm) -Tenderness on Palpation (Maddison-wound No Skin Appearance) -Ulcer Cleansing Soap and Water -Anesthetic Used 5% Lidocaine Gel ANIA - Nurse 2 - General Ulcer CM Notes Start: 08/15/23 13:21 Freq: Status: Active Protocol: Activity Type Activity Date Activity User E-sign Co-sign Detail Recorded Client Recorded Date Recorded By Document 08/15/23 13:44 JF Laptop 08/15/23 13:49 08/15/23 13:44 Wound Center Nurse 2 -Time 13:45 -Correct Patient Yes -Correct Side, Site, Position Yes -Correct Procedure Yes -Procedure Performed Yes -Type of Procedure Debridement -Clinical Debridement Subcutaneous -Tissue Removed Subcutaneous -Post Debridement (cm) - Length 0.9 -Post Debridement (cm) - Width 0.4 -Post Debridement (cm) - Depth 1.2 -Total Square (Post) (cm) 0.36 -Area of Debridement (cm) - Length 0.9 -Area of Debridement (cm) - Width 0.4 -Total Square (Area) (cm) 0.36 -Tunneling No -Undermining/Tunneling No -Circular Undermining No -Wound/Ulcer Outcome Not Healed -Ulcer Cleansing Rinsed/ Irrigated with Saline -Foul Odor after Cleansing No -Bioengineered Tissue Yes -Type of Bioengineered Tissue Epifix 18mm Disc -Expiration Date 03/16/28 -Product Lot Number [id number] -Percent Used 100 -Lot number of Saline Used [id number] -Bleeding Controlled with Pressure -Treatment Response Procedure Tolerated Well -Offloading Yes -Type of Offloading Surgical Shoe -Debridement - Subq, 1st 20sq cm No -Apply Skin Sub - 1st 25 sq cm - Feet 1 -Epifix 18mm Disc 3 Pain Scale: 0-10 Numeric Is Patient Pain Free? Yes - Nurse 3 - General Ulcer D/C NN Start: 08/15/23 13:21 Freq: Status: Active Protocol: Activity Type Activity Date Activity User E-sign Co-sign Detail Recorded Client Recorded Date Recorded By Document 08/15/23 13:58 KW Desktop 08/15/23 13:59 KW 08/15/23 13:58 Wound Care Center Nurse 3 #5 R lateralHallux -Other Dressing COBAN -Primary Dressing Covered/Secured with Dry Gauze & Roll Gauze, Secured with Tape Pain Scale: 0-10 Numeric Is Patient Pain Free? Yes - Visit Discharge Discharge Condition Stable Ambulatory Status Ambulatory,Cane Transportation Private Auto Medication Reconcilliation completed & No provided to patient/care provider Clinical Summary of Care Provided Yes Assessment/Plan Assessment/Plan (1) Non-pressure chronic ulcer of other part of right foot with necrosis of bone: CODE(S): L97.514 - Non-pressure chronic ulcer of other part of right foot with necrosis of bone PLAN: Patient was examined and evaluated. All findings were discussed with the patient. All questions were answered to the patient's satisfaction. Excision debridement down to and including subcutaneous tissue with a #3 mm dermal curette without incident to the right heel. Predebridement measurement was 0.9 x 0.4 x 0.3 centimeter. Postdebridement measurement is 0.9 x 0.4 x 1.2 cm. EpiFix 18 mm disc was applied to the right full-thickness ulceration with 100% use. 10th application. The graft site was free and clear of any infection. The wound/skin graft substitute was dressed with nonadherent bandage secured in place with Steri-Strips followed by bolster dressing as well as a double layer Tubigrip. Since the patient got his dressing wet the other day he will be placed on a p rophylactic antibiotic Levaquin 500 mg 3 taken daily for 10 days. Patient was understanding of this and will continue to practice strict blood sugar control and follow-up in 1 week. Steri-Strips were also applied to the patient soft tissue to reeducate the patient skin line for possible delayed primary closure in 2 weeks. Follow-up at the wound care center with Dr. Ontiveros in 1 week.
[2023-08-16 15:31] LABS: Bedside Glucose 97 mg/dL (74-106)
[2023-08-22 13:12] VITALS: BP 121/50; PULSE 76; RESP 18; BMI 19.8
--- NOTE | 2023-08-22 14:15 | PN.PCM_ITS ---
History of Present Illness Date of Service: 08/22/23 Chief Complaint: Mr. Guadalupe is a 67-year-old diabetic male presenting to the wound care center today for second opinion to full-thickness ulceration to right big toe. He was seen by an outside provider at [facility]. [facility] nickel operator is his primary nickel operator but is sending to the wound care center today for the full-thickness wound to the right hallux for treatment and care. He denies trauma. Denies constitutional symptoms. Other pedal compl aints at this time. History of Wound: Chronic right hallux ulceration Subjective Subjective Mr. Guadalupe is a 67-year-old diabetic male presenting to clinic today with a chief complaint of full-thickness ulceration to right hallux status post incision bone cortex with surgical skin graft site and prep and application of skin graft substitute. Patient is kept his dressing clean dry and intact from his last visit with application of skin graft substitute. Patient has been compliant with keeping his dressing clean dry and intact. Denies trauma. Denies constitutional symptoms. No other complaints at this time. Objective Data Objective Data Vital Signs: Vital Signs Temp Pulse Resp BP O2 Del Method 97.1 F L 76 18 121/50 H Room Air 08/15/23 13:21 08/22/23 13:12 08/22/23 13:12 08/22/23 13:12 08/22/23 13:12 Oxygen Delivery Method Room Air Weight: 59.24 kg Body Mass Index (BMI) 19.8 Physical Exam Narrative Vascular: DP and PT pulses are palpable to the right lower extremity. CFT is brisk. Nonpitting edema appreciated to the right hallux. Skin temperature great is warm to warm from proximal ankle to distal digits bilateral. No focal increase noted in warmth to the right heel. Blanchable erythema without proximal streaking. Neurological: Light touch and epicritic sensation is intact. Dermatological: Evidence of maceration appreciated to the hallux of the right foot. Evidence of full-thickness ulceration appreciated to the right heel measuring 0.9 x 0.4 x 2.5 cm. Wound base is fibrogranular nature. No malodor. (+) probe to bone. No sign of infection. No erythema or proximal streaking. Excision debridement down to and including subcutaneous tissue, fascia, muscle and bone with a #3 mm dermal curette without incident to the right heel. Predebridement measurement was 0.8 x 0.3 x 0.3 centimeter. Postdebridement measurement is 0.9 x 0.4 x 2.5 cm. Musculoskeletal: Muscle strength deferred. Mild pain to palpation of the full- thickness ulceration. No pain with calf Debridement Note Debridement Note Debridement Free Text: Excision debridement down to and including subcutaneous tissue, fascia, muscle and bone with a #3 mm dermal curette without incident to the right heel. Predebridement measurement was 0.8 x 0.3 x 0.3 centimeter. Postdebridement measurement is 0.9 x 0.4 x 2.5 cm. Post-Debridement Measurements and Additional Note: Post-Debridement Measurements/Treatment WC - Nurse 1 - General Ulcer Assessment Start: 08/15/23 13:21 Freq: Status: Active Protocol: WC.LOWEXT Activity Type Activity Date Activity User E-sign Co-sign Detail Recorded Client Recorded Date Recorded By Document 08/15/23 13:21 [employer] 08/15/23 13:35 KW Document 08/22/23 13:12 [employer] Desktop 08/22/23 13:26 KW 08/15/23 08/22/23 13:21 13:12 WC - Today's Visit Information Type of service Follow-up Visit Follow-up Visit (Physician/DRIVER MESSENGER (Physician/DRIVER MESSENGER ) ) Arrival Mode Ambulatory,Cane Ambulatory Patient Identification Verified (Name & Yes Yes ) Finger Stick Blood Sugar(mg/dl) (if 97 106 indicated): Blood Sugar Done During Done During this Visit this Visit Height and Weight Body Mass Index (BMI) 19.8 19.8 BMI Classification Normal Normal Vital Signs Temperature (97.8 F-99.1 F) 97.1 F L Temperature Source Temporal Pulse Rate (60-100) 66 76 Pulse Location Monitor Monitor Respiratory Rate (12-18) 18 18 Respiratory rate source Observation Observation Oxygen Delivery Method Room Air Room Air Blood Pressure (90/60-120/80) 112/60 121/50 H Blood Pressure Mean (mm Hg) 77 73 Source Monitor Monitor Position Semi-Fowlers Semi-Fowlers Blood Pressure Location Left Arm Left Arm History Since Last Visit- (Skip if this is Patient's initial visit) Have you changed medications since your No No last visit? Any new allergies or adverse reactions No No Had a fall/change in ADL's that may No No increase risk of falls Signs or symptoms of abuse and/or No No neglect since last visit Have you been in the hospital since your No No last visit? Has dressing in place as prescribed Yes Yes Has compression in place as prescribed No N/A Has offloadiing in place as prescribed Yes Yes Experienced any changes in pain level or No No management Left Footwear Regular Shoe Regular Shoe Right Footwear Surgical Shoe Surgical Shoe with pressure with pressure relief insole relief insole Pain Scale: 0-10 Numeric Is Patient Pain Free? Yes Yes ANIA - Nurse 1 - General Ulcer Measurement Start: 08/15/23 13:21 Freq: Status: Active Protocol: Activity Type Activity Date Activity User E-sign Co-sign Detail Recorded Client Recorded Date Recorded By Document 08/15/23 13:21 KW Desktop 08/15/23 13:35 KW Document 08/22/23 13:12 KW Desktop 08/22/23 13:26 KW 08/15/23 08/22/23 13:21 13:12 Wound Center Nurse 1 #5 R lateralHallux -Current Size (cm) - Length 0.9 1.6 -Current Size (cm) - Width 0.4 0.3 -Current Size (cm) - Depth 0.3 0.3 -Total Square Cm 0.36 0.48 -Exudate Amt Large -Exudate Type Serosanguineous -Wound Margin Distinct, Outline Attached -Granulation Amt Medium (34-66%) Large (67-100%) -Granulation Quality [place] -Necrosis Amt Small (1-33%) -Necrotic Tissue Type Adherent Slough -Texture (Maddison-wound Skin Appearance) Assessed Assessed -Moisture (Maddison-wound Skin Appearance) Maceration Assessed, Maceration -Color (Maddison-wound Skin Appearance) Assessed Assessed -Temperature (Maddison-wound Skin No Abnormality No Abnormality Appearance) (Pt Warm) (Pt Warm) -Tenderness on Palpation (Maddison-wound No No Skin Appearance) -Ulcer Cleansing Soap and Water Soap and Water -Anesthetic Used 5% Lidocaine 5% Lidocaine Gel Gel ANIA - Nurse 2 - General Ulcer CM Notes Start: 08/15/23 13:21 Freq: Status: Active Protocol: Activity Type Activity Date Activity User E-sign Co-sign Detail Recorded Client Recorded Date Recorded By Document 08/15/23 13:44 Laptop 08/15/23 13:49 Document 08/22/23 13:34 Laptop 08/22/23 13:38 08/15/23 08/22/23 13:44 13:34 Wound Center Nurse 2 #5 R lateralHallux -Time 13:45 13:35 -Correct Patient Yes Yes -Correct Side, Site, Position Yes Yes -Correct Procedure Yes Yes -Procedure Performed Yes Yes -Type of Procedure Debridement Debridement -Clinical Debridement Subcutaneous Bone -Tissue Removed Subcutaneous Slough -Post Debridement (cm) - Length 0.9 0.9 -Post Debridement (cm) - Width 0.4 0.4 -Post Debridement (cm) - Depth 1.2 2.5 -Total Square (Post) (cm) 0.36 0.36 -Area of Debridement (cm) - Length 0.9 0.9 -Area of Debridement (cm) - Width 0.4 0.4 -Total Square (Area) (cm) 0.36 0.36 -Tunneling No No -Undermining/Tunneling No No -Circular Undermining No No -Wound/Ulcer Outcome Not Healed Not Healed -Ulcer Cleansing Rinsed/ Rinsed/ Irrigated with Irrigated with Saline Saline -Foul Odor after Cleansing No No -Bioengineered Tissue Yes No -Type of Bioengineered Tissue Epifix 18mm Disc -Expiration Date 03/16/28 -Product Lot Number [id number] -Percent Used 100 -Lot number of Saline Used [id number] -Bleeding Controlled with Pressure Pressure -Treatment Response Procedure Procedure Tolerated Well Tolerated Well -Offloading Yes Yes -Type of Offloading Surgical Shoe Surgical Shoe -Debridement - Subq, 1st 20sq cm No -Debridement - Bone, 1st 20sq cm Yes -Apply Skin Sub - 1st 25 sq cm - Feet 1 -Epifix 18mm Disc 3 Pain Scale: 0-10 Numeric Is Patient Pain Free? Yes Yes - Nurse 3 - General Ulcer D/C NN Start: 08/15/23 13:21 Freq: Status: Active Protocol: Activity Type Activity Date Activity User E-sign Co-sign Detail Recorded Client Recorded Date Recorded By Document 08/15/23 13:58 KW Desktop 08/15/23 13:59 Document 08/22/23 13:43 JF Laptop 08/22/23 13:43 JF 08/15/23 08/22/23 13:58 13:43 Wound Care Center Nurse 3 #5 R lateralHallux -Ulcer Cleansing Rinsed/ Irrigated with Saline -Foul Odor after Cleansing No -Primary Dressing Applied Promogran Carol Matter -Other Dressing COBAN -Primary Dressing Covered/Secured with Dry Gauze & Dry Gauze & Roll Gauze, Roll Gauze, Secured with Secured with Tape Tape -Other Covering coban -Promogran Carol Matter 1 Pain Scale: 0-10 Numeric Is Patient Pain Free? Yes Yes WC - Visit Discharge Discharge Condition Stable Stable Ambulatory Status Ambulatory,Cane Ambulatory Transportation Private Auto Private Auto Medication Reconcilliation completed & No Yes provided to patient/care provider Clinical Summary of Care Provided Yes Yes Assessment/Plan Assessment/Plan (1) Non-pressure chronic ulcer of other part of right foot with necrosis of bone: CODE(S): L97.514 - Non-pressure chronic ulcer of other part of right foot with necrosis of bone PLAN: Patient was examined and evaluated. All findings were discussed with the patient. All questions were answered to the patient's satisfaction. Excision debridement down to and including subcutaneous tissue, fascia, muscle and bone with a #3 mm dermal curette without incident to the right heel. Predebridement measurement was 0.8 x 0.3 x 0.3 centimeter. Postdebridement measurement is 0.9 x 0.4 x 2.5 cm. The right hallux is white clean and patted dry. The ulceration was packed with Carol and Steri-Strips were applied to the ulceration to begin reeducation of skin lines to plan for delayed primary closure in the next upcoming week. Educated the patient to continue his oral antibiotics and continue strict low sugar control. Follow-up at the wound care center with Dr. Ontiveros in 1 week. (2) Acute osteomyelitis of right foot: CODE(S): M86.171 - Other acute osteomyelitis, right ankle and foot
[2023-08-23 15:40] LABS: Bedside Glucose 106 mg/dL (74-106)
[2023-08-29 13:30] VITALS: BP 108/52; PULSE 76; RESP 20; TEMP 36.3; BMI 19.8
--- NOTE | 2023-08-29 14:24 | PN.PCM_ITS ---
History of Present Illness Date of Service: 08/29/23 Chief Complaint: Mr. Guadalupe is a 67-year-old diabetic male presenting to the wound care center today for second opinion to full-thickness ulceration to right big toe. He was seen by an outside provider at [facility]. [facility] supervisor shuttle fitting is his primary supervisor shuttle fitting but is sending to the wound care center today for the full-thickness wound to the right hallux for treatment and care. He denies trauma. Denies constitutional symptoms. Other pedal compl aints at this time. History of Wound: Chronic right hallux ulceration Subjective Subjective Mr. Guadalupe is a 67-year-old diabetic male presenting to clinic today with a chief complaint of full-thickness ulceration to right hallux status post incision bone cortex with surgical skin graft site and prep and application of skin graft substitute. Patient is kept his dressing clean dry and intact and has been performing routine dressing changes at home. Denies trauma. Denies constitutional symptoms. No other complaints at this time. Objective Data Objective Data Vital Signs: Vital Signs Temp Pulse Resp BP O2 Del Method 97.4 F L 76 20 H 108/52 L Room Air 08/29/23 13:30 08/29/23 13:30 08/29/23 13:30 08/29/23 13:30 08/22/23 13:12 Oxygen Delivery Method Room Air Weight: 59.24 kg Body Mass Index (BMI) 19.8 Physical Exam Narrative Vascular: DP and PT pulses are palpable to the right lower extremity. CFT is brisk. Nonpitting edema appreciated to the right hallux. Skin temperature great is warm to warm from proximal ankle to distal digits bilateral. No focal increase noted in warmth to the right heel. Blanchable erythema without proximal streaking. Neurological: Light touch and epicritic sensation is intact. Dermatological: Evidence of maceration appreciated to the hallux of the right foot. Evidence of full-thickness ulceration appreciated to the right heel measuring 0.7 x 0.3 x 2.2 cm. Wound base is fibrogranular nature. No malodor. (+) probe to bone. No sign of infection. No erythema or proximal streaking. Delayed primary closure was performed on the right hallux today in clinic. Please see procedure note/plan for further detail. Musculoskeletal: Muscle strength deferred. Mild pain to palpation of the full- thickness ulceration. No pain with calf Debridement Note Debridement Note Post-Debridement Measurements and Additional Note: Post-Debridement Measurements/Treatment WC - Nurse 1 - General Ulcer Assessment Start: 08/15/23 13:21 Freq: Status: Active Protocol: BREANA Activity Type Activity Date Activity User E-sign Co-sign Detail Recorded Client Recorded Date Recorded By Document 08/15/23 13:21 KW Desktop 08/15/23 13:35 KW Document 08/22/23 13:12 KW Desktop 08/22/23 13:26 KW Document 08/29/23 13:30 DL [email or web address] 08/29/23 13:37 DL 08/15/23 08/22/23 08/29/23 13:21 13:12 13:30 WC - Today's Visit Information Type of service Follow-up Visit Follow-up Visit Follow-up Visit (Physician/PASTRY COOK HELPER (Physician/PASTRY COOK HELPER (Physician/PASTRY COOK HELPER ) ) ) Arrival Mode Ambulatory,Cane Ambulatory Ambulatory,Cane Transfer Assistance None Patient Identification Verified (Name & Yes Yes Yes ) Patient Requires Transmission-Based No Precautions Finger Stick Blood Sugar(mg/dl) (if 97 106 142 indicated): Blood Sugar Done During Done During this Visit this Visit Height and Weight Body Mass Index (BMI) 19.8 19.8 19.8 BMI Classification Normal Normal Normal Vital Signs Temperature (97.8 F-99.1 F) 97.1 F L 97.4 F L Temperature Source Temporal Temporal Pulse Rate (60-100) 66 76 76 Pulse Location Monitor Monitor Monitor Respiratory Rate (12-18) 18 18 20 H Respiratory rate source Observation Observation Observation Oxygen Delivery Method Room Air Room Air Blood Pressure (90/60-120/80) 112/60 121/50 H 108/52 L Blood Pressure Mean (mm Hg) 77 73 70 Source Monitor Monitor Monitor Position Semi-Fowlers Semi-Fowlers Blood Pressure Location Left Arm Left Arm History Since Last Visit- (Skip if this is Patient's initial visit) Have you changed medications since your No No No last visit? Any new allergies or adverse reactions No No No Had a fall/change in ADL's that may No No No increase risk of falls Signs or symptoms of abuse and/or No No No neglect since last visit Have you been in the hospital since your No No No last visit? Has dressing in place as prescribed Yes Yes Yes Has compression in place as prescribed No N/A N/A Has offloadiing in place as prescribed Yes Yes Yes Experienced any changes in pain level or No No No management Left Footwear Regular Shoe Regular Shoe Surgical Shoe with pressure relief insole Right Footwear Surgical Shoe Surgical Shoe with pressure with pressure relief insole relief insole Pain Scale: 0-10 Numeric Is Patient Pain Free? Yes Yes Yes WC - Nurse 1 - General Ulcer Measurement Start: 08/15/23 13:21 Freq: Status: Active Protocol: Activity Type Activity Date Activity User E-sign Co-sign Detail Recorded Client Recorded Date Recorded By Document 08/15/23 13:21 KW Desktop 08/15/23 13:35 KW Document 08/22/23 13:12 KW Desktop 08/22/23 13:26 KW Document 08/29/23 13:30 DL [email or web address] 08/29/23 13:37 DL 08/15/23 08/22/23 08/29/23 13:21 13:12 13:30 Wound Center Nurse 1 #5 R lateralHallux -Current Size (cm) - Length 0.9 1.6 0.7 -Current Size (cm) - Width 0.4 0.3 0.3 -Current Size (cm) - Depth 0.3 0.3 2.2 -Total Square Cm 0.36 0.48 0.21 -Exudate Amt Large Medium -Exudate Type Serosanguineous Serosanguineous -Wound Margin Distinct, Distinct, Outline Outline Attached Attached -Granulation Amt Medium (34-66%) Large (67-100%) Small (1-33%) -Granulation Quality [place] -Necrosis Amt Small (1-33%) Small (1-33%) -Necrotic Tissue Type Adherent Slough Adherent Slough -Structure Exposed N/A -Texture (Maddison-wound Skin Appearance) Assessed Assessed Localized Edema ,Scarring -Moisture (Maddison-wound Skin Appearance) Maceration Assessed, Maceration Maceration -Color (Maddison-wound Skin Appearance) Assessed Assessed Mottled -Temperature (Maddison-wound Skin No Abnormality No Abnormality No Abnormality Appearance) (Pt Warm) (Pt Warm) (Pt Warm) -Tenderness on Palpation (Maddison-wound No No No Skin Appearance) -Ulcer Cleansing Soap and Water Soap and Water Soap and Water -Foul Odor after Cleansing No -Anesthetic Used 5% Lidocaine 5% Lidocaine 5% Lidocaine Gel Gel Gel - Nurse 2 - General Ulcer CM Notes Start: 08/15/23 13:21 Freq: Status: Active Protocol: Activity Type Activity Date Activity User E-sign Co-sign Detail Recorded Client Recorded Date Recorded By Document 08/15/23 13:44 Laptop 08/15/23 13:49 Document 08/22/23 13:34 Laptop 08/22/23 13:38 08/15/23 08/22/23 13:44 13:34 Wound Center Nurse 2 #5 R lateralHallux -Time 13:45 13:35 -Correct Patient Yes Yes -Correct Side, Site, Position Yes Yes -Correct Procedure Yes Yes -Procedure Performed Yes Yes -Type of Procedure Debridement Debridement -Clinical Debridement Subcutaneous Bone -Tissue Removed Subcutaneous Slough -Post Debridement (cm) - Length 0.9 0.9 -Post Debridement (cm) - Width 0.4 0.4 -Post Debridement (cm) - Depth 1.2 2.5 -Total Square (Post) (cm) 0.36 0.36 -Area of Debridement (cm) - Length 0.9 0.9 -Area of Debridement (cm) - Width 0.4 0.4 -Total Square (Area) (cm) 0.36 0.36 -Tunneling No No -Undermining/Tunneling No No -Circular Undermining No No -Wound/Ulcer Outcome Not Healed Not Healed -Ulcer Cleansing Rinsed/ Rinsed/ Irrigated with Irrigated with Saline Saline -Foul Odor after Cleansing No No -Bioengineered Tissue Yes No -Type of Bioengineered Tissue Epifix 18mm Disc -Expiration Date 03/16/28 -Product Lot Number [id number] -Percent Used 100 -Lot number of Saline Used [id number] -Bleeding Controlled with Pressure Pressure -Treatment Response Procedure Procedure Tolerated Well Tolerated Well -Offloading Yes Yes -Type of Offloading Surgical Shoe Surgical Shoe -Debridement - Subq, 1st 20sq cm No -Debridement - Bone, 1st 20sq cm Yes -Apply Skin Sub - 1st 25 sq cm - Feet 1 -Epifix 18mm Disc 3 Pain Scale: 0-10 Numeric Is Patient Pain Free? Yes Yes WC - Nurse 3 - General Ulcer D/C NN Start: 08/15/23 13:21 Freq: Status: Active Protocol: Activity Type Activity Date Activity User E-sign Co-sign Detail Recorded Client Recorded Date Recorded By Document 08/15/23 13:58 KW Desktop 08/15/23 13:59 KW Document 08/22/23 13:43 Laptop 08/22/23 13:43 08/15/23 08/22/23 13:58 13:43 Wound Care Center Nurse 3 #5 R lateralHallux -Ulcer Cleansing Rinsed/ Irrigated with Saline -Foul Odor after Cleansing No -Primary Dressing Applied Promogran Carol Matter -Other Dressing COBAN -Primary Dressing Covered/Secured with Dry Gauze & Dry Gauze & Roll Gauze, Roll Gauze, Secured with Secured with Tape Tape -Other Covering coban -Promogran Carol Matter 1 Pain Scale: 0-10 Numeric Is Patient Pain Free? Yes Yes - Visit Discharge Discharge Condition Stable Stable Ambulatory Status Ambulatory,Cane Ambulatory Transportation Private Auto Private Auto Medication Reconcilliation completed & No Yes provided to patient/care provider Clinical Summary of Care Provided Yes Yes Assessment/Plan Assessment/Plan (1) Non-pressure chronic ulcer of other part of right foot with necrosis of bone: CODE(S): L97.514 - Non-pressure chronic ulcer of other part of right foot with necrosis of bone PLAN: Patient was examined and evaluated. All findings were discussed with the patient. All questions were answered to the patient's satisfaction. Next, attention was directed to the right hallux. Verbal consent was obtained from the patient to perform delayed primary closure patient was agreeable. The right hallux was prepped and draped in normal aseptic manner. Using sterile needle auto crane driver and pickup the full-thickness ulceration to the right hallux was closed via delayed primary closure using 2-0 Prolene in vertical mattress and horizontal mattress suture technique without incident. The closed incision was dressed with Betadine paint, Adaptic and dry sterile dressing and secured with tape. Patient will ambulate only in a surgical shoe. He will continue to have strict blood sugar control. He was understanding of this. He was educated the patient that if he is walking too much he will cause a dehiscence to the closed wound and we will have to rebegin wound care. Patient was educated on signs and symptoms of infection and will not be placed on antibiotics as he has just finished his Cipro last week. He left the office pleased with his visit. Follow-up at the wound care center with Dr. Ontiveros in 1 week. (2) Chronic painful diabetic polyneuropathy: CODE(S): E11.42 - Type 2 diabetes mellitus with diabetic polyneuropathy
[2023-09-05 13:27] VITALS: BP 108/48; PULSE 68; RESP 18; TEMP 35.8; BMI 19.8
--- NOTE | 2023-09-05 14:22 | PN.PCM_ITS ---
History of Present Illness Date of Service: 09/05/23 Chief Complaint: Mr. Guadalupe is a 67-year-old diabetic male presenting to the wound care center today for second opinion to full-thickness ulceration to right big toe. He was seen by an outside provider at [facility]. [facility] human resources benefits specialist is his primary human resources benefits specialist but is sending to the wound care center today for the full-thickness wound to the right hallux for treatment and care. He denies trauma. Denies constitutional symptoms. Other pedal compl aints at this time. History of Wound: Chronic right hallux ulceration Subjective Subjective Mr. Matta is a 67-year-old diabetic male presenting to the wound care center today for follow-up evaluation of full-thickness ulceration status post delayed primary closure to the right hallux approximately 1 week ago. Patient states that he feels lightheaded that he has not eaten food in the last 24 hours. His blood sugar is well-controlled. Patient does admit to walking barefoot at the house and is unsure why he is having maceration to the right great toe. Patient has been performing daily dressing changes. He has not noticed any maceration when questioned today in clinic. Patient states he may have gotten it wet when showering. He denies trauma. Denies constitutional symptoms. No other pedal complaints at this time. Objective Data Objective Data Vital Signs: Vital Signs Temp Pulse Resp BP O2 Del Method 96.5 F L 68 18 108/48 L Room Air 09/05/23 13:27 09/05/23 13:27 09/05/23 13:27 09/05/23 13:27 08/22/23 13:12 Oxygen Delivery Method Room Air Weight: 59.24 kg Body Mass Index (BMI) 19.8 Physical Exam Narrative Vascular: DP and PT pulses are palpable to the right lower extremity. CFT is brisk. Nonpitting edema appreciated to the right hallux. Skin temperature great is warm to warm from proximal ankle to distal digits bilateral. No focal increase noted in warmth to the right heel. Blanchable erythema without proximal streaking. Neurological: Light touch and epicritic sensation is intact. Dermatological: Evidence of maceration appreciated to right hallux. The incision is closed and well coapted with suture. There is evidence of a partial-thickness wound plantarly to the hallux measuring 1.5 x 1.0 x 0.1 cm. Wound is stable. Cannot rule out infection at this time. Selective debridement down to and including dermal tissue of the right hallux with a pickup and #15 blade without incident. Predebridement measurement is callus/macerated tissue. Postdebridement measurement is 1.5 x 1.0 x 0.1 cm. Musculoskeletal: Muscle strength deferred. No pain to palpation of the full- thickness ulceration. No pain with calf compression. Debridement Note Debridement Note Debridement Free Text: Selective debridement down to and including dermal tissue of the right hallux with a pickup and #15 blade without incident. Predebridement measurement is callus/macerated tissue. Postdebridement measurement is 1.5 x 1.0 x 0.1 cm. Post-Debridement Measurements and Additional Note: Post-Debridement Measurements/Treatment - Nurse 1 - General Ulcer Assessment Start: 08/15/23 13:21 Freq: Status: Active Protocol: .LOWEXT Activity Type Activity Date Activity User E-sign Co-sign Detail Recorded Client Recorded Date Recorded By Document 08/15/23 13:21 KW Desktop 08/15/23 13:35 KW Document 08/22/23 13:12 KW Desktop 08/22/23 13:26 KW Document 08/29/23 13:30 DL [email or web address] 08/29/23 13:37 DL Document 09/05/23 13:27 DL [email or web address] 09/05/23 13:34 DL 08/15/23 08/22/23 08/29/23 13:21 13:12 13:30 - Today's Visit Information Type of service Follow-up Visit Follow-up Visit Follow-up Visit (Physician/CARBON PRINTER (Physician/CARBON PRINTER (Physician/CARBON PRINTER ) ) ) Arrival Mode Ambulatory,Cane Ambulatory Ambulatory,Cane Transfer Assistance None Patient Identification Verified (Name & Yes Yes Yes ) Patient Requires Transmission-Based No Precautions Finger Stick Blood Sugar(mg/dl) (if 97 106 142 indicated): Blood Sugar Done During Done During this Visit this Visit Height and Weight Body Mass Index (BMI) 19.8 19.8 19.8 BMI Classification Normal Normal Normal Vital Signs Temperature (97.8 F-99.1 F) 97.1 F L 97.4 F L Temperature Source Temporal Temporal Pulse Rate (60-100) 66 76 76 Pulse Location Monitor Monitor Monitor Respiratory Rate (12-18) 18 18 20 H Respiratory rate source Observation Observation Observation Oxygen Delivery Method Room Air Room Air Blood Pressure (90/60-120/80) 112/60 121/50 H 108/52 L Blood Pressure Mean (mm Hg) 77 73 70 Source Monitor Monitor Monitor Position Semi-Fowlers Semi-Fowlers Blood Pressure Location Left Arm Left Arm History Since Last Visit- (Skip if this is Patient's initial visit) Have you changed medications since your No No No last visit? Any new allergies or adverse reactions No No No Had a fall/change in ADL's that may No No No increase risk of falls Signs or symptoms of abuse and/or No No No neglect since last visit Have you been in the hospital since your No No No last visit? Has dressing in place as prescribed Yes Yes Yes Has compression in place as prescribed No N/A N/A Has offloadiing in place as prescribed Yes Yes Yes Experienced any changes in pain level or No No No management Left Footwear Regular Shoe Regular Shoe Surgical Shoe with pressure relief insole Right Footwear Surgical Shoe Surgical Shoe with pressure with pressure relief insole relief insole Pain Scale: 0-10 Numeric Is Patient Pain Free? Yes Yes Yes 09/05/23 13:27 WC - Today's Visit Information Type of service Follow-up Visit (Physician/CARBON PRINTER ) Arrival Mode Ambulatory,Cane Transfer Assistance None Patient Identification Verified (Name & Yes ) Patient Requires Transmission-Based No Precautions Finger Stick Blood Sugar(mg/dl) (if 108 indicated): Blood Sugar Stated by Patient Height and Weight Body Mass Index (BMI) 19.8 BMI Classification Normal Vital Signs Temperature (97.8 F-99.1 F) 96.5 F L Temperature Source Temporal Pulse Rate (60-100) 68 Pulse Location Monitor Respiratory Rate (12-18) 18 Respiratory rate source Observation Oxygen Delivery Method Blood Pressure (90/60-120/80) 108/48 L Blood Pressure Mean (mm Hg) 68 Source Monitor Position Blood Pressure Location History Since Last Visit- (Skip if this is Patient's initial visit) Have you changed medications since your No last visit? Any new allergies or adverse reactions No Had a fall/change in ADL's that may No increase risk of falls Signs or symptoms of abuse and/or No neglect since last visit Have you been in the hospital since your No last visit? Has dressing in place as prescribed No Has compression in place as prescribed N/A Has offloadiing in place as prescribed Yes Experienced any changes in pain level or No management Left Footwear Right Footwear Pain Scale: 0-10 Numeric Is Patient Pain Free? Yes WC - Nurse 1 - General Ulcer Measurement Start: 08/15/23 13:21 Freq: Status: Active Protocol: Activity Type Activity Date Activity User E-sign Co-sign Detail Recorded Client Recorded Date Recorded By Document 08/15/23 13:21 KW Desktop 08/15/23 13:35 KW Document 08/22/23 13:12 KW Desktop 08/22/23 13:26 KW Document 08/29/23 13:30 DL [email or web address] 08/29/23 13:37 DL Document 09/05/23 13:27 DL [email or web address] 09/05/23 13:34 DL Edit Result 09/05/23 13:27 DL (1) [id number] 09/05/23 14:11 DL (1) #5 R lateralHallux - Wound Comment(s) => Pt c/o being lightheaded earlier, has not eaten since yesterday. BS 92, denies lightheadedness at present. Given Susannah Doones and a Glucerna. Dr. Ontiveros aware. Pt states feel good right now upon discharge this afternoon. 08/15/23 08/22/23 08/29/23 13:21 13:12 13:30 Wound Center Nurse 1 #5 R lateralHallux -Current Size (cm) - Length 0.9 1.6 0.7 -Current Size (cm) - Width 0.4 0.3 0.3 -Current Size (cm) - Depth 0.3 0.3 2.2 -Total Square Cm 0.36 0.48 0.21 -Exudate Amt Large Medium -Exudate Type Serosanguineous Serosanguineous -Wound Margin Distinct, Distinct, Outline Outline Attached Attached -Granulation Amt Medium (34-66%) Large (67-100%) Small (1-33%) -Granulation Quality [place] -Necrosis Amt Small (1-33%) Small (1-33%) -Necrotic Tissue Type Adherent Slough Adherent Slough -Structure Exposed N/A -Texture (Maddison-wound Skin Appearance) Assessed Assessed Localized Edema ,Scarring -Moisture (Maddison-wound Skin Appearance) Maceration Assessed, Maceration Maceration -Color (Maddison-wound Skin Appearance) Assessed Assessed Mottled -Temperature (Maddison-wound Skin No Abnormality No Abnormality No Abnormality Appearance) (Pt Warm) (Pt Warm) (Pt Warm) -Tenderness on Palpation (Maddison-wound No No No Skin Appearance) -Ulcer Cleansing Soap and Water Soap and Water Soap and Water -Foul Odor after Cleansing No -Anesthetic Used 5% Lidocaine 5% Lidocaine 5% Lidocaine Gel Gel Gel -Wound Comment(s) 09/05/23 13:27 Wound Center Nurse 1 #5 R lateralHallux -Current Size (cm) - Length 0.1 -Current Size (cm) - Width 0.1 -Current Size (cm) - Depth 0.1 -Total Square Cm 0.01 -Exudate Amt Medium -Exudate Type Serosanguineous -Wound Margin Distinct, Outline Attached -Granulation Amt Large (67-100%) -Granulation Quality Pale,[place] -Necrosis Amt None Present (0 %) -Necrotic Tissue Type -Structure Exposed N/A -Texture (Maddison-wound Skin Appearance) Localized Edema ,Scarring -Moisture (Maddison-wound Skin Appearance) Maceration -Color (Maddison-wound Skin Appearance) No Abnormality -Temperature (Maddison-wound Skin No Abnormality Appearance) (Pt Warm) -Tenderness on Palpation (Maddison-wound No Skin Appearance) -Ulcer Cleansing Soap and Water -Foul Odor after Cleansing No -Anesthetic Used 5% Lidocaine Gel -Wound Comment(s) Pt c/o being lightheaded earlier, has not eaten since yesterday. BS 92, denies lightheadedness at present. Given Susannah Doones and a Glucerna. Dr. Ontiveros aware. Pt states feel good right now upon discharge this afternoon . WC - Nurse 2 - General Ulcer CM Notes Start: 08/15/23 13:21 Freq: Status: Active Protocol: Activity Type Activity Date Activity User E-sign Co-sign Detail Recorded Client Recorded Date Recorded By Document 08/15/23 13:44 Laptop 08/15/23 13:49 JF Document 08/22/23 13:34 Laptop 08/22/23 13:38 JF Document 09/05/23 13:50 [id number] 09/05/23 13:53 JF 08/15/23 08/22/23 09/05/23 13:44 13:34 13:50 Wound Center Nurse 2 #5 R lateralHallux -Time 13:45 13:35 13:51 -Correct Patient Yes Yes Yes -Correct Side, Site, Position Yes Yes Yes -Correct Procedure Yes Yes Yes -Procedure Performed Yes Yes Yes -Type of Procedure Debridement Debridement Debridement -Clinical Debridement Subcutaneous Bone Epidermis / Dermis -Tissue Removed Subcutaneous Slough Epidermis, Dermis -Post Debridement (cm) - Length 0.9 0.9 1.5 -Post Debridement (cm) - Width 0.4 0.4 1.0 -Post Debridement (cm) - Depth 1.2 2.5 0.1 -Total Square (Post) (cm) 0.36 0.36 1.50 -Area of Debridement (cm) - Length 0.9 0.9 1.5 -Area of Debridement (cm) - Width 0.4 0.4 1.0 -Total Square (Area) (cm) 0.36 0.36 1.50 -Tunneling No No No -Undermining/Tunneling No No No -Circular Undermining No No No -Wound/Ulcer Outcome Not Healed Not Healed Not Healed -Ulcer Cleansing Rinsed/ Rinsed/ Rinsed/ Irrigated with Irrigated with Irrigated with Saline Saline Saline -Foul Odor after Cleansing No No No -Bioengineered Tissue Yes No No -Type of Bioengineered Tissue Epifix 18mm Disc -Expiration Date 03/16/28 -Product Lot Number [id number] -Percent Used 100 -Lot number of Saline Used [id number] -Bleeding Controlled with Pressure Pressure Pressure -Treatment Response Procedure Procedure Procedure Tolerated Well Tolerated Well Tolerated Well -Offloading Yes Yes Yes -Type of Offloading Surgical Shoe Surgical Shoe Surgical Shoe -Debridement - Open, 1st 20sq cm Yes -Debridement - Subq, 1st 20sq cm No -Debridement - Bone, 1st 20sq cm Yes -Apply Skin Sub - 1st 25 sq cm - Feet 1 -Epifix 18mm Disc 3 Pain Scale: 0-10 Numeric Is Patient Pain Free? Yes Yes Yes WC - Nurse 3 - General Ulcer D/C NN Start: 08/15/23 13:21 Freq: Status: Active Protocol: Activity Type Activity Date Activity User E-sign Co-sign Detail Recorded Client Recorded Date Recorded By Document 08/15/23 13:58 KW Desktop 08/15/23 13:59 KW Document 08/22/23 13:43 JF Laptop 08/22/23 13:43 Document 09/05/23 13:58 KW wound center 09/05/23 13:58 KW 08/15/23 08/22/23 09/05/23 13:58 13:43 13:58 Wound Care Center Nurse 3 #5 R lateralHallux -Ulcer Cleansing Rinsed/ Irrigated with Saline -Foul Odor after Cleansing No -Primary Dressing Applied Promogran Carol Matter -Other Dressing COBAN betadine -Primary Dressing Covered/Secured with Dry Gauze & Dry Gauze & Dry Gauze & Roll Gauze, Roll Gauze, Roll Gauze, Secured with Secured with Secured with Tape Tape Tape -Other Covering coban -Promogran Carol Matter 1 Pain Scale: 0-10 Numeric Is Patient Pain Free? Yes Yes Yes WC - Visit Discharge Discharge Condition Stable Stable Stable Ambulatory Status Ambulatory,Cane Ambulatory Ambulatory,Cane Transportation Private Auto Private Auto Private Auto Medication Reconcilliation completed & No Yes No provided to patient/care provider Clinical Summary of Care Provided Yes Yes Yes Assessment/Plan Assessment/Plan (1) Non-pressure chronic ulcer of other part of right foot limited to breakdown of skin: CODE(S): L97.511 - Non-pressure chronic ulcer of other part of right foot limited to breakdown of skin PLAN: Patient was examined and evaluated. All findings were discussed with the patient. All questions were answered to the patient's satisfaction. Selective debridement down to and including dermal tissue of the right hallux with a pickup and #15 blade without incident. Predebridement measurement is callus/macerated tissue. Postdebridement measurement is 1.5 x 1.0 x 0.1 cm. The patient's right hallux were cleaned and patted dry. The patient's incision and macerated tissue was dressed with Betadine paint dry sterile dressing and taped in place. Patient will continue daily dressing changes with above. It was educated the patient that due to possibly noncompliance as well as uncontrolled blood sugar that he is at great risk for surgical amputation to the right hallux. It was educated the patient that I will go ahead and book the patient for elective amputation with flap closure of the right hallux. The goal will be to try and save the toe however the patient keeps reulcerating and causing the skin to breakdown. Prior to surgical intervention the patient will be placed on doxycycline 100 mg twice daily for 2 weeks. Definitive decision making will be done next week at follow-up. Follow-up at the wound care center with Dr. Ontiveros in 1 week. (2) Acute painful diabetic polyneuropathy: CODE(S): E11.42 - Type 2 diabetes mellitus with diabetic polyneuropathy
[2023-09-06 13:36] LABS: Bedside Glucose 92 mg/dL (74-106)
[2023-09-12 13:13] VITALS: BP 115/67; PULSE 68; RESP 18; TEMP 35.9; BMI 19.8
--- NOTE | 2023-09-12 16:13 | PCM.WC.PN ---
History of Present Illness Date of Service: 09/12/23 Chief Complaint: Mr. Guadalupe is a 67-year-old diabetic male presenting to the wound care center today for second opinion to full-thickness ulceration to right big toe. He was seen by an outside provider at [facility]. [facility] flask carrier is his primary flask carrier but is sending to the wound care center today for the full-thickness wound to the right hallux for treatment and care. He denies trauma. Denies constitutional symptoms. Other pedal complaints at this time. History of Wound: Chronic right hallux ulceration Subjective Subjective Mr. Matta is a 67-year-old diabetic male presenting to wound care center today for follow-up evaluation of full-thickness ulceration status post delayed primary closure to right hallux approximately 2 weeks ago. Patient's blood sugar has been well-controlled. He has been doing home dressing changes with Betadine paint and Band-Aid. He states he notices improve redness after being on the oral antibiotics. He denies any drainage or maceration. He denies trauma. Denies constitutional symptoms. No other pedal complaints at this time. Objective Data Objective Data Vital Signs: Vital Signs Temp Pulse Resp BP O2 Del Method 96.7 F L 68 18 115/67 Room Air 09/12/23 13:13 09/12/23 13:13 09/12/23 13:13 09/12/23 13:13 09/12/23 13:13 Oxygen Delivery Method Room Air Weight: 59.24 kg Body Mass Index (BMI) 19.8 Physical Exam Narrative Vascular: DP and PT pulses are palpable to the right lower extremity. CFT is brisk. Nonpitting edema appreciated to the right hallux. Skin temperature great is warm to warm from proximal ankle to distal digits bilateral. No focal increase noted in warmth to the right heel. Blanchable erythema without proximal streaking, improved. Neurological: Light touch and epicritic sensation is intact. Dermatological: Evidence of maceration appreciated to right hallux. The incision is closed and well coapted with suture. There is evidence of a partial-thickness wound plantarly to the hallux is healed. Musculoskeletal: Muscle strength deferred. No pain to palpation of the full-thickness ulceration. No pain with calf compression Debridement Note Debridement Note Post-Debridement Measurements and Additional Note: Post-Debridement Measurements/Treatment WC - Nurse 1 - General Ulcer Assessment Start: 08/15/23 13:21 Freq: Status: Active Protocol: ANIA.LORAINE Activity Type Activity Date Activity User E-sign Co-sign Detail Recorded Client Recorded Date Recorded By Document 08/15/23 13:21 KW Desktop 08/15/23 13:35 KW Document 08/22/23 13:12 KW Desktop 08/22/23 13:26 KW Document 08/29/23 13:30 DL [email or web address] 08/29/23 13:37 DL Document 09/05/23 13:27 DL [email or web address] 09/05/23 13:34 DL Document 09/12/23 13:13 KW wound center 09/12/23 13:31 KW 08/15/23 08/22/23 08/29/23 13:21 13:12 13:30 - Today's Visit Information Type of service Follow-up Visit Follow-up Visit Follow-up Visit (Physician/PROTOTYPE ASSEMBLER ELECTRONICS (Physician/PROTOTYPE ASSEMBLER ELECTRONICS (Physician/PROTOTYPE ASSEMBLER ELECTRONICS ) ) ) Arrival Mode Ambulatory,Cane Ambulatory Ambulatory,Cane Transfer Assistance None Patient Identification Verified (Name & Yes Yes Yes ) Patient Requires Transmission-Based No Precautions Finger Stick Blood Sugar(mg/dl) (if 97 106 142 indicated): Blood Sugar Done During Done During this Visit this Visit Height and Weight Body Mass Index (BMI) 19.8 19.8 19.8 BMI Classification Normal Normal Normal Vital Signs Temperature (97.8 F-99.1 F) 97.1 F L 97.4 F L Temperature Source Temporal Temporal Pulse Rate (60-100) 66 76 76 Pulse Location Monitor Monitor Monitor Respiratory Rate (12-18) 18 18 20 H Respiratory rate source Observation Observation Observation Oxygen Delivery Method Room Air Room Air Blood Pressure (90/60-120/80) 112/60 121/50 H 108/52 L Blood Pressure Mean (mm Hg) 77 73 70 Source Monitor Monitor Monitor Position Semi-Fowlers Semi-Fowlers Blood Pressure Location Left Arm Left Arm History Since Last Visit- (Skip if this is Patient's initial visit) Have you changed medications since your No No No last visit? Any new allergies or adverse reactions No No No Had a fall/change in ADL's that may No No No increase risk of falls Signs or symptoms of abuse and/or No No No neglect since last visit Have you been in the hospital since your No No No last visit? Has dressing in place as prescribed Yes Yes Yes Has compression in place as prescribed No N/A N/A Has offloadiing in place as prescribed Yes Yes Yes Experienced any changes in pain level or No No No management Left Footwear Regular Shoe Regular Shoe Surgical Shoe with pressure relief insole Right Footwear Surgical Shoe Surgical Shoe with pressure with pressure relief insole relief insole Pain Scale: 0-10 Numeric Is Patient Pain Free? Yes Yes Yes 09/05/23 09/12/23 13:27 13:13 - Today's Visit Information Type of service Follow-up Visit Follow-up Visit (Physician/PROTOTYPE ASSEMBLER [employer]LECTRONICS (Physician/PROTOTYPE ASSEMBLER [employer]RON[employer] ) ) Arrival Mode Ambulatory,Cane Ambulatory Transfer Assistance None Patient Identification Verified (Name & Yes Yes ) Patient Requires Transmission-Based No Precautions Finger Stick Blood Sugar(mg/dl) (if 108 indicated): Blood Sugar Stated by Patient Height and Weight Body Mass Index (BMI) 19.8 19.8 BMI Classification Normal Normal Vital Signs Temperature (97.8 F-99.1 F) 96.5 F L 96.7 F L Temperature Source Temporal Temporal Pulse Rate (60-100) 68 68 Pulse Location Monitor Monitor Respiratory Rate (12-18) 18 18 Respiratory rate source Observation Observation Oxygen Delivery Method Room Air Blood Pressure (90/60-120/80) 108/48 L 115/67 Blood Pressure Mean (mm Hg) 68 83 Source Monitor Monitor Position Semi-Fowlers Blood Pressure Location Left Arm History Since Last Visit- (Skip if this is Patient's initial visit) Have you changed medications since your No No last visit? Any new allergies or adverse reactions No No Had a fall/change in ADL's that may No Yes increase risk of falls Signs or symptoms of abuse and/or No No neglect since last visit Have you been in the hospital since your No No last visit? Has dressing in place as prescribed No Yes Has compression in place as prescribed N/A N/A Has offloadiing in place as prescribed Yes Yes Experienced any changes in pain level or No No management Left Footwear Regular Shoe Right Footwear Surgical Shoe with pressure relief insole Pain Scale: 0-10 Numeric Is Patient Pain Free? Yes Yes - Nurse 1 - General Ulcer Measurement Start: 08/15/23 13:21 Freq: Status: Active Protocol: Activity Type Activity Date Activity User E-sign Co-sign Detail Recorded Client Recorded Date Recorded By Document 08/15/23 13:21 KW Desktop 08/15/23 13:35 KW Document 08/22/23 13:12 KW Desktop 08/22/23 13:26 KW Document 08/29/23 13:30 DL [email or web address] 08/29/23 13:37 DL Document 09/05/23 13:27 DL [email or web address] 09/05/23 13:34 DL Edit Result 09/05/23 13:27 DL (1) [id number] 09/05/23 14:11 DL Document 09/12/23 13:13 KW wound center 09/12/23 13:31 KW (1) #5 R lateralHallux - Wound Comment(s) => Pt c/o being lightheaded earlier, has not eaten since yesterday. BS 92, denies lightheadedness at present. Given Susannah Doones and a Glucerna. Dr. Ontiveros aware. Pt states feel good right now upon discharge this afternoon. 08/15/23 08/22/23 08/29/23 13:21 13:12 13:30 Wound Center Nurse 1 #5 R lateralHallux -Current Size (cm) - Length 0.9 1.6 0.7 -Current Size (cm) - Width 0.4 0.3 0.3 -Current Size (cm) - Depth 0.3 0.3 2.2 -Total Square Cm 0.36 0.48 0.21 -Exudate Amt Large Medium -Exudate Type Serosanguineous Serosanguineous -Wound Margin Distinct, Distinct, Outline Outline Attached Attached -Granulation Amt Medium (34-66%) Large (67-100%) Small (1-33%) -Granulation Quality [place] -Necrosis Amt Small (1-33%) Small (1-33%) -Necrotic Tissue Type Adherent Slough Adherent Slough -Structure Exposed N/A -Texture (Maddison-wound Skin Appearance) Assessed Assessed Localized Edema ,Scarring -Moisture (Maddison-wound Skin Appearance) Maceration Assessed, Maceration Maceration -Color (Maddison-wound Skin Appearance) Assessed Assessed Mottled -Temperature (Maddison-wound Skin No Abnormality No Abnormality No Abnormality Appearance) (Pt Warm) (Pt Warm) (Pt Warm) -Tenderness on Palpation (Maddison-wound No No No Skin Appearance) -Ulcer Cleansing Soap and Water Soap and Water Soap and Water -Foul Odor after Cleansing No -Anesthetic Used 5% Lidocaine 5% Lidocaine 5% Lidocaine Gel Gel Gel -Wound Comment(s) 09/05/23 09/12/23 13:27 13:13 Wound Center Nurse 1 #5 R lateralHallux -Current Size (cm) - Length 0.1 0.1 -Current Size (cm) - Width 0.1 0.1 -Current Size (cm) - Depth 0.1 0.1 -Total Square Cm 0.01 0.01 -Exudate Amt Medium Small -Exudate Type Serosanguineous Serosanguineous -Wound Margin Distinct, Outline Attached -Granulation Amt Large (67-100%) -Granulation Quality Pale,[place] -Necrosis Amt None Present (0 %) -Necrotic Tissue Type -Structure Exposed N/A -Texture (Maddison-wound Skin Appearance) Localized Edema Assessed ,Scarring -Moisture (Maddison-wound Skin Appearance) Maceration Assessed -Color (Maddison-wound Skin Appearance) No Abnormality Assessed -Temperature (Maddison-wound Skin No Abnormality No Abnormality Appearance) (Pt Warm) (Pt Warm) -Tenderness on Palpation (Maddison-wound No Yes Skin Appearance) -Ulcer Cleansing Soap and Water Rinsed/ Irrigated with Saline -Foul Odor after Cleansing No No -Anesthetic Used 5% Lidocaine Gel -Wound Comment(s) Pt c/o being SUTURES INTACT lightheaded earlier, has not eaten since yesterday. BS 92, denies lightheadedness at present. Given Susannah Doones and a Glucerna. Dr. Ontiveros aware. Pt states feel good right now upon discharge this afternoon . WC - Nurse 2 - General Ulcer CM Notes Start: 08/15/23 13:21 Freq: Status: Active Protocol: Activity Type Activity Date Activity User E-sign Co-sign Detail Recorded Client Recorded Date Recorded By Document 08/15/23 13:44 Laptop 08/15/23 13:49 Document 08/22/23 13:34 Laptop 08/22/23 13:38 Document 09/05/23 13:50 [id number] 09/05/23 13:53 Document 09/12/23 13:50 [id number] 09/12/23 13:51 08/15/23 08/22/23 09/05/23 13:44 13:34 13:50 Wound Center Nurse 2 #5 R lateralHallux -Time 13:45 13:35 13:51 -Correct Patient Yes Yes Yes -Correct Side, Site, Position Yes Yes Yes -Correct Procedure Yes Yes Yes -Procedure Performed Yes Yes Yes -Type of Procedure Debridement Debridement Debridement -Clinical Debridement Subcutaneous Bone Epidermis / Dermis -Tissue Removed Subcutaneous Slough Epidermis, Dermis -Post Debridement (cm) - Length 0.9 0.9 1.5 -Post Debridement (cm) - Width 0.4 0.4 1.0 -Post Debridement (cm) - Depth 1.2 2.5 0.1 -Total Square (Post) (cm) 0.36 0.36 1.50 -Area of Debridement (cm) - Length 0.9 0.9 1.5 -Area of Debridement (cm) - Width 0.4 0.4 1.0 -Total Square (Area) (cm) 0.36 0.36 1.50 -Tunneling No No No -Undermining/Tunneling No No No -Circular Undermining No No No -Wound/Ulcer Outcome Not Healed Not Healed Not Healed -Ulcer Cleansing Rinsed/ Rinsed/ Rinsed/ Irrigated with Irrigated with Irrigated with Saline Saline Saline -Foul Odor after Cleansing No No No -Bioengineered Tissue Yes No No -Type of Bioengineered Tissue Epifix 18mm Disc -Expiration Date 03/16/28 -Product Lot Number [id number] -Percent Used 100 -Lot number of Saline Used [id number] -Bleeding Controlled with Pressure Pressure Pressure -Treatment Response Procedure Procedure Procedure Tolerated Well Tolerated Well Tolerated Well -Offloading Yes Yes Yes -Type of Offloading Surgical Shoe Surgical Shoe Surgical Shoe -Debridement - Open, 1st 20sq cm Yes -Debridement - Subq, 1st 20sq cm No -Debridement - Bone, 1st 20sq cm Yes -Apply Skin Sub - 1st 25 sq cm - Feet 1 -Epifix 18mm Disc 3 Pain Scale: 0-10 Numeric Is Patient Pain Free? Yes Yes Yes 09/12/23 13:50 Wound Center Nurse 2 #5 R lateralHallux -Time -Correct Patient No -Correct Side, Site, Position No -Correct Procedure No -Procedure Performed No -Type of Procedure -Clinical Debridement -Tissue Removed -Post Debridement (cm) - Length -Post Debridement (cm) - Width -Post Debridement (cm) - Depth -Total Square (Post) (cm) -Area of Debridement (cm) - Length -Area of Debridement (cm) - Width -Total Square (Area) (cm) -Tunneling -Undermining/Tunneling -Circular Undermining -Wound/Ulcer Outcome Not Healed -Ulcer Cleansing -Foul Odor after Cleansing -Bioengineered Tissue -Type of Bioengineered Tissue -Expiration Date -Product Lot Number -Percent Used -Lot number of Saline Used -Bleeding Controlled with -Treatment Response -Offloading -Type of Offloading -Debridement - Open, 1st 20sq cm -Debridement - Subq, 1st 20sq cm No -Debridement - Bone, 1st 20sq cm -Apply Skin Sub - 1st 25 sq cm - Feet -Epifix 18mm Disc Pain Scale: 0-10 Numeric Is Patient Pain Free? Yes - Nurse 3 - General Ulcer D/C NN Start: 08/15/23 13:21 Freq: Status: Active Protocol: Activity Type Activity Date Activity User E-sign Co-sign Detail Recorded Client Recorded Date Recorded By Document 08/15/23 13:58 Desktop 08/15/23 13:59 Document 08/22/23 13:43 Laptop 08/22/23 13:43 Document 09/05/23 13:58 wound center 09/05/23 13:58 Document 09/12/23 13:51 [id number] 09/12/23 13:52 08/15/23 08/22/23 09/05/23 13:58 13:43 13:58 Wound Care Center Nurse 3 #5 R lateralHallux -Ulcer Cleansing Rinsed/ Irrigated with Saline -Foul Odor after Cleansing No -Primary Dressing Applied Promogran Carol Matter -Other Dressing COBAN betadine -Primary Dressing Covered/Secured with Dry Gauze & Dry Gauze & Dry Gauze & Roll Gauze, Roll Gauze, Roll Gauze, Secured with Secured with Secured with Tape Tape Tape -Other Covering coban -Promogran Carol Matter 1 Pain Scale: 0-10 Numeric Is Patient Pain Free? Yes Yes Yes - Visit Discharge Discharge Condition Stable Stable Stable Ambulatory Status Ambulatory,Cane Ambulatory Ambulatory,Cane Transportation Private Auto Private Auto Private Auto Medication Reconcilliation completed & No Yes No provided to patient/care provider Clinical Summary of Care Provided Yes Yes Yes 09/12/23 13:51 Wound Care Center Nurse 3 #5 R lateralHallux -Ulcer Cleansing Rinsed/ Irrigated with Saline -Foul Odor after Cleansing -Primary Dressing Applied -Other Dressing -Primary Dressing Covered/Secured with Dry Gauze, Secured with Tape -Other Covering -Promogran Carol Matter Pain Scale: 0-10 Numeric Is Patient Pain Free? Yes WC - Visit Discharge Discharge Condition Stable Ambulatory Status Ambulatory,Cane Transportation Private Auto Medication Reconcilliation completed & Yes provided to patient/care provider Clinical Summary of Care Provided Yes Assessment/Plan Assessment/Plan (1) Non-pressure chronic ulcer of other part of right foot with necrosis of bone: CODE(S): L97.514 - Non-pressure chronic ulcer of other part of right foot with necrosis of bone PLAN: Patient was examined and evaluated. All findings were discussed with the patient. All questions were answered to the patient's satisfaction. The patient's right hallux incision is well coapted with suture. No erythema or proximal streaking of surgical wound dehiscence. Patient will continue his oral antibiotics as written. He will manage strict blood sugar control. He will follow-up next week for suture removal. Follow-up at the wound care center with Dr. Ontiveros in 1 week.
[2023-09-13 15:39] LABS: Bedside Glucose 135 mg/dL (74-106)
== END 2023-09-14 23:59 | disposition home or self-care (01) ==
LOC: WC 13:15
PROVIDERS: PCP Student in an Organized Health Care Education/Training Program; Referring Provider Podiatrist Foot & Ankle Surgery; Visit Provider Podiatrist Foot & Ankle Surgery
DX: L97.514 Non-pressure chronic ulcer of other part of right foot with necrosis of bone (principal); L97.511 Non-pressure chronic ulcer of other part of right foot limited to breakdown of skin; M86.171 Other acute osteomyelitis, right ankle and foot; E11.42 Type 2 diabetes mellitus with diabetic polyneuropathy; E11.69 Type 2 diabetes mellitus with other specified complication
CPT/HCPCS: 11044; 15275; 82962; 97597; 99212; 99213; Q4186; G0463

== ENCOUNTER 2023-09-19 13:18 | Outpatient (RCR) | payer MEDICARE, OTHER, SELFPAY ==
[2023-09-15 00:31] VITALS: BP 130/58; PULSE 73; RESP 16; TEMP 36.1; BMI 19.8
[2023-09-19 13:37] VITALS: BP 93/47; PULSE 71; RESP 16; TEMP 35.9; BMI 19.8
--- NOTE | 2023-09-19 14:07 | PN.PCM_ITS ---
History of Present Illness Date of Service: 09/19/23 Chief Complaint: Mr. Guadalupe is a 67-year-old diabetic male presenting to the wound care center today for second opinion to full-thickness ulceration to right big toe. He was seen by an outside provider at [facility]. [facility] sequencing machine operator is his primary sequencing machine operator but is sending to the wound care center today for the full-thickness wound to the right hallux for treatment and care. He denies trauma. Denies constitutional symptoms. Other pedal compl aints at this time. History of Wound: Chronic right hallux ulceration Subjective Subjective Mr. Matta is a 62-year-old male presenting to clinic today for follow-up evaluation of delayed primary closure to the right hallux. He states that he has been weightbearing as tolerated in a surgical shoe. He denies any open lesions or abrasions. Blood sugar well-controlled. He denies trauma. Denies constitutional symptoms. Other pedal complaints at this time. Objective Data Objective Data Vital Signs: Vital Signs Temp Pulse Resp BP 96.6 F L 71 16 93/47 L 09/19/23 13:37 09/19/23 13:37 09/19/23 13:37 09/19/23 13:37 Weight: 59.24 kg Body Mass Index (BMI) 19.8 Physical Exam Narrative Vascular: DP and PT pulses are palpable to the right lower extremity. CFT is brisk. Nonpitting edema appreciated to the right hallux. Skin temperature great is warm to warm from proximal ankle to distal digits bilateral. No focal increase noted in warmth to the right heel. Blanchable erythema without proximal streaking, improved. Neurological: Light touch and epicritic sensation is intact. Dermatological: The incision is closed and well coapted with suture. Musculoskeletal: Muscle strength deferred. No pain to palpation of the full- thickness ulceration. No pain with calf compression Debridement Note Debridement Note Post-Debridement Measurements and Additional Note: Post-Debridement Measurements/Treatment - Nurse 1 - General Ulcer Assessment Start: 09/19/23 13:37 Freq: Status: Active Protocol: [email or web address].LOWEXT Activity Type Activity Date Activity User E-sign Co-sign Detail Recorded Client Recorded Date Recorded By Document 09/19/23 13:37 [id number] 09/19/23 13:39 DARA 09/19/23 13:37 - Today's Visit Information Type of service Follow-up Visit (Physician/SLIDE FORMING MACHINE TENDER ) Arrival Mode Ambulatory,Cane Patient Requires Transmission-Based No Precautions Finger Stick Blood Sugar(mg/dl) (if 102 indicated): Blood Sugar Stated by Patient Height and Weight Body Mass Index (BMI) 19.8 BMI Classification Normal Vital Signs Temperature (97.8 F-99.1 F) 96.6 F L Temperature Source Temporal Pulse Rate (60-100) 71 Pulse Location Monitor Respiratory Rate (12-18) 16 Respiratory rate source Observation Blood Pressure (90/60-120/80) 93/47 L Blood Pressure Mean (mm Hg) 62 Source Monitor Position Semi-Fowlers Blood Pressure Location Left Arm History Since Last Visit- (Skip if this is Patient's initial visit) Have you changed medications since your No last visit? Any new allergies or adverse reactions No Had a fall/change in ADL's that may No increase risk of falls Signs or symptoms of abuse and/or No neglect since last visit Have you been in the hospital since your No last visit? Has dressing in place as prescribed Yes Has compression in place as prescribed N/A Has offloadiing in place as prescribed N/A Experienced any changes in pain level or No management Left Footwear Other Footwear (Comment) Right Footwear Regular Shoe Pain Scale: 0-10 Numeric Is Patient Pain Free? Yes - Nurse 1 - General Ulcer Measurement Start: 09/19/23 13:37 Freq: Status: Active Protocol: Activity Type Activity Date Activity User E-sign Co-sign Detail Recorded Client Recorded Date Recorded By Document 09/19/23 13:37 [id number] 09/19/23 13:39 DARA 09/19/23 13:37 Wound Center Nurse 1 #5 R lateralHallux -Combined with other wound No -Current Size (cm) - Length 0.1 -Current Size (cm) - Width 0.1 -Current Size (cm) - Depth 0.1 -Total Square Cm 0.01 -Photo Taken Yes -Epithelialization Large 67-100% -Tunneling No -Undermining/Tunneling No -Circular Undermining No -Exudate Amt None Present -Wound Margin Indistinct, Non -Visible Lower Limb Edema Present NA - Nurse 2 - General Ulcer CM Notes Start: 09/19/23 13:37 Freq: Status: Active Protocol: Activity Type Activity Date Activity User E-sign Co-sign Detail Recorded Client Recorded Date Recorded By Document 09/19/23 13:39 [id number] 09/19/23 13:41 09/19/23 13:39 Wound Center Nurse 2 #5 R lateralHallux -Correct Patient No -Correct Side, Site, Position No -Correct Procedure No -Procedure Performed No -Post Debridement (cm) - Length 0 -Post Debridement (cm) - Width 0 -Post Debridement (cm) - Depth 0 -Total Square (Post) (cm) 0 -Area of Debridement (cm) - Length 0 -Area of Debridement (cm) - Width 0 -Total Square (Area) (cm) 0 -Wound/Ulcer Outcome Healed- Epithelialized Pain Scale: 0-10 Numeric Is Patient Pain Free? Yes - Nurse 3 - General Ulcer D/C NN Start: 09/19/23 13:37 Freq: Status: Active Protocol: Activity Type Activity Date Activity User E-sign Co-sign Detail Recorded Client Recorded Date Recorded By Document 09/19/23 13:57 Wound center 09/19/23 13:57 09/19/23 13:57 Is Patient Pain Free? Yes - Visit Discharge Discharge Condition Stable Ambulatory Status Ambulatory,Cane Transportation Private Auto Medication Reconcilliation completed & No provided to patient/care provider Clinical Summary of Care Provided Yes Assessment/Plan Assessment/Plan (1) Non-pressure chronic ulcer of other part of right foot with necrosis of bone: CODE(S): L97.514 - Non-pressure chronic ulcer of other part of right foot with necrosis of bone PLAN: Patient was examined and evaluated. All findings were discussed with the patient. All questions were answered to the patient's satisfaction. The patient's right hallux delayed primary closure site is healed. Sutures removed without incident. Steri-Strips applied. He will be weightbearing as tolerated in surgical shoe for the next 2 weeks. Educated the patient continue strict blood sugar control which she was understanding of. He will follow-up in private office in 2 weeks for evaluation and authorization for diabetic shoes and inserts. Patient will follow-up with the wound care center with Dr. Ontiveros as needed. (2) Acute osteomyelitis of right foot: CODE(S): M86.171 - Other acute osteomyelitis, right ankle and foot (3) Non-pressure chronic ulcer of other part of right foot limited to breakdown of skin: CODE(S): L97.511 - Non-pressure chronic ulcer of other part of right foot limited to breakdown of skin
== END 2023-09-20 15:03 | disposition home or self-care (01) ==
LOC: WC 13:18
PROVIDERS: PCP Student in an Organized Health Care Education/Training Program; Referring Provider Podiatrist Foot & Ankle Surgery; Visit Provider Podiatrist Foot & Ankle Surgery
DX: L97.514 Non-pressure chronic ulcer of other part of right foot with necrosis of bone (principal); L97.511 Non-pressure chronic ulcer of other part of right foot limited to breakdown of skin; M86.171 Other acute osteomyelitis, right ankle and foot
CPT/HCPCS: 99213; G0463

== ENCOUNTER 2023-12-26 13:05 | Outpatient (RCR) | payer MEDICARE, OTHER, SELFPAY ==
[2023-12-26 13:16] VITALS: BP 153/51; PULSE 75; RESP 18; TEMP 35.7
--- NOTE | 2023-12-26 15:31 | PN.PCM_ITS ---
History of Present Illness Date of Service: 12/26/23 Chief Complaint: Mr. Guadalupe is a 67-year-old diabetic male presenting to the wound care center today for second opinion to full-thickness ulceration to right big toe. He was seen by an outside provider at [facility]. [facility] visual merchandising manager is his primary visual merchandising manager but is sending to the wound care center today for the full-thickness wound to the right hallux for treatment and care. He denies trauma. Denies constitutional symptoms. Other pedal compl aints at this time. History of Wound: Chronic right hallux ulceration Subjective Subjective Mr. Matta is a diabetic 68-year-old male presenting the wound care center today for a new wound to the right foot distal second digit. Patient states that he has noticed contracture to the right second digit and callus with ulceration for a couple weeks now. He returns today for evaluation. No treatment. His blood sugars been well-controlled. He has healed his previous surgery to the right great toe. He denies any trauma. Denies constitutional symptoms. No other pedal complaints at this time. Objective Data Objective Data Vital Signs: Vital Signs Temp Pulse Resp BP O2 Del Method 96.2 F L 75 18 153/51 H Room Air 12/26/23 13:16 12/26/23 13:16 12/26/23 13:16 12/26/23 13:16 12/26/23 13:16 Oxygen Delivery Method Room Air Physical Exam Narrative Vascular: DP and PT pulses are palpable. CFT is brisk. Blanchable erythema appreciated the right second distal digit. Mild proximal streaking. Neurological: Light touch intact. Patient does not respond to painful stimuli. Protective station is absent. Dermatological: Full-thickness ulceration to the distal aspect of the right second digit measuring 0.5 x 0.6 x 0.2 cm. Wound base is granular nature. Blanchable erythema with mild proximal streaking. Excisional debridement down to and including subcutaneous tissue with a number 3 mm dermal curette to the right foot second digit distal ulceration without incident. Predebridement measurement was callus. Postdebridement measurement is 0.5 x 0.6 x 0.2 cm. Musculoskeletal: No pain to palpation of the full-thickness wound to the right foot. No pain with calf pressure. Debridement Note Debridement Note Debridement Free Text: Excisional debridement down to and including subcutaneous tissue with a number 3 mm dermal curette to the right foot second digit distal ulceration without incident. Predebridement measurement was callus. Postdebridement measurement is 0.5 x 0.6 x 0.2 cm. Post-Debridement Measurements and Additional Note: Post-Debridement Measurements/Treatment - Nurse 1 - General Ulcer Assessment Start: 12/26/23 13:16 Freq: Status: Active Protocol: BREANA Activity Type Activity Date Activity User E-sign Co-sign Detail Recorded Client Recorded Date Recorded By Document 12/26/23 13:16 [email or web address] [id number] 12/26/23 13:25 12/26/23 13:16 - Today's Visit Information Type of service Initial Visit Arrival Mode Ambulatory,Cane Patient Identification Verified (Name & Yes ) Vital Signs Temperature (97.8 F-99.1 F) 96.2 F L Temperature Source Temporal Pulse Rate (60-100) 75 Pulse Location Monitor Respiratory Rate (12-18) 18 Respiratory rate source Observation Oxygen Delivery Method Room Air Blood Pressure (90/60-120/80) 153/51 H Blood Pressure Mean (mm Hg) 85 Source Monitor Position Semi-Fowlers Blood Pressure Location Left Arm History Since Last Visit- (Skip if this is Patient's initial visit) Left Footwear Regular Shoe Right Footwear Regular Shoe Pain Scale: 0-10 Numeric Is Patient Pain Free? Yes - Nurse 1 - General Ulcer Measurement Start: 12/26/23 13:16 Freq: Status: Active Protocol: Activity Type Activity Date Activity User E-sign Co-sign Detail Recorded Client Recorded Date Recorded By Document 12/26/23 13:16 [email or web address] [id number] 12/26/23 13:25 12/26/23 13:16 Wound Center Nurse 1 #6 R 2ND TOE -Current Size (cm) - Length 0.2 -Current Size (cm) - Width 0.5 -Current Size (cm) - Depth 0.2 -Total Square Cm 0.10 -Date of Last Picture (Recall this 12/26/23 field) -Undermining/Tunneling Yes -Undermining/Tunneling Starts (O'clock 12 ) -Undermining/Tunneling Ends (O'clock) 6 -Maximum Distance (cm) 0.5 -Exudate Amt None Present -Wound Margin Distinct, Outline Attached -Granulation Amt Large (67-100%) -Granulation Quality Red -Texture (Maddison-wound Skin Appearance) Assessed,Callus -Moisture (Maddison-wound Skin Appearance) Assessed -Color (Maddison-wound Skin Appearance) Assessed -Temperature (Maddison-wound Skin No Abnormality Appearance) (Pt Warm) -Tenderness on Palpation (Maddison-wound No Skin Appearance) -Ulcer Cleansing Rinsed/ Irrigated with Saline -Foul Odor after Cleansing No -Anesthetic Used 5% Lidocaine Gel - Nurse 2 - General Ulcer CM Notes Start: 12/26/23 13:16 Freq: Status: Active Protocol: Activity Type Activity Date Activity User E-sign Co-sign Detail Recorded Client Recorded Date Recorded By Document 12/26/23 14:05 [id number] 12/26/23 14:11 12/26/23 14:05 Wound Center Nurse 2 -Time 14:06 -Correct Patient Yes -Correct Side, Site, Position Yes -Correct Procedure Yes -Procedure Performed Yes -Type of Procedure Debridement -Clinical Debridement Subcutaneous -Tissue Removed Subcutaneous -Post Debridement (cm) - Length 0.5 -Post Debridement (cm) - Width 0.6 -Post Debridement (cm) - Depth 0.1 -Total Square (Post) (cm) 0.30 -Area of Debridement (cm) - Length 0.5 -Area of Debridement (cm) - Width 0.6 -Total Square (Area) (cm) 0.30 -Tunneling No -Undermining/Tunneling No -Circular Undermining No -Wound/Ulcer Outcome Not Healed -Ulcer Cleansing Rinsed/ Irrigated with Saline -Foul Odor after Cleansing No -Bioengineered Tissue No -Bleeding Controlled with Pressure -Treatment Response Procedure Tolerated Well -Offloading No -Debridement - Subq, 1st 20sq cm Yes Pain Scale: 0-10 Numeric Is Patient Pain Free? Yes - Nurse 3 - General Ulcer D/C NN Start: 12/26/23 13:16 Freq: Status: Active Protocol: Activity Type Activity Date Activity User E-sign Co-sign Detail Recorded Client Recorded Date Recorded By Document 12/26/23 14:15 [facility] [id number] 12/26/23 14:16 [facility] 12/26/23 14:15 Wound Care Center Nurse 3 #6 R 2ND TOE -Ulcer Cleansing Rinsed/ Irrigated with Saline -Foul Odor after Cleansing No -Other Dressing BETADINE, BANDAIDS -Other Covering PER [facility]SL CYTOLOGY SUPERVISOR Treatment Response Procedure Tolerated Well Pain Scale: 0-10 Numeric Is Patient Pain Free? Yes WC - Visit Discharge Discharge Condition Stable Ambulatory Status Ambulatory,Cane Transportation Private Auto Assessment/Plan Assessment/Plan (1) Non-pressure chronic ulcer of other part of right foot with fat layer exposed: CODE(S): L97.512 - Non-pressure chronic ulcer of other part of right foot with fat layer exposed PLAN: Patient was examined and evaluated. All findings were discussed with the patient. All questions were answered to the patient's satisfaction. Excisional debridement down to and including subcutaneous tissue with a number 3 mm dermal curette to the right foot second digit distal ulceration without incident. Predebridement measurement was callus. Postdebridement measurement is 0.5 x 0.6 x 0.2 cm. Left lower extremities are clean and patted dry. Culture was taken of the ulceration to rule out bacterial infection. The patient will be placed on doxycycline 100 mg twice daily for 2 weeks for prophylactic control. The patient will follow-up in the office next week for an office extensor release of the hallux, open flexor tenotomy of digits 2 and 3. Patient will call the office for appointment date and time Follow-up at the wound care center with Dr. Ontiveros in 1-2 week.
--- NOTE | 2023-12-27 08:34 | WC ---
PHOTO 12/26/23 RIGHT 2ND TOE
== END 2023-12-26 16:00 | disposition home or self-care (01) ==
LOC: WC 13:05
PROVIDERS: PCP Student in an Organized Health Care Education/Training Program; Visit Provider Podiatrist Foot & Ankle Surgery
DX: L97.512 Non-pressure chronic ulcer of other part of right foot with fat layer exposed (principal)
CPT/HCPCS: 11042; 87070; 87075; 87077; 87186; 87205; 99213; G0463

== ENCOUNTER 2024-02-17 17:59 | Emergency (ER) | payer MEDICARE, OTHER, SELFPAY ==
[2024-02-17 18:00] VITALS: BP 137/59; PULSE 85; RESP 16; TEMP 36.9; O2SAT 98
--- NOTE | 2024-02-17 18:11 | CT_ITS ---
STUDY: CT BRAIN WITHOUT CONTRAST REASON FOR EXAM: Male, 68 years old. Closed head injury Individualized dose optimization techniques were used for this CT. TECHNIQUE: Transaxial CT imaging of the brain was performed without administration of intravenous contrast material. COMPARISON: 12.19.22 FINDINGS: There are calcifications noted in the distal vertebral arteries. There are calcifications noted in the cavernous carotid arteries. This is consistent for atherosclerotic disease. Normal calvarium. Normal soft tissues. Left orbital scleral buckle. There is mild cerebral atrophy with widening of the extra-axial spaces and ventricular dilatation. There are areas of decreased attenuation within the white matter tracts of the supratentorial brain, consistent with microvascular disease changes. Normal basal ganglia and thalami. Normal brainstem. There is mild cerebellar atrophy. There is no intracranial hemorrhage. There are no findings of an acute ischemic infarction. Normal visualized paranasal sinuses. ASPECTS Score for Acute Strokes: 01/23 CT/Brain/Head without Contrast IMPRESSION: There are no acute findings. Chronic involutional changes of the brain. Electronically Signed: Raymon Balbuena MD at 19:03 EST ,
--- NOTE | 2024-02-17 18:15 | EX.ED.GENINJ ---
HPI History of Present Illness Chief Complaint: Head Injury Detail of Chief Complaint: Partial-thickness laceration scalp Onset/Context/Timing Onset: Today (Fall occurred at approximately 12 noon) Mechanism/Context: Blunt Injury and Fall Location of pain/injuries: - (Vertex of the scalp) Quality of Pain: - (None) Location: Not applicable Current Severity: Gone Maximum Severity: Mild Worsened by: Not applicable Relieved by: Not applicable Associated Symptoms Associated Symptoms: Positive for Loss of consciousness (Uncertain) and Amnesia; Negative for Parasthesias, Weakness, Loss of function or Inability to ambulate Narrative Narrative: Patient is a 68-year-old male. He is on Plavix. He is uncertain why he is on Plavix. He denies history of cardiac stents or stents in his extremities. He denies history of stroke. He apparently fell at noon. He was reluctant, hospital that time. Family member checked on him and because of the wound on the top of his head was brought to the emergency department. He does not recall exactly what happened. He presently denies headache. Eyes double vision blurred vision loss of vision. Nose saunders ears decreased hearing. He denies trouble with speech or swallowing. He denies cardiac respiratory symptoms. He denies nausea or vomiting. He states he has had some problems with balance recently. Tetanus Immunization: <5 years Prior similar symptoms: Yes Recent Illness/Hospitalization: No [facility] Medical History Loss of hearing Wears glasses Wears dentures Open wound Insulin dependent diabetes mellitus Ambulates with cane Arthritis Prostate disease Bladder disease Back pain Dietary restriction Former smoker Neuropathy History of pain when walking History of echocardiogram History of stress test Vitamin D deficiency LVH (left ventricular hypertrophy) Hearing loss of both ears Tinnitus aurium Polyneuropathy in diabetes Arthritis Hepatitis C virus infection without hepatic coma Primary osteoarthritis of both knees GERD (gastroesophageal reflux disease) CKD (chronic kidney disease) stage 3, GFR 30-59 ml/min Iron deficiency anemia Unspecified constipation Depression hx of APLL Candidiasis PAD (peripheral artery disease) Tachycardia Carotid stenosis, bilateral ASVD (arteriosclerotic vascular disease) Gangrene of toe of left foot Diabetic neuropathy Hyperlipidemia Hypertension Uncontrolled type 2 diabetes mellitus Toe osteomyelitis, left Infected neuropathic ulcer Home Medications ?Medication ?Instructions ?Recorded ?Last Taken ?Type amlodipine 10 mg tablet 10 mg PO DAILY blood pressure 08/19/18 06/21/23 History aspirin 81 mg tablet,delayed 81 mg PO DAILY health maintenance 08/19/18 06/21/23 History release doxazosin 2 mg tablet 2 mg PO QHS prostate 08/19/18 06/21/23 History gabapentin 300 mg capsule 300 mg PO TID neuropathy 08/19/18 10/24/18 06:00 History gabapentin 300 mg capsule 600 mg PO QHS neuropathy 08/19/18 10/23/18 21:00 History losartan 100 mg tablet 100 mg PO DAILY blood pressure 08/19/18 06/21/23 History magnesium oxide 400 mg PO DAILY supplement 08/19/18 06/21/23 History metformin 850 mg tablet 850 mg PO TIDCM diabetes 08/19/18 06/21/23 History metoprolol tartrate 100 mg tablet 100 mg PO BID blood pressure 08/19/18 06/21/23 History nitroglycerin 400 mcg/spray 0.4 mg sublingual PRN PRN Pain 08/19/18 Unknown History translingual spironolactone 50 mg tablet 50 mg PO DAILY hypertension 08/19/18 06/21/23 History insulin lispro 100 unit/mL See Protocol SQ ACHS 11/04/18 06/21/23 History subcutaneous pen loratadine 10 mg capsule 10 mg PO DAILY 04/07/19 06/21/23 History meloxicam 15 mg tablet 15 mg PO DAILY 01/30/20 06/21/23 History atorvastatin 10 mg tablet 10 mg PO QHS 10/30/22 06/21/23 History cholecalciferol (vitamin D3) 125 125 mcg PO DAILY 10/30/22 06/21/23 History mcg (5,000 unit) capsule docusate sodium 100 mg capsule 200 mg PO QHS bowels 10/30/22 06/21/23 History insulin glargine 100 unit/mL (3 20 unit subcut QHS diabetes 10/30/22 06/21/23 History mL) subcutaneous pen 20 units nortriptyline 50 mg capsule 50 mg PO QHS 10/30/22 06/21/23 History sertraline 50 mg tablet 50 mg PO QHS 10/30/22 06/21/23 History triamcinolone acetonide 0.5 % 1 applic topical DAILY PRN itching 10/30/22 Unknown History topical cream clopidogrel 75 mg tablet 75 mg PO QHS 06/12/23 06/21/23 History multivitamin (Daily Multi-Vitamin 1 tab PO DAILY 06/12/23 06/21/23 History tablet) omega 9-etu-ydr-fish oil 300 2 cap PO DAILY 06/12/23 06/21/23 History mg-1,000 mg capsule,delayed release (Fish Oil) amoxicillin 875 mg-potassium 1 tab PO Q12H 2 weeks #28 tabs 07/05/23 Unknown Rx clavulanate 125 mg tablet ciprofloxacin HCl 750 mg tablet 750 mg PO BID 2 weeks #28 tabs 07/25/23 Unknown Rx levofloxacin 500 mg tablet 500 mg PO DAILY 10 days #10 tabs 08/15/23 Unknown Rx doxycycline hyclate 100 mg capsule 100 mg PO BID 2 weeks #28 caps 09/05/23 Unknown Rx doxycycline hyclate 100 mg capsule 100 mg PO BID 2 weeks #28 caps 12/26/23 Unknown Rx Allergy/AdvReac Type Severity Reaction Status Date / Time No Known Allergies Allergy Verified 02/17/24 18:03 Family History Father Diabetes Heart disease Hyperlipidemia Mother Diabetes Surgical History Hx of total knee arthroplasty Hx of right cataract extraction History of eye surgery History of tonsillectomy History of arthroscopic knee surgery History of esophagogastroduodenoscopy (EGD) History of colonoscopy (~2008) History of cardiac catheterization (~2014) History of amputation of left great toe (~08/2018) Social History (Updated 02/17/24 @ 18:[address] Rico Wynn MD) household members: none Smoking Status: Former smoker quit date: 07/08/01 alcohol intake: former substance use type: does not use ROS ROS ED Constitutional Constitutional ED: Denies chills or fever(s) Eyes Eyes: Denies blurry vision or change in vision ENT ENT ED: Denies ear pain, rhinorrhea or sore throat Cardiovascular Cardiovascular: Denies chest pain or palpitations Respiratory/Chest Respiratory/Chest: Denies cough, dyspnea or dyspnea on exertion Gastrointestinal Gastrointestinal: Denies nausea or vomiting Musculoskeletal Musculoskeletal: Denies neck pain Integumentary Reports other Details: Partial thickness laceration 3 cm length scalp Neurologic Neurologic: Denies headache(s), paresthesias or weakness Hematologic/Lymphatic Hematologic/Lymphatic: Denies easy bleeding or easy bruising EXAM Physical Exam Const Vital Signs: 02/17/24 18:00 02/17/24 18:24 Temperature 98.5 F Temperature Source Oral Pulse Rate 85 Respiratory Rate 16 Respiratory Effort Normal Blood Pressure 137/59 H Blood Pressure Mean 85 Pulse Ox 98 Oxygen Delivery Method Room Air Positive well nourished and well developed General Appearance ED: well developed HEENT Reports TM's clear HEENT Narrative: Partial-thickness laceration 3 cm vertex of the scalp. There is question of viability of the tissue. There is no palpable pression. There is no bruising noted. trauma; Negative for tenderness Nose: Negative for septum abnormal Tympanic Membrane ED: Yes TM's clear Eyes PERRL and EOMs intact bilaterally General Eye ED: Yes other Other Details: There is no subconjunctival hemorrhage. Neck full ROM General: Negative for tenderness Chest Wall inspection of chest normal and palpation of chest normal Resp normal respiratory effort and clear to auscultation bilaterally Cardio regular rhythm, S1 normal heart sound, S2 normal heart sound and no murmurs Rate: regular rate Extremity normal to inspection and full ROM General Extremety ED: Negative for deformity or tenderness General Extremity: Negative for deformity Neuro oriented x3, CN's II-XII intact bilaterally, moves all extremities, no focal motor deficits, no sensory deficits noted and gait normal Neftali Coma Scale: document GCS findings Spontaneous Obeys Commands Oriented 15 Sensorium / Orientation: alert Motor Exam: strength 5/5 throughout Plantar Reflex: Downgoing: bilateral (There is no clonus at the ankles.) Psych mental status grossly normal and thought process normal Skin No skin turgor normal and no jaundice Skin Narrative: Partial thickness laceration previously described under the HEENT portion of the EMR MDM MDM MDM Narrative Medical decision making narrative: This patient does not recall exactly what happened and the fact he is on Plavix with head trauma will obtain CT of the head to evaluate intracranial bleed. He does meet criteria based on [place] CT head rule and [place] rule. C-spine was cleared per Nexus criteria. Tetanus is up-to-date. Will have nurse clean wound and apply appropriate dressing. Radiography Diagnostic Testing: Clinical Impression(s) from Imaging Studies Brain CT 02/17/24 18:11 IMPRESSION: There are no acute findings. Chronic involutional changes of the brain. Electronically Signed: Raymon Balbuena MD at 19:03 EST , CT of the head without contrast was reviewed by me at 1853. There is no evidence of intracranial bleed i.e. subdural hematoma, epidural hematoma, traumatic subarachnoid hemorrhage or intraparenchymal contusion. There is no evidence of fracture on the bone windows. There is no fluid noted in the sinuses. Awaiting formal read by radiologist. Treatment and Re-Evaluation Narrative: The report by radiologist was read. Since there is no acute findings will discharge to home with appropriate home-going instructions. Discharge Plan Triage Chief Complaint: Head Injury Other Complaint: Laceration ED Provider: Rico Wynn Dx/Rx/DC Orders Clinical Impression: Closed head injury, PAD (peripheral artery disease), Uncontrolled type 2 diabetes mellitus, Hypertension, Hyperlipidemia, Diabetic neuropathy, Antiplatelet or antithrombotic long-term use, Laceration of scalp Instructions: ED Head Injury (Adult), ED Laceration Superficial No Stitch Prescriptions: No Action triamcinolone acetonide 0.5 % cream 1 applic TOPICAL DAILY PRN (Reason: itching) meloxicam 15 mg tablet 15 mg PO DAILY Patient Comments: TAKE 1 TABLET BY MOUTH ONCE DAILY WITH FOOD FOR JOINT PAIN AND ARTHRITIS cholecalciferol (vitamin D3) 125 mcg (5,000 unit) capsule 125 mcg PO DAILY nortriptyline 50 mg capsule 50 mg PO QHS Patient Comments: TAKE 1 CAPSULE BY MOUTH ONCE DAILY AT BEDTIME sertraline 50 mg tablet 50 mg PO QHS Patient Comments: TAKE 1 TABLET BY MOUTH ONCE DAILY AT BEDTIME atorvastatin 10 mg tablet 10 mg PO QHS Patient Comments: TAKE 1 TABLET BY MOUTH ONCE DAILY AT BEDTIME FOR CHOLESTEROL aspirin 81 MG tablet,delayed release (DR/EC) 81 mg PO DAILY amlodipine 10 MG tablet 10 mg PO DAILY gabapentin 300 MG capsule 300 mg PO TID gabapentin 300 MG capsule 600 mg PO QHS losartan 100 MG tablet 100 mg PO DAILY magnesium oxide 400 MG capsule 400 mg PO DAILY metoprolol tartrate 100 MG tablet 100 mg PO BID metformin 850 MG tablet 850 mg PO TIDCM nitroglycerin 0.4 MG bottle 0.4 mg SUBLINGUAL PRN PRN (Reason: Pain) spironolactone 50 MG tablet 50 mg PO DAILY doxazosin 2 MG tablet 2 mg PO QHS Patient Comments: TAKE ONE TABLET AT BEDTIME insulin glargine 100 unit/mL (3 mL) insulin pen 20 unit subcut QHS docusate sodium 100 mg capsule 200 mg PO QHS insulin lispro 100 UNIT/ML insulin pen See Protocol SQ [facility] Protocol: 3. Sliding Scale Insulin Med Dosing Condition: 150-189 mg/dl = 1 unit Condition: 190-229 mg/dl = 2 units Condition: 230-269 mg/dl = 3 units Condition: 270-309 mg/dl = 4 units Condition: 310-349 mg/dl = 5 units Condition: 350-399 mg/dl = 6 units Condition: 400-449 mg/dl = 7 units Condition: Greater than 449 call physician Protocol Text: - Use for Total Daily Dose of Insulin 37-55 units - Obsese, infected, or steroid patients MEDIUM DOSING ALGORITHIM loratadine 10 MG capsule 10 mg PO DAILY multivitamin [Daily Multi-Vitamin] Tablet 1 tab PO DAILY omega 3-yxi-xvo-fish oil [Fish Oil] 300-1,000 mg capsule,delayed release(DR/EC) 2 cap PO DAILY clopidogrel 75 mg tablet 75 mg PO QHS amoxicillin-pot clavulanate 875-125 mg tablet 1 tab PO Q12H 14 Days Qty: 28 0RF ciprofloxacin HCl 750 mg tablet 750 mg PO BID 14 Days Qty: 28 0RF levofloxacin 500 mg tablet 500 mg PO DAILY 10 Days Qty: 10 0RF doxycycline hyclate 100 mg capsule 100 mg PO BID 14 Days Qty: 28 0RF doxycycline hyclate 100 mg capsule 100 mg PO BID 14 Days Qty: 28 0RF Primary Care Provider: Edward Mcgovern Referrals: Edward Mcgovern, DO [Primary Care Provider] - As Needed Activity Restrictions/Additional Instructions: 1. Apply bacitracin ointment 2-3 times a day to your scalp wound 2. If there is any concern for infection see your doctor or return to the emergency department Print Language: Omani Disposition Disposition: Home, Self Care
[2024-02-17 19:23] VITALS: BP 145/60; PULSE 86; RESP 18; TEMP 36.6; O2SAT 96
== END 2024-02-17 19:24 | disposition home or self-care (01) ==
PROVIDERS: Emergency Provider Emergency Medicine; PCP Student in an Organized Health Care Education/Training Program; Visit Provider Emergency Medicine
DX: S01.01XA Laceration without foreign body of scalp, initial encounter (principal); E11.22 Type 2 diabetes mellitus with diabetic chronic kidney disease; E11.42 Type 2 diabetes mellitus with diabetic polyneuropathy; E11.51 Type 2 diabetes mellitus with diabetic peripheral angiopathy without gangrene; N18.30 Chronic kidney disease, stage 3 unspecified; Z87.891 Personal history of nicotine dependence; E78.5 Hyperlipidemia, unspecified; Z79.02 Long term (current) use of antithrombotics/antiplatelets; I12.9 Hypertensive chronic kidney disease with stage 1 through stage 4 chronic kidney disease, or unspecified chronic kidney disease; K21.9 Gastro-esophageal reflux disease without esophagitis; W19.XXXA Unspecified fall, initial encounter
CPT/HCPCS: 70450; 99283

== ENCOUNTER 2024-04-03 06:06 | Day surgery (SDC) | payer MEDICARE, OTHER, SELFPAY ==
[2024-04-03 06:42] VITALS: BP 112/52; PULSE 66; RESP 16; TEMP 36.6; O2SAT 98; BMI 36.4
[2024-04-03 07:16] LABS: Bedside Glucose 206 mg/dL (74-106)
--- NOTE | 2024-04-03 07:22 | RAD_ITS ---
STUDY: X-RAY - RIGHT FOREFOOT CLINICAL: Male, 68 years old. Tenolysis of the extensor longus tendon of the right foot, incision of the bone cortex. TECHNIQUE: Single spot film view of the right forefoot, 0.0220 mGy, 5 seconds fluoro COMPARISON: Right forefoot spot film dated 06/22/2023. FINDINGS: There is stable mild degenerative arthrosis of the first MTP joint. There is new cortical irregularity along the previously resected distal surface of the first proximal phalangeal head. Intact distal phalanx of the great toe. RAD/Foot 2 Views IMPRESSION: Image guidance for right foot procedure. New cortical irregularity along the previously resected distal surface of the first proximal phalangeal head. Electronically Signed: Aurelio Thomas MD at 9:24 EST ,
--- NOTE | 2024-04-03 07:30 | BON_PTH ---
PATIENT: BOB REDDING LOC: [facility] [place] U#:[id number] AGE/SX: 68/M ROOM: RE04/03/[address]: Dr. Gerry Ontiveros DPM : 1955 BED: DIS: 04/03/2024 SPEC #: [id number] RECD: 04/03/24 08:53 STATUS: BEE REQ #: [id number] ALISON: 04/03/24 07:[address]: Gerry Ontiveros DEPT: SURGICAL PATHOLOGY RECD BY: Haley Liz ENTERED: 04/03/24 10:50 SP TYPE: Bone OTHR DR: Dr. Edward Mgcovern, DO Tissues: Bone of foot, NOS Procedures: Decalcification bone/plaque Surgery Specimen Level IV HEADER OPERATION: Teno lysis of extensor longus tendon of right foot PRE-OP DIAGNOSIS: Contracture of foot and osteomyelitis TISSUE SUBMITTED: Bone cortex second toe, right MICROSCOPIC DIAGNOSIS Bone cortex second toe, right, excision: A piece of bone with acute and chronic osteomyelitis and reactive changes. 04/07/2024 COMMENT Correlation with clinical findings and appropriate follow up are necessary. MICROSCOPIC DESCRIPTION Slides are reviewed. GROSS DESCRIPTION Received in fixative is one container labeled with the patient's name and designated Bone cortex of right second toe. The specimen consists of a piece of bone measuring 1.0 x 0.8 x 0.6cm. The entire specimen is submitted in one cassette after decalcification. 04/03/2024 TC:2 CPT:28067,98512
[2024-04-03 07:31] VITALS: BP 107/50; BP 117/52; BP 118/52; BP 119/54; BP 120/54; BP 121/51; BP 123/60; BP 124/56; BP 126/54; O2SAT 100; O2SAT 93; O2SAT 94; O2SAT 96; O2SAT 97; O2SAT 98
[2024-04-03] MEDS: Cefazolin 2 GM in Syringe IV (07:37)
[2024-04-03] MEDS: Bupivacaine Mpf 0.5% 30 ML VIAL (07:44)
--- NOTE | 2024-04-03 08:25 | PCM.OPRPT ---
Problems Associated Problem List Diagnoses (1) Contracture, right foot: (2) Acute osteomyelitis of phalanx of right foot: (3) Non-pressure chronic ulcer of other part of right foot with fat layer exposed: Operative Report (Standard) Operative Information Date of Procedure: 04/03/24 Pre-Operative Diagnosis: 1. Contracture of foot, hallux, right foot 2. Acute osteomyelitis, second digit, right foot 3. Full-thickness ulceration, second digit, right foot Post-Operative Diagnosis: Same as preoperative diagnosis Surgery/Procedure Performed: 1. Tenolysis of extensor hallucis longus tendon, right foot 2. Incision bone cortex, second digit, right foot 3. 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 Type of Anesthesia: Local RN Documented Start/Stop Times: Operation Date: 04/03/24 07:30 Case Time Into Pre-Op 04/03/24 06:13 Out of Pre-Op 04/03/24 07:21 Into Room 04/03/24 07:24 Procedure Start 04/03/24 07:44 Procedure End 04/03/24 08:11 Into Phase II Recovery 04/03/24 08:16 Out of Room 04/03/24 08:21 Out of Phase II 04/03/24 08:54 Procedure Start Time: 07:44 Procedure Stop Time: 08:11 Select all DRAINS/GRAFTS/IMPLANTS that apply: Graft Graft details: 1 cc via flow Special Medications: Per anesthesia Estimated Blood Loss: 15 cc Fluids Replaced: Per anesthesia Specimen collected: Yes Description of specimen(s) removed: Incision of bone cortex, second digit, right foot Description of surgery: Indications For Operation: Mr. Matta is a 68-year-old diabetic male who is well-known to my clinic who was admitted to [facility] for right foot surgery consisting of tenolysis of extensor hallucis longus tendon, incision bone cortex and advancement flap closure to the right foot. Patient is well-known to my clinic and has had multiple outpatient visits with excisional debridement to the full-thickness wound to the distal aspect of the second digit. Due to the patient having neuropathy and being a diabetic the patient developed bone infection when he missed multiple follow-up treatment secondary to not having a ride to the office. Once we established more routine care the wound was improving but in office radiograph showed evidence of destruction of the cortex of the distal phalanx concerning for osteomyelitis. Educated the patient on his condition and recommended treatment which she was agreeable to. Chart review and consent was signed with all risk and benefits discussed with the patient great detail. Due to concern of bone infection and delayed healing to the full-thickness wound to the second digit as well as contracture of the right foot at the level of the hallux it was deemed necessary at this time to take patient operating room to perform the above procedure to help heal his foot of bone infection and relieve his constant pain. The nature of the problem, anticipated procedures, postop recovery/convalences and risk/complications include but not limited to infection, wound healing complications, digital amputation, hypertrophic scarring, numbness, tingling, chronic pain, CRPS, over and under correction, recurrence of deformity, DVT and or PE and the need for further surgery have been discussed in great detail with the patient. All questions have been answered to the patient's satisfaction. There are no guarantees given as to the outcome of the procedure. Description of Procedure: Under mild sedation, the patient was brought into the operating room and placed on the operating table in supine position. This was a local case and 20 cc of 0.5% Marcaine pain were administered to the right hallux and second digit without incident. Next, the right lower extremity was prepped and draped in normal aseptic manner. Next, a timeout was then undertaken verifying the correct patient, extremity, visibility of preoperative markings, availability of the equipment. Next, a toe turnicot was applied to the second digit of the right foot. Procedure #1: Tenolysis of extensor hallucis longus tendon, right foot (CPT code: 43149) Next, anesthesia was confirmed. Next using a Refugio handle and 69 blade a small percutaneous incision was applied over the first metatarsophalangeal joint and extensor hallucis longus tendon. Tenolysis of the tendon was performed and release of the contracture of the hallux was noted on the operating room table. A capsulotomy was also performed through the same incision releasing the contracture additionally around the first metatarsophalangeal joint of the right foot. The patient was asked during the procedure to put his foot through a range of motion and the patient was unable to dorsiflex his great toe at that time. The incision was flushed with copious normal saline. An incision was reapproximated closed using 4-0 nylon in simple interrupted suture technique. Procedure #2: Incision bone cortex, second digit, right foot (CPT code: 41150?T6) Next, attention was directed to the right second digit. Using a sterile skin marker a trapdoor incision was marked out. Using a #15 blade a full-thickness incision down to bone was performed along the skin marker drawing. The dorsal aspect of the skin along with the nail was removed and passed back table to be discarded. Next, incision of bone cortex of the distal phalanx was performed removing the distal phalanx and total which was also passed the back table to be sent off for half to pathology and the other half to microbiology for culture and sensitivity. Prior to the distal phalanx or showed evidence of periosteal reaction and lytic changes to the distal phalanx concerning for osteomyelitis. The incision was flushed with copious normal saline. Procedure #3: Advancement flap closure, second digit, right foot (CPT code: 32641?T6) Next, attention was redirected back to the second digit of the right foot. Undermining of the adjacent tissue was performed to allow for advancement flap type closure. Once the flap was in place the deep layer was reapproximated closed using 4-0 Monocryl in buried suture technique. The turnicot was removed and reperfusion was noted instantly to the second digit of the right foot. The skin was reapproximated and closed using 4-0 nylon in simple interrupted suture technique. The right lower extremities were cleaned and patted dry. All incisions were dressed with Betadine soaked Adaptic, dry sterile dressing and a single layer Brantley compression bandage was donned to the right lower extremity. The patient tolerated the procedure and anesthesia well and apparent satisfactory condition and was transported to the PACU for further monitoring prior to discharge home. Vital signs stable and vascular status intact to all digits bilateral. Post Operative Plan: Weightbearing: Partial weightbearing to heel with surgical shoe right foot. Full weightbearing diabetic shoe left foot Antibiotics: 2 g Ancef through the IV DVT Prophylaxis: Plavix Callejas: None Dressing: Betadine soaked Adaptic dry sterile dressing, single layer Brantley compression bandage X-Rays: Post-operative films taken on the operating room. Pain Medication: Percocet 5/325 Follow-up: Patient will follow-up at his already scheduled appointment in approximately 1 week to 10 days in private office. Surgical Findings: Evidence of osteolysis appreciated to the distal phalanx of the second digit with complete removal of the infected bone, second digit, right foot Complications Complications: No Admit VTE Documentation VTE Present on Admission: No VTE Mechan Device Prophylaxis: SCD's VTE Pharm Prophylaxis ordered?: Yes
[2024-04-03 08:40] VITALS: BP 112/52; BP 126/56; PULSE 65; RESP 16; TEMP 36.3; O2SAT 98
== END 2024-04-03 08:54 | disposition home or self-care (01) ==
LOC: SDC 06:09 → AC 07:14
PROVIDERS: PCP Student in an Organized Health Care Education/Training Program; Referring Provider Podiatrist Foot & Ankle Surgery; Visit Provider Podiatrist Foot & Ankle Surgery
PROC: (CPT 28225; principal; 2024-04-03 07:15)
DX: M24.574 Contracture, right foot (principal); E11.621 Type 2 diabetes mellitus with foot ulcer; L97.512 Non-pressure chronic ulcer of other part of right foot with fat layer exposed; M86.171 Other acute osteomyelitis, right ankle and foot; M86.671 Other chronic osteomyelitis, right ankle and foot; E11.69 Type 2 diabetes mellitus with other specified complication; E11.51 Type 2 diabetes mellitus with diabetic peripheral angiopathy without gangrene; E11.42 Type 2 diabetes mellitus with diabetic polyneuropathy; Z79.4 Long term (current) use of insulin; I10 Essential (primary) hypertension; Z79.02 Long term (current) use of antithrombotics/antiplatelets; Z79.899 Other long term (current) drug therapy; Z87.891 Personal history of nicotine dependence
CPT/HCPCS: 28225; 28005; 14040; 73620; 76000; 82962; 87070; 87075; 87205; 88305; 88311; A4216

== ENCOUNTER → 2025-02-17 | Outpatient (CLI) | payer MEDICARE, OTHER, SELFPAY | END | disposition home or self-care (01) | LOC: LABSPEC 17:45 | PROVIDERS: PCP Student in an Organized Health Care Education/Training Program; Referring Provider Podiatrist Foot & Ankle Surgery; Visit Provider Podiatrist Foot & Ankle Surgery | DX: L97.522 Non-pressure chronic ulcer of other part of left foot with fat layer exposed (principal) | CPT/HCPCS: 87070; 87075; 87077; 87186; 87205 ==

== ENCOUNTER 2025-02-26 15:08 | Emergency (ER) | payer MEDICARE, OTHER, SELFPAY ==
[2025-02-26] VITALS (7 sets, daily range): BP systolic 107–137; BP diastolic 44–61; PULSE 72–80; RESP 12–22; TEMP 36.6–37.1; O2SAT 95–100; BMI 36.4
--- NOTE | 2025-02-26 15:33 | EKG12_ITS ---
Test Reason : WOUND Blood Pressure : */* mmHG Vent. Rate : 73 BPM Atrial Rate : 73 BPM P-R Int : 222 ms QRS Dur : 100 ms QT Int : 374 ms P-R-T Axes : 36 62 74 degrees QTcB Int : 412 ms Sinus rhythm with 1st degree A-V block Poor R-wave progression ; consider anterior infarct, lead placement, or normal variant Abnormal ECG Confirmed by BISHOP ARMSTRONG, ANDRIA ([id number]), photograph editor RICO ROUSSEAU ([id number]) on 03/02/2025 8:36:17 AM Referred By: Confirmed By: ANDRIA ALAS MD
--- NOTE | 2025-02-26 15:36 | EX.ED.DYSGE1 ---
HPI History of Present Illness Chief Complaint: Wound Check Narrative Narrative: Patient is a 69-year-old male presenting to the emergency department after being seen at the feed management advisor earlier today. The patient was there for a follow-up on his left foot. He has chronic wounds on his toes that are left on the left foot. These are being managed by a feed management advisor. States he just finished antibiotics yesterday. He has a past medical history of peripheral arterial disease, diabetic neuropathy, HTN, HLD, DM2, LVH, osteomyelitis of left foot s/p amputations of the great toe and fifth toe. Reportedly the doctor did not think that he "looked good" and was concerned because he had recent cardiac stents placed at [facility] a few weeks ago. Patient states that he feels well otherwise he reports some mild dyspnea with ambulation but not at rest. States this started after stent placement. He denies any chest pain. Denies any diaphoresis, nausea, vomiting, abdominal pain. [facility] Medical History (Updated 02/26/25 @ 18:[address] Bess Portillo MD) MRSA (methicillin resistant staph aureus) culture positive Loss of hearing Wears glasses Wears dentures Open wound Insulin dependent diabetes mellitus Ambulates with cane Arthritis Prostate disease Bladder disease Back pain Dietary restriction Former smoker Neuropathy History of pain when walking History of echocardiogram History of stress test Vitamin D deficiency LVH (left ventricular hypertrophy) Hearing loss of both ears Tinnitus aurium Polyneuropathy in diabetes Arthritis Hepatitis C virus infection without hepatic coma Primary osteoarthritis of both knees GERD (gastroesophageal reflux disease) CKD (chronic kidney disease) stage 3, GFR 30-59 ml/min Iron deficiency anemia Unspecified constipation Depression hx of APLL Candidiasis PAD (peripheral artery disease) Tachycardia Carotid stenosis, bilateral ASVD (arteriosclerotic vascular disease) Gangrene of toe of left foot Diabetic neuropathy Hyperlipidemia Hypertension Uncontrolled type 2 diabetes mellitus Toe osteomyelitis, left Infected neuropathic ulcer Home Medications Medication Instructions Recorded Last Taken Type amlodipine 10 mg tablet 10 mg PO DAILY blood pressure 08/19/18 04/03/24 History doxazosin 2 mg tablet 2 mg PO QHS prostate 08/19/18 02/25/25 History gabapentin 300 mg capsule 300 mg PO TID neuropathy 08/19/18 10/24/18 06:00 History losartan 100 mg tablet 100 mg PO DAILY blood pressure 08/19/18 06/21/23 History magnesium oxide 400 mg PO DAILY supplement 08/19/18 06/21/23 History metformin 850 mg tablet 850 mg PO TIDCM diabetes 08/19/18 06/21/23 History metoprolol tartrate 100 mg tablet 100 mg PO BID blood pressure 08/19/18 06/21/23 History spironolactone 50 mg tablet 50 mg PO DAILY hypertension 08/19/18 06/21/23 History loratadine 10 mg capsule 10 mg PO DAILY 04/07/19 06/21/23 History meloxicam 15 mg tablet 15 mg PO DAILY 01/30/20 06/21/23 History atorvastatin 10 mg tablet 10 mg PO QHS 10/30/22 06/21/23 History Held on 02/26/25. Instructions: Order Changed cholecalciferol (vitamin D3) 125 125 mcg PO DAILY 10/30/22 06/21/23 History mcg (5,000 unit) capsule Held on 02/26/25. Instructions: not sure of current meds docusate sodium 100 mg capsule 200 mg PO QHS bowels 10/30/22 06/21/23 History insulin glargine 100 unit/mL (3 20 unit subcut QHS diabetes 10/30/22 06/21/23 History mL) subcutaneous pen 20 units nortriptyline 50 mg capsule 50 mg PO QHS 10/30/22 06/21/23 History sertraline 50 mg tablet 50 mg PO QHS 10/30/22 06/21/23 History clopidogrel 75 mg tablet 75 mg PO QHS 06/12/23 06/21/23 History multivitamin (Daily Multi-Vitamin 1 tab PO DAILY 06/12/23 06/21/23 History tablet) omega 1-zil-dmq-fish oil 300 2 cap PO DAILY 06/12/23 06/21/23 History mg-1,000 mg capsule,delayed release (Fish Oil) ciprofloxacin HCl 750 mg tablet 750 mg PO BID 2 weeks #28 tabs 07/25/23 Unknown Rx Held on 02/26/25. 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 Instructions: pt didnt pivk up ascorbic acid (vitamin C) 1,000 mg 1 g PO DAILY 90 days #90 tabs 04/03/24 Unknown Rx tablet (Vitamin C) calcium 500 mg (as 1 tab PO DAILY 90 days #90 tabs 04/03/24 Unknown Rx carbonate)-vitamin D3 15 mcg (600 unit) tablet (Os-Emory 500 + D3) apixaban 5 mg tablet (Eliquis) 5 mg PO BID 02/26/25 02/26/25 History cyanocobalamin (vitamin B-12) 1,000 mcg PO DAILY 02/26/25 Unknown History 1,000 mcg tablet isosorbide mononitrate 60 mg 60 mg PO DAILY 02/26/25 Unknown History tablet,extended release 24 hr pantoprazole 40 mg tablet,delayed 40 mg PO DAILY 02/26/25 Unknown History release rosuvastatin 20 mg tablet 20 mg PO DAILY 02/26/25 Unknown History semaglutide subcut LAGUERRE 02/26/25 Unknown History spironolactone 25 mg tablet 25 mg PO DAILY 02/26/25 Unknown History Allergy/AdvReac Type Severity Reaction Status Date / Time No Known Allergies Allergy Verified 02/26/25 15:10 Family History Father Diabetes Heart disease Hyperlipidemia Mother Diabetes Surgical History Hx of total knee arthroplasty Hx of right cataract extraction History of eye surgery History of tonsillectomy History of arthroscopic knee surgery History of esophagogastroduodenoscopy (EGD) History of colonoscopy (~2008) History of cardiac catheterization (~2014) History of amputation of left great toe (~08/2018) Social History household members: none Smoking Status: Former smoker quit date: 07/08/01 alcohol intake: former substance use type: does not use ROS ROS ED ROS Narrative See HPI EXAM Physical Exam Narrative Exam Narrative: Vital signs: Reviewed General: Alert and oriented x 3. No acute distress HEENT: Head is normocephalic and atraumatic, sinuses nontender, pupils equal round and reactive. Nares are patent. Oropharynx and throat exams normal. Neck: Supple without lymphadenopathy nontender Cardiovascular: Regular rate and rhythm, no murmurs. No rubs or gallops. Normal S1 and S2 Respiratory: Clear to auscultation bilaterally. No wheezes, rales, rhonchi Abdominal: Soft and nontender. Normal bowel sounds. No guarding or rebound. Nonsurgical abdomen Extremities: No lower extremity edema. No tenderness. No bruising. Normal range of motion. Amputations of left great toe and fifth left toe. 2nd through 4th toes with chronic wounds between toes. No warmth, significant erythema or drainage to suspect acute infection. Left DP pulse not palpable. DP dopplered easily. Foot is warm to the touch, normal color. Decreased sensation which patient states is normal. Neurological: Cranial nerves II through XII are grossly intact. Normal strength and sensation. Normal cerebellar function The rest of the physical exam is unremarkable Const Vital Signs: 02/26/25 15:11 02/26/25 15:14 02/26/25 16:14 Temperature 98.7 F 98.7 F 98.7 F Temperature Source Oral Oral Oral Pulse Rate 80 80 72 Respiratory Rate 18 18 13 Blood Pressure 110/52 L 110/52 L 107/48 L Blood Pressure Mean 71 71 67 Pulse Ox 100 100 100 Oxygen Delivery Method Room Air Room Air Room Air 02/26/25 17:00 02/26/25 18:00 02/26/25 18:59 Temperature 98.7 F 98.7 F 97.9 F Temperature Source Oral Oral Pulse Rate 74 72 74 Respiratory Rate 12 16 22 H Blood Pressure 137/44 H 118/46 L 114/61 Blood Pressure Mean 75 70 78 Pulse Ox 95 96 99 Oxygen Delivery Method Room Air Room Air MDM MDM MDM Narrative Medical decision making narrative: Patient is a 69-year-old male presenting to the emergency department for dyspnea. Patient was seen and examined. Vitals are stable. Patient resting in bed comfortably. No acute distress. Differential includes but is not limited to: ACS, PE, pneumonia, pleural effusions, CHF. Patient states that he has chronic wounds on his feet. After discussion with physician that took Dr. Ontiveros call, it was determined that he was sent here to rule out cardiac causes of his dyspnea. Not sent here for his chronic wounds which do not look acutely infected and he has good dopplered pulses on exam. EKG shows NSR with 1st degree AV block. No ischemic changes noted. CBC with no leukocytosis and acute on chronic anemia of 8.8, last baseline to compare to was in 2022. BMP with mildly elevated BUN of 29 which is baseline. Troponin initial of 20 and reflex of 25, no significant delta change. BNP mildly elevated at 2785. Again no baseline to compare to. D dimer elevated, CTA chest ordered to evaluate for PE. This shows no pulmonary embolism. Mild atherosclerosis and coronary artery calcifications. Borderline mediastinal lymph nodes up to 1.1 cm. Right lower lobe 12 mm solid nodule and two ground glass nodules measuring 10 mm and 7 mm. Per Fleischner Society guidelines, a solid nodule of this size warrants dedicated follow up chest CT at 3 months to assess persistence. No acute airspace disease. Patient ambulated with pulse ox, saturating well at 97-98%, no significant dyspnea. Updated patient on lab and imaging findings. I recommended that he follow-up for a repeat CT in 3 months to assess the lung nodules. Also recommended that he follow-up with his skein drier to complete the stent for outpatient echo. I have no recent access to his charts for his recent cath or if he had a recent ECHO. Has no signs of fluid overload on exam or CT imaging of the chest. Patient discharged from the Emergency Department. I do not feel that the patient's evaluation reveals any acute reason for admission at this time. I instructed them to either follow-up with their primary care physician or promptly return to the Emergency Department for reevaluation should symptoms worsen or new symptoms develop. I explained what symptoms would indicate the need to return to the emergency department. Shared decision making was used. The patient voiced understanding of the treatment plan and is agreeable with it. Clinical impression: Dyspnea History & Record Review Discussion w/independent historian: Patient Lab Data Attestation: I reviewed the patient's lab results. Labs: Laboratory Results - last 24 hr 02/26/25 02/26/25 15:45 17:40 WBC 7.4 RBC 3.40 L Hgb 8.8 L Hct 28.0 L MCV 82.4 MCH 25.9 L MCHC 31.4 L RDW Std Deviation 49.6 H RDW Coeff of Sugar 16.6 H Plt Count 256 MPV 8.6 Immature Gran % (Auto) 0.300 Neut % (Auto) 85.7 H Lymph % (Auto) 7.5 L [place] % (Auto) 4.8 Eos % (Auto) 1.3 Baso % (Auto) 0.4 Absolute Neuts (auto) 6.4 Absolute Lymphs (auto) 0.56 L Nucleated RBC % 0 D-Dimer Quant (PE/DVT) 0.87 H* Sodium 134 Potassium 4.7 Chloride 100 Carbon Dioxide 20.3 L Anion Gap 14 BUN 29 H Creatinine 1.14 Estim Creat Clear Calc 71.06 Est GFR (MDRD) Non-Af 69 BUN/Creatinine Ratio 25.4 H Glucose 101 H Calcium 9.2 Troponin T High Sens 28 H Troponin T Hi Sens 2 Hr 25 H NT pro BNP II 2785 H Radiography Diagnostic Testing: Clinical Impression(s) from Imaging Studies Chest CTA 02/26/25 17:08 IMPRESSION: No pulmonary embolism. Mild atherosclerosis and coronary artery calcifications. Borderline mediastinal lymph nodes up to 1.1 cm. Right lower lobe 12 mm solid nodule and two ground glass nodules measuring 10 mm and 7 mm. Per Fleischner Society guidelines, a solid nodule of this size warrants dedicated follow up chest CT at 3 months to assess persistence. No acute airspace disease. Reading Location: [facility] Discharge Plan Triage Chief Complaint: Wound Check ED Provider: Bess Portillo Dx/Rx/DC Orders Clinical Impression: Incidental lung nodule, Dyspnea, Elevated brain natriuretic peptide (BNP) level Instructions: ED Dyspnea, ED Wound Check (No Infection) Prescriptions: No Action meloxicam 15 mg tablet 15 mg PO DAILY Patient Comments: TAKE 1 TABLET BY MOUTH ONCE DAILY WITH FOOD FOR JOINT PAIN AND ARTHRITIS cholecalciferol (vitamin D3) 125 mcg (5,000 unit) capsule 125 mcg PO DAILY nortriptyline 50 mg capsule 50 mg PO QHS Patient Comments: TAKE 1 CAPSULE BY MOUTH ONCE DAILY AT BEDTIME sertraline 50 mg tablet 50 mg PO QHS Patient Comments: TAKE 1 TABLET BY MOUTH ONCE DAILY AT BEDTIME atorvastatin 10 mg tablet 10 mg PO QHS Patient Comments: TAKE 1 TABLET BY MOUTH ONCE DAILY AT BEDTIME FOR CHOLESTEROL amlodipine 10 MG tablet 10 mg PO DAILY gabapentin 300 MG capsule 300 mg PO TID losartan 100 MG tablet 100 mg PO DAILY magnesium oxide 400 MG capsule 400 mg PO DAILY metoprolol tartrate 100 MG tablet 100 mg PO BID metformin 850 MG tablet 850 mg PO TIDCM spironolactone 50 MG tablet 50 mg PO DAILY Patient Comments: NOT SURE ON DOSING doxazosin 2 MG tablet 2 mg PO QHS Patient Comments: TAKE ONE TABLET AT BEDTIME insulin glargine 100 unit/mL (3 mL) insulin pen 20 unit subcut QHS docusate sodium 100 mg capsule 200 mg PO QHS loratadine 10 MG capsule 10 mg PO DAILY multivitamin [Daily Multi-Vitamin] Tablet 1 tab PO DAILY omega 2-cew-pqn-fish oil [Fish Oil] 300-1,000 mg capsule,delayed release(DR/EC) 2 cap PO DAILY clopidogrel 75 mg tablet 75 mg PO QHS ciprofloxacin HCl 750 mg tablet 750 mg PO BID 14 Days Qty: 28 0RF doxycycline hyclate 100 mg capsule 100 mg PO BID 14 Days Qty: 28 0RF calcium carbonate-vitamin D3 [Os-Emory 500 + D3] 500 mg-15 mcg (600 unit) tablet 1 tab PO DAILY 90 Days Qty: 90 0RF ascorbic acid (vitamin C) [Vitamin C] 1,000 mg tablet 1 g PO DAILY 90 Days Qty: 90 0RF cyanocobalamin (vitamin B-12) 1,000 mcg tablet 1,000 mcg PO DAILY spironolactone 25 mg tablet 25 mg PO DAILY Patient Comments: NOT SURE ON DOSING isosorbide mononitrate 60 mg tablet extended release 24 hr 60 mg PO DAILY Patient Comments: NOT SURE IF TAKING pantoprazole 40 mg tablet,delayed release (DR/EC) 40 mg PO DAILY rosuvastatin 20 mg tablet 20 mg PO DAILY Patient Comments: NOT SURE IF TAKING THIS OR LIPITOR Eliquis 5 mg tablet 5 mg PO BID semaglutide [Ozempic] subcut LAGUERRE Primary Care Provider: Edward Mcgovern Referrals: Your skein drier [Other] - As soon as possible Edward Mcgovern, [Primary Care Provider, Medical] - As soon as possible Referral Note: Needs CT chest in 3 months for follow up on lung nodules. Gerry Ontiveros DPM [Med Staff - Active Staff, Podiatry] - As soon as possible Activity Restrictions/Additional Instructions: Please follow-up with your skein drier that completed your heart cath soon as possible. I would recommend you have a outpatient ultrasound (echo) of your heart done. Follow-up with your foot doctor/feed management advisor as soon as possible. Your foot does not look infected. Need to follow-up with your primary care doctor for a repeat CT in 3 months for the incidental lung nodules. I attached the radiology report as below: Right lower lobe 12 mm solid nodule and two ground glass nodules measuring 10 mm and 7 mm. Per Fleischner Society guidelines, a solid nodule of this size warrants dedicated follow up chest CT at 3 months to assess persistence. Print Language: Iraqi Disposition Disposition: Home, Self Care Discharge Date/Time: 02/26/25 19:00
[2025-02-26 15:53] LABS: Hematocrit 28.0 % (40-54); Hemoglobin 8.8 g/dL (13.0-16.5); Immature Granulocytes Count 0.020 X10^3/uL (0.0-0.0); Mean Corp Hgb Conc 31.4 g/dL (32-36); Mean Corpuscular Volume 82.4 fL (80-94); Mean Platelet Vol. 8.6 fl (6.2-12.0); NRBC Flagged by Analyzer 0 % (0-5); POSITIVE DIFFERENTIAL YES; Platelet Count 256 K/mm3 (150-450); RBC Distribution Width CV 16.6 % (11.6-14.6); RBC Distribution Width SD 49.6 fl (35.1-43.9); Red Blood Count 3.40 M/mm3 (4.6-6.2); White Blood Count 7.4 K/mm3 (4.4-11.0)
[2025-02-26 16:43] LABS: Anion Gap 14 (5-15); BUN 29 mg/dL (4-19); BUN/Creat Ratio 25.4 RATIO (10-20); Calcium,Total 9.2 mg/dL (7.6-11.0); Carbon Dioxide 20.3 mmol/L (21.0-32.0); Chloride 100 mmol/L (98-108); Estimated Creatinine Clearance 71.06 ml/min (50-250); Glucose 101 mg/dL (70-99); Potassium 4.7 mmol/L (3.3-5.1); Pro- Brain NATRIURETIC PEPTIDE 2785 pg/mL (<=900); Troponin T High Sensitivity 28 ng/L (<=22)
[2025-02-26 17:07] LABS: D-Dimer Quantitative (DVT/PE) 0.87 FEU/ug/m (0.27-0.49)
--- NOTE | 2025-02-26 17:08 | CT_ITS ---
PROCEDURE: CTA CHEST W/WO CONTRAST 02/26/2025 REASON FOR EXAM: ELEVATED DDIMER, SOB TECHNIQUE: Procedure Code: [id number] Modality: CT Procedure: CTA CHEST W/WO CONTRAST Multiplanar Sagittal and Coronal images were obtained. CONTRAST: Isovue 370 VOLUME: 100 mL One or more dose reduction techniques were used (e.g., Automated exposure control, adjustment of the mA and/or kV according to patient size, use of iterative reconstruction technique). RADIATION DOSE SUMMARY: CTDlvol: 14+ 15 mGy DLP: 479 mGycm FINDINGS: The peripheral soft tissues are unremarkable. Degenerative changes of the spine. Mild atherosclerosis. Normal caliber thoracic aorta. Coronary artery calcifications are present. Aortic or pulmonary lymph node which measures 1.1 cm in short axis diameter. Subcarinal lymph node which measures 1.0 cm in short axis diameter. No pericardial effusion. No pulmonary artery filling defects. Right lower lobe 12 mm pulmonary nodule (series 2, image 76 of 230). Right lower lobe 10 mm ground-glass nodule (series 2, image 91 of 230). Right lower lobe 7 mm ground-glass nodule (series 2, image 91 of 230 scattered bilateral mild scarring. CT/CTA Chest W/WO Contrast IMPRESSION: No pulmonary embolism. Mild atherosclerosis and coronary artery calcifications. Borderline mediastinal lymph nodes up to 1.1 cm. Right lower lobe 12 mm solid nodule and two ground glass nodules measuring 10 m m and 7 mm. Per Fleischner Society guidelines, a solid nodule of this size warrants dedicated follow up chest CT at 3 months to assess persistence. No acute airspace disease. Reading Location: [id number]
[2025-02-26 18:21] LABS: Troponin T High Sens 2 HR 25 ng/L (<=22)
== END 2025-02-26 19:00 | disposition home or self-care (01) ==
PROVIDERS: Emergency Provider Student in an Organized Health Care Education/Training Program; PCP Student in an Organized Health Care Education/Training Program; Visit Provider Student in an Organized Health Care Education/Training Program
DX: R91.1 Solitary pulmonary nodule (principal); E11.22 Type 2 diabetes mellitus with diabetic chronic kidney disease; N18.30 Chronic kidney disease, stage 3 unspecified; R06.00 Dyspnea, unspecified; Z95.5 Presence of coronary angioplasty implant and graft; E78.5 Hyperlipidemia, unspecified; I12.9 Hypertensive chronic kidney disease with stage 1 through stage 4 chronic kidney disease, or unspecified chronic kidney disease; Z87.891 Personal history of nicotine dependence; K21.9 Gastro-esophageal reflux disease without esophagitis; Z79.899 Other long term (current) drug therapy; Z79.01 Long term (current) use of anticoagulants; Z79.85 Long-term (current) use of injectable non-insulin antidiabetic drugs; I25.10 Atherosclerotic heart disease of native coronary artery without angina pectoris; Z89.412 Acquired absence of left great toe; Z89.422 Acquired absence of other left toe(s)
CPT/HCPCS: 71275; 80048; 83880; 84484; 85025; 85379; 93005; 99285; Q9967; A4216